=== PATIENT | female | born 1975 | race Caucasian/White ===

== ENCOUNTER → 2020-02-10 14:37 | Outpatient (BNV) | payer OTHER, SELFPAY | PROVIDERS: PCP Internal Medicine; Visit Provider Internal Medicine Medical Oncology | DX: D50.0 Iron deficiency anemia secondary to blood loss (chronic) (principal); N92.0 Excessive and frequent menstruation with regular cycle | CPT/HCPCS: 99212; 99213; 99214 ==

== ENCOUNTER 2020-02-18 15:03 | Outpatient (REF) | payer OTHER, SELFPAY ==
--- NOTE | 2020-02-18 15:06 | MM_ITS ---
EXAMINATION: MM SCREENING DIGITAL BREAST TOMOSYNTHESIS, BILATERAL CLINICAL INFORMATION: Screening. Asymptomatic. The lifetime risk of breast cancer based on the Tyrer-Cuzick Model is 8.6%. COMPARISON: Mammography: None TECHNIQUE: Digital breast tomosynthesis is performed in both the craniocaudal and mediolateral oblique views along with computer-aided detection (CAD). Synthesized 2D images are generated from the tomosynthesis. FINDINGS: The breasts are heterogeneously dense, which may obscure small masses (ACR BI-RADS breast composition Category c). No abnormal mass or suspicious grouping of microcalcifications seen within the left breast. Within the right breast On mediolateral oblique projection there is a question of a spiculated density superiorly approximately 11 cm from the nipple without definite craniocaudal correlate. On craniocaudal view there is a density with some irregular margins which may represent superimposition of fibroglandular tissue approximately 6 cm from nipple. Spot compression views of both of these areas is recommended. MM/MM tomosynthesis screening BI IMPRESSION: Question right breast lesions as described for which further evaluation with spot compression views is recommended. ASSESSMENT: BI-RADS 0: Incomplete - Need Additional Imaging Evaluation RECOMMENDATION: 1. Additional views of the right breast. 2. Targeted ultrasound if warranted after review of the additional views. 3. Radiology department staff will contact the patient for additional imaging. This patient's information was entered into a reminder system with a target due date for their next mammogram.
== END 2020-02-18 15:04 | disposition home or self-care (01) ==
LOC: HO.MAMMO 15:03
PROVIDERS: PCP Internal Medicine; Visit Provider Internal Medicine
DX: Z12.31 Encounter for screening mammogram for malignant neoplasm of breast (principal)
CPT/HCPCS: 77063; 77067

== ENCOUNTER 2020-02-29 12:47 | Outpatient (REF) | payer OTHER, SELFPAY ==
--- NOTE | 2020-02-29 | US_ITS ---
EXAMINATION: US DIAGNOSTIC ULTRASOUND BREAST, RIGHT CLINICAL INFORMATION: Right breast asymmetries seen on the recent screening mammography. COMPARISON: Mammograms of 02/29/2020 and 02/18/2020. TECHNIQUE: Ultrasound of the breast is performed with real-time enamorado scale imaging and color Doppler. FINDINGS: Real-time scanning of the right retroareolar region and right superior breast from 10-2 o'clock was performed. There is no focal suspicious finding. There is no solid mass, architectural abnormality, duct ectasia, or edema in the soft tissue planes. Results are discussed with the patient at time of visit. US/US breast RT limited IMPRESSION: No sonographic abnormality is noted in the areas of interest. No sonographic evidence of malignancy. ASSESSMENT: BI-RADS 1: Negative RECOMMENDATION: Routine annual mammography screening.
--- NOTE | 2020-02-29 12:51 | MM_ITS ---
EXAMINATION: MM DIAGNOSTIC DIGITAL MAMMOGRAPHY, RIGHT CLINICAL INFORMATION: For further evaluation of asymmetries noted on the recent baseline screening mammography. COMPARISON: Mammography: 02/18/2020. Targeted right breast ultrasound of 02/29/2020 TECHNIQUE: Digital mammography is performed in the following views: Spot compression craniocaudal and spot compression mediolateral oblique views utilizing tomosynthesis technique. FINDINGS: There are scattered areas of fibroglandular density (ACR BI-RADS breast composition Category b). An asymmetry noted on the retroareolar plane anterior to middle third on the craniocaudal view and an asymmetry noted on the mediolateral oblique view in the posterior superior breast on the mammograms of 02/18/2020 demonstrates effacement on spot compression images without evidence of suspicious findings in the areas of concern. Ultrasound scanning was performed in the retroareolar region and the superior breast. No abnormal sonographic findings were noted. Results are provided to the patient at time of visit by the technologist. MM/MM added views RT IMPRESSION: Right breast asymmetry is noted on the mammograms of 02/18/2020 demonstrates effacement on spot compression images suggesting them to represent summation of glandular tissue on previous screening mammography. ASSESSMENT: BI-RADS 1: Negative RECOMMENDATION: Routine annual mammography screening. The patient was informed of results by the technologist at the time of the visit.
== END 2020-02-29 12:48 | disposition home or self-care (01) ==
LOC: HO.MAMMO 12:47
PROVIDERS: Visit Provider Internal Medicine
DX: R92.2 Inconclusive mammogram (principal); R82.2 Biliuria
CPT/HCPCS: 76642; 77065

== ENCOUNTER 2020-03-07 07:20 | Emergency (ER) | payer OTHER, SELFPAY ==
[2020-03-07 07:26] VITALS: BP 132/47; PULSE 108; RESP 18; TEMP 37.5; O2SAT 98; BMI 35.3
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
[2020-03-07 08:01] LABS: Basophils Percent Auto 0.6 % (0-2); Eosinophils Absolute Auto 0.1 X10*3/uL (0.0-0.4); Eosinophils Percent Auto 1.3 % (0-4); Hematocrit 38.5 % (37-47); Hemoglobin 12.3 g/dl (12.0-16.0); Imm Gran Abs Auto 0.03 X10*3/uL (0.00-0.03); Imm Gran Pct Auto 0.5 % (0.0-0.4); Lymphocytes Percent Auto 16.1 % (20-40); Mean Corpuscular HGB Conc 31.9 g/dl (31.0-35.0); Mean Corpuscular Hemoglobin 29.6 pg (27.0-33.0); Mean Corpuscular Volume 92.5 fL (80-98); Mean Platelet Volume 9.7 fL (9.4-12.3); Monocytes Absolute Auto 0.4 X10*3/uL (0.1-1.2); Monocytes Percent Auto 6.4 % (2-11); Neutrophils Absolute Auto 4.7 X10*3/uL (2.0-8.3); Neutrophils Percent Auto 75.1 % (45-73); Platelet Count 275 X10*3/uL (160-400); Red Blood Count 4.16 X10*6/uL (4.20-5.50); Red Cell Distribution Width 12.7 % (11.0-16.0); White Blood Count 6.3 X10*3/uL (4.8-10.8)
[2020-03-07 08:02] LABS: MANUAL DIFF FLAG NO
[2020-03-07] MEDS: 0.9 % Sodium Chloride 1,000 ML 999 ML IVCONT (08:03)
[2020-03-07] MEDS: Pantoprazole Sodium 40 MG/10 ML VIAL IVPUSH ×2 (08:03)
[2020-03-07] MEDS: ondansetron HCL 4 MG/2 ML VIAL IVPUSH (08:03)
[2020-03-07] MEDS: LORazepam 2 MG/ML VIAL 1 MG IVPUSH (08:03)
[2020-03-07 08:27] LABS: Alanine Aminotransferase 10 U/L (0-31); Albumin Level 3.8 g/dL (3.5-5.0); Alkaline Phosphatase 54 U/L (39-117); Anion Gap 10 (12-20); Aspartate Amino Transferase 12 U/L (5-31); Bilirubin Direct 0.2 mg/dL (0.0-0.5); Bilirubin Total 0.5 mg/dL (0.0-1.0); Blood Urea Nitrogen 5 mg/dL (9-16); Calcium 8.5 mg/dL (8.4-10.2); Carbon Dioxide 26 mmol/L (22-29); Chloride 107 mmol/L (96-108); Estimated Glomerular Filt Rate > 60; Glucose Random 110 mg/dL (60-115); Potassium 3.8 mmol/l (3.3-5.1); Sodium 139 mmol/L (135-145); Total Protein 6.5 g/dL (6.5-8.0)
== END 2020-03-07 09:32 | disposition home or self-care (01) ==
PROVIDERS: Emergency Provider Emergency Medicine; PCP Internal Medicine
DX: K52.9 Noninfective gastroenteritis and colitis, unspecified (principal); R10.9 Unspecified abdominal pain; F17.210 Nicotine dependence, cigarettes, uncomplicated; Z71.6 Tobacco abuse counseling; Z79.899 Other long term (current) drug therapy
CPT/HCPCS: 36415; 80048; 80076; 85025; 96361; 96374; 96375; 99284; J2060; J2405

== ENCOUNTER 2020-03-21 08:49 | Day surgery (SDC) | payer OTHER, SELFPAY ==
[2020-03-14 13:24] VITALS: BMI 34.7
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
[2020-03-21 09:10] VITALS: BP 113/62; PULSE 62; RESP 16; TEMP 36.3; O2SAT 99
[2020-03-21] MEDS: Lactated Ringers 1,000 ML 100 ML IVCONT (09:18)
--- NOTE | 2020-03-21 09:32 | MHC.SHP ---
Pre-Procedural Eval Section B Chief Complaint: ABDOMINAL PAIN Details of Present Illness: Iron deficiency anemia, followed by Hematology Relevant Family History (Specify if Yes): No Relevant Social History: Other (specify) (1/2-1ppd;;uses CBD oil) Present Medications: see Short Stay Collaborative assessment Medical History: Significant History (Migraine headaches, Rash in summer treated with steroids.) History of Previous Operations: Relevant previous surgery/procedure and date(s) (Cholecystectomy-1996; Csect x2) Allergies: Allergies Allergy/AdvReac Type Severity Reaction Status Date / Time lactose [LACTOSE] Allergy Severe Anaphylaxis Verified 03/15/20 16:13 Penicillins [PENICILLINS] Allergy Severe ANAPHYLAXIS Verified 03/15/20 16:13 amitriptyline [AMITRIPTYLINE] Allergy Intermediate HIVES Verified 03/15/20 16:13 kiwi [KIWI] Allergy Intermediate HIVES Verified 03/15/20 16:13 MEAT Allergy Severe HIVES,ANAPH Uncoded 03/14/20 13:17 YLAXIS dairy Allergy pt states Uncoded 03/14/20 13:23 allery to all Dairy Products Plan Diagnosis/Plan: Change (Colonoscopy added to eval further for iron deficiency anemia and pains.) Patient has been examined and remains a candidate for the planned procedure-yes.
--- NOTE | 2020-03-21 09:49 | MHC.SHP ---
Pre-Procedural Eval Section B Chief Complaint: ABDOMINAL PAIN Details of Present Illness: iron deficiency anemia, abdominal pains with no clear focus, loose stools. Patient went to ER in last 2 weeks. Relevant Family History (Specify if Yes): No Relevant Social History: Other (specify) (1/2-1ppd; CBD oil) Present Medications: see Short Stay Collaborative assessment Medical History: Significant History (obesity, cigarette smoker, anemia, rashes ? come and go) History of Previous Operations: Relevant previous surgery/procedure and date(s) (cholecystectomy 1996, Csectionx 2) Allergies: Allergies Allergy/AdvReac Type Severity Reaction Status Date / Time lactose [LACTOSE] Allergy Severe Anaphylaxis Verified 03/15/20 16:13 Penicillins [PENICILLINS] Allergy Severe ANAPHYLAXIS Verified 03/15/20 16:13 amitriptyline [AMITRIPTYLINE] Allergy Intermediate HIVES Verified 03/15/20 16:13 kiwi [KIWI] Allergy Intermediate HIVES Verified 03/15/20 16:13 MEAT Allergy Severe HIVES,ANAPH Uncoded 03/14/20 13:17 YLAXIS dairy Allergy pt states Uncoded 03/14/20 13:23 allery to all Dairy Products Review of Systems Sugical H&P ROS: Negative: Cardiovascular and Yes, Specify: Constitution (increasing abdominal pains), Respiratory (cigarettes smoker), Hem-Onc (finished iron infusions.), Gastrointestinal (loose stools, pains generalized) and Integumentary (intermittent rashes.) Exam Surgical H&P Exam: Normal: HEENT, Normal: Heart, Normal: Lungs, Normal: Abdomen and Normal: Skin Plan Diagnosis/Plan: Change (colon added at request of Heme due to level of the pains, and anemia) Patient has been examined and remains a candidate for the planned procedure-yes egd and colo
[2020-03-21 09:56] LABS: UPreg QC Valid YES; Urine Pregnancy NEGATIVE (NEGATIVE)
--- NOTE | 2020-03-21 10:52 | P.PCN_ITS ---
Brief Operative Note Date of procedure: 03/21/20 Pre-op diagnosis: Iron deficiency ANEMIA; abdominal pains Post-op diagnosis: other (Hiatal hernia, superficial gastritis, neg colo, ??anxiety disorder with hyperesthesia) Procedure: EGD with bx; [place] with bx Anesthesia: DELIA (Jazmin) Surgeon: Jolene Gonzalez Estimated blood loss (mL): 5 Pathology: other (Duodenal, gastric; Right colon, left colon, rectosigmoid) Condition: stable Disposition: PACU
[2020-03-21 10:54] VITALS: BP 100/54; PULSE 60; RESP 18; TEMP 36.4; O2SAT 96
[2020-03-21 11:10] VITALS: BP 117/60; PULSE 79; RESP 18; O2SAT 98
[2020-03-21 11:23] VITALS: BP 112/69; PULSE 60; RESP 18; TEMP 36.9; O2SAT 100
--- NOTE | 2020-03-21 11:43 | HO.POSTANES ---
Post Anesthesia Evaluation Post Anesthesia Evaluation Vital Signs: Vital Signs Temp Pulse Resp BP Pulse Ox 03/21/20 11:23 98.4 F 60 18 112/69 100 03/21/20 11:10 79 18 117/60 98 03/21/20 10:54 97.6 F 60 18 100/54 L 96 03/21/20 09:10 97.4 F 62 16 113/62 99 Anesthesia: Monitored Mental Status: Awake Pain Control: Satisfactory Nausea/Vomiting: None Hydration: Adequate Anesthesia-Related Issues: No Anes. Related Issues
--- NOTE | 2020-03-24 11:24 | OP_ITS ---
SURGEON: Jolene Gonzalez MD PREOPERATIVE DIAGNOSIS: Anemia; persistent abdominal pain. POSTOPERATIVE DIAGNOSIS: EGD, hiatal hernia, small superficial gastritis, normal colonoscopy. ESTIMATED BLOOD LOSS: Minimal COMPLICATIONS: No complications. ANESTHESIA: Monitored. ANESTHESIOLOGIST: Juan A Wu MD. ASSISTANTS: No lpn or medical assistant. HADOOP ADMIN: Jolene Gonzalez MD PROCEDURES PERFORMED: EGD with biopsy, colonoscopy with multiple biopsies. CONDITION: Postop stable. SPECIMENS REMOVED: Duodenal gastric (EGD), colon. COLONOSCOPY SPECIMENS: Right colon, left colon, rectosigmoid biopsies. BLOOD LOSS: Minimal. FINDINGS: EGD, video endoscope was introduced without difficulty. It was navigated into the esophagus. There was slight distal esophageal mucosal erythema. No erosive lesions seen. Distal to this was a small hiatal hernia. On entering the stomach, mucosa appeared normal. There was mild antral erythema. Duodenal bulb and duodenum appeared endoscopically normal. Duodenal biopsies were obtained. Random gastric biopsies were obtained. Findings of colonoscopy: Digital rectal exam revealed adequate sphincter tone. Video colonoscope was introduced without difficulty. It was navigated into the rectosigmoid, sigmoid, on up through descending, transverse, ascending colon down into the cecum. Appendiceal orifice was seen. Ileocecal valve was well seen. No mucosal abnormalities were appreciated. Prep was generally good. There were areas that were fair, more so on the right side, closer to the cecum. We noticed retained sticky fluid that was flushed and suctioned. An attempt to get into the ileum was unsuccessful due to positioning of the ileocecal valve opening itself. The scope was slowly withdrawn. Random biopsies were obtained in 3 areas of the colon (assessment for microscopic colitis). Anorectal verge was clear. PLAN: Current recommendations, patient will follow up in our office for review of histological findings. Loose bowel movements may truly be related more to underlying irritable bowel like condition, which will be discussed at that time. At her age, repeat colonoscopy for colon cancer screening will be recommended at age 49. GRAFT OR IMPLANTS: No grafts or implants. Jolene Gonzalez MD MEN/MODL / [id number] MTD
== END 2020-03-21 11:56 | disposition home or self-care (01) ==
PROVIDERS: Nurse Practitioner; PCP Internal Medicine; Visit Provider Internal Medicine Gastroenterology
PROC: (CPT 43239; principal; 2020-03-21 10:00)
DX: K29.30 Chronic superficial gastritis without bleeding (principal); K44.9 Diaphragmatic hernia without obstruction or gangrene; D50.0 Iron deficiency anemia secondary to blood loss (chronic); F17.210 Nicotine dependence, cigarettes, uncomplicated; Z90.49 Acquired absence of other specified parts of digestive tract; Z88.0 Allergy status to penicillin; Z91.011 Allergy to milk products; Z91.018 Allergy to other foods
CPT/HCPCS: 43239; 45380; 81025; 88305; 88342

== ENCOUNTER → 2020-04-10 11:06 | Outpatient (BNVA) | payer OTHER, SELFPAY | PROVIDERS: PCP Internal Medicine; Referring Provider Internal Medicine; Visit Provider Internal Medicine Gastroenterology | DX: Z76.89 Persons encountering health services in other specified circumstances (principal) ==

== ENCOUNTER 2020-04-11 14:33 | Emergency (ER) | payer OTHER, SELFPAY ==
--- NOTE | 2020-04-11 | ECG_ITS ---
Test Reason : CHEST PAIN Blood Pressure : / mmHG Vent. Rate : 095 BPM Atrial Rate : 095 BPM P-R Int : 138 ms QRS Dur : 078 ms QT Int : 366 ms P-R-T Axes : 044 014 020 degrees QTc Int : 459 ms Normal sinus rhythm Normal ECG No previous ECGs available Referred By: Generic ED Physician Electronically Signed By:Arnulfo Messer
[2020-04-11 14:35] VITALS: BP 113/77; PULSE 102; RESP 20; TEMP 36.8; O2SAT 100; BMI 35.6
--- NOTE | 2020-04-11 15:32 | XR_ITS ---
EXAMINATION: XR CHEST CLINICAL INFORMATION: Chest pain. COMPARISON: None TECHNIQUE: Frontal view of the chest was obtained. FINDINGS: No significant abnormality is noted involving the heart, lungs, mediastinum, bony thorax or soft tissues. XR/XR chest 1V IMPRESSION: Unremarkable chest examination.
[2020-04-11 16:16] LABS: MANUAL DIFF FLAG NO
[2020-04-11 16:18] LABS: Basophils Percent Auto 0.5 % (0-2); Eosinophils Percent Auto 0.4 % (0-4); Hematocrit 35.2 % (37-47); Hemoglobin 11.3 g/dl (12.0-16.0); Imm Gran Abs Auto 0.02 X10*3/uL (0.00-0.03); Imm Gran Pct Auto 0.3 % (0.0-0.4); Lymphocytes Absolute Auto 1.3 X10*3/uL (1.2-4.9); Lymphocytes Percent Auto 17.4 % (20-40); Mean Corpuscular HGB Conc 32.1 g/dl (31.0-35.0); Mean Corpuscular Hemoglobin 29.1 pg (27.0-33.0); Mean Corpuscular Volume 90.7 fL (80-98); Mean Platelet Volume 9.9 fL (9.4-12.3); Monocytes Absolute Auto 0.4 X10*3/uL (0.1-1.2); Monocytes Percent Auto 4.8 % (2-11); Neutrophils Absolute Auto 5.8 X10*3/uL (2.0-8.3); Neutrophils Percent Auto 76.6 % (45-73); Platelet Count 311 X10*3/uL (160-400); Red Blood Count 3.88 X10*6/uL (4.20-5.50); Red Cell Distribution Width 12.8 % (11.0-16.0); White Blood Count 7.5 X10*3/uL (4.8-10.8)
[2020-04-11 16:45] LABS: Anion Gap 11 (12-20); Blood Urea Nitrogen 5 mg/dL (9-16); Calcium 8.4 mg/dL (8.4-10.2); Carbon Dioxide 27 mmol/L (22-29); Chloride 106 mmol/L (96-108); Estimated Glomerular Filt Rate > 60; Glucose Random 110 mg/dL (60-115); Potassium 3.8 mmol/l (3.3-5.1); Sodium 140 mmol/L (135-145)
[2020-04-11 16:50] LABS: Troponin-I High Sensitivity < 3.5 ng/L (<3.5-17.0)
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
[2020-04-11 17:41] VITALS: BP 120/78; PULSE 75; RESP 18; TEMP 37.1; O2SAT 99
[2020-04-11] MEDS: Magnesium Hydrox/Alum Hydrox 30 ML ORAL.SUSP PO (17:43)
[2020-04-11] MEDS: Azithromycin 500 MG TABLET PO (17:43)
--- NOTE | 2020-04-11 17:54 | PC.NURSE ---
pt in treatment area at approx 1710 pt was noted to be speaking in full clear sentences with wpd skin and in no distress. tonsils were note d to be swolloen but no purulent drainage was noted. protocol orders were completed and resulted. awaiting md evaluation.
== END 2020-04-11 17:56 | disposition home or self-care (01) ==
LOC: HO.ED 17:33
PROVIDERS: Emergency Provider Internal Medicine
DX: R07.0 Pain in throat (principal); F41.9 Anxiety disorder, unspecified; Z79.899 Other long term (current) drug therapy; F17.210 Nicotine dependence, cigarettes, uncomplicated; Z71.6 Tobacco abuse counseling
CPT/HCPCS: 36415; 71045; 80048; 84484; 85025; 93005; 99283

== ENCOUNTER 2020-04-12 15:10 | Outpatient (REF) | payer OTHER, SELFPAY ==
[2020-04-12 16:26] LABS: Vitamin D 25-OH Total 15.6 ng/mL (>30)
[2020-04-12 16:27] LABS: TSH reflex Free T4 0.77 mIU/mL (0.32-4.0)
[2020-04-16 12:36] LABS: Vitamin B1 <6 nmol/L (8-30)
== END 2020-04-12 15:11 | disposition home or self-care (01) ==
LOC: HO.LAB 15:10
PROVIDERS: Absent Provider Nurse Practitioner Family; PCP Internal Medicine; Visit Provider Internal Medicine Gastroenterology
DX: D50.0 Iron deficiency anemia secondary to blood loss (chronic) (principal); K29.80 Duodenitis without bleeding; R10.84 Generalized abdominal pain; Z83.49 Family history of other endocrine, nutritional and metabolic diseases
CPT/HCPCS: 81382; 82306; 84425; 84443

== ENCOUNTER → 2020-05-01 14:46 | Outpatient (BNVA) | payer OTHER, SELFPAY | PROVIDERS: PCP Nurse Practitioner Family; Visit Provider Internal Medicine Gastroenterology | DX: Z76.89 Persons encountering health services in other specified circumstances (principal) ==

== ENCOUNTER 2020-05-18 14:27 | Outpatient (REF) | payer OTHER, SELFPAY | END 2020-05-18 14:28 | disposition home or self-care (01) | LOC: HO.MDS 14:27 | PROVIDERS: PCP Internal Medicine; Visit Provider Internal Medicine Medical Oncology | DX: D50.9 Iron deficiency anemia, unspecified (principal) | CPT/HCPCS: 96365; J2916 ==

== ENCOUNTER 2020-05-26 13:27 | Outpatient (REF) | payer OTHER, SELFPAY | END 2020-05-26 13:28 | disposition home or self-care (01) | LOC: HO.MDS 13:27 | PROVIDERS: PCP Internal Medicine; Visit Provider Internal Medicine Medical Oncology | DX: D50.9 Iron deficiency anemia, unspecified (principal) | CPT/HCPCS: 96365; J2916 ==

== ENCOUNTER 2020-06-01 13:29 | Outpatient (REF) | payer OTHER, SELFPAY | END 2020-06-01 13:30 | disposition home or self-care (01) | LOC: HO.MDS 13:29 | PROVIDERS: PCP Internal Medicine; Visit Provider Internal Medicine Medical Oncology | DX: D50.9 Iron deficiency anemia, unspecified (principal) | CPT/HCPCS: 96365; J2916 ==

== ENCOUNTER 2020-06-08 13:26 | Outpatient (REF) | payer OTHER, SELFPAY ==
[2020-06-08 14:19] LABS: MANUAL DIFF FLAG NO
[2020-06-08 14:21] LABS: Basophils Percent Auto 0.5 % (0-2); Eosinophils Absolute Auto 0.1 X10*3/uL (0.0-0.4); Eosinophils Percent Auto 1.8 % (0-4); Hematocrit 33.4 % (37-47); Hemoglobin 10.3 g/dl (12.0-16.0); Imm Gran Abs Auto 0.02 X10*3/uL (0.00-0.03); Imm Gran Pct Auto 0.4 % (0.0-0.4); Lymphocytes Absolute Auto 1.4 X10*3/uL (1.2-4.9); Lymphocytes Percent Auto 24.5 % (20-40); Mean Corpuscular HGB Conc 30.8 g/dl (31.0-35.0); Mean Corpuscular Hemoglobin 26.9 pg (27.0-33.0); Mean Corpuscular Volume 87.2 fL (80-98); Mean Platelet Volume 9.9 fL (9.4-12.3); Monocytes Absolute Auto 0.4 X10*3/uL (0.1-1.2); Monocytes Percent Auto 7.1 % (2-11); Neutrophils Absolute Auto 3.6 X10*3/uL (2.0-8.3); Neutrophils Percent Auto 65.7 % (45-73); Platelet Count 329 X10*3/uL (160-400); Red Blood Count 3.83 X10*6/uL (4.20-5.50); Red Cell Distribution Width 15.1 % (11.0-16.0); White Blood Count 5.5 X10*3/uL (4.8-10.8)
== END 2020-06-08 13:27 | disposition home or self-care (01) ==
LOC: HO.MDS 13:26
PROVIDERS: PCP Internal Medicine; Visit Provider Internal Medicine Medical Oncology
DX: D50.9 Iron deficiency anemia, unspecified (principal)
CPT/HCPCS: 36415; 85025; 96365; J2916

== ENCOUNTER 2020-06-16 13:27 | Outpatient (REF) | payer OTHER, SELFPAY | END 2020-06-16 13:28 | disposition home or self-care (01) | LOC: HO.MDS 13:27 | PROVIDERS: PCP Internal Medicine; Visit Provider Internal Medicine Medical Oncology | DX: D50.9 Iron deficiency anemia, unspecified (principal) | CPT/HCPCS: 96365; J2916 ==

== ENCOUNTER 2020-06-23 14:35 | Outpatient (REF) | payer OTHER, SELFPAY | END 2020-06-23 14:36 | disposition home or self-care (01) | LOC: HO.MDS 14:35 | PROVIDERS: PCP Internal Medicine; Visit Provider Internal Medicine Medical Oncology | DX: D50.9 Iron deficiency anemia, unspecified (principal) | CPT/HCPCS: 96365; J2916 ==

== ENCOUNTER 2020-06-30 13:20 | Outpatient (REF) | payer OTHER, SELFPAY | END 2020-06-30 13:21 | disposition home or self-care (01) | LOC: HO.MDS 13:20 | PROVIDERS: PCP Internal Medicine; Visit Provider Internal Medicine Medical Oncology | DX: D50.9 Iron deficiency anemia, unspecified (principal) | CPT/HCPCS: 96365; J2916 ==

== ENCOUNTER 2020-06-30 20:22 | Emergency (ER) | payer OTHER, SELFPAY ==
--- NOTE | ~2020-06-30 | XR_ITS ---
EXAMINATION: XR CHEST CLINICAL INFORMATION: Left-sided chest pain. COMPARISON: Chest radiograph done on 04/11/2020. TECHNIQUE: 2 views of the chest were obtained. FINDINGS: No significant abnormality is noted involving the heart, lungs, mediastinum, bony thorax or soft tissues. XR/XR chest 2V IMPRESSION: Unremarkable examination.
--- NOTE | ~2020-06-30 | CT_ITS ---
EXAMINATION: CT HEAD WITHOUT CONTRAST CLINICAL INFORMATION: Left-sided headache. Dizziness. COMPARISON: None TECHNIQUE: Contiguous axial imaging was performed from the skull base to vertex without intravenous administration of contrast. Coronal and sagittal reformatted images are performed at the CT scanner This CT examination was performed using dose optimization techniques as appropriate, variously including the following: *Automated exposure control *Adjustment of mA and/or kV according to patient size (this includes techniques or standardized protocols for targeted exams where dose is matched to indication/reason for exam; i.e. extremities or head) *Use of iterative reconstruction technique DLP: 626 mGy-cm FINDINGS: There is no evidence of acute intracranial hemorrhage or territorial infarction. No abnormal mass effect or midline shift is seen. Baez to white matter differentiation is well preserved. No extra-axial fluid collections are identified. The ventricles are normal in size. There is no abnormal attenuation within the brain parenchyma. The osseous structures and soft tissues are normal. The mastoid air cells and visualized portions of the paranasal sinuses are well aerated. CT/CT head/brain wo con IMPRESSION: No acute intracranial pathology.
[2020-06-30 21:27] VITALS: BP 133/72; PULSE 75; RESP 16; TEMP 36.9; O2SAT 96; BMI 35.8
--- NOTE | 2020-06-30 21:44 | ECG_ITS ---
Test Reason : ABDOMINAL PAIN Blood Pressure : / mmHG Vent. Rate : 068 BPM Atrial Rate : 068 BPM P-R Int : 152 ms QRS Dur : 080 ms QT Int : 424 ms P-R-T Axes : 037 007 021 degrees QTc Int : 450 ms Normal sinus rhythm Nonspecific ST and T wave abnormality Borderline ECG When compared with ECG of 11-APR-2020 14:49, No significant change was found Referred By: Sal Eugene Electronically Signed By:ION MILLS
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
[2020-06-30 22:00] VITALS: BP 135/69; PULSE 68; RESP 15; TEMP 36.9; O2SAT 98
[2020-06-30 22:17] LABS: MANUAL DIFF FLAG NO
[2020-06-30 22:18] LABS: Basophils Absolute Auto 0.1 X10*3/uL (0.0-0.2); Eosinophils Absolute Auto 0.1 X10*3/uL (0.0-0.4); Hematocrit 36.9 % (37-47); Hemoglobin 11.6 g/dl (12.0-16.0); Imm Gran Abs Auto 0.02 X10*3/uL (0.00-0.03); Imm Gran Pct Auto 0.3 % (0.0-0.4); Lymphocytes Absolute Auto 1.7 X10*3/uL (1.2-4.9); Mean Corpuscular HGB Conc 31.4 g/dl (31.0-35.0); Mean Corpuscular Hemoglobin 27.3 pg (27.0-33.0); Mean Corpuscular Volume 86.8 fL (80-98); Mean Platelet Volume 10.3 fL (9.4-12.3); Monocytes Absolute Auto 0.5 X10*3/uL (0.1-1.2); Monocytes Percent Auto 7.8 % (2-11); Neutrophils Percent Auto 62.9 % (45-73); Platelet Count 313 X10*3/uL (160-400); Red Blood Count 4.25 X10*6/uL (4.20-5.50); Red Cell Distribution Width 15.9 % (11.0-16.0); White Blood Count 6.3 X10*3/uL (4.8-10.8)
[2020-06-30] MEDS: Ketorolac Tromethamine 30 MG/ML VIAL IVPUSH (22:28)
[2020-06-30] MEDS: Metoclopramide HCl 10 MG/2 ML VIAL IVPUSH (22:28)
[2020-06-30] MEDS: diphenhydrAMINE HCL 50 MG/ML VIAL IVPUSH (22:29)
[2020-06-30] MEDS: 0.9 % Sodium Chloride 1,000 ML 999 ML IV (22:29)
[2020-06-30 22:37] LABS: Alanine Aminotransferase 8 U/L (0-31); Alkaline Phosphatase 58 U/L (39-117); Anion Gap 12 (12-20); Aspartate Amino Transferase 13 U/L (5-31); Bilirubin Total 0.5 mg/dL (0.0-1.0); Blood Urea Nitrogen 5 mg/dL (9-16); Calcium 9.1 mg/dL (8.4-10.2); Carbon Dioxide 26 mmol/L (22-29); Chloride 105 mmol/L (96-108); Creatinine Clr Calc Pharmacy 110.5; Estimated Glomerular Filt Rate > 60; Glucose Random 78 mg/dL (60-115); Potassium 3.7 mmol/L (3.3-5.1); Sodium 139 mmol/L (135-145); Total Protein 6.8 g/dL (6.5-8.0)
[2020-06-30 22:43] LABS: Troponin-I High Sensitivity < 3.5 ng/L (<3.5-17.0)
[2020-06-30 22:51] LABS: Erythrocyte Sedimentation Rate 8 MM/HR (0-20)
--- NOTE | 2020-06-30 23:22 | PC.NURSE ---
Pt A&O, NO SOB OR CHEST PAIN. PROVIDER IN TO ASSESS PT. PT DENIES ANY N/V . PLAN FOR PT TO BE DISCHARGE HOME.
== END 2020-06-30 23:44 | disposition home or self-care (01) ==
PROVIDERS: Emergency Provider Emergency Medicine Emergency Medical Services; PCP Internal Medicine
DX: G43.909 Migraine, unspecified, not intractable, without status migrainosus (principal); R07.89 Other chest pain; H81.10 Benign paroxysmal vertigo, unspecified ear; R20.2 Paresthesia of skin; F17.210 Nicotine dependence, cigarettes, uncomplicated; K90.0 Celiac disease
CPT/HCPCS: 36415; 70450; 71046; 80053; 84484; 85025; 85652; 93005; 96361; 96374; 96375; 99284; J1200; J1885; J2765

== ENCOUNTER 2020-07-07 13:42 | Outpatient (REF) | payer OTHER, SELFPAY ==
[2020-07-07 14:04] LABS: MANUAL DIFF FLAG NO
[2020-07-07 14:06] LABS: Basophils Absolute Auto 0.1 X10*3/uL (0.0-0.2); Basophils Percent Auto 1.3 % (0-2); Eosinophils Absolute Auto 0.1 X10*3/uL (0.0-0.4); Eosinophils Percent Auto 2.5 % (0-4); Hematocrit 37.9 % (37-47); Hemoglobin 11.8 g/dl (12.0-16.0); Imm Gran Abs Auto 0.02 X10*3/uL (0.00-0.03); Imm Gran Pct Auto 0.4 % (0.0-0.4); Lymphocytes Absolute Auto 1.3 X10*3/uL (1.2-4.9); Lymphocytes Percent Auto 23.3 % (20-40); Mean Corpuscular HGB Conc 31.1 g/dl (31.0-35.0); Mean Corpuscular Hemoglobin 27.8 pg (27.0-33.0); Mean Corpuscular Volume 89.4 fL (80-98); Mean Platelet Volume 10.1 fL (9.4-12.3); Monocytes Absolute Auto 0.3 X10*3/uL (0.1-1.2); Monocytes Percent Auto 5.4 % (2-11); Neutrophils Absolute Auto 3.8 X10*3/uL (2.0-8.3); Neutrophils Percent Auto 67.1 % (45-73); Platelet Count 312 X10*3/uL (160-400); Red Blood Count 4.24 X10*6/uL (4.20-5.50); Red Cell Distribution Width 15.9 % (11.0-16.0); White Blood Count 5.6 X10*3/uL (4.8-10.8)
== END 2020-07-07 13:43 | disposition home or self-care (01) ==
LOC: HO.MDS 13:42
PROVIDERS: PCP Internal Medicine; Visit Provider Internal Medicine Medical Oncology
DX: D50.9 Iron deficiency anemia, unspecified (principal)
CPT/HCPCS: 36415; 85025; 96365; J2916

== ENCOUNTER 2020-09-11 07:55 | Outpatient (REF) | payer OTHER, SELFPAY ==
[2020-09-11 09:47] LABS: Hematocrit 34.6 % (37-47); Hemoglobin 10.6 g/dl (12.0-16.0); Mean Corpuscular HGB Conc 30.6 g/dl (31.0-35.0); Mean Platelet Volume 10.5 fL (9.4-12.3); Platelet Count 352 X10*3/uL (160-400); Red Blood Count 3.93 X10*6/uL (4.20-5.50); Red Cell Distribution Width 13.7 % (11.0-16.0); White Blood Count 5.2 X10*3/uL (4.8-10.8)
[2020-09-11 10:27] LABS: TSH reflex Free T4 1.03 uIU/mL (0.32-4.0)
[2020-09-11 13:20] LABS: CT PCR NOT DETECTED (Not Detect.); NG PCR NOT DETECTED (Not Detect.)
[2020-09-14 10:16] LABS: HPV mRNA E6/E7 rflx Not Detected (Not Detected)
== END 2020-09-11 07:56 | disposition home or self-care (01) ==
LOC: HO.LAB 07:55
PROVIDERS: PCP Internal Medicine; Visit Provider Obstetrics & Gynecology
DX: N92.1 Excessive and frequent menstruation with irregular cycle (principal); Z79.899 Other long term (current) drug therapy; Z87.891 Personal history of nicotine dependence
CPT/HCPCS: 36415; 84443; 85027; 87491; 87591; 87624; 88142; 99202

== ENCOUNTER 2020-09-18 13:52 | Outpatient (REF) | payer OTHER, SELFPAY ==
--- NOTE | ~2020-09-18 | US_ITS ---
EXAMINATION: US PELVIS COMPLETE CLINICAL INFORMATION: Excessive and frequent menstruation with irregularity. COMPARISON: None TECHNIQUE: Transabdominal and transvaginal imaging of pelvis is performed. FINDINGS: The uterus is anteverted measuring 10.5 cm in length, 5.2 cm in AP and 7.3 cm in transverse dimension. Endometrial thickness is 1.8 cm. No focal lesion seen. There are several anechoic cysts in the cervix. The right ovary measures 3.9 x 3.7 x 2.5 cm and volume 18.9 mL. There is an anechoic cyst measuring 3.2 x 1.8 x 2.7 cm. Left ovary measures 3.2 x 2.7 x 2.3 cm and volume 10.4 mL. There is an anechoic cyst measuring 1.7 x 1.7 x 1.6 cm. There is a left paraovarian cyst measuring 1.2 x 0.9 x 1.1 cm. There is no free fluid in cul-de-sac. US/US pelvic and transvaginal IMPRESSION: Bilateral ovarian cysts. In addition, there is a left paraovarian cyst as well. Small nabothian cysts in cervix. The uterus is unremarkable.
== END 2020-09-18 13:53 | disposition home or self-care (01) ==
LOC: HO.US 13:52
PROVIDERS: Visit Provider Obstetrics & Gynecology
DX: N92.1 Excessive and frequent menstruation with irregular cycle (principal)
CPT/HCPCS: 76830; 76856

== ENCOUNTER 2020-09-28 11:31 | Emergency (ER) | payer OTHER, SELFPAY ==
--- NOTE | ~2020-09-28 | US_ITS ---
EXAMINATION: US VENOUS ULTRASOUND WITH DOPPLER LOWER EXTREMITY, LEFT CLINICAL INFORMATION: Left lower extremity edema and pain. Assess for occult DVT. COMPARISON: None TECHNIQUE: Ultrasound of the deep veins is performed from the hip to the calf with compression sonography and color and pulse Doppler assessment. Spectral analysis with color-flow imaging is performed. FINDINGS: There is normal venous compression and respiratory variation and augmented flow. The visualized common femoral vein, superficial femoral vein, profunda femoral vein, popliteal vein, and the trifurcation region shows no evidence of deep venous thrombosis. There is a popliteal fossa cyst with cleft versus incomplete septation lower aspect and overall size 3.8 x 2.8 x 3.5 cm. No fluid tracking in soft tissue planes more distally to suggest rupture. US/US venous duplex LE IMPRESSION: 1. No DVT demonstrated in the left lower extremity. 2. Popliteal fossa cyst 3.8 x 2.8 x 3.5 cm.
--- NOTE | ~2020-09-28 | CT_ITS ---
EXAMINATION: CT ABDOMEN AND PELVIS WITHOUT CONTRAST CLINICAL INFORMATION: Epigastric pain COMPARISON: None TECHNIQUE: Multidetector volumetric imaging was performed from the superior aspect of the liver through the pubic symphysis. Sagittal and coronal reformatted images were obtained on the technologist's workstation. This CT examination was performed using dose optimization techniques as appropriate, variously including the following: *Automated exposure control *Adjustment of mA and/or kV according to patient size (this includes techniques or standardized protocols for targeted exams where dose is matched to indication/reason for exam; i.e. extremities or head) *Use of iterative reconstruction technique DLP: 939 mGy-cm FINDINGS: LUNG BASES: The visualized lung bases are unremarkable. Tiny amount of pericardial fluid is present. LIVER, GALLBLADDER, AND BILIARY TREE: The liver is normal in size, shape, and attenuation. No focal hepatic lesion or biliary ductal dilatation is present. Patient status post cholecystectomy. PANCREAS: Unremarkable. SPLEEN: Spleen measures 12 cm in length. Multiple calcified granulomas are present. ADRENAL GLANDS: There is symmetric thickening of the left adrenal gland which measures fat density, probably secondary to benign adenoma. KIDNEYS AND URETERS: The kidneys are normal in size, shape, and attenuation. No hydronephrosis, hydroureter, or calculi seen. No perinephric stranding. BLADDER: Unremarkable. GASTROINTESTINAL TRACT: The small and large bowel are unremarkable. The appendix is unremarkable. ABDOMINAL WALL: Is a small periumbilical hernia containing only fat. LYMPH NODES: No retroperitoneal lymphadenopathy. VASCULAR: Unremarkable. PELVIC VISCERA: An anteverted uterus is present. An abnormal adnexal mass or free fluid is not seen. OSSEOUS STRUCTURES: Unremarkable. CT/CT abdomen pelvis wo con IMPRESSION: A cause for the patient's epigastric pain has not been found. Incidental findings as described above including tiny amount of pericardial fluid, cholecystectomy, splenic granulomas, left adrenal benign adenoma and tiny periumbilical hernia containing only fat..
[2020-09-28 12:41] VITALS: BP 127/70; PULSE 71; RESP 16; TEMP 35.8; O2SAT 100; BMI 38.2
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
[2020-09-28 14:16] LABS: MANUAL DIFF FLAG NO
[2020-09-28 14:19] LABS: Basophils Absolute Auto 0.1 X10*3/uL (0.0-0.2); Basophils Percent Auto 1.2 % (0-2); Eosinophils Absolute Auto 0.2 X10*3/uL (0.0-0.4); Eosinophils Percent Auto 3.7 % (0-4); Imm Gran Abs Auto 0.01 X10*3/uL (0.00-0.03); Imm Gran Pct Auto 0.2 % (0.0-0.4); Lymphocytes Absolute Auto 1.7 X10*3/uL (1.2-4.9); Lymphocytes Percent Auto 28.9 % (20-40); Mean Corpuscular HGB Conc 31.4 g/dl (31.0-35.0); Mean Corpuscular Hemoglobin 26.8 pg (27.0-33.0); Mean Corpuscular Volume 85.4 fL (80-98); Mean Platelet Volume 9.7 fL (9.4-12.3); Monocytes Absolute Auto 0.5 X10*3/uL (0.1-1.2); Monocytes Percent Auto 8.4 % (2-11); Neutrophils Absolute Auto 3.3 X10*3/uL (2.0-8.3); Neutrophils Percent Auto 57.6 % (45-73); Platelet Count 313 X10*3/uL (160-400); Red Cell Distribution Width 13.3 % (11.0-16.0); White Blood Count 5.7 X10*3/uL (4.8-10.8)
[2020-09-28] MEDS: Lidocaine HCl Viscous 2 % 15 ML SOLUTION MUCOUS MEM (14:27)
[2020-09-28] MEDS: Magnesium Hydrox/Alum Hydrox 30 ML ORAL.SUSP PO (14:27)
[2020-09-28 15:00] LABS: Alanine Aminotransferase 15 U/L (0-31); Albumin Level 3.6 g/dL (3.5-5.0); Alkaline Phosphatase 58 U/L (39-117); Anion Gap 12 (12-20); Aspartate Amino Transferase 16 U/L (5-31); Bilirubin Direct < 0.2 mg/dL (0.0-0.5); Bilirubin Total 0.3 mg/dL (0.0-1.0); Blood Urea Nitrogen 5 mg/dL (9-16); Calcium 8.6 mg/dL (8.4-10.2); Carbon Dioxide 24 mmol/L (22-29); Chloride 108 mmol/L (96-108); Creatinine Clr Calc Pharmacy 111.6; Estimated Glomerular Filt Rate > 60; Glucose Random 85 mg/dL (60-115); Lipase 23 U/L (8-78); Magnesium 2.1 mg/dL (1.6-2.6); Potassium 4.2 mmol/L (3.3-5.1); Sodium 140 mmol/L (135-145); Total Protein 6.4 g/dL (6.5-8.0)
[2020-09-28 16:31] LABS: Glucose Urine UA NEG (NEG); Leukocyte Esterase Urine NEG (NEG); Nitrite Urine NEG (NEG); Urine Blood NEG (NEG); Urine Ketones NEG (NEG); Urine Protein NEG (NEG-TRACE)
[2020-09-28 16:44] LABS: UPreg QC Valid YES; Urine Pregnancy NEGATIVE (NEGATIVE)
[2020-09-28 16:48] LABS: Appearance Urine CLEAR; Color Urine YELLOW
== END 2020-09-28 17:56 | disposition home or self-care (01) ==
PROVIDERS: Emergency Medicine; Emergency Provider Internal Medicine
DX: M71.22 Synovial cyst of popliteal space [Baker], left knee (principal); M79.662 Pain in left lower leg; R22.42 Localized swelling, mass and lump, left lower limb; R10.13 Epigastric pain; K90.0 Celiac disease; F17.210 Nicotine dependence, cigarettes, uncomplicated
CPT/HCPCS: 36415; 74176; 80048; 80076; 81003; 81025; 83690; 83735; 85025; 93971; 99283; 99284

== ENCOUNTER 2020-10-02 08:38 | Outpatient (REF) | payer OTHER, SELFPAY | END 2020-10-02 08:39 | disposition home or self-care (01) | LOC: HO.LAB 08:38 | PROVIDERS: PCP Internal Medicine; Visit Provider Obstetrics & Gynecology | DX: N92.1 Excessive and frequent menstruation with irregular cycle (principal); F17.210 Nicotine dependence, cigarettes, uncomplicated | CPT/HCPCS: 58100; 81025; 88305 ==

== ENCOUNTER → 2020-10-16 15:40 | Outpatient (BNVA) | payer OTHER, SELFPAY | PROVIDERS: PCP Internal Medicine; Visit Provider Obstetrics & Gynecology ==

== ENCOUNTER 2020-10-25 06:27 | Outpatient (REF) | payer OTHER, SELFPAY ==
--- NOTE | ~2020-10-25 | XR_ITS ---
EXAMINATION: KNEE X-RAY CLINICAL INFORMATION: Left knee pain COMPARISON: None TECHNIQUE: Standing AP view of both knees and lateral and sunrise view of the left kidney FINDINGS: Left: Bone alignment is normal. No fracture or dislocation is seen. There are small osteophytes at the lateral femoral tibial and patellofemoral joints. There is no joint effusion. Standing AP view of the right knee demonstrates small osteophytes at the femoral tibial joints. XR/XR knee standing BI IMPRESSION: Left knee: Mild degenerative changes.
--- NOTE | ~2020-10-25 | XR_ITS ---
EXAMINATION: KNEE X-RAY CLINICAL INFORMATION: Left knee pain COMPARISON: None TECHNIQUE: Standing AP view of both knees and lateral and sunrise view of the left kidney FINDINGS: Left: Bone alignment is normal. No fracture or dislocation is seen. There are small osteophytes at the lateral femoral tibial and patellofemoral joints. There is no joint effusion. Standing AP view of the right knee demonstrates small osteophytes at the femoral tibial joints. XR/XR knee LT 2V IMPRESSION: Left knee: Mild degenerative changes.
== END 2020-10-25 06:28 | disposition home or self-care (01) ==
LOC: HO.HOSX 06:27
PROVIDERS: Visit Provider Orthopaedic Surgery
DX: M25.561 Pain in right knee (principal); S89.92XA Unspecified injury of left lower leg, initial encounter; M25.562 Pain in left knee
CPT/HCPCS: 73560; 73565; 99202

== ENCOUNTER 2021-03-09 17:17 | Outpatient (REF) | payer OTHER, SELFPAY ==
[2021-03-09 17:46] LABS: Basophils Absolute Auto 0.1 X10*3/uL (0.0-0.2); Eosinophils Absolute Auto 0.2 X10*3/uL (0.0-0.4); Hematocrit 24.4 % (37.0-47.0); MANUAL DIFF FLAG SCAN; Mean Platelet Volume 9.6 fL (9.4-12.3); Red Cell Distribution Width 17.4 % (11.0-16.0); SCAN SMEAR FLAG 1
[2021-03-09 17:48] LABS: Eosinophils Percent Auto 2.6 % (0-4); Imm Gran Abs Auto 0.03 X10*3/uL (0.00-0.03); Imm Gran Pct Auto 0.5 % (0.0-0.4); Immature Retic Fraction 10.9 % (3.0-15.9); Lymphocytes Absolute Auto 1.7 X10*3/uL (1.2-4.9); Lymphocytes Percent Auto 29.4 % (20-40); Mean Corpuscular HGB Conc 27.5 g/dl (31.0-35.0); Mean Corpuscular Hemoglobin 20.3 pg (27.0-33.0); Mean Corpuscular Volume 73.9 fL (80.0-98.0); Monocytes Absolute Auto 0.5 X10*3/uL (0.1-1.2); Monocytes Percent Auto 8.2 % (2-11); Neutrophils Absolute Auto 3.3 x10*3/uL (2.0-8.3); Neutrophils Percent Auto 58.3 % (45-73); Platelet Count 493 X10*3/uL (160-400); Retic HGB Equivalent 16.2 pg (30.0-35.0); Reticulocytes Absolute 0.098 X10*6/uL (0.026-0.095); White Blood Count 5.7 X10*3/uL (4.8-10.8)
[2021-03-09 18:00] LABS: Hemoglobin 6.7 g/dl (12.0-16.0)
[2021-03-09 18:09] LABS: SLIDE REVIEW VERIFIED
[2021-03-09 18:24] LABS: Alanine Aminotransferase 15 U/L (0-31); Albumin Level 4.1 g/dL (3.5-5.0); Alkaline Phosphatase 61 U/L (39-117); Anion Gap 9 (12-20); Aspartate Amino Transferase 15 U/L (5-31); Bilirubin Total 0.2 mg/dL (0.0-1.0); Blood Urea Nitrogen 6 mg/dL (9-16); Carbon Dioxide 28 mmol/L (22-29); Chloride 104 mmol/L (96-108); Estimated Glomerular Filt Rate > 60; Glucose Random 124 mg/dL (60-115); Iron 11 mcg/dL (30-160); Percent Iron Saturation 2 % (15-50); Potassium 4.3 mmol/L (3.3-5.1); Sodium 137 mmol/L (135-145); Total Iron Binding Capacity 476 mcg/dL (228-428); Total Protein 7.1 g/dL (6.5-8.0); Unsaturated Iron Binding 465 ug/dL
[2021-03-09 18:32] LABS: Thyroid Stimulating Hormone 2.12 uIU/mL (0.32-4.0)
== END 2021-03-09 17:18 | disposition home or self-care (01) ==
LOC: HO.LAB 17:17
PROVIDERS: Visit Provider Nurse Practitioner Family
DX: R53.83 Other fatigue (principal)
CPT/HCPCS: 36415; 80053; 83540; 84443; 85025; 85045

== ENCOUNTER 2021-03-09 22:10 | Emergency (ER) | payer OTHER, SELFPAY ==
[2021-03-09 22:14] VITALS: BP 105/38; PULSE 77; RESP 18; TEMP 36.9; O2SAT 100; BMI 37.3
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
[2021-03-09 23:06] VITALS: BP 121/47; PULSE 72; RESP 18; O2SAT 99
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
[2021-03-09 23:24] VITALS: BP 126/50; PULSE 69; RESP 13; O2SAT 99
[2021-03-09] MEDS: medroxyPROGESTERone Acetate 5 MG TABLET 10 MG PO (23:49)
[2021-03-10 00:57] VITALS: BP 131/51; PULSE 77
[2021-03-10 01:00] VITALS: BP 131/51; PULSE 68; RESP 19; TEMP 36.6
[2021-03-10 01:12] VITALS: BP 112/53; BP 130/76; PULSE 72; PULSE 78
[2021-03-10 01:15] VITALS: BP 130/76; PULSE 74; RESP 17; TEMP 36.6
[2021-03-10 01:27] LABS: UPreg QC Valid YES; Urine Pregnancy NEGATIVE (NEGATIVE)
--- NOTE | 2021-03-10 02:24 | PC.NURSE ---
paged for order for pain medication, offered pt prn tylenol but refused stating that it does not work
[2021-03-10 03:14] VITALS: BP 121/70; PULSE 68; RESP 16; TEMP 36.8
--- NOTE | 2021-03-10 03:25 | PC.NURSE ---
unabke to edit TAR, transfusion ended and pt recieved 350 ml of RBC
[2021-03-10 03:32] VITALS: BP 121/72; PULSE 73; RESP 20; TEMP 36.5
== END 2021-03-10 04:23 | disposition home or self-care (01) ==
PROVIDERS: Emergency Provider Internal Medicine
DX: D50.0 Iron deficiency anemia secondary to blood loss (chronic) (principal); N92.1 Excessive and frequent menstruation with irregular cycle
CPT/HCPCS: 36430; 81025; 86850; 86900; 86901; 86923; 99284; 99285; P9016

== ENCOUNTER 2021-03-13 16:24 | Outpatient (REF) | payer OTHER, SELFPAY ==
[2021-03-13 17:37] LABS: Hemoglobin 7.6 g/dl (12.0-16.0); Mean Corpuscular HGB Conc 28.1 g/dl (31.0-35.0); Mean Corpuscular Hemoglobin 21.8 pg (27.0-33.0); Mean Corpuscular Volume 77.4 fL (80.0-98.0); Mean Platelet Volume 9.9 fL (9.4-12.3); Platelet Count 440 X10*3/uL (160-400); Red Blood Count 3.49 X10*6/uL (4.20-5.50); Red Cell Distribution Width 20.1 % (11.0-16.0); White Blood Count 6.5 X10*3/uL (4.8-10.8)
== END 2021-03-13 16:25 | disposition home or self-care (01) ==
LOC: HO.LAB 16:24
PROVIDERS: PCP Internal Medicine; Visit Provider Nurse Practitioner Family
DX: D50.0 Iron deficiency anemia secondary to blood loss (chronic) (principal)
CPT/HCPCS: 36415; 85027

== ENCOUNTER → 2021-03-19 10:19 | Outpatient (BNVA) | payer OTHER, SELFPAY | PROVIDERS: PCP Internal Medicine; Visit Provider Obstetrics & Gynecology | DX: Z30.430 Encounter for insertion of intrauterine contraceptive device (principal); N93.9 Abnormal uterine and vaginal bleeding, unspecified | CPT/HCPCS: 58300; 99212 ==

== ENCOUNTER 2021-03-29 16:42 | Outpatient (REF) | payer OTHER, SELFPAY | END 2021-03-29 16:43 | disposition home or self-care (01) | LOC: HO.LAB 16:42 | PROVIDERS: PCP Internal Medicine; Visit Provider Obstetrics & Gynecology | DX: Z13.89 Encounter for screening for other disorder (principal) ==

== ENCOUNTER 2021-04-09 13:20 | Outpatient (REF) | payer OTHER, SELFPAY | END 2021-04-09 13:21 | disposition home or self-care (01) | LOC: HO.MDS 13:20 | PROVIDERS: PCP Internal Medicine; Visit Provider Internal Medicine Medical Oncology | DX: D50.9 Iron deficiency anemia, unspecified (principal) | CPT/HCPCS: 96365; J2916 ==

== ENCOUNTER 2021-04-17 13:48 | Outpatient (REF) | payer OTHER, SELFPAY | END 2021-04-17 13:49 | disposition home or self-care (01) | LOC: HO.MDS 13:48 | PROVIDERS: PCP Internal Medicine; Visit Provider Internal Medicine Medical Oncology | DX: D50.9 Iron deficiency anemia, unspecified (principal) | CPT/HCPCS: 96365; J2916 ==

== ENCOUNTER 2021-04-24 08:35 | Outpatient (REF) | payer OTHER, SELFPAY | END 2021-04-24 08:36 | disposition home or self-care (01) | LOC: HO.MAMMO 08:35 | PROVIDERS: Visit Provider Obstetrics & Gynecology | DX: Z13.89 Encounter for screening for other disorder (principal) ==

== ENCOUNTER 2021-04-24 09:21 | Outpatient (REF) | payer OTHER, SELFPAY | END 2021-04-24 09:22 | disposition home or self-care (01) | LOC: HO.MDS 09:21 | PROVIDERS: PCP Internal Medicine; Visit Provider Internal Medicine Medical Oncology | DX: D50.9 Iron deficiency anemia, unspecified (principal) | CPT/HCPCS: 96365; J2916 ==

== ENCOUNTER → 2021-04-25 10:50 | Outpatient (BNVA) | payer OTHER, SELFPAY | PROVIDERS: PCP Internal Medicine; Visit Provider Obstetrics & Gynecology | DX: Z30.431 Encounter for routine checking of intrauterine contraceptive device (principal) | CPT/HCPCS: 99212 ==

== ENCOUNTER 2021-05-02 13:29 | Outpatient (REF) | payer OTHER, SELFPAY ==
[2021-05-02 13:50] LABS: MANUAL DIFF FLAG NO
[2021-05-02 13:53] LABS: Basophils Absolute Auto 0.1 X10*3/uL (0.0-0.2); Basophils Percent Auto 0.9 % (0-2); Eosinophils Absolute Auto 0.2 X10*3/uL (0.0-0.4); Eosinophils Percent Auto 2.5 % (0-4); Hematocrit 37.5 % (37.0-47.0); Imm Gran Abs Auto 0.02 X10*3/uL (0.00-0.03); Imm Gran Pct Auto 0.3 % (0.0-0.4); Lymphocytes Absolute Auto 1.4 X10*3/uL (1.2-4.9); Lymphocytes Percent Auto 20.1 % (20-40); Mean Corpuscular HGB Conc 29.3 g/dl (31.0-35.0); Mean Corpuscular Hemoglobin 25.3 pg (27.0-33.0); Mean Corpuscular Volume 86.2 fL (80.0-98.0); Mean Platelet Volume 9.6 fL (9.4-12.3); Monocytes Absolute Auto 0.5 X10*3/uL (0.1-1.2); Monocytes Percent Auto 7.1 % (2-11); Neutrophils Absolute Auto 4.7 x10*3/uL (2.0-8.3); Neutrophils Percent Auto 69.1 % (45-73); Platelet Count 289 X10*3/uL (160-400); Red Blood Count 4.35 X10*6/uL (4.20-5.50); Red Cell Distribution Width 20.7 % (11.0-16.0); White Blood Count 6.7 X10*3/uL (4.8-10.8)
== END 2021-05-02 13:30 | disposition home or self-care (01) ==
LOC: HO.MDS 13:29
PROVIDERS: PCP Internal Medicine; Visit Provider Internal Medicine Medical Oncology
DX: D50.9 Iron deficiency anemia, unspecified (principal)
CPT/HCPCS: 36415; 85025; 96365; J2916

== ENCOUNTER 2021-05-28 15:18 | Outpatient (REF) | payer OTHER, SELFPAY ==
--- NOTE | ~2021-05-28 | MM_ITS ---
EXAMINATION: MM SCREENING DIGITAL BREAST TOMOSYNTHESIS, BILATERAL CLINICAL INFORMATION: Screening. Asymptomatic. The lifetime risk of breast cancer based on the Tyrer-Cuzick Model is 11%. COMPARISON: Mammography: 02/29/2020, 02/18/2020 (baseline) TECHNIQUE: Digital breast tomosynthesis is performed in both the craniocaudal and mediolateral oblique views along with computer-aided detection (CAD). Synthesized 2D images are generated from the tomosynthesis. FINDINGS: There are scattered areas of fibroglandular density (ACR BI-RADS breast composition Category b). There are no significant masses, abnormal calcifications, or other abnormalities. Parenchymal pattern is similar to prior studies. There is no developing density or architectural abnormality. The axilla and skin contours are unremarkable. No significant changes. MM/MM tomosynthesis screening BI IMPRESSION: No mammographic evidence of malignancy. ASSESSMENT: BI-RADS 1: Negative RECOMMENDATION: Routine annual mammography screening. This patient's information was entered into a reminder system with a target due date for their next mammogram.
== END 2021-05-28 15:19 | disposition home or self-care (01) ==
LOC: HO.MAMMO 15:18
PROVIDERS: PCP Nurse Practitioner Acute Care; Visit Provider Nurse Practitioner Acute Care
DX: Z12.31 Encounter for screening mammogram for malignant neoplasm of breast (principal)
CPT/HCPCS: 77063; 77067

== ENCOUNTER 2021-06-19 15:00 | Outpatient (RCR) | payer OTHER, SELFPAY | END 2021-06-22 15:28 | disposition home or self-care (01) | LOC: HO.PTCHIC 15:00 | PROVIDERS: PCP Internal Medicine; Visit Provider Nurse Practitioner Family | DX: M25.562 Pain in left knee (principal) | CPT/HCPCS: 97110; 97140; 97161; 97530 ==

== ENCOUNTER 2021-06-29 09:10 | Outpatient (REF) | payer OTHER, SELFPAY ==
[2021-06-29 10:25] LABS: Hematocrit 43.3 % (37.0-47.0); Hemoglobin 13.4 g/dl (12.0-16.0); Mean Corpuscular HGB Conc 30.9 g/dl (31.0-35.0); Mean Corpuscular Hemoglobin 27.5 pg (27.0-33.0); Mean Corpuscular Volume 88.9 fL (80.0-98.0); Mean Platelet Volume 10.6 fL (9.4-12.3); Platelet Count 321 X10*3/uL (160-400); Red Blood Count 4.87 X10*6/uL (4.20-5.50); White Blood Count 5.5 X10*3/uL (4.8-10.8)
[2021-06-29 10:59] LABS: Cholesterol 194 mg/dL; Glucose Fasting 93 mg/dL (60-99); HDL Cholesterol 57 mg/dL; LDL Cholesterol Calculated 124 mg/dl; Triglycerides 68 mg/dL
[2021-06-29 11:20] LABS: TSH reflex Free T4 1.14 uIU/mL (0.32-4.0)
== END 2021-06-29 09:11 | disposition home or self-care (01) ==
LOC: HO.LAB 09:10
PROVIDERS: Obstetrics & Gynecology; PCP Nurse Practitioner Family; Visit Provider Nurse Practitioner Family
DX: Z00.00 Encounter for general adult medical examination without abnormal findings (principal); E78.00 Pure hypercholesterolemia, unspecified; N93.9 Abnormal uterine and vaginal bleeding, unspecified
CPT/HCPCS: 36415; 80061; 82947; 84443; 85027

== ENCOUNTER 2021-07-19 14:19 | Outpatient (REF) | payer OTHER, SELFPAY ==
--- NOTE | ~2021-07-19 | XR_ITS ---
EXAMINATION: XR KNEE, RIGHT CLINICAL INFORMATION: Right knee pain following an injury 2 weeks ago. COMPARISON: Bilateral knee radiographs dated 10/25/2020. TECHNIQUE: Four views of the right knee. FINDINGS: No acute fracture or dislocation. Mild medial compartment joint space narrowing. Tricompartmental marginal osteophytes. No osseous erosion. No abnormal soft tissue calcification. No significant joint effusion. XR/XR knee RT 4V IMPRESSION: Orin-qx-akxqmovx tricompartmental osteoarthritis. Findings are similar when compared to the prior radiograph.
== END 2021-07-19 14:20 | disposition home or self-care (01) ==
LOC: HO.XRAY 14:19
PROVIDERS: PCP Nurse Practitioner Family; Visit Provider Nurse Practitioner Family
DX: G89.29 Other chronic pain (principal); M25.561 Pain in right knee
CPT/HCPCS: 73564

== ENCOUNTER 2021-09-06 10:26 | Outpatient (REF) | payer OTHER, SELFPAY ==
--- NOTE | ~2021-09-06 | US_ITS ---
EXAMINATION: US EXTREMITY, KNEE, LEFT, NONVASCULAR CLINICAL INFORMATION: Pain in the left knee, rule out Amezcua's cyst. COMPARISON: None TECHNIQUE: Ultrasound scanning of the left popliteal fossa was performed utilizing high-resolution linear transducer. FINDINGS: There is a 6.1 x 1.9 x 2.7 cm minimally complex avascular fluid collection in the left popliteal fossa. The popliteal vein demonstrates normal color flow and is compressible. 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
== END 2021-09-06 10:27 | disposition home or self-care (01) ==
LOC: HO.US 10:26
PROVIDERS: Visit Provider Nurse Practitioner Family
DX: M25.562 Pain in left knee (principal)
CPT/HCPCS: 76882

== ENCOUNTER 2021-10-05 10:28 | Outpatient (REF) | payer OTHER, SELFPAY ==
[2021-10-07 02:21] LABS: DHEA Sulfate 50 mcg/dL (15-205)
[2021-10-11 13:41] LABS: Testosterone, Total 12 ng/dL (2-45)
== END 2021-10-05 10:29 | disposition home or self-care (01) ==
LOC: HO.LAB 10:28
PROVIDERS: PCP Nurse Practitioner Family; Visit Provider Internal Medicine Endocrinology, Diabetes & Metabolism
DX: R63.5 Abnormal weight gain (principal); L65.9 Nonscarring hair loss, unspecified
CPT/HCPCS: 36415; 82627; 84403; 99202

== ENCOUNTER 2021-10-08 | Outpatient (REF) | payer OTHER, SELFPAY | END 2021-10-08 00:01 | disposition home or self-care (01) | LOC: HO.LNP | PROVIDERS: Visit Provider Internal Medicine Endocrinology, Diabetes & Metabolism | DX: Z13.89 Encounter for screening for other disorder (principal) ==

== ENCOUNTER → 2021-10-09 10:38 | Outpatient (BNVA) | payer OTHER, SELFPAY | PROVIDERS: PCP Nurse Practitioner Family; Visit Provider Dietitian, Registered | DX: E66.9 Obesity, unspecified (principal); Z68.38 Body mass index [BMI] 38.0-38.9, adult; Z71.3 Dietary counseling and surveillance | CPT/HCPCS: 97802 ==

== ENCOUNTER 2021-10-12 07:19 | Outpatient (REF) | payer OTHER, SELFPAY ==
--- NOTE | ~2021-10-12 | XR_ITS ---
EXAMINATION: BILATERAL KNEE X-RAY CLINICAL INFORMATION: Pain COMPARISON: Previous x-ray June 2021 and September 2020 TECHNIQUE: Standing AP lateral and sunrise view of both knees FINDINGS: Right: Bone alignment is normal. No fracture or dislocation is seen. There is arthritis at the medial femoral tibial and patellofemoral joints with joint space narrowing and osteophyte formation. There is a small joint effusion. Left: Bone alignment is normal. No fracture or dislocation is seen. There is arthritis at the lateral femoral tibial and patellofemoral joints with small osteophytes. There is a small joint effusion. XR/XR knee LT 2V IMPRESSION: Bilateral arthritis.
--- NOTE | ~2021-10-12 | XR_ITS ---
EXAMINATION: BILATERAL KNEE X-RAY CLINICAL INFORMATION: Pain COMPARISON: Previous x-ray June 2021 and September 2020 TECHNIQUE: Standing AP lateral and sunrise view of both knees FINDINGS: Right: Bone alignment is normal. No fracture or dislocation is seen. There is arthritis at the medial femoral tibial and patellofemoral joints with joint space narrowing and osteophyte formation. There is a small joint effusion. Left: Bone alignment is normal. No fracture or dislocation is seen. There is arthritis at the lateral femoral tibial and patellofemoral joints with small osteophytes. There is a small joint effusion. XR/XR knee standing BI IMPRESSION: Bilateral arthritis.
--- NOTE | ~2021-10-12 | XR_ITS ---
EXAMINATION: BILATERAL KNEE X-RAY CLINICAL INFORMATION: Pain COMPARISON: Previous x-ray June 2021 and September 2020 TECHNIQUE: Standing AP lateral and sunrise view of both knees FINDINGS: Right: Bone alignment is normal. No fracture or dislocation is seen. There is arthritis at the medial femoral tibial and patellofemoral joints with joint space narrowing and osteophyte formation. There is a small joint effusion. Left: Bone alignment is normal. No fracture or dislocation is seen. There is arthritis at the lateral femoral tibial and patellofemoral joints with small osteophytes. There is a small joint effusion. XR/XR knee RT 2V IMPRESSION: Bilateral arthritis.
== END 2021-10-12 07:20 | disposition home or self-care (01) ==
LOC: HO.HOSX 07:19
PROVIDERS: Visit Provider Physician Assistant
DX: M17.12 Unilateral primary osteoarthritis, left knee (principal); M25.561 Pain in right knee
CPT/HCPCS: 20610; 73560; 73565; 99212; J1040

== ENCOUNTER → 2021-10-30 12:21 | Outpatient (BNVA) | payer OTHER, SELFPAY | PROVIDERS: PCP Nurse Practitioner Family; Visit Provider Obstetrics & Gynecology | DX: Z30.432 Encounter for removal of intrauterine contraceptive device (principal); R03.0 Elevated blood-pressure reading, without diagnosis of hypertension | CPT/HCPCS: 58301; 81025; 99212 ==

== ENCOUNTER → 2021-12-20 14:37 | Outpatient (BNVA) | payer OTHER, SELFPAY | PROVIDERS: PCP Nurse Practitioner Family; Visit Provider Orthopaedic Surgery | DX: M23.92 Unspecified internal derangement of left knee (principal); M25.462 Effusion, left knee | CPT/HCPCS: 99212 ==

== ENCOUNTER 2022-01-07 18:44 | Outpatient (REF) | payer OTHER, SELFPAY ==
--- NOTE | ~2022-01-07 | MR_ITS ---
EXAMINATION: MR KNEE WITHOUT CONTRAST, LEFT CLINICAL INFORMATION: Left knee pain. Lifting injury. Amezcua's cyst. COMPARISON: Left knee radiographs dated 10/12/2021. TECHNIQUE: MRI of the knee without contrast was performed using routine sequences on a high-field scanner. FINDINGS: MENISCI: Medial Meniscus: Mild degenerative intrasubstance signal within the meniscal body and posterior horn without articular surface tearing. Lateral Meniscus: Intact LIGAMENTS: Cruciate: Intact Collateral: Edema adjacent to the medial collateral ligament. No measurable ligament tear. Intact fibular collateral ligament. EXTENSOR MECHANISM: Intact ARTICULAR CARTILAGE/BONE: Patellofemoral Compartment: Patellar median ridge and medial patellar facet articular cartilage signal heterogeneity and surface regularly. Central and medial trochlea signal heterogeneity with partial-thickness loss. Marginal osteophytes. Medial Compartment: Weightbearing articular cartilage thinning with areas of near full-thickness loss. Marginal osteophytes. Lateral Compartment: Mild articular cartilage signal heterogeneity and surface regularly with marginal osteophytes. JOINT FLUID AND BURSAE: Small joint effusion and lazen-ox-xmhfoimz Amezcua's cyst. Trace fluid/edema in the region of the pes anserine bursa. MR/MR knee LT wo con IMPRESSION: 1. Mild degenerative intrasubstance signal within the medial meniscal body and posterior horn without articular surface tearing. 2. Trace fluid/edema in the region of the pes anserine bursa which may represent mild bursitis or be related to a grade 1 medial collateral ligament sprain. No measurable ligament tear. 3. Chzk-mb-bcrmumcy patellofemoral and medial compartment with more mild lateral compartment osteoarthritis. Small joint effusion and ueegv-by-ooqwemtx Amezcua's cyst.
== END 2022-01-07 18:45 | disposition home or self-care (01) ==
LOC: HO.MRI 18:44
PROVIDERS: Visit Provider Orthopaedic Surgery
DX: M25.462 Effusion, left knee (principal)
CPT/HCPCS: 73721

== ENCOUNTER → 2022-01-24 15:33 | Outpatient (BNVA) | payer OTHER, SELFPAY | PROVIDERS: PCP Nurse Practitioner Family; Visit Provider Orthopaedic Surgery | DX: S83.242D Other tear of medial meniscus, current injury, left knee, subsequent encounter (principal) | CPT/HCPCS: 99212 ==

== ENCOUNTER 2022-01-31 13:28 | Outpatient (REF) | payer OTHER, SELFPAY ==
[2022-02-01 06:21] LABS: CT PCR NOT DETECTED (Not Detect.); NG PCR NOT DETECTED (Not Detect.)
== END 2022-01-31 13:29 | disposition home or self-care (01) ==
LOC: HO.LNP 13:28
PROVIDERS: Visit Provider Advanced Practice Midwife
DX: Z11.3 Encounter for screening for infections with a predominantly sexual mode of transmission (principal); Z20.2 Contact with and (suspected) exposure to infections with a predominantly sexual mode of transmission
CPT/HCPCS: 87491; 87591

== ENCOUNTER 2022-02-20 05:42 | Day surgery (SDC) | payer OTHER, SELFPAY ==
[2022-02-14 10:27] VITALS: BMI 39.1
--- NOTE | 2022-02-19 08:27 | HO.ANESPROP2 ---
Documented by User: Linnea Rodriguez NP 02/19/22 08:28 HPI - Anesthesia Eval Consult details Narrative: 46yo F for Left Knee Arthroscopy PMFSH Active Problems Active Problems: All Active Problems (Updated 02/14/22 @ 10:21 by Sherry Aguilera RN) Iron deficiency anemia due to chronic blood loss (Acute) Eustachian tube dysfunction (Acute) STEPHEN (generalized anxiety disorder) (Acute) Generalized abdominal pain (Acute) Encounter for general adult medical examination with abnormal findings (Acute) Swelling, lymph nodes (Acute) Menometrorrhagia (Acute) Low back pain (Acute) Left knee sprain (Acute) Soft tissue injury of left knee (Acute) Fatigue (Acute) Polyarthralgia (Acute) Physical exam (Acute ~03/2021) History of left knee surgery (Acute) Left knee pain (Acute) Body mass index [BMI] 38.0-38.9, adult (Acute) IUD check up (Acute) Anxiety and depression (Acute) Chronic knee pain (Acute) Pain in left knee (Acute) Right knee pain (Acute) Osteoarthritis of right knee (Acute) Weight gain (Acute) Amezcua cyst (Acute) Obesity (BMI 35.0-39.9 without comorbidity) (Acute) Osteoarthritis of left knee (Acute) Encounter for IUD removal (Acute) Effusion, left knee (Acute) Internal derangement of left knee (Acute) Tear of medial meniscus of left knee (Acute) Encounter for annual routine gynecological examination (Acute) Hair loss (Acute) Low vitamin D level (Acute) Celiac disease (Acute) Common cold (Acute) Ear anomaly (Acute) Family history of thyroid disease (Acute) Past Medical History Medical History (Updated 02/14/22 @ 10:21 by Sherry Aguilera RN) Celiac disease Ear anomaly Family history of thyroid disease Hair loss Hx of head injury Hx of migraines Iron deficiency anemia Low vitamin D level Family History Family History Father Diabetes Hypercholesterolemia Chronic kidney disease Hypertension Mother Hypercholesterolemia Hypertension Maternal Grandmother History of breast cancer Other No family history of cancer Surgical History Surgical History H/O esophagogastroduodenoscopy Hx of cholecystectomy Hx of colonoscopy Hx of foot surgery Hx of shoulder surgery Previous section Social History Social History Household Members: Family Household Members Other:: children and parents Housing: House Are you a primary home health care provider to a significant other at home: No Do you presently have visiting nurse or other home services: No Alcohol intake: current Alcohol intake frequency: holidays/special occasions only Alcohol type: beer, wine, hard liquor and other Patient Tobacco Use Status: Refuse Tobacco use screen Tobacco use type: Cigarette Cigarettes Per Day: 10 Years Smoked: 20 e-Cigarette/Vaping Use: Never Used Substance Use Type: Marijuana service: No Current occupational status: employed 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 Sexual orientation: Straight/Heterosexual Gender identity: Female Cognitive needs: No Hearing needs: No Vision needs: Yes Meds Allergies Allergy/AdvReac Type Severity Reaction Status Date / Time Penicillins [PENICILLINS] Allergy Severe ANAPHYLAXIS Verified 01/31/22 13:03 amitriptyline [AMITRIPTYLINE] Allergy Intermediate HIVES Verified 01/31/22 13:03 banana Allergy Intermediate Hives Verified 01/31/22 13:03 kiwi [KIWI] Allergy Intermediate HIVES Verified 01/31/22 13:03 pineapple Allergy Intermediate Hives Verified 01/31/22 13:03 clams Allergy Unknown Unknown Verified 01/31/22 13:03 gluten Allergy Unknown Unknown Verified 02/14/22 10:21 MEAT Allergy Severe HIVES,ANAPH Uncoded 01/01/22 15:12 YLAXIS dairy AdvReac Intermediate pt states Uncoded 02/14/22 10:21 allery to all Dairy Products Home Medications Medication Instructions Recorded Confirmed Last Taken Type calcium-magnesium 750 mg-465 mg 2 tab PO DAILY 02/10/20 02/20/22 02/19/22 History tablet cyanocobalamin (B12)-cobamamide 1 mindy sublingual DAILY 02/10/20 02/20/22 02/19/22 History 5,000 mcg-100 mcg sublingual lozenge (B12) multivitamin 1 tab PO DAILY 02/10/20 02/20/22 02/19/22 History paroxetine HCl 20 mg tablet (Paxil) 20 mg PO DAILY 01/01/22 02/20/22 02/19/22 History Exam Exam Date and Time: February 19, 2022826 Height,Weight and Vital Signs: Height 5 ft 2 in Weight 97.069 kg Pertinent Lab Results Pertinent Lab Results: Laboratory Tests 01/01/22 01/01/22 15:01 15:01 WBC 7.3 Hgb 12.2 Hct 37.9 Plt Count 338 Sodium 140 Potassium 4.2 Chloride 106 Carbon Dioxide 25 BUN 8 L Creatinine 0.73 Assessment and Plan Assessment Anesthesia Assessment: Chart Reviewed Documented by User: Artem Benavides MD 02/20/22 15:27 [facility] Past Medical History Medical History (Updated 02/14/22 @ 10:21 by Sherry Aguilera RN) Celiac disease Ear anomaly Family history of thyroid disease Hair loss Hx of head injury Hx of migraines Iron deficiency anemia Low vitamin D level Family History Family History Father Diabetes Hypercholesterolemia Chronic kidney disease Hypertension Mother Hypercholesterolemia Hypertension Maternal Grandmother History of breast cancer Other No family history of cancer Family history of problems with anesthesia: Yes (Ponv ) Surgical History Surgical History H/O esophagogastroduodenoscopy Hx of cholecystectomy Hx of colonoscopy Hx of foot surgery Hx of shoulder surgery Previous section History of Problems with Anesthesia: Yes (Ponv ) Social History Social History Household Members: Family Household Members Other:: children and parents Housing: House Are you a primary home health care provider to a significant other at home: No Do you presently have visiting nurse or other home services: No Alcohol intake: current Alcohol intake frequency: holidays/special occasions only Alcohol type: beer, wine, hard liquor and other Patient Tobacco Use Status: Refuse Tobacco use screen Tobacco use type: Cigarette Cigarettes Per Day: 10 Years Smoked: 20 e-Cigarette/Vaping Use: Never Used Substance Use Type: Marijuana service: No Current occupational status: employed 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 Sexual orientation: Straight/Heterosexual Gender identity: Female Cognitive needs: No Hearing needs: No Vision needs: Yes Meds Allergies Allergy/AdvReac Type Severity Reaction Status Date / Time Penicillins [PENICILLINS] Allergy Severe ANAPHYLAXIS Verified 01/31/22 13:03 amitriptyline [AMITRIPTYLINE] Allergy Intermediate HIVES Verified 01/31/22 13:03 banana Allergy Intermediate Hives Verified 01/31/22 13:03 kiwi [KIWI] Allergy Intermediate HIVES Verified 01/31/22 13:03 pineapple Allergy Intermediate Hives Verified 01/31/22 13:03 clams Allergy Unknown Unknown Verified 01/31/22 13:03 gluten Allergy Unknown Unknown Verified 02/14/22 10:21 MEAT Allergy Severe HIVES,ANAPH Uncoded 01/01/22 15:12 YLAXIS dairy AdvReac Intermediate pt states Uncoded 02/14/22 10:21 allery to all Dairy Products Home Medications Medication Instructions Recorded Confirmed Last Taken Type calcium-magnesium 750 mg-465 mg 2 tab PO DAILY 02/10/20 02/20/22 02/19/22 History tablet cyanocobalamin (B12)-cobamamide 1 mindy sublingual DAILY 02/10/20 02/20/22 02/19/22 History 5,000 mcg-100 mcg sublingual lozenge (B12) multivitamin 1 tab PO DAILY 02/10/20 02/20/22 02/19/22 History paroxetine HCl 20 mg tablet (Paxil) 20 mg PO DAILY 01/01/22 02/20/22 02/19/22 History Exam Airway Mallampati Class: III TM Dist: >3cm Neck ROM: Full Loose/Missing/Broken Teeth: Yes (Fillings) Heart: S1,S2 Lungs: b/l breath sounds Assessment and Plan Assessment Anesthesia Assessment: Anesthesia Plan Discussed Final Anesthetic Review Family History of Problems with Anesthesia: Yes (Ponv ) History of Problems with Anesthesia: Yes (Ponv ) NPO: Yes ASA Class: III Final Preanesthetic Review: Meds/Allgs Chart Reviewed, Consent Obtained/Reviewed and Anes Risks/Benef Reviewed Patient Risk: Intermediate Procedure Risk: Intermediate Anesthetic Plan Anesthetic Plan: GA and Regional Block Disposition: Standard PACU
[2022-02-20] VITALS (18 sets, daily range): BP systolic 104–139; BP diastolic 51–78; PULSE 62–85; RESP 16–20; TEMP 36.2–36.5; O2SAT 95–100
[2022-02-20 06:20] LABS: UPreg QC Valid YES; Urine Pregnancy NEGATIVE (NEGATIVE)
[2022-02-20] MEDS: Lactated Ringers 1,000 ML 100 ML IVCONT (06:42)
--- NOTE | 2022-02-20 07:39 | PC.NURSE ---
regional block at [address] ruiz patient pt tolerated well
[2022-02-20] MEDS: fentaNYL citrate/PF 100 MCG/2 ML VIAL 50 MCG IVPUSH ×2 (08:28→08:38)
--- NOTE | 2022-02-20 08:28 | P.BOP_ITS ---
Brief Operative Note Date of Service: 02/20/22 Pre-op diagnosis: left knee MMT Post-op diagnosis: other (1) same 2) left knee OA) Procedure: Left knee with partial medial meniscectomy and chondroplasty Implants: none Surgeon: Trav Marcos MD Was an Speeder Worker used for this Procedure?: No Estimated blood loss (mL): 1 IV fluids (mL): 500 Pathology: none sent Condition: stable Disposition: PACU
[2022-02-20] MEDS: oxyCODONE HCl Immed Release 5 MG TABLET PO (09:29)
--- NOTE | 2022-02-20 12:33 | W.PM.OPN ---
Operative Note Operative Note Date of Service: 02/20/22 Narrative: Date of Service: 02/20/22 Pre-op diagnosis: left knee MMT Post-op diagnosis: other (1) same 2) left knee OA) Procedure: Left knee with partial medial meniscectomy and chondroplasty Implants: none Surgeon: Trav Marcos MD Was an Furniture Sales Associate used for this Procedure?: No Estimated blood loss (mL): 1 IV fluids (mL): 500 Pathology: none sent Condition: stable Disposition: PACU Procedure in detail: Patient was brought to the operating room placed supine on the arthroscopic table and prepped and draped in standard sterile fashion. A time-out was called to identify proper site proper procedure proper surgeon and IV antibiotics per weight were administered. I began by exsanguinating the limb and insufflating tourniquet to 300 mm Hg. Then made a standard anterolateral stab incision. The knee was insufflated with water and 30 degree arthroscope was placed. There was grade 3/4 fibrillations of the trochlea and there was an inferior patellar osteophyte. I descended into the medial compartment where I made my medial portal under direct visualization. There was a degenerative tear of the body and posterior horn of the medial meniscus. The root was intact and there was grade 3/4 changes of the medial WB portion of the MFC. I used a combination of biter shaver and cautery to remove unstable portions of the meniscus. Approximatly 20% of the meniscal volume was removed. Once I was satisfied with this the ACL was examined and found to be intact and the lateral compartment also was without the need for intervention. I then returned to the anterior compartment and performed a chondroplasty of the trochlea and patella. I then removed all instrumentation and closed the portals with skin glue. 25 mL of 2% Marcaine with epinephrine was injected into the joint and the surrounding soft tissues. Patient was then placed in sterile dressing extubated brought recovery room stable condition. There were no known complications.
== END 2022-02-20 12:35 | disposition home or self-care (01) ==
PROVIDERS: Nurse Practitioner; PCP Nurse Practitioner Family; Visit Provider Orthopaedic Surgery
PROC: (CPT 29870; principal; 2022-02-20 07:30)
DX: S83.242A Other tear of medial meniscus, current injury, left knee, initial encounter (principal); X58.XXXA Exposure to other specified factors, initial encounter; Y93.9 Activity, unspecified; Y92.9 Unspecified place or not applicable; Y99.9 Unspecified external cause status
CPT/HCPCS: 29881; 81025; J0131; J0171; J1100; J1170; J1885; J2250; J2405; J2550; J2795; J3010

== ENCOUNTER 2022-04-11 15:38 | Outpatient (REF) | payer OTHER, SELFPAY | END 2022-04-11 15:39 | disposition home or self-care (01) | LOC: HO.HOSX 15:38 | PROVIDERS: Visit Provider Physician Assistant | DX: Z13.89 Encounter for screening for other disorder (principal) ==

== ENCOUNTER 2022-04-12 | Outpatient (REF) | payer OTHER, SELFPAY ==
--- NOTE | ~2022-04-12 | XR_ITS ---
EXAMINATION: XR KNEE AP STANDING, BILATERAL XR KNEE SUNRISE AND LATERAL VIEW, LEFT CLINICAL INFORMATION: Left knee pain. COMPARISON: MRI of 01/07/2022 and knee studies of 10/12/2021. TECHNIQUE: AP standing view of both knees. Roper and lateral views of the left knee. FINDINGS: AP standing view of the knees demonstrate some mild spurring about the medial and lateral joint space compartments without significant narrowing being appreciated. There is a linear bony density which is stable about the proximal fibula likely related to previous avulsion injury. There is also calcification about the medial aspect of the distal left femur likely related to previous injury of the medial collateral ligament. No left knee effusion is identified. There is narrowing of the patellofemoral joint space most prominent laterally with some patellofemoral joint spurring. XR/XR knee LT 2V IMPRESSION: Mild degenerative change of the medial and lateral joint space compartments of both knees. What appears to be moderate degenerative change of the left patellofemoral joint.
--- NOTE | ~2022-04-12 | XR_ITS ---
EXAMINATION: XR KNEE AP STANDING, BILATERAL XR KNEE SUNRISE AND LATERAL VIEW, LEFT CLINICAL INFORMATION: Left knee pain. COMPARISON: MRI of 01/07/2022 and knee studies of 10/12/2021. TECHNIQUE: AP standing view of both knees. [place] and lateral views of the left knee. FINDINGS: AP standing view of the knees demonstrate some mild spurring about the medial and lateral joint space compartments without significant narrowing being appreciated. There is a linear bony density which is stable about the proximal fibula likely related to previous avulsion injury. There is also calcification about the medial aspect of the distal left femur likely related to previous injury of the medial collateral ligament. No left knee effusion is identified. There is narrowing of the patellofemoral joint space most prominent laterally with some patellofemoral joint spurring. XR/XR knee standing BI IMPRESSION: Mild degenerative change of the medial and lateral joint space compartments of both knees. What appears to be moderate degenerative change of the left patellofemoral joint.
== END 2022-04-12 00:01 | disposition home or self-care (01) ==
LOC: HO.HOSX
PROVIDERS: Visit Provider Physician Assistant
DX: M25.562 Pain in left knee (principal)
CPT/HCPCS: 73560; 73565

== ENCOUNTER → 2022-05-06 13:29 | Outpatient (BNVA) | payer OTHER, SELFPAY | PROVIDERS: PCP Nurse Practitioner Family; Visit Provider Physician Assistant | DX: Z13.89 Encounter for screening for other disorder (principal) ==

== ENCOUNTER 2022-05-09 11:00 | Outpatient (RCR) | payer OTHER, SELFPAY ==
--- NOTE | 2022-05-09 16:54 | MHC.PT.DC ---
[facility] [place] Office [place] Office [place] Office [address] Jesse Loera [address] [facility] [phone] F: [phone] F: [phone] F: [phone] F: [phone] Physical Therapy Discharge Report Diagnosis: S/P MEDIAL MENISECTOMY AND CHONDROPLASTY Date of Surgery: 02/20/22 Date of Evaluation: 02/25/22 Date of Discharge: 05/09/22 Treatments to Date: 17 Cancellations to Date: 0 No Shows to Date: 0 Discharge Status: Achieved Goals Improved Function Independent with HEP Discharge Summary: 05/09: Malena has been an active and motivated participant in her therapy in and out of the clinic having met her therapeutic goals, is I with her home program, is managed of her pain and in agreement with DC. L knee : ROM 0-135; 5/5 MMT flexion and extension. Electronically signed by: Dao Farrell PT. Please sign and return to therapist. Thank you for your referral.
== END 2022-05-09 16:55 | disposition home or self-care (01) ==
LOC: HO.PTCHIC 11:00
PROVIDERS: Visit Provider Physician Assistant
DX: M17.12 Unilateral primary osteoarthritis, left knee (principal); S83.242A Other tear of medial meniscus, current injury, left knee, initial encounter
CPT/HCPCS: 97110; 97112; 97161; 97530

== ENCOUNTER 2022-06-18 07:32 | Outpatient (REF) | payer OTHER, SELFPAY ==
--- NOTE | ~2022-06-18 | XR_ITS ---
EXAMINATION: XR LUMBOSACRAL SPINE CLINICAL INFORMATION: Lower back pain COMPARISON: None TECHNIQUE: Three views of the lumbosacral spine. FINDINGS: No fracture or subluxation. Vertebral body height and alignment maintained. Disc spaces are maintained. Mild facet arthropathy at the lower lumbar spine. The sacroiliac joints are symmetric. The visualized sacrum is intact. Normal bowel gas pattern. XR/XR lumbar spine 2-3V IMPRESSION: Mild facet arthropathy at the lower lumbar spine.
[2022-06-18 07:46] LABS: MANUAL DIFF FLAG NO
[2022-06-18 08:02] LABS: Basophils Absolute Auto 0.1 X10*3/uL (0.0-0.2); Basophils Percent Auto 1.2 % (0-2); Eosinophils Absolute Auto 0.2 X10*3/uL (0.0-0.4); Eosinophils Percent Auto 3.1 % (0-4); Hematocrit 31.5 % (37.0-47.0); Imm Gran Abs Auto 0.05 X10*3/uL (0.00-0.03); Imm Gran Pct Auto 0.7 % (0.0-0.4); Lymphocytes Absolute Auto 1.5 X10*3/uL (1.2-4.9); Lymphocytes Percent Auto 19.9 % (20-40); Mean Corpuscular HGB Conc 28.6 g/dl (31.0-35.0); Mean Corpuscular Hemoglobin 20.9 pg (27.0-33.0); Mean Corpuscular Volume 73.3 fL (80.0-98.0); Mean Platelet Volume 9.3 fL (9.4-12.3); Monocytes Absolute Auto 0.6 X10*3/uL (0.1-1.2); Monocytes Percent Auto 7.6 % (2-11); Neutrophils Percent Auto 67.5 % (45-73); Platelet Count 450 X10*3/uL (160-400); Red Cell Distribution Width 19.1 % (11.0-16.0); White Blood Count 7.4 X10*3/uL (4.8-10.8)
[2022-06-18 08:37] LABS: Alanine Aminotransferase 16 U/L (0-31); Albumin Level 3.7 g/dL (3.5-5.0); Alkaline Phosphatase 52 U/L (39-117); Anion Gap 11 (12-20); Aspartate Amino Transferase 17 U/L (5-31); Bilirubin Total 0.6 mg/dL (0.0-1.0); Blood Urea Nitrogen 7 mg/dL (9-16); Calcium 8.9 mg/dL (8.4-10.2); Carbon Dioxide 24 mmol/L (22-29); Chloride 107 mmol/L (96-108); Cholesterol 188 mg/dL; Estimated Glomerular Filt Rate > 60; Glucose Fasting 94 mg/dL (60-99); HDL Cholesterol 54 mg/dL; LDL Cholesterol Calculated 121 mg/dl; Potassium 4.4 mmol/L (3.3-5.1); Sodium 138 mmol/L (135-145); Total Protein 6.4 g/dL (6.5-8.0); Triglycerides 69 mg/dL
[2022-06-18 09:09] LABS: TSH reflex Free T4 1.76 uIU/mL (0.32-4.0); Vitamin B12 283 pg/mL (200-900); Vitamin D 25-OH Total 16.1 ng/mL (>30)
== END 2022-06-18 07:33 | disposition home or self-care (01) ==
LOC: HO.LAB 07:32
PROVIDERS: PCP Nurse Practitioner Family; Visit Provider Nurse Practitioner Family
DX: F41.1 Generalized anxiety disorder (principal); D50.0 Iron deficiency anemia secondary to blood loss (chronic); M54.50 Low back pain, unspecified
CPT/HCPCS: 36415; 72100; 80053; 80061; 82306; 82607; 82746; 84443; 85025

== ENCOUNTER 2022-06-25 13:17 | Outpatient (REF) | payer OTHER, SELFPAY | END 2022-06-25 13:18 | disposition home or self-care (01) | LOC: HO.MDS 13:17 | PROVIDERS: PCP Nurse Practitioner Family; Visit Provider Internal Medicine Medical Oncology | DX: D50.9 Iron deficiency anemia, unspecified (principal) | CPT/HCPCS: 96365; J1756 ==

== ENCOUNTER 2022-07-05 12:23 | Outpatient (REF) | payer OTHER, SELFPAY | END 2022-07-05 12:24 | disposition home or self-care (01) | LOC: HO.MDS 12:23 | PROVIDERS: Visit Provider Internal Medicine Medical Oncology | DX: D50.9 Iron deficiency anemia, unspecified (principal) | CPT/HCPCS: 96365; J1756 ==

== ENCOUNTER 2022-07-08 14:00 | Outpatient (RCR) | payer OTHER, SELFPAY ==
--- NOTE | 2022-05-14 19:38 | MHC.PT.EP ---
[facility] [place] Office [place] Office [place] Office [address] [phone] F: [phone] F: [phone] F: [phone] F: [phone] Physical Therapy Plan of Care Date of Evaluation: Date of Surgery: Diagnosis: LBP. Assessment: Pit is a 46 y/o female referred to PT for eval and treat of LBP resulting in decreased tolerance for sitting and traveling, walking for long distances, lifting objects of weight form the floor, standing for long duration, and disturbed sleep secondary to + lumbar instability test, decreased core strength, decreased hip strength, L LE radiating symptoms, and pain. Pt is deemed an appropriate candidate to receive skilled PT services to address their physical impairments in order to improve their functional ability. Frequency and Duration: The patient will be seen 2x / wk x 5 wks. Short Term Goals: Initiate HEP. L LE radiated Sx abolished. Senior Living Goals: I with home program. Pt will improve Christy by at least 9 points in order to demonstrate improved functional ability. Pt report able to tolerate sitting as long as shed like with managed Sx; initial < 1 hour. Pt will report no longer disturbed of sleep d/t LBP. initial 1/4 disturbed. Treatment Plan: Modalities to reduce pain, spasms and effusion. Manual therapy to restore motion and function. Therapeutic exercise to improve strength and flexibility. Neuromuscular re-education for posture and balance. Therapeutic activities to return to functional activities of daily living. Electronically signed by: Dao Farrell PT. Please sign and return to therapist. Thank you for your referral.
--- NOTE | 2022-07-08 16:31 | MHC.PT.DC ---
[facility] [place] Office [place] Office [place] Office [address] Jesse Loera [address] [phone] F: [phone] F: [phone] F: [phone] F: [phone] Physical Therapy Discharge Report Diagnosis: LBP. Date of Surgery: Date of Evaluation: 05/14/22 Date of Discharge: 07/08/22 Treatments to Date: 13 Cancellations to Date: No Shows to Date: Discharge Status: Achieved Goals Improved Function Independent with HEP Discharge Summary: Malena has been a motivated and active participant in her therapy in and out of the clinic. Though she persists with some pain she has met all of her therapeutic goals, is I with her home program and is in agreement with DC at this time. Electronically signed by: Dao Farrell PT Please sign and return to therapist. Thank you for your referral.
== END 2022-07-08 16:30 | disposition home or self-care (01) ==
LOC: HO.PTCHIC 14:00
PROVIDERS: Visit Provider Physician Assistant
DX: M54.50 Low back pain, unspecified (principal)
CPT/HCPCS: 97110; 97112; 97140; 97161; 97530

== ENCOUNTER 2022-07-12 12:18 | Outpatient (REF) | payer OTHER, SELFPAY | END 2022-07-12 12:19 | disposition home or self-care (01) | LOC: HO.MDS 12:18 | PROVIDERS: Visit Provider Internal Medicine Medical Oncology | DX: D50.9 Iron deficiency anemia, unspecified (principal) | CPT/HCPCS: 96365 ==

== ENCOUNTER 2022-07-19 12:22 | Outpatient (REF) | payer OTHER, SELFPAY ==
[2022-07-19 13:21] LABS: MANUAL DIFF FLAG NO
[2022-07-19 13:27] LABS: Basophils Absolute Auto 0.1 X10*3/uL (0.0-0.2); Basophils Percent Auto 1.5 % (0-2); Eosinophils Absolute Auto 0.1 X10*3/uL (0.0-0.4); Eosinophils Percent Auto 2.1 % (0-4); Hematocrit 31.6 % (37.0-47.0); Hemoglobin 9.2 g/dl (12.0-16.0); Imm Gran Abs Auto 0.01 X10*3/uL (0.00-0.03); Imm Gran Pct Auto 0.2 % (0.0-0.4); Lymphocytes Absolute Auto 1.4 X10*3/uL (1.2-4.9); Lymphocytes Percent Auto 27.3 % (20-40); Mean Corpuscular HGB Conc 29.1 g/dl (31.0-35.0); Mean Corpuscular Hemoglobin 22.7 pg (27.0-33.0); Mean Platelet Volume 9.4 fL (9.4-12.3); Monocytes Absolute Auto 0.3 X10*3/uL (0.1-1.2); Monocytes Percent Auto 5.9 % (2-11); Neutrophils Absolute Auto 3.3 x10*3/uL (2.0-8.3); Platelet Count 337 X10*3/uL (160-400); Red Blood Count 4.05 X10*6/uL (4.20-5.50); Red Cell Distribution Width 23.6 % (11.0-16.0); White Blood Count 5.2 X10*3/uL (4.8-10.8)
== END 2022-07-19 12:23 | disposition home or self-care (01) ==
LOC: HO.MDS 12:22
PROVIDERS: Visit Provider Internal Medicine Medical Oncology
DX: D50.9 Iron deficiency anemia, unspecified (principal)
CPT/HCPCS: 36415; 85025; 96365; J1756

== ENCOUNTER 2022-07-25 13:57 | Outpatient (REF) | payer OTHER, SELFPAY | END 2022-07-25 13:58 | disposition home or self-care (01) | LOC: HO.MDS 13:57 | PROVIDERS: Visit Provider Internal Medicine Medical Oncology | DX: D50.9 Iron deficiency anemia, unspecified (principal) | CPT/HCPCS: 96365; J1756 ==

== ENCOUNTER 2022-07-30 14:52 | Outpatient (REF) | payer OTHER, SELFPAY | END 2022-07-30 14:53 | disposition home or self-care (01) | LOC: HO.MDS 14:52 | PROVIDERS: Visit Provider Internal Medicine Medical Oncology | DX: D50.9 Iron deficiency anemia, unspecified (principal) | CPT/HCPCS: 96365; 96374; J1756 ==

== ENCOUNTER 2022-08-08 13:51 | Outpatient (REF) | payer OTHER, SELFPAY | END 2022-08-08 13:52 | disposition home or self-care (01) | LOC: HO.MDS 13:51 | PROVIDERS: Visit Provider Internal Medicine Medical Oncology | DX: D50.9 Iron deficiency anemia, unspecified (principal) | CPT/HCPCS: 96365; J1756 ==

== ENCOUNTER 2022-08-14 09:59 | Outpatient (REF) | payer OTHER, SELFPAY ==
[2022-08-14 10:23] LABS: MANUAL DIFF FLAG NO
[2022-08-14 10:25] LABS: Basophils Absolute Auto 0.1 X10*3/uL (0.0-0.2); Basophils Percent Auto 1.1 % (0-2); Eosinophils Absolute Auto 0.2 X10*3/uL (0.0-0.4); Eosinophils Percent Auto 2.7 % (0-4); Hematocrit 38.4 % (37.0-47.0); Hemoglobin 11.4 g/dl (12.0-16.0); Imm Gran Abs Auto 0.02 X10*3/uL (0.00-0.03); Imm Gran Pct Auto 0.4 % (0.0-0.4); Lymphocytes Absolute Auto 1.1 X10*3/uL (1.2-4.9); Lymphocytes Percent Auto 20.4 % (20-40); Mean Corpuscular HGB Conc 29.7 g/dl (31.0-35.0); Mean Corpuscular Hemoglobin 24.6 pg (27.0-33.0); Mean Corpuscular Volume 82.8 fL (80.0-98.0); Mean Platelet Volume 9.5 fL (9.4-12.3); Monocytes Absolute Auto 0.3 X10*3/uL (0.1-1.2); Monocytes Percent Auto 6.1 % (2-11); Neutrophils Absolute Auto 3.9 x10*3/uL (2.0-8.3); Neutrophils Percent Auto 69.3 % (45-73); Platelet Count 314 X10*3/uL (160-400); Red Blood Count 4.64 X10*6/uL (4.20-5.50); Red Cell Distribution Width 23.9 % (11.0-16.0); White Blood Count 5.6 X10*3/uL (4.8-10.8)
== END 2022-08-14 10:00 | disposition home or self-care (01) ==
LOC: HO.MDS 09:59
PROVIDERS: Visit Provider Internal Medicine Medical Oncology
DX: D50.9 Iron deficiency anemia, unspecified (principal)
CPT/HCPCS: 36415; 85025; 96365; J1756

== ENCOUNTER 2022-10-11 14:25 | Outpatient (REF) | payer OTHER, SELFPAY ==
[2022-10-11 16:25] LABS: Prothrombin Time 10.9 SEC (10.0-13.1)
[2022-10-11 16:37] LABS: Magnesium 2.2 mg/dL (1.6-2.6)
[2022-10-11 16:53] LABS: Ferritin 7 ng/mL (10-250); Vitamin D 25-OH Total 32.5 ng/mL (>30)
[2022-10-11 17:06] LABS: Folate 6.2 ng/mL (> or = 4.0); Vitamin B12 264 pg/mL (200-900)
[2022-10-14 14:33] LABS: Calcium, Ionized 5.1 mg/dL (4.7-5.5)
[2022-10-16 05:03] LABS: Copper, serum 109 mcg/dL (70-175); Zinc 57 mcg/dL (60-130)
[2022-10-19 12:48] LABS: Vitamin B1 8 nmol/L (8-30)
== END 2022-10-11 14:26 | disposition home or self-care (01) ==
LOC: HO.LAB 14:25
PROVIDERS: Absent Provider Nurse Practitioner Family; PCP Nurse Practitioner Family; Visit Provider Internal Medicine
DX: K90.0 Celiac disease (principal); R79.89 Other specified abnormal findings of blood chemistry; D50.9 Iron deficiency anemia, unspecified; F17.200 Nicotine dependence, unspecified, uncomplicated
CPT/HCPCS: 36415; 82306; 82330; 82525; 82607; 82728; 82746; 83735; 84425; 84446; 84590; 84630; 85610; 99212

== ENCOUNTER → 2022-10-16 14:37 | Outpatient (BNVA) | payer OTHER, SELFPAY | PROVIDERS: PCP Nurse Practitioner Family; Visit Provider Registered Nurse Emergency | DX: M47.816 Spondylosis without myelopathy or radiculopathy, lumbar region (principal); M53.3 Sacrococcygeal disorders, not elsewhere classified; M54.16 Radiculopathy, lumbar region | CPT/HCPCS: 99202 ==

== ENCOUNTER 2022-11-01 14:07 | Outpatient (REF) | payer OTHER, SELFPAY ==
--- NOTE | ~2022-11-01 | MM_ITS ---
EXAMINATION: MM SCREENING DIGITAL BREAST TOMOSYNTHESIS, BILATERAL CLINICAL INFORMATION: Screening. Asymptomatic. The lifetime risk of breast cancer based on the Tyrer-Cuzick Model is 10.6%. COMPARISON: Mammography: This study is compared with prior exams dating back to 2019. TECHNIQUE: Digital breast tomosynthesis is performed in both the craniocaudal and mediolateral oblique views along with computer-aided detection (CAD). Synthesized 2D images are generated from the tomosynthesis. FINDINGS: There are scattered areas of fibroglandular density (ACR BI-RADS breast composition Category b). There are no significant masses, abnormal calcifications, or other abnormalities. MM/MM tomosynthesis screening BI IMPRESSION: No mammographic evidence of malignancy. ASSESSMENT: BI-RADS BI-RADS 1 - Negative RECOMMENDATION: Routine annual mammography screening. 1 year F/U This examination should not preclude the clinical evaluation of a suspicious palpable abnormality. This patient's information was entered into a reminder system with a target due date for their next mammogram.
--- NOTE | ~2022-11-01 | MM_ITS ---
EXAMINATION: BONE DENSITOMETRY CLINICAL INDICATION: Celiac disease. COMPARISON: This is the patient's baseline examination. TECHNIQUE: Using a [id number] DXA System (software version: 13.1) manufactured by [employer], dual-energy x-ray absorptiometry was performed of the lumbar spine and left hip. The images are of good technical quality. Based on ISCD (International Society for Clinical Densitometry) standards of reporting, Z-scores instead of T-scores are reported in this premenopausal woman. Summary results are attached. FINDINGS: AP SPINE L1-L4: BMD 1.117 g/cm2, T-score -0.5, Z-score -1.3, Z-score within expected range for age. LEFT FEMUR, NECK: BMD 0.751 g/cm2, T-score -2.1, Z-score -2.0, Z-score below expected range for age. LEFT FEMUR, TOTAL: BMD 0.879 g/cm2, T-score -1.0, Z-score -1.3, Z-score within expected range for age. IDENTIFIED RISK FACTORS: Low calcium intake, tobacco, secondary osteoporosis. HISTORY OF FRACTURE: None listed. MEDICATIONS: Calcium supplements or multivitamin, vitamin D. MM/XR DEXA axial skeleton IMPRESSION: 1. DIAGNOSIS: Based on the lowest Z-score value of -2.0 in the femoral neck, the patient's bone density is below the expected range for age. 2. 10-YEAR FRACTURE RISK PREDICTION, FRAX: Not performed in this perimenopausal patient. 3. Treatment Recommendations: NOF guidelines recommend consideration for treatment in postmenopausal women and men age 50 and older presenting with the following: -A hip or vertebral (clinical or morphometric) fracture. -T-score less than or equal to -2.5 at the femoral neck or spine after appropriate evaluation to exclude secondary causes. -Low bone mass at the hip or spine and a 10-year fracture probability by FRAX of greater than or equal to 3% for hip fracture or greater than or equal to 20% for major osteoporotic fracture based on the [place] adapted WHO algorithm. 4. Other Recommendations: All treatment decisions require clinical judgment and consideration of individual patient factors, including patient preferences, comorbidities, previous drug use, risk factors not captured in the FRAX model (e.g. frailty, falls, vitamin D deficiency, increased bone turnover, interval significant decline in bone density) and possible under or overestimation of fracture risk by FRAX. Additional medical evaluation for secondary cause of low bone mineral density may be appropriate. FUTURE SCAN RECOMMENDATION: People with diagnosed cases of osteoporosis or at high risk for fracture should have regular bone mineral density tests. For patients eligible for Medicare, routine testing is allowed once every 2 years. The testing frequency can be increased to one year for patients who have rapidly progressing disease, those who are receiving or discontinuing medical therapy to restore bone mass, or have additional risk factors.
== END 2022-11-01 14:08 | disposition home or self-care (01) ==
LOC: HO.MAMMO 14:07
PROVIDERS: PCP Nurse Practitioner Family; Visit Provider Internal Medicine
DX: K90.0 Celiac disease (principal); Z12.31 Encounter for screening mammogram for malignant neoplasm of breast; Z13.820 Encounter for screening for osteoporosis
CPT/HCPCS: 77063; 77067; 77080

== ENCOUNTER → 2022-11-01 14:15 | Outpatient (BNV) | payer OTHER, SELFPAY | PROVIDERS: PCP Nurse Practitioner Family; Visit Provider Radiology Diagnostic Radiology | DX: Z12.31 Encounter for screening mammogram for malignant neoplasm of breast (principal) | CPT/HCPCS: 77063; 77067 ==

== ENCOUNTER 2022-11-19 14:22 | Outpatient (AMB) | payer OTHER, SELFPAY ==
--- NOTE | 2022-11-19 14:24 | A.OFFVIS_ITS ---
Intake Vital Signs 11/19/22 14:26 Height 5 ft 2 in Weight 205 lb 11.06 oz BMI 37.6 BP 132/80 Blood Pressure Location Lt brachial Position Sitting Pulse 70 Pulse Source Pulse Oximeter Pulse Oximetry (%) 98 Oxygen Delivery Method Room Air Intake Visit Reasons: abnormal DEXA scan, celiac disease Intake Note: Pt presents to the office for celiac disease and abnormal DEXA scan. Allergies Penicillins [PENICILLINS] Allergy (Severe, Verified 11/19/22 14:26) ANAPHYLAXIS amitriptyline [AMITRIPTYLINE] Allergy (Intermediate, Verified 11/19/22 14:26) HIVES banana Allergy (Intermediate, Verified 11/19/22 14:26) Hives kiwi [KIWI] Allergy (Intermediate, Verified 11/19/22 14:26) HIVES pineapple Allergy (Intermediate, Verified 11/19/22 14:26) Hives clams Allergy (Unknown, Verified 11/19/22 14:26) Unknown gluten Allergy (Unknown, Verified 11/19/22 14:26) Unknown MEAT Allergy (Severe, Uncoded 11/19/22 14:26) HIVES,ANAPHYLAXIS dairy Adverse Reaction (Intermediate, Uncoded 11/19/22 14:26) pt states allery to all Dairy Products Medication List - Last Reconciled 11/19/22 by Malik Fernandez MD calcium-magnesium 750-465 mg 2 tabs PO DAILY cholecalciferol (vitamin D3) 50 mcg PO DAILY cyanocobalamin-cobamamide 5,000-100 mcg (B12) 1 mindy sublingual DAILY epinephrine (EpiPen) 0.3 mg (0.3 mL) IM Q4H PRN ferrous sulfate 325 mg PO DAILY hydroxyzine HCl 10 mg PO BID PRN multivitamin 1 tab PO DAILY paroxetine HCl (Paxil) 20 mg PO DAILY tizanidine 2 mg PO BEDTIME PRN tranexamic acid 1,300 mg PO TID PRN HPI HPI Comments History of Present Illness Details Is a 47-year-old white female previously seen by endocrinology for evaluation of hair loss. Today, she returns with a DEXA bone density that shows low bone mass. Apparently, she was diagnosed with celiac disease. She is currently on calcium and vitamin-D supplementation. Her vitamin-D levels were normal. She has not had a bone fracture. Her secondary workup was essentially negative but was not complete. No hx of fx . Has nl menses PFSH Medical History Celiac disease Ear anomaly Family history of thyroid disease Hair loss Hx of head injury Hx of migraines Iron deficiency anemia Left knee sprain Low vitamin D level Soft tissue injury of left knee Surgical History H/O esophagogastroduodenoscopy H/O knee surgery History of left knee surgery Hx of cholecystectomy Hx of colonoscopy Hx of foot surgery Hx of shoulder surgery Previous section Family History Father Diabetes Hypercholesterolemia Chronic kidney disease Hypertension Mother Hypercholesterolemia Hypertension Maternal Grandmother History of breast cancer Other No family history of cancer Social History Household Members: Family Household Members Other:: children and parents Housing: House Are you a primary residential child care counselor to a significant other at home: No Do you presently have visiting nurse or other home services: No Alcohol intake: current Alcohol intake frequency: holidays/special occasions only Alcohol type: beer, wine, hard liquor and other Patient Tobacco Use Status: Current everyday Tobacco user Tobacco use type: Cigarette Cigarettes Per Day: 10 Years Smoked: 20 e-Cigarette/Vaping Use: Never Used Substance Use Type: Marijuana service: No Current occupational status: employed 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 Sexual orientation: Straight/Heterosexual Gender identity: Female Cognitive needs: No Hearing needs: No Vision needs: Yes Female Reproductive History Menstrual Age of Menarche: 13 Physical Exam Vital Signs: Last Vital Signs Pulse 70 11/19/22 14:26 BP 132/80 11/19/22 14:26 Pulse Ox 98 11/19/22 14:26 Oxygen Delivery Method Room Air 11/19/22 14:26 BMI result Body Mass Index 37.6 Assessment & Plan Assessment & Plan (1) Osteopenia: Code(s): M85.80 - Other specified disorders of bone density and structure, unspecified site Plan: This is a 47-year-old white female recently diagnosed with low bone mass. She is currently on calcium and vitamin-D supplementation. Partial secondary workup was performed. Possible etiologies behind the low bone mass could include undetected celiac disease with vitamin-D deficiency Plan is to complete the secondary workup by checking a 24 hour urine for calcium and creatinine as well as a phosphorus level. Will continue calcium and vitamin-D supplementation. Assuming above is normal, will have patient follow- up with primary care provider. No need for pharmacologic therapy at this point Orders: Orders Phosphorus Today M85.80 - Other specified disorders of bone density and structure, unspecified site Calcium, 24 Hr Ur Today M85.80 - Other specified disorders of bone density and structure, unspecified site Creatinine, 24 Hr Group Today M85.80 - Other specified disorders of bone density and structure, unspecified site Coding Level of Care Code Est Pt Level 3 (22764) Diagnoses Osteopenia M85.80
[2022-11-19 14:26] VITALS: BP 132/80; PULSE 70; O2SAT 98; BMI 37.6
== END 2022-11-19 14:54 | disposition home or self-care (01) ==
PROVIDERS: PCP Nurse Practitioner Family; Visit Provider Internal Medicine Endocrinology, Diabetes & Metabolism
DX: M85.80 Other specified disorders of bone density and structure, unspecified site (principal)
CPT/HCPCS: 99213

== ENCOUNTER 2022-11-19 14:22 | Outpatient (REF) | payer OTHER, SELFPAY ==
[2022-11-19 19:23] LABS: Phosphorus 3.4 mg/dL (2.7-4.5)
[2022-11-19 19:40] LABS: Vitamin D 25-OH Total 30.2 ng/mL (>30)
== END 2022-11-19 14:23 | disposition home or self-care (01) ==
LOC: HO.LAB 14:22
PROVIDERS: PCP Nurse Practitioner Family; Visit Provider Internal Medicine Endocrinology, Diabetes & Metabolism
DX: M85.80 Other specified disorders of bone density and structure, unspecified site (principal); R79.89 Other specified abnormal findings of blood chemistry
CPT/HCPCS: 36415; 82306; 84100; 99212

== ENCOUNTER 2022-12-12 14:15 | Outpatient (REF) | payer OTHER, SELFPAY ==
--- NOTE | ~2022-12-12 | MR_ITS ---
EXAMINATION: MR LUMBAR SPINE WITHOUT CONTRAST CLINICAL INFORMATION: Lumbar radiculopathy. COMPARISON: Lumbar spine radiographs from 06/18/2022. TECHNIQUE: MRI of the lumbar spine was obtained using routine sequences without contrast. FINDINGS: Normal anatomic alignment. Mild degenerative disc disease from L1-L4. Associated minimal mixed Modic type discogenic endplate changes. Multiple small lipid rich meningioma with within the L1, L3, and L4 vertebral bodies. No suspicious marrow edema. The vertebral body heights are well-maintained. The conus medullaris terminates at the level of L1. The distal spinal cord is normal in appearance. No significant abnormalities of the paraspinal musculature. Limited evaluation of the intra-abdominal structures without significant abnormalities. The abdominal aorta is of normal contour and caliber. AXIAL SPINAL LEVELS: T12-L1: Normal annular contour. There is no facet joint arthropathy. There is no neural foraminal stenosis. There is no spinal canal stenosis. L1-L2: Normal annular contour. There is no facet joint arthropathy. There is no neural foraminal stenosis. There is no spinal canal stenosis. L2-L3: Mild diffuse disc bulge with superimposed central disc protrusion. There is mild bilateral facet joint arthropathy. There is no neural foraminal stenosis. There is no spinal canal stenosis. L3-L4: Shallow diffuse disc bulge. There is mild right and no left facet joint arthropathy. There is mild right and no left neural foraminal stenosis. There is no spinal canal stenosis. L4-L5: Normal annular contour. There is mild bilateral facet joint arthropathy. There is mild bilateral neural foraminal stenosis. There is no spinal canal stenosis. L5-S1: Shallow diffuse disc bulge. There is mild bilateral facet joint arthropathy. There is no neural foraminal stenosis. There is no spinal canal stenosis. MR/MR lumbar spine wo con IMPRESSION: Mild multilevel degenerative spondyloarthropathy of the lumbar spine as described in detail above. No overt spinal canal stenosis or nerve root compression.
== END 2022-12-12 14:16 | disposition home or self-care (01) ==
LOC: HO.MRI 14:15
PROVIDERS: PCP Nurse Practitioner Family; Visit Provider Registered Nurse Emergency
DX: M54.16 Radiculopathy, lumbar region (principal)
CPT/HCPCS: 72148

== ENCOUNTER 2022-12-24 14:49 | Outpatient (AMB) | payer OTHER, SELFPAY ==
[2022-12-24 15:02] VITALS: BP 132/84; PULSE 77; RESP 14; O2SAT 97; BMI 37.3
--- NOTE | 2022-12-24 15:02 | MHC.OFFVIS ---
Intake Vital Signs 12/24/22 15:02 Height 5 ft 2 in Weight 204 lb BMI 37.3 BP 132/84 Blood Pressure Location Lt brachial Position Sitting Respiration 14 Pulse 77 Pulse Source Pulse Oximeter Pulse Oximetry (%) 97 Oxygen Delivery Method Room Air Intake Visit Reasons: Follow Up/MRI Results Allergies Penicillins [PENICILLINS] Allergy (Severe, Verified 12/24/22 15:03) ANAPHYLAXIS amitriptyline [AMITRIPTYLINE] Allergy (Intermediate, Verified 12/24/22 15:03) HIVES banana Allergy (Intermediate, Verified 12/24/22 15:03) Hives kiwi [KIWI] Allergy (Intermediate, Verified 12/24/22 15:03) HIVES pineapple Allergy (Intermediate, Verified 12/24/22 15:03) Hives clams Allergy (Unknown, Verified 12/24/22 15:03) Unknown gluten Allergy (Unknown, Verified 12/24/22 15:03) Unknown MEAT Allergy (Severe, Uncoded 11/19/22 14:26) HIVES,ANAPHYLAXIS dairy Adverse Reaction (Intermediate, Uncoded 11/19/22 14:26) pt states allery to all Dairy Products HPI HPI Comments History of Present Illness Details Sveta presents back to the office today for follow up. MRI results reviewed with patient, results as per below. Patient continues to c/o left lower back pain radiating into left thigh. Continues with NSAIDs and tumeric for inflammation. She has been going to the gym, using some machines for weights and cardio as instructed by PT. Avoiding heavy weights and machines that put stress on her back. Trip coming up to [place] and [place] that involves a lot of walking, patient is concerned about pain increase with increased activity. She denies any new loss of bowel bladder or saddle anesthesia. Prior: Sveta is a pleasant 47-year-old female who presents to the office today for new patient visit for evaluation and management of chronic lower back pain. Patient recently seen by pcp for annual wellness exam and was referred here for ongoing lower back pain. Patient reports 5/10 left lower back pain with radiation into the thigh and occasionally down into the left foot. She reports this has been ongoing for 3 years after she injured herself while at the gym. She was weightlifting, had been squatting 350 lb and states due to improper form she injured her back. Patient also injured her left knee which she had surgery for in January of 2022. After surgery she completed about 6 months of physical therapy for her left knee and back. She continues to do home exercise program with minimal improvement in her pain. She was recently prescribed tizanidine by her primary care which she states helps her sleep otherwise she does not notice any change in her pain. She takes ibuprofen as needed and also uses turmeric for inflammation. Patient had a recent x-ray which was reviewed during visit, results as below. Patient describes her pain as aching, stabbing, pins and needles and burning. At its worst the pain will be 10/10, pain is worse with long car rides and repetitive motions of her left leg. Patient reports the pain is adversely impacting her mood, sleep, recreational activities and her work. Patient denies red flag symptoms including loss of bowel bladder or saddle anesthesia. Patient reports she has received cortisone injections in the past for other pains and states that they have never helped . In terms of muscle damage condition is described as aching, spasming, tingling, pins and needles and numb. Patient's past medical history significant for celiac disease, iron deficiency anemia, migraines, multiple food allergies. Patient denies implantable devices, pacemaker or defibrillator. Patient reports 1/2 pack per day tobacco use, rare alcohol use, rare THC use. Does endorse occasional CBD use. [facility] Medical History Celiac disease Ear anomaly Family history of thyroid disease Hair loss Hx of head injury Hx of migraines Iron deficiency anemia Left knee sprain Low vitamin D level Soft tissue injury of left knee Surgical History H/O esophagogastroduodenoscopy H/O knee surgery History of left knee surgery Hx of cholecystectomy Hx of colonoscopy Hx of foot surgery Hx of shoulder surgery Previous section Family History Father Diabetes Hypercholesterolemia Chronic kidney disease Hypertension Mother Hypercholesterolemia Hypertension Maternal Grandmother History of breast cancer Other No family history of cancer Social History Household Members: Family Household Members Other:: children and parents Housing: House Are you a primary rn progressive care to a significant other at home: No Do you presently have visiting nurse or other home services: No Alcohol intake: current Alcohol intake frequency: holidays/special occasions only Alcohol type: beer, wine, hard liquor and other Patient Tobacco Use Status: Current everyday Tobacco user Tobacco use type: Cigarette Cigarettes Per Day: 10 Years Smoked: 20 e-Cigarette/Vaping Use: Never Used Substance Use Type: Marijuana service: No Current occupational status: employed 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 Answers questions appropriately. Fully engaged in examination. Skin: warm, dry, intact HEENT: Normocephalic. Hearing intact. Cardiac: External chest normal in appearance. Respiratory: No cough, audible wheezing or stridor. Abdomen: without gross distension. Neurological: Oriented to person, place, time and situation. Thought process intact. No gait abnormalities appreciated. Psychiatric: Appropriate mood and affect. Good judgment and insight. Back/Spine/Pelvis Other: Able to stand on bilateral tiptoes and bilateral heels. Able to transition from sit to stand unassisted. Ambulates with bilaterally normal heel strike and toe off Visual inspection without gross abnormality Tender to palpation over left PSIS Full active ROM: extension to 20 degrees. flexion to 100 degrees Strength: 5/5 BLE DTR: intact and symmetric Straight leg raises with and without dorsiflexion negative bilaterally Facet loading positive bilaterally ARIK positive on left SI compression positive on left Thigh thrust positive on left Results Reviewed Results Reviewed: 12/12/2022 FINDINGS: Normal anatomic alignment. Mild degenerative disc disease from L1-L4. Associated minimal mixed Modic type discogenic endplate changes. Multiple small lipid rich meningioma with within the L1, L3, and L4 vertebral bodies. No suspicious marrow edema. The vertebral body heights are well-maintained. The conus medullaris terminates at the level of L1. The distal spinal cord is normal in appearance. No significant abnormalities of the paraspinal musculature. Limited evaluation of the intra-abdominal structures without significant abnormalities. The abdominal aorta is of normal contour and caliber. AXIAL SPINAL LEVELS: T12-L1: Normal annular contour. There is no facet joint arthropathy. There is no neural foraminal stenosis. There is no spinal canal stenosis. L1-L2: Normal annular contour. There is no facet joint arthropathy. There is no neural foraminal stenosis. There is no spinal canal stenosis. L2-L3: Mild diffuse disc bulge with superimposed central disc protrusion. There is mild bilateral facet joint arthropathy. There is no neural foraminal stenosis. There is no spinal canal stenosis. L3-L4: Shallow diffuse disc bulge. There is mild right and no left facet joint arthropathy. There is mild right and no left neural foraminal stenosis. There is no spinal canal stenosis. L4-L5: Normal annular contour. There is mild bilateral facet joint arthropathy. There is mild bilateral neural foraminal stenosis. There is no spinal canal stenosis. L5-S1: Shallow diffuse disc bulge. There is mild bilateral facet joint arthropathy. There is no neural foraminal stenosis. There is no spinal canal stenosis. MR/MR lumbar spine wo con IMPRESSION: Mild multilevel degenerative spondyloarthropathy of the lumbar spine as described in detail above. No overt spinal canal stenosis or nerve root compression. Assessment & Plan Assessment & Plan (1) Lumbar spondylosis: Code(s): M47.816 - Spondylosis without myelopathy or radiculopathy, lumbar region (2) Lumbar facet arthropathy: Code(s): M47.816 - Spondylosis without myelopathy or radiculopathy, lumbar region (3) Sacroiliac dysfunction: Comment: left Code(s): M53.3 - Sacrococcygeal disorders, not elsewhere classified (4) Lumbar radiculopathy: Code(s): M54.16 - Radiculopathy, lumbar region Lew Bangura is a pleasant 47-year-old female who presented to the office today for follow up to review MRI results. The patient has exhausted conservative therapy including PT, home exercise program, NSAIDs and muscle relaxers. Discussed options for treatment including diagnostic interventional testing, epidural steroid injections, peripheral nerve stimulation with Sprint, RFA, SIJ fusion and more permanent neuromodulation. Informational pamphlets provided. Schedule for fluoroscopy guided diagnostic left sacroiliac joint injection with local anesthesia. Zynex tens machine ordered. Topical compound cream sent to specialty pharmacy All questions and concerns have been answered and patient agrees with the plan. Patient will follow up here after diagnostic testing, sooner if needed. Medications: New cream base no.105 (bulk) (Base W301 cream) Diclofenac 5%, Baclofen 5%, Cyclobenzaprine 2%, Gabapentin 6%, Bupivacaine 2% SIG: apply pea-sized amount 3-5 times daily to painful areas as needed 180 grams 0RF M47.816 - Spondylosis without myelopathy or radiculopathy, lumbar region, M53.3 - Sacrococcygeal disorders, not elsewhere classified Coding Level of Care Code Est Pt Level 4 (97316) Diagnoses Lumbar spondylosis M47.816 Lumbar facet arthropathy M47.816 Sacroiliac dysfunction M53.3 Lumbar radiculopathy M54.16
== END 2022-12-24 14:57 | disposition home or self-care (01) ==
PROVIDERS: PCP Nurse Practitioner Family; Visit Provider Registered Nurse Emergency
DX: M47.816 Spondylosis without myelopathy or radiculopathy, lumbar region (principal); M53.3 Sacrococcygeal disorders, not elsewhere classified; M54.16 Radiculopathy, lumbar region
CPT/HCPCS: 99214

== ENCOUNTER → 2022-12-24 14:49 | Outpatient (BNVA) | payer OTHER, SELFPAY | PROVIDERS: PCP Nurse Practitioner Family; Visit Provider Registered Nurse Emergency | DX: M47.26 Other spondylosis with radiculopathy, lumbar region (principal); M53.3 Sacrococcygeal disorders, not elsewhere classified | CPT/HCPCS: 99212 ==

== ENCOUNTER 2023-01-28 06:23 | Outpatient (REF) | payer OTHER, SELFPAY | END 2023-01-28 06:24 | disposition home or self-care (01) | LOC: CF 06:23 | PROVIDERS: Visit Provider Anesthesiology | DX: M53.3 Sacrococcygeal disorders, not elsewhere classified (principal); M47.816 Spondylosis without myelopathy or radiculopathy, lumbar region; M54.16 Radiculopathy, lumbar region | CPT/HCPCS: 27096; J2795 ==

== ENCOUNTER 2023-01-28 14:43 | Outpatient (AMB) | payer OTHER, SELFPAY ==
[2023-01-28 15:02] VITALS: BP 136/82; PULSE 78; RESP 18; O2SAT 98; BMI 37.3
--- NOTE | 2023-01-28 15:02 | MHC.OFFVIS ---
Intake Vital Signs 01/28/23 15:02 01/28/23 15:14 Height 5 ft 2 in 5 ft 2 in Weight 204 lb 204 lb BMI 37.3 37.3 BP 136/82 138/72 Blood Pressure Location Lt brachial Rt brachial Position Sitting Sitting Respiration 18 16 Pulse 78 73 Pulse Source Pulse Oximeter Pulse Oximeter Pulse Oximetry (%) 98 99 Oxygen Delivery Method Room Air Room Air Comment pre-op post-op Intake Visit Reasons: L DX SIJ INJ/LOCAL Allergies Penicillins [PENICILLINS] Allergy (Severe, Verified 01/28/23 15:03) ANAPHYLAXIS amitriptyline [AMITRIPTYLINE] Allergy (Intermediate, Verified 01/28/23 15:03) HIVES banana Allergy (Intermediate, Verified 01/28/23 15:03) Hives kiwi [KIWI] Allergy (Intermediate, Verified 01/28/23 15:03) HIVES pineapple Allergy (Intermediate, Verified 01/28/23 15:03) Hives clams Allergy (Unknown, Verified 01/28/23 15:03) Unknown gluten Allergy (Unknown, Verified 01/28/23 15:03) Unknown MEAT Allergy (Severe, Uncoded 11/19/22 14:26) HIVES,ANAPHYLAXIS dairy Adverse Reaction (Intermediate, Uncoded 11/19/22 14:26) pt states allery to all Dairy Products PFSH Medical History Celiac disease Ear anomaly Family history of thyroid disease Hair loss Hx of head injury Hx of migraines Iron deficiency anemia Left knee sprain Low vitamin D level Soft tissue injury of left knee Surgical History H/O esophagogastroduodenoscopy H/O knee surgery History of left knee surgery Hx of cholecystectomy Hx of colonoscopy Hx of foot surgery Hx of shoulder surgery Previous section Family History Father Diabetes Hypercholesterolemia Chronic kidney disease Hypertension Mother Hypercholesterolemia Hypertension Maternal Grandmother History of breast cancer Other No family history of cancer Social History Household Members: Family Household Members Other:: children and parents Housing: House Are you a primary college and career counselor to a significant other at home: No Do you presently have visiting nurse or other home services: No Alcohol intake: current Alcohol intake frequency: holidays/special occasions only Alcohol type: beer, wine, hard liquor and other Patient Tobacco Use Status: Current everyday Tobacco user Tobacco use type: Cigarette Cigarettes Per Day: 10 Years Smoked: 20 e-Cigarette/Vaping Use: Never Used Substance Use Type: Marijuana service: No Current occupational status: employed 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 Sexual orientation: Straight/Heterosexual Gender identity: Female Cognitive needs: No Hearing needs: No Vision needs: Yes Female Reproductive History Menstrual Age of Menarche: 13 Physical Exam Vital Signs: Last Vital Signs Pulse 73 01/28/23 15:14 Resp 16 01/28/23 15:14 BP 138/72 01/28/23 15:14 Pulse Ox 99 01/28/23 15:14 Oxygen Delivery Method Room Air 01/28/23 15:14 BMI result Body Mass Index 37.3 Assessment & Plan Assessment & Plan (1) Lumbar spondylosis: Code(s): M47.816 - Spondylosis without myelopathy or radiculopathy, lumbar region (2) Lumbar facet arthropathy: Code(s): M47.816 - Spondylosis without myelopathy or radiculopathy, lumbar region (3) Sacroiliac dysfunction: Comment: left Code(s): M53.3 - Sacrococcygeal disorders, not elsewhere classified Plan: ?Left diagnostic sacroiliac joint injection Informed consent was explained thoroughly to the patient.? All questions about benefits and risks for the procedure were answered. Patient came to the operating room and was positioned prone on the operating table with the pillow under her pelvis. ?[place] [employer] monitors were applied and patient was sedated. ? Time out was performed delineating name and of the patient, site and side of the procedure, nature of the procedure and potential patient?s risks. The lower back of the patient and upper buttocks was prepped with ChloraPrep prepped and draped with sterile utility drapes.? C-arm was brought over the operating field and square picture of patient's pelvis was demonstrated on the screen.? For the left joint tilting C-arm contralateral to the site of the joint the posterior joint silhouette was delineated on the screen. Skin projection of the joint was chosen as a target of the injection and it was injected ?slightly medial to the location of the joint with 25 gauge needle using local lidocaine 2% without epinephrine. After that 22 gauge 3 and 1/2 inch needle was driven to the joint silhouette in tunnel vision fashion.? When needle entered the joint capsule injection of the contrast was performed demonstrating intra-articular spread of the contrast.? After that 4 cc. of ropivacaine 0.5% was injected into the joint. Upon completion of the injections the needle was removed and sterile dressing was applied.? Upon completion of the injection patient was awaken taken outside of the operating room to the recovery room where recovered uneventfully.? (4) Lumbar radiculopathy: Code(s): M54.16 - Radiculopathy, lumbar region Plan Sveta is a pleasant 47-year-old female who presented to the office today for follow up to review MRI results. The patient has exhausted conservative therapy including PT, home exercise program, NSAIDs and muscle relaxers. Discussed options for treatment including diagnostic interventional testing, epidural steroid injections, peripheral nerve stimulation with Sprint, RFA, SIJ fusion and more permanent neuromodulation. Informational pamphlets provided. Schedule for fluoroscopy guided diagnostic left sacroiliac joint injection with local anesthesia. Zynex tens machine ordered. Topical compound cream sent to specialty pharmacy All questions and concerns have been answered and patient agrees with the plan. Patient will follow up here after diagnostic testing, sooner if needed. Orders: Orders [place] guidance in treatment room 01/28/23 M53.3 - Sacrococcygeal disorders, not elsewhere classified Coding Level of Care Code Procedure Only Diagnoses Lumbar spondylosis M47.816 Lumbar facet arthropathy M47.816 Sacroiliac dysfunction M53.3 Lumbar radiculopathy M54.16
[2023-01-28 15:14] VITALS: BP 138/72; PULSE 73; RESP 16; O2SAT 99; BMI 37.3
== END 2023-01-28 15:27 | disposition home or self-care (01) ==
LOC: HO.PMCPRC 14:44
PROVIDERS: PCP Nurse Practitioner Family; Visit Provider Anesthesiology
DX: M53.3 Sacrococcygeal disorders, not elsewhere classified (principal); M54.16 Radiculopathy, lumbar region
CPT/HCPCS: 27096

== ENCOUNTER 2023-01-30 13:52 | Outpatient (REF) | payer OTHER, SELFPAY | END 2023-01-30 13:53 | disposition home or self-care (01) | LOC: HO.MDS 13:52 | PROVIDERS: PCP Nurse Practitioner Family; Visit Provider Internal Medicine | DX: K90.0 Celiac disease (principal) | CPT/HCPCS: 96365; J1756 ==

== ENCOUNTER 2023-01-31 14:17 | Outpatient (AMB) | payer OTHER, SELFPAY ==
--- NOTE | 2023-01-31 14:20 | MHC.OFFVIS ---
Intake Vital Signs 01/31/23 14:29 Height 5 ft 2 in Weight 200 lb BMI 36.6 BP 140/72 H Blood Pressure Location Rt brachial Position Sitting Respiration 16 Pulse 68 Pulse Source Pulse Oximeter Pulse Oximetry (%) 98 Oxygen Delivery Method Room Air Intake Visit Reasons: L DX SIJ INJ 01/28/23 Allergies Penicillins [PENICILLINS] Allergy (Severe, Verified 01/31/23 14:31) ANAPHYLAXIS amitriptyline [AMITRIPTYLINE] Allergy (Intermediate, Verified 01/31/23 14:31) HIVES banana Allergy (Intermediate, Verified 01/31/23 14:31) Hives kiwi [KIWI] Allergy (Intermediate, Verified 01/31/23 14:31) HIVES pineapple Allergy (Intermediate, Verified 01/31/23 14:31) Hives clams Allergy (Unknown, Verified 01/31/23 14:31) Unknown gluten Allergy (Unknown, Verified 01/31/23 14:31) Unknown MEAT Allergy (Severe, Uncoded 11/19/22 14:26) HIVES,ANAPHYLAXIS dairy Adverse Reaction (Intermediate, Uncoded 11/19/22 14:26) pt states allery to all Dairy Products HPI HPI Comments History of Present Illness Details Sveta presents back to the office today for follow up 2 days s/p left diagnostic SIJ injection. Patient reports 70% relief of lower back pain and 100% relief of her left leg pain for greater than 24hours after the injection. She states the pain started today back to her left thigh. She also reports improvement in function and mobility. She does endorse some midline lumbar spine pain that became more pronounced after the SIJ pain went away. Prior: Sveta presents back to the office today for follow up. MRI results reviewed with patient, results as per below. Patient continues to c/o left lower back pain radiating into left thigh. Continues with NSAIDs and tumeric for inflammation. She has been going to the gym, using some machines for weights and cardio as instructed by PT. Avoiding heavy weights and machines that put stress on her back. Trip coming up to [place] and [place] that involves a lot of walking, patient is concerned about pain increase with increased activity. She denies any new loss of bowel bladder or saddle anesthesia. Prior: Sveta is a pleasant 47-year-old female who presents to the office today for new patient visit for evaluation and management of chronic lower back pain. Patient recently seen by pcp for annual wellness exam and was referred here for ongoing lower back pain. Patient reports 5/10 left lower back pain with radiation into the thigh and occasionally down into the left foot. She reports this has been ongoing for 3 years after she injured herself while at the gym. She was weightlifting, had been squatting 350 lb and states due to improper form she injured her back. Patient also injured her left knee which she had surgery for in January of 2022. After surgery she completed about 6 months of physical therapy for her left knee and back. She continues to do home exercise program with minimal improvement in her pain. She was recently prescribed tizanidine by her primary care which she states helps her sleep otherwise she does not notice any change in her pain. She takes ibuprofen as needed and also uses turmeric for inflammation. Patient had a recent x-ray which was reviewed during visit, results as below. Patient describes her pain as aching, stabbing, pins and needles and burning. At its worst the pain will be 10/10, pain is worse with long car rides and repetitive motions of her left leg. Patient reports the pain is adversely impacting her mood, sleep, recreational activities and her work. Patient denies red flag symptoms including loss of bowel bladder or saddle anesthesia. Patient reports she has received cortisone injections in the past for other pains and states that they have never helped . In terms of muscle damage condition is described as aching, spasming, tingling, pins and needles and numb. Patient's past medical history significant for celiac disease, iron deficiency anemia, migraines, multiple food allergies. Patient denies implantable devices, pacemaker or defibrillator. Patient reports 1/2 pack per day tobacco use, rare alcohol use, rare THC use. Does endorse occasional CBD use. [facility] Medical History Celiac disease Ear anomaly Family history of thyroid disease Hair loss Hx of head injury Hx of migraines Iron deficiency anemia Left knee sprain Low vitamin D level Soft tissue injury of left knee Surgical History H/O esophagogastroduodenoscopy H/O knee surgery History of left knee surgery Hx of cholecystectomy Hx of colonoscopy Hx of foot surgery Hx of shoulder surgery Previous section Family History Father Diabetes Hypercholesterolemia Chronic kidney disease Hypertension Mother Hypercholesterolemia Hypertension Maternal Grandmother History of breast cancer Other No family history of cancer Social History Household Members: Family Household Members Other:: children and parents Housing: House Are you a primary rn palliative care to a significant other at home: No Do you presently have visiting nurse or other home services: No Alcohol intake: current Alcohol intake frequency: holidays/special occasions only Alcohol type: beer, wine, hard liquor and other Patient Tobacco Use Status: Current everyday Tobacco user Tobacco use type: Cigarette Cigarettes Per Day: 10 Years Smoked: 20 e-Cigarette/Vaping Use: Never Used Substance Use Type: Marijuana service: No Current occupational status: employed 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 Answers questions appropriately. Fully engaged in examination. Skin: warm, dry, intact HEENT: Normocephalic. Hearing intact. Cardiac: External chest normal in appearance. Respiratory: No cough, audible wheezing or stridor. Abdomen: without gross distension. Neurological: Oriented to person, place, time and situation. Thought process intact. No gait abnormalities appreciated. Psychiatric: Appropriate mood and affect. Good judgment and insight. Results Reviewed Results Reviewed: 01/31/2023 REASON FOR ADDENDUM: Typographical error. FINDINGS (CORRECTED): Multiple small lipid rich HEMANGIOMAS with within the L1, L3, and L4 vertebral bodies. Addendum Dictated By: Jam Horn DO 12/12/2022 FINDINGS: Normal anatomic alignment. Mild degenerative disc disease from L1-L4. Associated minimal mixed Modic type discogenic endplate changes. Multiple small lipid rich meningioma with within the L1, L3, and L4 vertebral bodies. No suspicious marrow edema. The vertebral body heights are well-maintained. The conus medullaris terminates at the level of L1. The distal spinal cord is normal in appearance. No significant abnormalities of the paraspinal musculature. Limited evaluation of the intra-abdominal structures without significant abnormalities. The abdominal aorta is of normal contour and caliber. AXIAL SPINAL LEVELS: T12-L1: Normal annular contour. There is no facet joint arthropathy. There is no neural foraminal stenosis. There is no spinal canal stenosis. L1-L2: Normal annular contour. There is no facet joint arthropathy. There is no neural foraminal stenosis. There is no spinal canal stenosis. L2-L3: Mild diffuse disc bulge with superimposed central disc protrusion. There is mild bilateral facet joint arthropathy. There is no neural foraminal stenosis. There is no spinal canal stenosis. L3-L4: Shallow diffuse disc bulge. There is mild right and no left facet joint arthropathy. There is mild right and no left neural foraminal stenosis. There is no spinal canal stenosis. L4-L5: Normal annular contour. There is mild bilateral facet joint arthropathy. There is mild bilateral neural foraminal stenosis. There is no spinal canal stenosis. L5-S1: Shallow diffuse disc bulge. There is mild bilateral facet joint arthropathy. There is no neural foraminal stenosis. There is no spinal canal stenosis. MR/MR lumbar spine wo con IMPRESSION: Mild multilevel degenerative spondyloarthropathy of the lumbar spine as described in detail above. No overt spinal canal stenosis or nerve root compression. Assessment & Plan Assessment & Plan (1) Lumbar spondylosis: Code(s): M47.816 - Spondylosis without myelopathy or radiculopathy, lumbar region (2) Lumbar facet arthropathy: Code(s): M47.816 - Spondylosis without myelopathy or radiculopathy, lumbar region (3) Sacroiliac dysfunction: Comment: left Code(s): M53.3 - Sacrococcygeal disorders, not elsewhere classified (4) Lumbar radiculopathy: Code(s): M54.16 - Radiculopathy, lumbar region Lew Bangura is a very pleasant 47-year-old female who presented to the office today for follow up 2 days s/p diagnostic left SIJ injection with local anesthetic. Patient reports 70% relief of lower back pain and 100% relief of her left leg pain for greater than 24hours after the injection with improvement in function and mobility. She would like to proceed with Fluoroscopy guided left therapeutic SIJ injection. Plan for Bilateral diagnostic L3-L4-DR L5 MBBs with local anesthetic for her lumbar facet arthropathy if pain over midline lumbar vertebrae persists. Justification for interventional therapy: ? Patient with average pain > 6/10 ? The patient has exhausted conservative therapy including PT, home exercise program, NSAIDs and muscle relaxers. Discussed options for treatment including diagnostic interventional testing, epidural steroid injections, peripheral nerve stimulation with Sprint, RFA, SIJ fusion and more permanent neuromodulation. Informational pamphlets provided. All questions and concerns have been answered and patient agrees with the plan. Patient will follow up here after injection, sooner if needed. Coding Level of Care Code Est Pt Level 3 (83211) Diagnoses Lumbar spondylosis M47.816 Lumbar facet arthropathy M47.816 Sacroiliac dysfunction M53.3 Lumbar radiculopathy M54.16
[2023-01-31 14:29] VITALS: BP 140/72; PULSE 68; RESP 16; O2SAT 98; BMI 36.6
== END 2023-01-31 15:30 | disposition home or self-care (01) ==
PROVIDERS: PCP Nurse Practitioner Family; Visit Provider Registered Nurse Emergency
DX: M47.816 Spondylosis without myelopathy or radiculopathy, lumbar region (principal); M53.3 Sacrococcygeal disorders, not elsewhere classified; M54.16 Radiculopathy, lumbar region
CPT/HCPCS: 99213

== ENCOUNTER → 2023-01-31 14:17 | Outpatient (BNVA) | payer OTHER, SELFPAY | PROVIDERS: PCP Nurse Practitioner Family; Visit Provider Registered Nurse Emergency | DX: M47.816 Spondylosis without myelopathy or radiculopathy, lumbar region (principal); M53.3 Sacrococcygeal disorders, not elsewhere classified; M54.16 Radiculopathy, lumbar region | CPT/HCPCS: 99212 ==

== ENCOUNTER 2023-02-06 12:52 | Outpatient (REF) | payer OTHER, SELFPAY | END 2023-02-06 12:53 | disposition home or self-care (01) | LOC: HO.MDS 12:52 | PROVIDERS: Visit Provider Internal Medicine Medical Oncology | DX: K90.0 Celiac disease (principal) | CPT/HCPCS: 96365; J1756 ==

== ENCOUNTER 2023-02-06 15:42 | Outpatient (AMB) | payer OTHER, SELFPAY ==
--- NOTE | 2023-02-06 16:23 | MHC.OFFWIV ---
Intake Vital Signs 02/06/23 16:25 Height 5 ft 2 in Weight 203 lb BMI 37.1 BP 118/70 Blood Pressure Location Rt brachial Position Sitting Pulse 86 Pulse Source Pulse Oximeter Pulse Oximetry (%) 98 Oxygen Delivery Method Room Air Intake Visit Reasons: EST/left side pain Intake Note: Patient here for upper abdomen pain that travels up which has been bothersome for a little over 1 week and has been feeling very fatigued, feeling very full after eating small amounts of food. pt is diagnosed w/celiac disease and has been noticing her skin gets raised. Patient Tobacco Use Status: Current everyday Tobacco user Allergies Penicillins [PENICILLINS] Allergy (Severe, Verified 02/06/23 16:28) ANAPHYLAXIS amitriptyline [AMITRIPTYLINE] Allergy (Intermediate, Verified 02/06/23 16:28) HIVES banana Allergy (Intermediate, Verified 02/06/23 16:28) Hives kiwi [KIWI] Allergy (Intermediate, Verified 02/06/23 16:28) HIVES pineapple Allergy (Intermediate, Verified 02/06/23 16:28) Hives clams Allergy (Unknown, Verified 02/06/23 16:28) Unknown gluten Allergy (Unknown, Verified 02/06/23 16:28) Unknown MEAT Allergy (Severe, Uncoded 02/06/23 16:28) HIVES,ANAPHYLAXIS dairy Adverse Reaction (Intermediate, Uncoded 02/06/23 16:28) pt states allery to all Dairy Products Do you need a note to return to daycare/school/sports/work: No HPI HPI Comments History of Present Illness Details 47-year-old female presents with left-sided abdominal pain. Pain has been present for week denies fever chills urinary symptoms having regular bowel movements pain is upper left quadrant radiating occasionally upward into the back. Versus some nausea no vomiting history of celiac disease and cholecystectomy PFSH Medical History Celiac disease Ear anomaly Family history of thyroid disease Hair loss Hx of head injury Hx of migraines Iron deficiency anemia Left knee sprain Low vitamin D level Soft tissue injury of left knee Surgical History H/O esophagogastroduodenoscopy H/O knee surgery History of left knee surgery Hx of cholecystectomy Hx of colonoscopy Hx of foot surgery Hx of shoulder surgery Previous section Family History Father Diabetes Hypercholesterolemia Chronic kidney disease Hypertension Mother Hypercholesterolemia Hypertension Maternal Grandmother History of breast cancer Other No family history of cancer Social History Household Members: Family Household Members Other:: children and parents Housing: House Are you a primary care management associate to a significant other at home: No Do you presently have visiting nurse or other home services: No Alcohol intake: current Alcohol intake frequency: holidays/special occasions only Alcohol type: beer, wine, hard liquor and other Patient Tobacco Use Status: Current everyday Tobacco user Tobacco use type: Cigarette Cigarettes Per Day: 10 Years Smoked: 20 e-Cigarette/Vaping Use: Never Used Substance Use Type: Marijuana service: No Current occupational status: employed 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 Sexual orientation: Straight/Heterosexual Gender identity: Female Cognitive needs: No Hearing needs: No Vision needs: Yes Female Reproductive History Menstrual Age of Menarche: 13 Review of Systems GI Reports abdominal pain Physical Exam Vital Signs: Last Vital Signs Pulse 86 02/06/23 16:25 BP 118/70 02/06/23 16:25 Pulse Ox 98 02/06/23 16:25 Oxygen Delivery Method Room Air 02/06/23 16:25 BMI result Body Mass Index 37.1 Const General: healthy appearing, comfortable, no acute distress and alert Orientation/consciousness: patient oriented x3 Limitations: no limitations HEENT Head: Yes normal to inspection Ears: hearing grossly normal bilaterally Resp Effort & Inspection: normal respiratory effort and able to speak in complete sentences Cardio Rate: regular rate GI Other: TTP left upper quadrant Skin General skin exam: no rashes or lesions noted Neuro General: patient oriented x3 Extrem General: Yes normal to inspection Assessment & Plan Assessment & Plan (1) Abdominal pain: Code(s): R10.9 - Unspecified abdominal pain Qualifiers: Abdominal location: left upper quadrant Qualified Code(s): R10.12 - Left upper quadrant pain Plan: Unclear etiology at this time of considerations GERD versus ulceration versus pancreatitis versus gastroenteritis. Given tenderness to palpation recommend patient proceed to emergency department for further evaluation and potentially imaging Discharge instructions, follow up and treatment are discussed with patient in my usual fashion. Alternatives in treatment are also discussed. The patient will return for worsening symptoms or as needed. Advised that any labs/imaging ordered will be followed up on and contact made if further treatment needed. Counseled that patient's condition may require further evaluation and/or treatment. Symptoms of concern for worsening disorder discussed in detail in my customary manner. Patient does verbalize understanding of the plan, there are no apparent barriers to communication. The patient is given the opportunity to ask questions and have them answered to his/her satisfaction Coding Level of Care Code Est Pt Level 3 (86142) Diagnoses Left upper quadrant abdominal pain R10.12 Abdominal location: left upper quadrant
[2023-02-06 16:25] VITALS: BP 118/70; PULSE 86; O2SAT 98; BMI 37.1
== END 2023-02-06 17:11 | disposition home or self-care (01) ==
PROVIDERS: PCP Nurse Practitioner Family; Visit Provider Physician Assistant
DX: R10.12 Left upper quadrant pain (principal)
CPT/HCPCS: 99213

== ENCOUNTER 2023-02-06 17:37 | Emergency (ER) | payer OTHER, SELFPAY ==
--- NOTE | ~2023-02-06 | CT_ITS ---
EXAMINATION: CT ABDOMEN AND PELVIS WITHOUT CONTRAST CLINICAL INFORMATION: Left flank pain COMPARISON: None available. TECHNIQUE: Multidetector volumetric imaging was performed from the superior aspect of the liver through the pubic symphysis. Sagittal and coronal reformatted images were obtained on the technologist's workstation. This CT examination was performed using dose optimization techniques as appropriate, variously including the following: *Automated exposure control *Adjustment of mA and/or kV according to patient size (this includes techniques or standardized protocols for targeted exams where dose is matched to indication/reason for exam; i.e. extremities or head) *Use of iterative reconstruction technique DLP: 763 mGy-cm FINDINGS: LUNG BASES: The visualized lung bases are unremarkable. LIVER, GALLBLADDER, AND BILIARY TREE: The liver is normal in size, shape, and attenuation. No focal hepatic lesion or biliary ductal dilatation is present. The gallbladder has been surgically removed. PANCREAS: Unremarkable. SPLEEN: Unremarkable. ADRENAL GLANDS: There are multiple calcified granulomas in the spleen. The spleen is otherwise normal size. KIDNEYS AND URETERS: The kidneys are normal in size, shape, and attenuation. No hydronephrosis, hydroureter, or calculi seen. Mild right perinephric stranding is seen BLADDER: Unremarkable. GASTROINTESTINAL TRACT: There is scattered stool, diverticuli and gas seen throughout the colon without significant distention. Submucosal fat is seen within the ascending colon, a nonspecific finding. Appendix an small bowel loops are normal caliber. The stomach is nondistended ABDOMINAL WALL: A small umbilical hernia containing fat is noted. LYMPH NODES: Normal. VASCULAR: Unremarkable. PELVIC VISCERA: The uterus is anteverted, bulky with fundus deviated to the left side. No adnexal mass seen on this nonenhanced CT OSSEOUS STRUCTURES: No aggressive lytic or sclerotic process seen CT/CT abdomen pelvis wo IV con IMPRESSION: 1. No acute intra-abdominal process seen. 2. There is no radiopaque urolith or hydroureteronephrosis. 3. Mild constipation. Fleischner guidelines were followed.
[2023-02-06 18:19] VITALS: BP 140/79; PULSE 62; RESP 16; TEMP 36.9; O2SAT 98; BMI 37.2
--- NOTE | 2023-02-06 18:19 | ED_ITS ---
HPI - General Adult General Chief complaint: Abdominal Pain Stated complaint: referred from [facility], L flank pain Time Seen by Provider: 02/06/23 22:06 History of Present Illness HPI narrative: 47 yo female with PMH of anemia, PTSD, anxiety, arthralgia, celiac disease, prior c sectoin and gall bladder removal here with c/o LUQ pain and mild nausea worse with eating and feels full quick lost 10lbs has not seen her GI doctor no NSAID use, lots of coffee and stress. no fevers, vomiting, no black or bloody stools. MD complaint: abdominal pain Onset (ago): week(s) (1) Location: abdomen Radiation: non-radiation Severity: moderate Quality: aching and constant Pain Consistency: constant Relieving factors: none Exacerbating factors: eating Associated symptoms: loss of appetite and nausea/vomiting Treatments prior to arrival: none Related Data Home Medications Medication Instructions Recorded Confirmed calcium-magnesium 750 mg-465 mg 2 tab PO DAILY 02/10/20 10/09/22 tablet cyanocobalamin (B12)-cobamamide 1 mindy sublingual DAILY 02/10/20 10/09/22 5,000 mcg-100 mcg sublingual lozenge (B12) multivitamin 1 tab PO DAILY 02/10/20 10/09/22 paroxetine HCl 20 mg tablet (Paxil) 20 mg PO DAILY 01/01/22 10/09/22 Previous Rx's Medication Instructions Recorded epinephrine 0.3 mg/0.3 mL 0.3 mg (0.3 mL) IM Q4H PRN 05/28/22 injection, auto-injector (EpiPen) anaphylaxis #2 ea hydroxyzine HCl 10 mg tablet 10 mg PO BID PRN anxiety #14 tabs 10/09/22 tizanidine 2 mg tablet 2 mg PO BEDTIME PRN muscle 10/09/22 spasticity #10 tabs ferrous sulfate 325 mg (65 mg 325 mg PO DAILY #90 tabs 10/15/22 iron) tablet cream base no.105 (bulk) (Base See Rx Instructions miscellaneous 12/24/22 W301 cream) .COMPLEX #180 grams cholecalciferol (vitamin D3) 50 50 mcg PO DAILY #90 tabs 12/29/22 mcg (2,000 unit) tablet omeprazole 20 mg capsule,delayed 20 mg PO BID #42 caps 02/06/23 release Allergies Allergy/AdvReac Type Severity Reaction Status Date / Time Penicillins [PENICILLINS] Allergy Severe ANAPHYLAXIS Verified 02/06/23 16:28 amitriptyline [AMITRIPTYLINE] Allergy Intermediate HIVES Verified 02/06/23 16:28 banana Allergy Intermediate Hives Verified 02/06/23 16:28 kiwi [KIWI] Allergy Intermediate HIVES Verified 02/06/23 16:28 pineapple Allergy Intermediate Hives Verified 02/06/23 16:28 clams Allergy Unknown Unknown Verified 02/06/23 16:28 gluten Allergy Unknown Unknown Verified 02/06/23 16:28 MEAT Allergy Severe HIVES,ANAPH Uncoded 02/06/23 16:28 YLAXIS dairy AdvReac Intermediate pt states Uncoded 02/06/23 16:28 allery to all Dairy Products Review of Systems 2 Review of Systems: Constitutional : pos Weight loss, No Fever, No Chills Cardiovascular : No Chest Pain, No SOB, NoEdema Respiratory : No Cough, No Sputum, No Wheezing Gastrointestinal : Positive Nausea, no Vomiting, no Diarrhea, positive abdominal Pain, No Hematochezia, No Melena Genitourinary : No Dysuria, No Urinary Frequency, No Hematuria, No Urgency Musculoskeletal : No joint pain, No Myalgias, No Joint Swelling Skin : No Skin Lesions, No rash Neuro : No Weakness, No Numbness, No Dizziness, No Headache Psych : No Anxiety/Panic, No Depression All other systems reviewed and are negative. [facility] Past Medical History Attestation statement: The following information was validated with the patient. Source: old records reviewed Medical History Celiac disease Ear anomaly Family history of thyroid disease Hair loss Hx of head injury Hx of migraines Iron deficiency anemia Left knee sprain Low vitamin D level Soft tissue injury of left knee Surgical History H/O knee surgery History of left knee surgery H/O esophagogastroduodenoscopy Hx of colonoscopy Previous section Hx of foot surgery Hx of shoulder surgery Hx of cholecystectomy Family History Family History Father Diabetes Hypercholesterolemia Chronic kidney disease Hypertension Mother Hypercholesterolemia Hypertension Maternal Grandmother History of breast cancer Other No family history of cancer Social History Social History Household Members: Family Household Members Other:: children and parents Housing: House Are you a primary daycare worker to a significant other at home: No Do you presently have visiting nurse or other home services: No Alcohol intake: current Alcohol intake frequency: holidays/special occasions only Alcohol type: beer, wine, hard liquor and other Patient Tobacco Use Status: Current everyday Tobacco user Tobacco use type: Cigarette Cigarettes Per Day: 10 Years Smoked: 20 e-Cigarette/Vaping Use: Never Used Substance Use Type: Marijuana Advance Directives: No Advance Directives Information Provided: No service: No Current occupational status: employed 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 Oriented X3. No acute distress. Eyes: Pupils equal, round and reactive to light. ENT: Pharynx normal. Neck: Normal inspection. Neck supple. CVS: Normal heart rate and rhythm. Pulses normal. Respiratory: No respiratory distress. Breath sounds normal. Abdomen: Soft and mild epigastric ttp no rebound Skin: Skin warm and dry. Normal skin color. Normal skin turgor. Extremities: No lower extremity edema. No calf ttp Neuro: Oriented X 3. No motor deficit. No sensory deficit. Course Course Course Narrative: RME- 47 year old female presents for evaluation of left flank pain. Symsptoms stared a few days ago. She endorses nausea amd vomiting. Plan for labs, UA, CT abdomen and pelvis. Medical Decision Making Medical Decision Making MDM Narrative: 47 yo female with PMH of anemia, PTSD, anxiety, arthralgia, celiac disease, prior c sectoin and gall bladder removal here with 1 week of nausea, upper abdominal pain worse with eating does not have hx of PUD does not take NSAIDs, no GIB symptoms no fevers, overall exam is benign labs stable and CT scan was negative. Given hx suspect gastritis, PUD - will start on PPI and refer to GI. She will get MRI if normal endoscopy had discussion about following up. Differential Diagnosis Differential Diagnoses: The differential diagnosis associated with the presentation includes gastritis, PUD, constipation, GERD Admission/Observation Consideration of admission/observation: Escalation of care including admission/observation considered labs and CT scan stable tolerating PO can be managed as outpatient Lab Data MDM Lab Attestation statement: I reviewed the patient's lab results. 02/06/23 18:39 02/06/23 18:39 Labs: Lab Results 02/06/23 Range/Units 18:39 WBC 7.1 (4.8-10.8) X10*3/uL RBC 4.72 (4.20-5.50) X10*6/uL Hgb 12.0 (12.0-16.0) g/dl Hct 38.7 (37.0-47.0) % MCV 82.0 (80.0-98.0) fL MCH 25.4 L (27.0-33.0) pg MCHC 31.0 (31.0-35.0) g/dl RDW 18.4 H (11.0-16.0) % Plt Count 313 (160-400) X10*3/uL MPV 10.3 (9.4-12.3) fL Immature Gran % (Auto) 1.3 H (0.0-0.4) % Neut % (Auto) 61.8 (45-73) % Lymph % (Auto) 25.1 (20-40) % [place] % (Auto) 8.4 (2-11) % Eos % (Auto) 2.4 (0-4) % Baso % (Auto) 1.0 (0-2) % Lymph # (Auto) 1.8 (1.2-4.9) X10*3/uL [place] # (Auto) 0.6 (0.1-1.2) X10*3/uL Eos # (Auto) 0.2 (0.0-0.4) X10*3/uL Baso # (Auto) 0.1 (0.0-0.2) X10*3/uL Abs Immat Gran (auto) 0.09 H (0.00-0.03) X10*3/uL Absolute Neuts (auto) 4.4 (2.0-8.3) x10*3/uL Absolute Nucleated RBC 0.000 (0.0-0.012) X10*3/uL Nucleated RBC % (auto) 0.0 (0.0-0.2) /100WBC Sodium 139 (135-145) mmol/L Potassium 3.9 (3.3-5.1) mmol/L Chloride 106 (96-108) mmol/L Carbon Dioxide 24 (22-29) mmol/L Anion Gap 13 (12-20) BUN 6 L (9-16) mg/dL Creatinine 0.73 (0.5-1.4) mg/dL Estim Creat Clear Calc 101.7 Estimated GFR > 60 Random Glucose 84 (60-115) mg/dL Calcium 9.4 (8.4-10.2) mg/dL Total Bilirubin 0.2 (0.0-1.0) mg/dL AST 14 (5-31) U/L ALT 10 (0-31) U/L Alkaline Phosphatase 53 (39-117) U/L Total Protein 7.1 (6.5-8.0) g/dL Albumin 4.0 (3.5-5.0) g/dL Lipase 39 (8-78) U/L Beta HCG, Quant < 2 mIU/mL Urine Color Dark Yellow Urine Appearance Clear Urine pH 6.0 (5.0-9.0) Ur Specific [place] 1.025 (1.005-1.025) Urine Protein Negative (Neg-Trace) mg/dL Urine Glucose (UA) Negative (Negative) mg/dL Urine Ketones Negative (Negative) mg/dL Urine Blood Negative (Negative) Urine Nitrite Negative (Negative) Ur Leukocyte Esterase Trace H (Negative) Urine RBC 0-2 (0-2) /HPF Urine WBC 0-5 (0-5) /HPF Ur Squamous Epith Cells 11-20 (0-2) /HPF Urine Bacteria 2+ (None Seen) Hyaline Casts 0-2 (0-2) /LPF Independent Interpretation I performed an independent interpretation of an: CT Scan (no acute findings) Radiology Impression Discussion of test interpretation with radiology: I have reviewed the radiologist's reading. External Record Review External record reviewed: Inpatient record Prescription Management I considered prescription management with: Other Discharge Plan Discharge Clinical Impression: Abdominal pain Qualifiers: Abdominal location: left upper quadrant Qualified Code(s): R10.12 - Left upper quadrant pain Patient Disposition: Home, Self-Care Instructions: Abdominal Pain (ED) Additional Instructions: given your labs and history I am concerned you have an ulcer - please follow up with your director of institutional research you need an endoscopy. if this is normal please get a MRI for further workup given pain and weight loss. take the omeprazole twice a day for two weeks then daily going forward return for worsening pain, fevers, black or bloody stools or any other concerns. no NSAIDs, tylenol is okay CT/CT abdomen pelvis wo IV con IMPRESSION: 1. No acute intra-abdominal process seen. 2. There is no radiopaque urolith or hydroureteronephrosis. 3. Mild constipation. Fleischner guidelines were followed. Prescriptions: New omeprazole 20 mg capsule,delayed release(DR/EC) 20 mg PO BID Qty: 42 0RF Rx Instructions: 20mg twice a day for two weeks then once daily No Action epinephrine [EpiPen] 0.3 mg/0.3 mL auto-injector 0.3 mg IM Q4H PRN (Reason: anaphylaxis) Qty: 2 0RF ferrous sulfate 325 mg (65 mg iron) tablet 325 mg PO DAILY Qty: 90 0RF cholecalciferol (vitamin D3) 50 mcg (2,000 unit) tablet 50 mcg PO DAILY Qty: 90 0RF multivitamin Tablet 1 tab PO DAILY calcium-magnesium 750-465 mg Tablet 2 tab PO DAILY B12 5,000-100 mcg Lozenge 1 mindy SUBLINGUAL DAILY paroxetine HCl [Paxil] 20 mg tablet 20 mg PO DAILY tizanidine 2 mg tablet 2 mg PO BEDTIME PRN (Reason: muscle spasticity) Qty: 10 0RF hydroxyzine HCl 10 mg tablet 10 mg PO BID PRN (Reason: anxiety) Qty: 14 0RF Base W301 Cream See Rx Instructions miscellaneous .COMPLEX Qty: 180 0RF Rx Instructions: Diclofenac 5%, Baclofen 5%, Cyclobenzaprine 2%, Gabapentin 6%, Bupivacaine 2% SIG: apply pea-sized amount 3-5 times daily to painful areas as needed
[2023-02-06 18:45] LABS: MANUAL DIFF FLAG NO
[2023-02-06 18:48] LABS: Appearance Urine Clear; Color Urine Dark Yellow; Glucose Urine UA Negative (Negative); Leukocyte Esterase Urine Trace (Negative); Nitrite Urine Negative (Negative); Specific Gravity - Urine 1.025 (1.005-1.025); UMIC TRIGGER UACC YES; Urine Blood Negative (Negative); Urine Ketones Negative (Negative); Urine Protein Negative (Neg-Trace)
[2023-02-06 18:55] LABS: Basophils Absolute Auto 0.1 X10*3/uL (0.0-0.2); Eosinophils Absolute Auto 0.2 X10*3/uL (0.0-0.4); Eosinophils Percent Auto 2.4 % (0-4); Hematocrit 38.7 % (37.0-47.0); Imm Gran Abs Auto 0.09 X10*3/uL (0.00-0.03); Imm Gran Pct Auto 1.3 % (0.0-0.4); Lymphocytes Absolute Auto 1.8 X10*3/uL (1.2-4.9); Lymphocytes Percent Auto 25.1 % (20-40); Mean Corpuscular Hemoglobin 25.4 pg (27.0-33.0); Mean Platelet Volume 10.3 fL (9.4-12.3); Monocytes Absolute Auto 0.6 X10*3/uL (0.1-1.2); Monocytes Percent Auto 8.4 % (2-11); Neutrophils Absolute Auto 4.4 x10*3/uL (2.0-8.3); Neutrophils Percent Auto 61.8 % (45-73); Platelet Count 313 X10*3/uL (160-400); Red Blood Count 4.72 X10*6/uL (4.20-5.50); Red Cell Distribution Width 18.4 % (11.0-16.0); White Blood Count 7.1 X10*3/uL (4.8-10.8)
[2023-02-06 19:04] LABS: Bacteria Urine 2+ (None Seen); Hyaline Casts Urine 0-2 /LPF (0-2); RBC Urine 0-2 /HPF (0-2); WBC Urine 0-5 /HPF (0-5)
[2023-02-06 19:10] LABS: Alanine Aminotransferase 10 U/L (0-31); Alkaline Phosphatase 53 U/L (39-117); Anion Gap 13 (12-20); Aspartate Amino Transferase 14 U/L (5-31); Bilirubin Total 0.2 mg/dL (0.0-1.0); Blood Urea Nitrogen 6 mg/dL (9-16); Calcium 9.4 mg/dL (8.4-10.2); Carbon Dioxide 24 mmol/L (22-29); Chloride 106 mmol/L (96-108); Creatinine Clr Calc Pharmacy 101.7; Estimated Glomerular Filt Rate > 60; Glucose Random 84 mg/dL (60-115); Lipase 39 U/L (8-78); Potassium 3.9 mmol/L (3.3-5.1); Sodium 139 mmol/L (135-145); Total Protein 7.1 g/dL (6.5-8.0)
[2023-02-06 19:12] LABS: HCG Quantitative < 2 mIU/mL
--- NOTE | 2023-02-06 22:05 | MHC.EDTECH ---
this pct just assumed care of pt ,vitals taken ,pt waiting to see Provider .
[2023-02-06 22:09] VITALS: BP 140/74; PULSE 74; RESP 16; TEMP 36.8; O2SAT 97
--- OUTSIDE RECORDS SUMMARY | 2023-02-06 22:25 | XMS_ITS | Patient Health Record ---
Author Name Unknown Organization [facility], [facility] Address [address] [place] [address] [phone] Support Name Relationship Address Phone Sveta Rashid Guarantor Unknown Unavailabl e REASON FOR REFERRAL No Information SOCIAL HISTORY Sex Assigned At : Social History Observation Description Sex Assigned At Unknown PLAN OF TREATMENT No Information
== END 2023-02-06 22:40 | disposition home or self-care (01) ==
PROVIDERS: Physician Assistant; Emergency Provider Emergency Medicine; PCP Nurse Practitioner Family
DX: R10.12 Left upper quadrant pain (principal); F12.90 Cannabis use, unspecified, uncomplicated; D50.9 Iron deficiency anemia, unspecified; E66.9 Obesity, unspecified; Z68.37 Body mass index [BMI] 37.0-37.9, adult; F17.210 Nicotine dependence, cigarettes, uncomplicated; Z79.899 Other long term (current) drug therapy
CPT/HCPCS: 36415; 74176; 80053; 81001; 83690; 84702; 85025; 99283; 99284

== ENCOUNTER 2023-02-10 13:34 | Outpatient (AMB) | payer OTHER, SELFPAY ==
--- NOTE | 2023-02-10 13:47 | A.OFFVIS_ITS ---
Intake Vital Signs 02/10/23 13:49 Height 5 ft 2 in Weight 202 lb 13.204 oz BMI 37.1 BP 106/53 L Blood Pressure Location Lt brachial Position Sitting Pulse 70 Intake Visit Reasons: Ulcer Intake Note: Sveta presents in the office as a follow up for an Ulcer. CC: ER told her that they believe she has an ULCER. Insurance did not cover her insurance. Omeprazole was the medication. LUQ pains whenever she eats anything. She does sometimes get loose stools but she also does not have a gall bladder. Allergies Penicillins [PENICILLINS] Allergy (Severe, Verified 02/10/23 13:49) ANAPHYLAXIS amitriptyline [AMITRIPTYLINE] Allergy (Intermediate, Verified 02/10/23 13:49) HIVES banana Allergy (Intermediate, Verified 02/10/23 13:49) Hives kiwi [KIWI] Allergy (Intermediate, Verified 02/10/23 13:49) HIVES pineapple Allergy (Intermediate, Verified 02/10/23 13:49) Hives clams Allergy (Unknown, Verified 02/10/23 13:49) Unknown gluten Allergy (Unknown, Verified 02/10/23 13:49) Unknown MEAT Allergy (Severe, Uncoded 02/10/23 13:49) HIVES,ANAPHYLAXIS dairy Adverse Reaction (Intermediate, Uncoded 02/10/23 13:49) pt states allery to all Dairy Products HPI HPI Comments History of Present Illness Details 47y.o F with likely celiac disease (TTg neg, gliadin mildly up and path with mildly increased IELs) with DQ2/DQ8 haplotype on [employer] [place] panel who is here for follow up. 10/11/22: Pt has previously seen Dr Gonzalez. Does not report any abd pain, N,V,D as long as she remains adherent to gluten free diet. Anemia improved on most recent labs but Vit D and protein noted to be slightly low. On Vit D supplement since then. Last EGD/colo in 2019. 02/10/23: Here after visit to ER for severe left sided abdominal pain. Around 2 weeks ago started developing left upper sided pain which would get triggered by eating or drinking anything. Pain onset would be less than 30 mins after intake. Character is burning and would radiate to her back. Gets better with omeprazole and aloe juice. No NSAID use recently. BMs are also lose and she thinks they look black. No iron use or peptobismol. Labs in ER reassuring, anemia in fact better than before but to recall pt on iron infusions since Dec. PFSH Medical History Osteopenia Hair loss Soft tissue injury of left knee Left knee sprain Low vitamin D level Celiac disease Ear anomaly Family history of thyroid disease Hx of head injury Hx of migraines Iron deficiency anemia Surgical History H/O knee surgery History of left knee surgery H/O esophagogastroduodenoscopy Hx of colonoscopy Previous section Hx of foot surgery Hx of shoulder surgery Hx of cholecystectomy Family History Father Diabetes Hypercholesterolemia Chronic kidney disease Hypertension Mother Hypercholesterolemia Hypertension Maternal Grandmother History of breast cancer Other No family history of cancer Social History Household Members: Family Household Members Other:: children and parents Housing: House Are you a primary medicare specialist to a significant other at home: No Do you presently have visiting nurse or other home services: No Alcohol intake: current Alcohol intake frequency: holidays/special occasions only Alcohol type: beer, wine, hard liquor and other Patient Tobacco Use Status: Current everyday Tobacco user Tobacco use type: Cigarette Cigarettes Per Day: 10 Years Smoked: 20 e-Cigarette/Vaping Use: Never Used Substance Use Type: Marijuana service: No Current occupational status: employed 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 Sexual orientation: Straight/Heterosexual Gender identity: Female Cognitive needs: No Hearing needs: No Vision needs: Yes Female Reproductive History Menstrual Age of Menarche: 13 Review of Systems Const All systems reviewed & are unremarkable except as noted in HPI and below Physical Exam Vital Signs: Last Vital Signs Pulse 70 02/10/23 13:49 BP 106/53 L 02/10/23 13:49 BMI result Body Mass Index 37.1 Gen appear: NAD HEENT: nonicteric, no cervical lymphadenopathy Chest: CTA CVS: Regular S1/S2 Abd: soft, nontender, nondistended, bowel sounds + Ext: no peripheral edema Neuro: A/Ox3, noted to move all extremities spontaneously Psych: interacting appropriately Assessment & Plan Assessment & Plan (1) Left upper quadrant abdominal pain: Code(s): R10.12 - Left upper quadrant pain (2) Melena: Code(s): K92.1 - Melena Plan Overall presentation of sharp postprandial left sided pain with reported melena concerning for UGIB with Ddx including PUD, esophagitis/gastritis. plan: - Will book her for urgent EGD - Pt to cont omeprazole 20mg BID - to be taken for at least 4 weeks (longer PRN contingent on findings on EGD) and then once daily - Will also take small bowel biopsies on EGD given likely celiac disease - pt reports taking gluten free diet Follow up after EGD Medications: Changed From omeprazole 20mg twice a day for two weeks then once daily 20 mg PO BID 42 caps 0RF To omeprazole 20mg twice a day for 8 weeks 20 mg PO BID 8 weeks 112 caps 1RF Coding Level of Care Code Est Pt Level 4 (88396) Diagnoses Left upper quadrant abdominal pain R10.12 Melena K92.1
[2023-02-10 13:49] VITALS: BP 106/53; PULSE 70; BMI 37.1
== END 2023-02-10 14:26 | disposition home or self-care (01) ==
PROVIDERS: PCP Nurse Practitioner Family; Visit Provider Internal Medicine
DX: R10.12 Left upper quadrant pain (principal); K92.1 Melena
CPT/HCPCS: 99214

== ENCOUNTER → 2023-02-10 13:34 | Outpatient (BNVA) | payer OTHER, SELFPAY | PROVIDERS: PCP Nurse Practitioner Family; Visit Provider Internal Medicine | DX: R10.12 Left upper quadrant pain (principal); K92.1 Melena | CPT/HCPCS: 99212 ==

== ENCOUNTER 2023-02-11 09:46 | Day surgery (SDC) | payer OTHER, SELFPAY ==
[2023-02-11 10:01] VITALS: BMI 36.6
[2023-02-11 10:04] VITALS: BP 145/85; PULSE 78; RESP 18; TEMP 37.3; O2SAT 98
--- NOTE | 2023-02-11 10:06 | HO.ANESPROP2 ---
[facility] Active Problems Active Problems: All Active Problems (Updated 02/10/23 @ 14:55 by Gaby Curtis MD) Melena (Acute) Left upper quadrant abdominal pain (Acute) Osteopenia (Acute) Lumbar radiculopathy (Acute) Sacroiliac dysfunction (Acute) Lumbar facet arthropathy (Acute) Lumbar spondylosis (Acute) Smoker (Acute) Iron deficiency anemia (Acute) PTSD (post-traumatic stress disorder) (Acute) Multiple allergies (Acute) Iron deficiency anemia due to chronic blood loss (Acute) Eustachian tube dysfunction (Acute) STEPHEN (generalized anxiety disorder) (Acute) Generalized abdominal pain (Acute) Encounter for general adult medical examination with abnormal findings (Acute) Swelling, lymph nodes (Acute) Menometrorrhagia (Acute) Low back pain (Acute) Fatigue (Acute) Polyarthralgia (Acute) Physical exam (Acute ~03/2021) Left knee pain (Acute) Body mass index [BMI] 38.0-38.9, adult (Acute) IUD check up (Acute) Anxiety and depression (Acute) Chronic knee pain (Acute) Pain in left knee (Acute) Right knee pain (Acute) Osteoarthritis of right knee (Acute) Weight gain (Acute) Amezcua cyst (Acute) Obesity (BMI 35.0-39.9 without comorbidity) (Acute) Osteoarthritis of left knee (Acute) Encounter for IUD removal (Acute) Effusion, left knee (Acute) Internal derangement of left knee (Acute) Tear of medial meniscus of left knee (Acute) Encounter for annual routine gynecological examination (Acute) Hair loss (Acute) Low vitamin D level (Acute) Celiac disease (Acute) Common cold (Acute) Ear anomaly (Acute) Family history of thyroid disease (Acute) Past Medical History Medical History Osteopenia Hair loss Soft tissue injury of left knee Left knee sprain Low vitamin D level Celiac disease Ear anomaly Family history of thyroid disease Hx of head injury Hx of migraines Iron deficiency anemia Family History Family History Father Diabetes Hypercholesterolemia Chronic kidney disease Hypertension Mother Hypercholesterolemia Hypertension Maternal Grandmother History of breast cancer Other No family history of cancer Family history of problems with anesthesia: Yes (nausea) Surgical History Surgical History H/O knee surgery History of left knee surgery H/O esophagogastroduodenoscopy Hx of colonoscopy Previous section Hx of foot surgery Hx of shoulder surgery Hx of cholecystectomy History of Problems with Anesthesia: Yes Social History Social History Household Members: Family Household Members Other:: children and parents Housing: House Are you a primary respiratory care faculty to a significant other at home: No Do you presently have visiting nurse or other home services: No Alcohol intake: current Alcohol intake frequency: holidays/special occasions only Alcohol type: beer, wine, hard liquor and other Patient Tobacco Use Status: Current everyday Tobacco user Tobacco use type: Cigarette Cigarette Packs Per Day: 0.5 Cigarettes Per Day: 10.0 Years Smoked: 20 e-Cigarette/Vaping Use: Never Used Date Education Initiated: 02/11/23 Use of substances other than those prescribed or required for medical reasons: Yes Substance Use Type: Marijuana Substance Use Type Other:: CBD GREATER THAN 1 YEAR Are you DNR?: No Advance Directives: No Advance Directives Information Provided: Yes service: No Current occupational status: employed 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 Sexual orientation: Straight/Heterosexual Gender identity: Female Cognitive needs: No Hearing needs: No Vision needs: Yes Meds Allergies Allergy/AdvReac Type Severity Reaction Status Date / Time Penicillins [PENICILLINS] Allergy Severe ANAPHYLAXIS Verified 02/10/23 13:49 amitriptyline [AMITRIPTYLINE] Allergy Intermediate HIVES Verified 02/10/23 13:49 banana Allergy Intermediate Hives Verified 02/10/23 13:49 kiwi [KIWI] Allergy Intermediate HIVES Verified 02/10/23 13:49 pineapple Allergy Intermediate Hives Verified 02/10/23 13:49 clams Allergy Unknown Unknown Verified 02/10/23 13:49 gluten Allergy Unknown Unknown Verified 02/10/23 13:49 MEAT Allergy Severe HIVES,ANAPH Uncoded 02/10/23 13:49 YLAXIS dairy AdvReac Intermediate pt states Uncoded 02/10/23 13:49 allery to all Dairy Products Home Medications Medication Instructions Recorded Confirmed Last Taken Type cyanocobalamin (B12)-cobamamide 1 mindy sublingual DAILY 02/10/20 10/09/22 02/19/22 History 5,000 mcg-100 mcg sublingual lozenge (B12) multivitamin 1 tab PO DAILY 02/10/20 10/09/22 02/19/22 History paroxetine HCl 20 mg tablet (Paxil) 20 mg PO DAILY 01/01/22 10/09/22 02/19/22 History calcium-magnesium 750 mg-465 mg 2 tab PO DAILY 02/10/23 Unknown History tablet Exam Exam Date and Time: February 11, 2023 1006 Height,Weight and Vital Signs: Height 5 ft 2 in Weight 90.718 kg Airway Mallampati Class: II TM Dist: >3cm Neck ROM: Full Assessment and Plan Assessment Anesthesia Assessment: Anesthesia Plan Discussed and Chart Reviewed Final Anesthetic Review Family History of Problems with Anesthesia: Yes (nausea) History of Problems with Anesthesia: Yes NPO: No ASA Class: II Final Preanesthetic Review: No Changes in Pt Med Stat, Meds/Allgs Chart Reviewed, Consent Obtained/Reviewed and Anes Risks/Benef Reviewed Patient Risk: Intermediate Procedure Risk: Low Anesthetic Plan Anesthetic Plan: MAC: Disposition: Standard PACU
[2023-02-11 10:09] VITALS: BMI 36.6
[2023-02-11] MEDS: Lactated Ringers 1,000 ML 50 ML IVCONT (10:31)
--- NOTE | 2023-02-11 10:32 | P.HPSUR_ITS ---
Pre-Procedural Eval Section A Date of Service: 02/11/23 Section B Chief Complaint: Gastric ulcer, unspecified as acute or chronic, Details of Present Illness: hx of celiac disease, abdominal pain Relevant Family History (Specify if Yes): No Relevant Social History: Tobacco Use Present Medications: see Short Stay Collaborative assessment Medical History: Significant History (Osteopenia Hair loss Soft tissue injury of left knee Left knee sprain Low vitamin D level Celiac disease Ear anomaly Family history of thyroid disease Hx of head injury Hx of migraines Iron deficiency ane merlene) History of Previous Operations: Relevant previous surgery/procedure and date(s) (H/O knee surgery History of left knee surgery H/O esophagogastroduodenoscopy Hx of colonoscopy Previous section Hx of foot surgery Hx of shoulder surgery Hx of cholecystectomy) Allergies: Allergies Allergy/AdvReac Type Severity Reaction Status Date / Time Penicillins [PENICILLINS] Allergy Severe ANAPHYLAXIS Verified 02/10/23 13:49 amitriptyline [AMITRIPTYLINE] Allergy Intermediate HIVES Verified 02/10/23 13:49 banana Allergy Intermediate Hives Verified 02/10/23 13:49 kiwi [KIWI] Allergy Intermediate HIVES Verified 02/10/23 13:49 pineapple Allergy Intermediate Hives Verified 02/10/23 13:49 clams Allergy Unknown Unknown Verified 02/10/23 13:49 gluten Allergy Unknown Unknown Verified 02/10/23 13:49 MEAT Allergy Severe HIVES,ANAPH Uncoded 02/10/23 13:49 YLAXIS dairy AdvReac Intermediate pt states Uncoded 02/10/23 13:49 allery to all Dairy Products Review of Systems Sugical H&P ROS: Negative: Constitution, Cardiovascular, Respiratory, Neurological, Psychiatric, Hem-Onc, Allergic/Immunologic, Gastrointestinal, Genitourinary, Musculoskeletal, Integumentary, Endocrine and Eyes/Ears/Nose/Throat Exam Surgical H&P Exam: Normal: HEENT, Normal: Heart, Normal: Lungs, Normal: Extremities, Normal: Abdomen, Normal: Skin and Normal: Neurological Plan Diagnosis/Plan: Unchanged I have reviewed the history and physical and performed a pertinent physical examination on my patient. No changes have occurred unless specified. Time Spent With Patient Time: Total time managing care of this patient today ____ minutes.
--- NOTE | 2023-02-11 10:58 | PC.NURSE ---
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
--- NOTE | 2023-02-11 11:07 | W.PM.OPN ---
Operative Note Operative Note Date of Service: 02/11/23 Narrative: Procedure Description: EGD Indication: abdominal pain, hx of celiac disease Anesthesia: MAC FLEXIBLE TRANSORAL UPPER GASTROINTESTINAL ENDOSCOPY UPPER ENDOSCOPY Consent: Indications for the procedure and potential complications of bleeding, perforation, reaction to medications and missed diagnosis were discussed with the patient and informed consent was obtained. Instrument: Olympus GIF H 190 J mid size upper endoscope Monitoring: Vital signs and clinical assessment, continuous EKG monitoring, Pulse oximetry, Carbon Dioxide monitoring and blood pressure monitoring were done throughout the procedure. Procedure: The patient was placed in the left lateral decubitis position and pre-procedure medications were administered and a bite block was placed. The endoscope was inserted into the mouth and advanced under direct vision to the third part of duodenum. A careful inspection was made as the upper endoscope was withdrawn including a retroflexed examination of the proximal stomach; Findings and interventions are described below. Findings: Larynx:normal Esophagus: GE junction at 38 cm, diaphragm hiatus at 38 cm, mild esophagitis with irregular Z line, bx taken as well as from distal and proximal esophagus Stomach: Patchy gastric erythema. Biopsies were obtained. Grade 2 flap valve on retroflexed examination of the cardia. The pyloric outlet was tight and stretched with 20 mm pyloric balloon, no tear seen. Good motility noted. Duodenum: Normal bulb and descending duodenum, bx taken incl for flow cytometry, Disaccharidases, amyloid Intervention: Biopsies as noted above, balloon dilation Impression/Findings: esophagitis, mild gastritis tight pyloric outlet PLAN: await bx results
[2023-02-11 11:38] VITALS: BP 130/76; PULSE 67; RESP 16; TEMP 37.3; O2SAT 100
[2023-02-11 11:53] VITALS: BP 134/92; PULSE 58; RESP 16; TEMP 37.3; O2SAT 98
[2023-02-15 18:23] LABS: Lactase 19.7 (15.0-45.5); Maltase 128.6 (100.0-224.4); Palatinase 10.8 (5.0-26.3); Sucrase 39.1 (25.0-69.9)
== END 2023-02-11 13:17 | disposition home or self-care (01) ==
PROVIDERS: Visit Provider Internal Medicine Gastroenterology
PROC: 0DJ08ZZ Inspection of Upper Intestinal Tract, Via Natural or Artificial Opening Endoscopic (ICD-10-PCS; CPT 43235; principal; 2023-02-11 10:50)
DX: K25.9 Gastric ulcer, unspecified as acute or chronic, without hemorrhage or perforation (principal); K29.50 Unspecified chronic gastritis without bleeding; K20.80 Other esophagitis without bleeding; K31.1 Adult hypertrophic pyloric stenosis; K22.89 Other specified disease of esophagus; K44.9 Diaphragmatic hernia without obstruction or gangrene; K90.0 Celiac disease; M85.80 Other specified disorders of bone density and structure, unspecified site; E55.9 Vitamin D deficiency, unspecified; D50.9 Iron deficiency anemia, unspecified; L65.9 Nonscarring hair loss, unspecified; Z79.899 Other long term (current) drug therapy; Z88.0 Allergy status to penicillin; Z88.8 Allergy status to other drugs, medicaments and biological substances; F17.210 Nicotine dependence, cigarettes, uncomplicated; Z90.49 Acquired absence of other specified parts of digestive tract; Z98.890 Other specified postprocedural states
CPT/HCPCS: 43245; 43239; 36415; 82657; 88184; 88185; 88300; 88305; 88342; C1726

== ENCOUNTER → 2023-02-11 09:46 | Outpatient (BNV) | payer OTHER, SELFPAY | PROVIDERS: Visit Provider Internal Medicine Gastroenterology | DX: K20.90 Esophagitis, unspecified without bleeding (principal); K29.70 Gastritis, unspecified, without bleeding; K31.1 Adult hypertrophic pyloric stenosis | CPT/HCPCS: 43239; 43245 ==

== ENCOUNTER 2023-02-12 12:50 | Outpatient (REF) | payer OTHER, SELFPAY | END 2023-02-12 12:51 | disposition home or self-care (01) | LOC: HO.MDS 12:50 | PROVIDERS: Visit Provider Internal Medicine Medical Oncology | DX: D50.8 Other iron deficiency anemias (principal); K90.0 Celiac disease | CPT/HCPCS: 96365; J1756 ==

== ENCOUNTER 2023-02-19 12:51 | Outpatient (REF) | payer OTHER, SELFPAY | END 2023-02-19 12:52 | disposition home or self-care (01) | LOC: HO.MDS 12:51 | PROVIDERS: Visit Provider Internal Medicine Medical Oncology | DX: D50.9 Iron deficiency anemia, unspecified (principal); K90.0 Celiac disease | CPT/HCPCS: 96365; J1756 ==

== ENCOUNTER 2023-02-25 06:21 | Outpatient (REF) | payer OTHER, SELFPAY ==
--- NOTE | ~2023-02-25 | FL_ITS ---
EXAMINATION: XR FLUOROSCOPY WITH IMAGES CLINICAL INFORMATION: Sacrococcygeal disorders, not elsewhere classified. COMPARISON: None available. TECHNIQUE: Fluoroscopy Supervised By: Dr. Luis Enrique Henriquez. Fluoroscopy Time: 0.1 minute. Cumulative Dose: 2.22 mGy. DAP: 0.0264 Gycm2. Images: 1. FINDINGS: Image demonstrates needle placement and contrast injection over the left sacroiliac joint FL/FL guidance in treatment room IMPRESSION: Fluoroscopy guidance for pain management procedure
== END 2023-02-25 06:22 | disposition home or self-care (01) ==
LOC: CF 06:21
PROVIDERS: Visit Provider Anesthesiology
DX: M53.3 Sacrococcygeal disorders, not elsewhere classified (principal); M47.26 Other spondylosis with radiculopathy, lumbar region
CPT/HCPCS: 27096; J2795; J3301; Q9967

== ENCOUNTER 2023-02-25 14:21 | Outpatient (AMB) | payer OTHER, SELFPAY ==
[2023-02-25 14:27] VITALS: BP 120/72; PULSE 69; RESP 12; O2SAT 98
--- NOTE | 2023-02-25 14:27 | MHC.OFFVIS ---
Intake Vital Signs 02/25/23 14:27 02/25/23 14:58 BP 120/72 122/68 Blood Pressure Location Lt brachial Lt brachial Position Sitting Sitting Respiration 12 12 Pulse 69 65 Pulse Source Pulse Oximeter Pulse Oximeter Pulse Oximetry (%) 98 99 Oxygen Delivery Method Room Air Room Air Intake Visit Reasons: L SIJ STEROID INJ/LOCAL Allergies Penicillins [PENICILLINS] Allergy (Severe, Verified 02/25/23 14:27) ANAPHYLAXIS amitriptyline [AMITRIPTYLINE] Allergy (Intermediate, Verified 02/25/23 14:27) HIVES banana Allergy (Intermediate, Verified 02/25/23 14:27) Hives kiwi [KIWI] Allergy (Intermediate, Verified 02/25/23 14:27) HIVES pineapple Allergy (Intermediate, Verified 02/25/23 14:27) Hives clams Allergy (Unknown, Verified 02/25/23 14:27) Unknown gluten Allergy (Unknown, Verified 02/25/23 14:27) Unknown MEAT Allergy (Severe, Uncoded 02/25/23 14:27) HIVES,ANAPHYLAXIS dairy Adverse Reaction (Intermediate, Uncoded 02/25/23 14:27) pt states allery to all Dairy Products PFSH Medical History Osteopenia Hair loss Soft tissue injury of left knee Left knee sprain Low vitamin D level Celiac disease Ear anomaly Family history of thyroid disease Hx of head injury Hx of migraines Iron deficiency anemia Surgical History H/O knee surgery History of left knee surgery H/O esophagogastroduodenoscopy Hx of colonoscopy Previous section Hx of foot surgery Hx of shoulder surgery Hx of cholecystectomy Family History Father Diabetes Hypercholesterolemia Chronic kidney disease Hypertension Mother Hypercholesterolemia Hypertension Maternal Grandmother History of breast cancer Other No family history of cancer Social History Household Members: Family Household Members Other:: children and parents Housing: House Are you a primary complex care nurse practitioner to a significant other at home: No Do you presently have visiting nurse or other home services: No Alcohol intake: current Alcohol intake frequency: holidays/special occasions only Alcohol type: beer, wine, hard liquor and other Patient Tobacco Use Status: Current everyday Tobacco user Tobacco use type: Cigarette Cigarette Packs Per Day: 0.5 Cigarettes Per Day: 10.0 Years Smoked: 20 e-Cigarette/Vaping Use: Never Used Substance Use Type: Marijuana service: No Current occupational status: employed 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 Sexual orientation: Straight/Heterosexual Gender identity: Female Cognitive needs: No Hearing needs: No Vision needs: Yes Female Reproductive History Menstrual Age of Menarche: 13 Physical Exam Vital Signs: Last Vital Signs Pulse 69 02/25/23 14:27 Resp 12 02/25/23 14:27 BP 120/72 02/25/23 14:27 Pulse Ox 98 02/25/23 14:27 Oxygen Delivery Method Room Air 02/25/23 14:27 Assessment & Plan Assessment & Plan (1) Lumbar spondylosis: Code(s): M47.816 - Spondylosis without myelopathy or radiculopathy, lumbar region (2) Lumbar facet arthropathy: Code(s): M47.816 - Spondylosis without myelopathy or radiculopathy, lumbar region Plan: left therapeutic sacroiliac joint injection Informed consent was explained thoroughly to the patient. All questions about benefits and risks for the procedure were answered. Patient came to the operating room and was positioned prone on the operating table with the pillow under the pelvis. [place] [employer] monitors were applied and patient was deeply sedated. Time out was performed delineating name and of the patient, allergies and the nature of the procedure. The lower back and buttocks of the patient were prepped with ChloraPrep prepped and draped with sterile utility towels. C-arm was brought over the operating field and sq picture of patient's pelvis was demonstrated on the screen. For the left joint tilting C-arm contralateral to the site of the joint the most posterior portion of the joints was superimposed with anterior silhouette of the joint. Skin was injected in the projection of the joint slightly medial to the location of the joint with 25 gauge 1/2 inch needle using local lidocaine 2% .After that 22 gauge 3 and 1/2 inch needle was driven to the left joint in tunnel vision fashion. When needle entered the joint capsule injection of the contrast was performed demonstrating intra-articular and minimally periarticular spread of the contrast. After that 4 cc. of ropivacaine 0.5% was injected into the joint. Upon completion of the injections the needle was removed Sterile dressing was applied. Upon completion of the injection patient was taken outside of the operating room to the recovery room where she recovered uneventfully. (3) Sacroiliac dysfunction: Comment: left Code(s): M53.3 - Sacrococcygeal disorders, not elsewhere classified (4) Lumbar radiculopathy: Code(s): M54.16 - Radiculopathy, lumbar region Lew Bangura is a very pleasant 47-year-old female who presented to the office today for follow up 2 days s/p diagnostic left SIJ injection with local anesthetic. Patient reports 70% relief of lower back pain and 100% relief of her left leg pain for greater than 24hours after the injection with improvement in function and mobility. She would like to proceed with Fluoroscopy guided left therapeutic SIJ injection. Plan for Bilateral diagnostic L3-L4-DR L5 MBBs with local anesthetic for her lumbar facet arthropathy if pain over midline lumbar vertebrae persists. Justification for interventional therapy: ? Patient with average pain > 6/10 ? The patient has exhausted conservative therapy including PT, home exercise program, NSAIDs and muscle relaxers. Discussed options for treatment including diagnostic interventional testing, epidural steroid injections, peripheral nerve stimulation with Sprint, RFA, SIJ fusion and more permanent neuromodulation. Informational pamphlets provided. All questions and concerns have been answered and patient agrees with the plan. Patient will follow up here after injection, sooner if needed. Orders: Orders FL guidance in treatment room Today M53.3 - Sacrococcygeal disorders, not elsewhere classified Coding Level of Care Code Procedure Only Diagnoses Lumbar spondylosis M47.816 Lumbar facet arthropathy M47.816 Sacroiliac dysfunction M53.3 Lumbar radiculopathy M54.16
[2023-02-25 14:58] VITALS: BP 122/68; PULSE 65; RESP 12; O2SAT 99
== END 2023-02-25 14:54 | disposition home or self-care (01) ==
LOC: HO.PMCPRC 14:21
PROVIDERS: Visit Provider Anesthesiology
DX: M47.816 Spondylosis without myelopathy or radiculopathy, lumbar region (principal); M53.3 Sacrococcygeal disorders, not elsewhere classified; M54.16 Radiculopathy, lumbar region
CPT/HCPCS: 27096

== ENCOUNTER 2023-02-26 12:55 | Outpatient (REF) | payer OTHER, SELFPAY | END 2023-02-26 12:56 | disposition home or self-care (01) | LOC: HO.MDS 12:55 | PROVIDERS: Visit Provider Internal Medicine Medical Oncology | DX: D50.8 Other iron deficiency anemias (principal); K90.0 Celiac disease | CPT/HCPCS: 96365; 99212; J1756 ==

== ENCOUNTER 2023-02-26 13:58 | Outpatient (AMB) | payer OTHER, SELFPAY ==
--- NOTE | 2023-02-26 14:09 | A.OFFVIS_ITS ---
Intake Vital Signs 02/26/23 14:22 Height 5 ft 2 in Weight 202 lb 13.204 oz BMI 37.1 BP 124/71 Blood Pressure Location Lt brachial Position Sitting Pulse 61 Intake Visit Reasons: S/P EGD; Dr. davis Intake Note: Sveta presents in the office as a follow up EGD. CC: She states that she s still getting pains in the LUQ and then she will start getting nausea. Event Marketing Assistant Required: No Allergies Penicillins [PENICILLINS] Allergy (Severe, Verified 02/28/23 13:13) ANAPHYLAXIS amitriptyline [AMITRIPTYLINE] Allergy (Intermediate, Verified 02/28/23 13:13) HIVES banana Allergy (Intermediate, Verified 02/28/23 13:13) Hives kiwi [KIWI] Allergy (Intermediate, Verified 02/28/23 13:13) HIVES pineapple Allergy (Intermediate, Verified 02/28/23 13:13) Hives clams Allergy (Unknown, Verified 02/28/23 13:13) Unknown gluten Allergy (Unknown, Verified 02/28/23 13:13) Unknown MEAT Allergy (Severe, Uncoded 02/28/23 13:13) HIVES,ANAPHYLAXIS dairy Adverse Reaction (Intermediate, Uncoded 02/28/23 13:13) pt states allery to all Dairy Products HPI HPI Comments History of Present Illness Details 47y.o F with likely celiac disease (TTg neg, gliadin mildly up and path with mildly increased IELs) with DQ2/DQ8 haplotype on [employer] panel who is here for follow up. 10/11/22: Pt has previously seen Dr Gonzalez. Does not report any abd pain, N,V,D as long as she remains adherent to gluten free diet. Anemia improved on most recent labs but Vit D and protein noted to be slightly low. On Vit D supplement since then. Last EGD/[facility] in 2019. 02/10/23: Here after visit to ER for severe left sided abdominal pain. Around 2 weeks ago started developing left upper sided pain which would get triggered by eating or drinking anything. Pain onset would be less than 30 mins after intake. Character is burning and would radiate to her back. Gets better with omeprazole and aloe juice. No NSAID use recently. BMs are also lose and she thinks they look black. No iron use or peptobismol. Labs in ER reassuring, anemia in fact better than before but to recall pt on iron infusions since Dec. 02/11/23: EGD (Dr Davis): Larynx:normal Esophagus: GE junction at 38 cm, diaphragm hiatus at 38 cm, mild esophagitis with irregular Z line, bx taken as well as from distal and proximal esophagus Stomach: Patchy gastric erythema. Biopsies were obtained. Grade 2 flap valve on retroflexed examination of the cardia. The pyloric outlet was tight and stretched with 20 mm pyloric balloon, no tear seen. Good motility noted. Duodenum: Normal bulb and descending duodenum, bx taken incl for flow cytometry, Disaccharidases, amyloid Intervention: Biopsies as noted above, balloon dilation Path: A. Duodenum, biopsy: Duodenal mucosa with preserved villi and no specific change; negative for amyloid. B. Duodenum, biopsy: Entire specimen submitted for flow cytometry; report to follow; gross description only. -- Flow reviewed, normal. C. Stomach wall, biopsy: Gastric antral and body mucosa with focal congestion, focal reactive changes, and focal minimal chronic inactive inflammation; negative for H pylori, intestinal metaplasia and dysplasia. D. Gastroesophageal junction, biopsy: Squamous mucosa with mild hyperplasia and focal mild spongiosis, and columnar mucosa with mild chronic active inflammation consistent with esophagitis; negative for intestinal metaplasia and dysplasia. E. Esophagus, distal, biopsy squamous mucosa with hyperplasia and rare intraepithelial eosinophils (up to 1 per high-power field) consistent with esophagitis; no columnar mucosa present. F. Esophagus, proximal, biopsy: Squamous mucosa with no specific change; no columnar mucosa present. 02/26/23: Pt seen in office. EGD findings reviewed. Was reassured no gastritis or ulcer since the EGD was primarily done for LUQ pain with question of melena. In addition, had normal small bowel path i.e good compliance and response to GFD. Flow cyto normal. Pt also brings up macular rash on her arms - occurs unpredictably. Has not been seen by Derm as rash fluctuates. [facility] Medical History Osteopenia Hair loss Soft tissue injury of left knee Left knee sprain Low vitamin D level Celiac disease Ear anomaly Family history of thyroid disease Hx of head injury Hx of migraines Iron deficiency anemia Surgical History H/O knee surgery History of left knee surgery H/O esophagogastroduodenoscopy Hx of colonoscopy Previous section Hx of foot surgery Hx of shoulder surgery Hx of cholecystectomy Family History Father Diabetes Hypercholesterolemia Chronic kidney disease Hypertension Mother Hypercholesterolemia Hypertension Maternal Grandmother History of breast cancer Other No family history of cancer Social History Household Members: Family Household Members Other:: children and parents Housing: House Are you a primary care advocate to a significant other at home: No Do you presently have visiting nurse or other home services: No Alcohol intake: current Alcohol intake frequency: holidays/special occasions only Alcohol type: beer, wine, hard liquor and other Patient Tobacco Use Status: Current everyday Tobacco user Tobacco use type: Cigarette Cigarette Packs Per Day: 0.5 Cigarettes Per Day: 10.0 Years Smoked: 20 e-Cigarette/Vaping Use: Never Used Substance Use Type: Marijuana service: No Current occupational status: employed 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 Sexual orientation: Straight/Heterosexual Gender identity: Female Cognitive needs: No Hearing needs: No Vision needs: Yes Female Reproductive History Menstrual Age of Menarche: 13 Review of Systems Const All systems reviewed & are unremarkable except as noted in HPI and below Physical Exam Vital Signs: Last Vital Signs Pulse 61 02/26/23 14:22 BP 124/71 02/26/23 14:22 BMI result Body Mass Index 37.1 Gen appear: NAD HEENT: nonicteric, no cervical lymphadenopathy Chest: CTA CVS: Regular S1/S2 Abd: soft, nontender, nondistended, bowel sounds + Ext: no peripheral edema Neuro: A/Ox3, noted to move all extremities spontaneously Psych: interacting appropriately Assessment & Plan Assessment & Plan (1) Celiac disease: Code(s): K90.0 - Celiac disease (2) Low vitamin D level: Code(s): R79.89 - Other specified abnormal findings of blood chemistry (3) Iron deficiency anemia: Code(s): D50.9 - Iron deficiency anemia, unspecified (4) Smoker: Code(s): F17.200 - Nicotine dependence, unspecified, uncomplicated Plan From previous visit: Reviewed with pt that ideally in pts with negative serology and [place] 1 lesion (IELs 53 with normal crypts and villi), ideally should rebiopsy on GFD in 12m, despite a high risk haplotype, to establish diagnosis. However pt currently hesitant to pursue a repeat upper endoscopy. She states that since she is feeling better on GFD will likely not change her dietary preferences at this time. In terms of more recent complaint of LUQ pain with nausea - no gastritis or PUD. Reviewed that rash with celiac is typically herpetiform and improves with maangement of celiac disease. Pt's describes more macular waxing and waning rash which erupts even with good control of celiac as evidenced by normal small bowel biopsies. Plan: - Recommend dermatology evaluation - Can also consider surgical services assistant referral as pt wonders if related to certain foods - Will be due for vitamin and micronutrient check in 6 months - Will also check celiac serologies at that time - Known osteopenia for which she is connected with Endocrine - Smoking cessation counseling again done. Follow up in 6m Coding Level of Care Code Est Pt Level 4 (04008) Diagnoses Celiac disease K90.0 Low vitamin D level R79.89 Iron deficiency anemia D50.9 Smoker F17.200
[2023-02-26 14:22] VITALS: BP 124/71; PULSE 61; BMI 37.1
== END 2023-02-26 15:43 | disposition home or self-care (01) ==
PROVIDERS: PCP Nurse Practitioner Family; Visit Provider Internal Medicine
DX: K90.0 Celiac disease (principal); R79.89 Other specified abnormal findings of blood chemistry; D50.9 Iron deficiency anemia, unspecified; F17.200 Nicotine dependence, unspecified, uncomplicated
CPT/HCPCS: 99214

== ENCOUNTER 2023-02-28 13:07 | Outpatient (REF) | payer OTHER, SELFPAY ==
[2023-03-01 13:11] LABS: CT PCR NOT DETECTED (Not Detect.); NG PCR NOT DETECTED (Not Detect.)
== END 2023-02-28 13:08 | disposition home or self-care (01) ==
LOC: HO.LNP 13:07
PROVIDERS: Visit Provider Advanced Practice Midwife
DX: Z01.419 Encounter for gynecological examination (general) (routine) without abnormal findings (principal); N92.0 Excessive and frequent menstruation with regular cycle; Z20.2 Contact with and (suspected) exposure to infections with a predominantly sexual mode of transmission; Z72.0 Tobacco use
CPT/HCPCS: 0353U; 99396

== ENCOUNTER 2023-02-28 13:07 | Outpatient (AMB) | payer OTHER, SELFPAY ==
--- NOTE | 2023-02-28 13:09 | MHC.OFFVIS ---
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 Scribed for SOO Cobb by Cassidy Cisse medical historian, on 02/28/2023 at 1:20 pm EST Carriage Operator Required: No Information Interpreted: non-clinical & clinical Matrix Drier Tender: Matrix Drier Tender Present (Denise KENDRICK) Accompanied by: Self / Same As Patient Allergies Penicillins [PENICILLINS] Allergy (Severe, Verified 02/28/23 13:13) ANAPHYLAXIS amitriptyline [AMITRIPTYLINE] Allergy (Intermediate, Verified 02/28/23 13:13) HIVES banana Allergy (Intermediate, Verified 02/28/23 13:13) Hives kiwi [KIWI] Allergy (Intermediate, Verified 02/28/23 13:13) HIVES pineapple Allergy (Intermediate, Verified 02/28/23 13:13) Hives clams Allergy (Unknown, Verified 02/28/23 13:13) Unknown gluten Allergy (Unknown, Verified 02/28/23 13:13) Unknown MEAT Allergy (Severe, Uncoded 02/28/23 13:13) HIVES,ANAPHYLAXIS dairy Adverse Reaction (Intermediate, Uncoded 02/28/23 13:13) pt states allery to all Dairy Products Is last menstrual period known: Yes Last menstrual period: 02/14/23 HPI HPI Comments History of Present Illness Details She is a premenopausal woman presenting for annual exam. She attempts to eat healthy, hx of celiac disease. She stays active with exercise and lifting weights. Not currently sexually active, recently out of a relationship. Reports monthly periods, heavy 4/7 days. Has tried IUD a few years ago and developed HTN. She wanted an ablation and it was not recommended at that time, was told she was too young. Denies vaginal itching and irritation. STD screening offered; she accepts. Last pap smear 2020. Last mammogram 11/01/22. [facility] Medical History Osteopenia Hair loss Soft tissue injury of left knee Left knee sprain Low vitamin D level Celiac disease Ear anomaly Family history of thyroid disease Hx of head injury Hx of migraines Iron deficiency anemia Surgical History H/O knee surgery History of left knee surgery H/O esophagogastroduodenoscopy Hx of colonoscopy Previous section Hx of foot surgery Hx of shoulder surgery Hx of cholecystectomy Family History Father Diabetes Hypercholesterolemia Chronic kidney disease Hypertension Mother Hypercholesterolemia Hypertension Maternal Grandmother History of breast cancer Other No family history of cancer Social History Household Members: Family Household Members Other:: children and parents Housing: House Are you a primary ambulatory care nurse to a significant other at home: No Do you presently have visiting nurse or other home services: No Alcohol intake: current Alcohol intake frequency: holidays/special occasions only Alcohol type: beer, wine, hard liquor and other Patient Tobacco Use Status: Current everyday Tobacco user Tobacco use type: Cigarette Cigarette Packs Per Day: 0.5 Cigarettes Per Day: 10.0 Years Smoked: 20 e-Cigarette/Vaping Use: Never Used Substance Use Type: Marijuana service: No Current occupational status: employed 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 Sexual orientation: Straight/Heterosexual Gender identity: Female Cognitive needs: No Hearing needs: No Vision needs: Yes Female Reproductive History Menstrual Age of Menarche: 13 Date of last menstrual period: 02/14/23 Total pregnancies: 5 Full term: 2 Number of Living Children: 2 Ab spontaneous: 3 Date of last pap smear: 09/12/20 Date of Mammogram: 11/01/22 Review of Systems Const All systems reviewed & are unremarkable except as noted in HPI and below Physical Exam Vital Signs: Last Vital Signs BP 118/74 02/28/23 13:11 BMI result Body Mass Index 37.1 Const General: cooperative, healthy appearing, no acute distress, well developed and alert Orientation/consciousness: patient oriented x3 HEENT Head: Yes normal to inspection Eyes General: appearance normal, both eyes and all related structures Neck Neck: Yes normal visual inspection Thyroid: Thyroid normal Chest Chest palpation & inspection: normal inspection of the chest Breast/axilla inspection: normal inspection of the breasts (no puckering, dimpling, peau de orange, retraction, discharge, masses) Breast/axilla palpation: normal palpation of the breasts Resp Effort & Inspection: normal respiratory effort GI Inspection: Yes normal to inspection Palpation (GI): Soft to palpation Rectal Exam - Female: deferred General: Yes bladder normal to palpation External Female Exam: normal external appearance and normal appearance of the urethra Speculum Exam - Vagina: normal appearance of the vagina, normal palpation and normal vaginal discharge Speculum Exam - Cervix: normal appearance of the cervix and normal palpation Bimanual exam- vagina & uterus: normal bimanual exam, normal palpation, uterine size normal, bladder normal to palpation and normal palpation Bimanual Exam- Adnexa, other: normal adnexae and no masses Skin General skin exam: no rashes or lesions noted Neuro General: patient oriented x3 Cognition (Neuro): normal cognition Extrem General: Yes normal to inspection Psych Attitude: cooperative Thought process: Normal thought process present Assessment & Plan Assessment & Plan (1) Encounter for well woman exam: Code(s): Z01.419 - Encounter for gynecological examination (general) (routine) without abnormal findings Plan: Discussed: Current recommendations for pap smears per ASCCP guidelines. Breast awareness and periodic self breast exams. Encouraged yearly mammograms. Maintaining a healthy lifestyle including a well balanced diet and routine exercise. Encouraged condom use for STD and prevention. All of her questions and concerns were addressed to the best of my ability. RTO in one year for AG. (2) Heavy menstrual bleeding: Code(s): N92.0 - Excessive and frequent menstruation with regular cycle Plan: Encouraged MD consult for possible ablation or other recommendations. She is agreeable. RTO for MD consult. (3) Potential exposure to STD: Code(s): Z20.2 - Contact with and (suspected) exposure to infections with a predominantly sexual mode of transmission (4) Tobacco use: Code(s): Z72.0 - Tobacco use Plan: Encouraged cessation. Orders: Orders Syphilis Screen Today Z20.2 - Contact with and (suspected) exposure to infections with a predominantly sexual mode of transmission HIV Ab/Ag Today Z20.2 - Contact with and (suspected) exposure to infections with a predominantly sexual mode of transmission Hepatitis C Antibody Today Z20.2 - Contact with and (suspected) exposure to infections with a predominantly sexual mode of transmission Hepatitis B Core Antibody Today Z20.2 - Contact with and (suspected) exposure to infections with a predominantly sexual mode of transmission CT NG by PCR Today Z01.419 - Encounter for gynecological examination (general) (routine) without abnormal findings Coding Level of Care Code Est Pt Prev Care 40-64y(26691) Diagnoses Encounter for well woman exam Z01.419 Heavy menstrual bleeding N92.0 Potential exposure to STD Z20.2 Tobacco use Z72.0
[2023-02-28 13:11] VITALS: BP 118/74; BMI 37.1
== END 2023-02-28 13:41 | disposition home or self-care (01) ==
PROVIDERS: PCP Internal Medicine; Visit Provider Advanced Practice Midwife
DX: Z01.419 Encounter for gynecological examination (general) (routine) without abnormal findings (principal); N92.0 Excessive and frequent menstruation with regular cycle; Z20.2 Contact with and (suspected) exposure to infections with a predominantly sexual mode of transmission; Z72.0 Tobacco use
CPT/HCPCS: 99396

== ENCOUNTER 2023-03-31 15:28 | Outpatient (AMB) | payer OTHER, SELFPAY ==
[2023-03-31 15:35] VITALS: BP 120/76; BMI 37.1
--- NOTE | 2023-03-31 15:35 | MHC.OFFVIS ---
Intake Vital Signs 03/31/23 15:35 Height 5 ft 2 in Weight 203 lb BMI 37.1 BP 120/76 Intake Visit Reasons: consult ablation Dean Of Admissions Required: No Allergies Penicillins [PENICILLINS] Allergy (Severe, Verified 03/31/23 15:36) ANAPHYLAXIS amitriptyline [AMITRIPTYLINE] Allergy (Intermediate, Verified 03/31/23 15:36) HIVES banana Allergy (Intermediate, Verified 03/31/23 15:36) Hives kiwi [KIWI] Allergy (Intermediate, Verified 03/31/23 15:36) HIVES pineapple Allergy (Intermediate, Verified 03/31/23 15:36) Hives clams Allergy (Unknown, Verified 03/31/23 15:36) Unknown gluten Allergy (Unknown, Verified 03/31/23 15:36) Unknown MEAT Allergy (Severe, Uncoded 03/31/23 15:36) HIVES,ANAPHYLAXIS dairy Adverse Reaction (Intermediate, Uncoded 03/31/23 15:36) pt states allery to all Dairy Products Is last menstrual period known: Yes Last menstrual period: 03/20/23 Post menopausal: No HPI HPI Comments History of Present Illness Details Presenting referred from Aleksandra Mari regarding consult for possible endometrial ablation. The patient been having heavy menstrual cycles over the last few years. The following workup was done recently: 02/17 H&H 38.7, hCG less than 2, GC and chlamydia negative. Last mammogram was 11/17 was BI-RADS 1 Last co testing in 09/15 was negative PFSH Medical History Osteopenia Hair loss Soft tissue injury of left knee Left knee sprain Low vitamin D level Celiac disease Ear anomaly Family history of thyroid disease Hx of head injury Hx of migraines Iron deficiency anemia Surgical History H/O knee surgery History of left knee surgery H/O esophagogastroduodenoscopy Hx of colonoscopy Previous section Hx of foot surgery Hx of shoulder surgery Hx of cholecystectomy Family History Father Diabetes Hypercholesterolemia Chronic kidney disease Hypertension Mother Hypercholesterolemia Hypertension Maternal Grandmother History of breast cancer Other No family history of cancer Social History Household Members: Family Household Members Other:: children and parents Housing: House Are you a primary youth care specialist to a significant other at home: No Do you presently have visiting nurse or other home services: No Alcohol intake: current Alcohol intake frequency: holidays/special occasions only Alcohol type: beer, wine, hard liquor and other Patient Tobacco Use Status: Current everyday Tobacco user Tobacco use type: Cigarette Cigarette Packs Per Day: 0.5 Cigarettes Per Day: 10.0 Years Smoked: 20 e-Cigarette/Vaping Use: Never Used Substance Use Type: Marijuana service: No Current occupational status: employed 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 Sexual orientation: Straight/Heterosexual Gender identity: Female Cognitive needs: No Hearing needs: No Vision needs: Yes Female Reproductive History Menstrual Age of Menarche: 13 Date of last menstrual period: 03/20/23 control method: none Date of last pap smear: 09/12/20 (negative) Review of Systems Const All systems reviewed & are unremarkable except as noted in HPI and below Reports as per HPI and Reports no additional complaints GI Reports no additional complaints Reports no additional complaints Assessment & Plan Assessment & Plan (1) Abnormal uterine bleeding (AUB): Code(s): N93.9 - Abnormal uterine and vaginal bleeding, unspecified Plan: Will order pelvic ultrasound, TSH and schedule endometrial biopsy to rule out endometrial pathology including endometrial hyperplasia and/or malignancy. Co testing done not indicate, GC and chlamydia, CBC, TSH, and mammogram recently done and within normal. Discussed with the patient the different causes of abnormal bleeding including thyroid disorders, uterine and ovarian pathology, endometrial hyperplasia, carcinoma and other potential causes. Discussed with the patient the work up including CBC (to r/o anemia), TSH, pelvic Ultrasound, endometrial biopsy to r/o endometrial pathology. All questions answered and the patient verbalized understanding. Instructed the patient to schedule an appointment for an endometrial biopsy in 2 weeks. Orders: Orders US pelvic and transvaginal Today N93.9 - Abnormal uterine and vaginal bleeding, unspecified Coding Level of Care Code Est Pt Level 3 (24307) Diagnoses Abnormal uterine bleeding (AUB) N93.9
== END 2023-03-31 15:49 | disposition home or self-care (01) ==
LOC: HO.HWS 15:28
PROVIDERS: Visit Provider Obstetrics & Gynecology
DX: N93.9 Abnormal uterine and vaginal bleeding, unspecified (principal)
CPT/HCPCS: 99213

== ENCOUNTER → 2023-03-31 15:28 | Outpatient (BNVA) | payer OTHER, SELFPAY | PROVIDERS: Visit Provider Obstetrics & Gynecology | DX: N93.9 Abnormal uterine and vaginal bleeding, unspecified (principal) | CPT/HCPCS: 99212 ==

== ENCOUNTER 2023-04-01 14:57 | Outpatient (AMB) | payer OTHER, SELFPAY ==
--- NOTE | 2023-04-01 15:46 | MHC.OFFVIS ---
Intake Intake Visit Reasons: L SIJ STEROID INJ 02/25/23/Confirmed Allergies Penicillins [PENICILLINS] Allergy (Severe, Verified 03/31/23 15:36) ANAPHYLAXIS amitriptyline [AMITRIPTYLINE] Allergy (Intermediate, Verified 03/31/23 15:36) HIVES banana Allergy (Intermediate, Verified 03/31/23 15:36) Hives kiwi [KIWI] Allergy (Intermediate, Verified 03/31/23 15:36) HIVES pineapple Allergy (Intermediate, Verified 03/31/23 15:36) Hives clams Allergy (Unknown, Verified 03/31/23 15:36) Unknown gluten Allergy (Unknown, Verified 03/31/23 15:36) Unknown MEAT Allergy (Severe, Uncoded 03/31/23 15:36) HIVES,ANAPHYLAXIS dairy Adverse Reaction (Intermediate, Uncoded 03/31/23 15:36) pt states allery to all Dairy Products HPI HPI Comments History of Present Illness Details Sveta presents to the office today for follow up s/p therapeutic left SIJ injection. She reports 70% pain improvement after injection, now noticing the pain to the posterior left thigh is starting to return. Since having the SIJ pain treated she reports pain lower back radiating down left leg to the foot has started to become more bothersome. She endorses some numbness and tingling to the LLE. Denies red flag symptoms including new loss of bowel, bladder or saddle anesthesia. Prior: Sveta presents back to the office today for follow up 2 days s/p left diagnostic SIJ injection. Patient reports 70% relief of lower back pain and 100% relief of her left leg pain for greater than 24hours after the injection. She states the pain started today back to her left thigh. She also reports improvement in function and mobility. She does endorse some midline lumbar spine pain that became more pronounced after the SIJ pain went away. Prior: Sveta presents back to the office today for follow up. MRI results reviewed with patient, results as per below. Patient continues to c/o left lower back pain radiating into left thigh. Continues with NSAIDs and tumeric for inflammation. She has been going to the gym, using some machines for weights and cardio as instructed by PT. Avoiding heavy weights and machines that put stress on her back. Trip coming up to [place] that involves a lot of walking, patient is concerned about pain increase with increased activity. She denies any new loss of bowel bladder or saddle anesthesia. Prior: Sveta is a pleasant 47-year-old female who presents to the office today for new patient visit for evaluation and management of chronic lower back pain. Patient recently seen by pcp for annual wellness exam and was referred here for ongoing lower back pain. Patient reports 5/10 left lower back pain with radiation into the thigh and occasionally down into the left foot. She reports this has been ongoing for 3 years after she injured herself while at the gym. She was weightlifting, had been squatting 350 lb and states due to improper form she injured her back. Patient also injured her left knee which she had surgery for in January of 2022. After surgery she completed about 6 months of physical therapy for her left knee and back. She continues to do home exercise program with minimal improvement in her pain. She was recently prescribed tizanidine by her primary care which she states helps her sleep otherwise she does not notice any change in her pain. She takes ibuprofen as needed and also uses turmeric for inflammation. Patient had a recent x-ray which was reviewed during visit, results as below. Patient describes her pain as aching, stabbing, pins and needles and burning. At its worst the pain will be 10/10, pain is worse with long car rides and repetitive motions of her left leg. Patient reports the pain is adversely impacting her mood, sleep, recreational activities and her work. Patient denies red flag symptoms including loss of bowel bladder or saddle anesthesia. Patient reports she has received cortisone injections in the past for other pains and states that they have never helped . In terms of muscle damage condition is described as aching, spasming, tingling, pins and needles and numb. Patient's past medical history significant for celiac disease, iron deficiency anemia, migraines, multiple food allergies. Patient denies implantable devices, pacemaker or defibrillator. Patient reports 1/2 pack per day tobacco use, rare alcohol use, rare THC use. Does endorse occasional CBD use. [facility] Medical History Osteopenia Hair loss Soft tissue injury of left knee Left knee sprain Low vitamin D level Celiac disease Ear anomaly Family history of thyroid disease Hx of head injury Hx of migraines Iron deficiency anemia Surgical History H/O knee surgery History of left knee surgery H/O esophagogastroduodenoscopy Hx of colonoscopy Previous section Hx of foot surgery Hx of shoulder surgery Hx of cholecystectomy Family History Father Diabetes Hypercholesterolemia Chronic kidney disease Hypertension Mother Hypercholesterolemia Hypertension Maternal Grandmother History of breast cancer Other No family history of cancer Social History Household Members: Family Household Members Other:: children and parents Housing: House Are you a primary farm or ranch animal caretaker to a significant other at home: No Do you presently have visiting nurse or other home services: No Alcohol intake: current Alcohol intake frequency: holidays/special occasions only Alcohol type: beer, wine, hard liquor and other Patient Tobacco Use Status: Current everyday Tobacco user Tobacco use type: Cigarette Cigarette Packs Per Day: 0.5 Cigarettes Per Day: 10.0 Years Smoked: 20 e-Cigarette/Vaping Use: Never Used Substance Use Type: Marijuana service: No Current occupational status: employed 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 Answers questions appropriately. Fully engaged in examination. Skin: warm, dry, intact HEENT: Normocephalic. Hearing intact. Cardiac: External chest normal in appearance. Respiratory: No cough, audible wheezing or stridor. Abdomen: without gross distension. Neurological: Oriented to person, place, time and situation. Thought process intact. No gait abnormalities appreciated. Psychiatric: Appropriate mood and affect. Good judgment and insight. Results Reviewed Results Reviewed: 01/31/2023 REASON FOR ADDENDUM: Typographical error. FINDINGS (CORRECTED): Multiple small lipid rich HEMANGIOMAS with within the L1, L3, and L4 vertebral bodies. Addendum Dictated By: Jam Horn DO 12/12/2022 FINDINGS: Normal anatomic alignment. Mild degenerative disc disease from L1-L4. Associated minimal mixed Modic type discogenic endplate changes. Multiple small lipid rich meningioma with within the L1, L3, and L4 vertebral bodies. No suspicious marrow edema. The vertebral body heights are well-maintained. The conus medullaris terminates at the level of L1. The distal spinal cord is normal in appearance. No significant abnormalities of the paraspinal musculature. Limited evaluation of the intra-abdominal structures without significant abnormalities. The abdominal aorta is of normal contour and caliber. AXIAL SPINAL LEVELS: T12-L1: Normal annular contour. There is no facet joint arthropathy. There is no neural foraminal stenosis. There is no spinal canal stenosis. L1-L2: Normal annular contour. There is no facet joint arthropathy. There is no neural foraminal stenosis. There is no spinal canal stenosis. L2-L3: Mild diffuse disc bulge with superimposed central disc protrusion. There is mild bilateral facet joint arthropathy. There is no neural foraminal stenosis. There is no spinal canal stenosis. L3-L4: Shallow diffuse disc bulge. There is mild right and no left facet joint arthropathy. There is mild right and no left neural foraminal stenosis. There is no spinal canal stenosis. L4-L5: Normal annular contour. There is mild bilateral facet joint arthropathy. There is mild bilateral neural foraminal stenosis. There is no spinal canal stenosis. L5-S1: Shallow diffuse disc bulge. There is mild bilateral facet joint arthropathy. There is no neural foraminal stenosis. There is no spinal canal stenosis. MR/MR lumbar spine wo con IMPRESSION: Mild multilevel degenerative spondyloarthropathy of the lumbar spine as described in detail above. No overt spinal canal stenosis or nerve root compression. Assessment & Plan Assessment & Plan (1) Lumbar spondylosis: Code(s): M47.816 - Spondylosis without myelopathy or radiculopathy, lumbar region (2) Lumbar facet arthropathy: Code(s): M47.816 - Spondylosis without myelopathy or radiculopathy, lumbar region (3) Sacroiliac dysfunction: Comment: left Code(s): M53.3 - Sacrococcygeal disorders, not elsewhere classified (4) Lumbar radiculopathy: Code(s): M54.16 - Radiculopathy, lumbar region Lew Bangura is a very pleasant 47-year-old female who presented to the office today for follow up 1 month s/p therapeutic left SIJ injection with local anesthetic. Patient reports 70% relief of pain with improvement in function and mobility. Patient now focused on pain associated with lumbar radiculopathy. MRI reviewed with patient again. Will order EMG for futher evaluation. All questions and concerns have been answered and patient agrees with the plan. Patient will follow up here after EMG, sooner if needed. Orders: Orders NE electromyogram (EMG) Today G62.9 - Polyneuropathy, unspecified Coding Level of Care Code Est Pt Level 3 (36508) Diagnoses Lumbar spondylosis M47.816 Lumbar facet arthropathy M47.816 Sacroiliac dysfunction M53.3 Lumbar radiculopathy M54.16
== END 2023-04-01 15:46 | disposition home or self-care (01) ==
PROVIDERS: PCP Nurse Practitioner Family; Visit Provider Registered Nurse Emergency
DX: M47.26 Other spondylosis with radiculopathy, lumbar region (principal); M53.3 Sacrococcygeal disorders, not elsewhere classified
CPT/HCPCS: 99213

== ENCOUNTER → 2023-04-01 14:57 | Outpatient (BNVA) | payer OTHER, SELFPAY | PROVIDERS: PCP Nurse Practitioner Family; Visit Provider Registered Nurse Emergency | DX: M47.816 Spondylosis without myelopathy or radiculopathy, lumbar region (principal); M53.3 Sacrococcygeal disorders, not elsewhere classified; M54.16 Radiculopathy, lumbar region | CPT/HCPCS: 99212 ==

== ENCOUNTER 2023-04-04 13:12 | Outpatient (REF) | payer OTHER, SELFPAY ==
--- NOTE | 2023-04-04 13:15 | EMG_ITS ---
Chief complaint: Left leg pain, paresthesia on left foot, swelling left foot Reason for referral: Evaluate for radiculopathy Referred by: Mohini Floyd NP Procedure done: Bilateral lower extremity NCS/EMG Precautions and/or limitations: None The limb temperature was monitored continuously and remained between 32-36 degrees C during the performance of the NCS. Nerve Conduction Studies Anti Sensory Summary Table ?Stim Site NR Onset (ms) Norm Onset (ms) Peak (ms) Norm Peak (ms) O-P Amp (?V) Norm O-P Amp Site1 Site2 Delta-0 (ms) Dist (cm) Rogers (m/s) Norm Rogers (m/s) Left Sup Peron Anti Sensory (Ankle) Lateral Leg ? 2.0 2.6 <4.4 6.7 >5.0 Lateral Leg Ankle 2.0 14.0 70 Left Sural Anti Sensory (Lat Mall) Calf ? 2.5 3.7 <4.0 5.2 >5.0 Calf Lat Mall 2.5 14.0 56 Motor Summary Table ?Stim Site NR Onset (ms) Norm Onset (ms) O-P Amp (mV) Norm O-P Amp iAmp (mV) Amp (1st) (%) Site1 Site2 Delta-0 (ms) Dist (cm) Rogers (m/s) Norm Rogers (m/s) Left Peroneal Motor (Ext Dig Brev) Ankle ? 4.0 <4.0 4.7 >2.5 5.7 100.0 Ankle Ext Dig Brev 4.0 0.0 B Fib ? 10.4 3.4 4.3 72.3 B Fib Ankle 6.4 32.0 50 >40 Poplt ? 11.0 4.3 5.5 91.5 Poplt B Fib 0.6 6.0 100 >40 Left Tibial Motor (Abd Bourgeois Brev) Ankle ? 4.8 <5 8.8 >2.5 15.6 100.0 Ankle Abd Bourgeois Brev 4.8 0.0 Knee ? 11.9 4.7 9.2 53.4 Knee Ankle 7.1 39.0 55 >40 EMG ?Side Muscle Nerve Root Ins Act Fibs Psw Amp Dur Poly Recrt Int Pat Comment Left AbdHallucis MedPlantar S1-2 Nml Nml Nml Nml Nml 0 Nml Complete Left AntTibialis Dp Br Peron L4-5 Nml Nml Nml Nml Nml 0 Nml Complete Left PostTibialis Tibial L5, S1 Nml Nml Nml Nml Nml 0 Nml Complete Left MedGastroc Tibial S1-2 Nml Nml Nml Nml Nml 0 Nml Complete Left VastusMed Femoral L2-4 Nml Nml Nml Nml Nml 0 Nml Complete Paraspinal EMG ?Side Muscle Nerve Root Ins Act Fibs Psw Comment Left Lumbar Upper Rami Nml Nml Nml Left Lumbar Mid Rami Nml Nml Nml Left Lumbar Lower Rami Nml Nml Nml FINDINGS: All motor and sensory nerves tested showed normal latencies, amplitudes and conduction velocities. Concentric needle EMG was performed in selected muscles of the left lower extremity and lumbar paraspinals. Study did not reveal signs of electric abnormalities as shown in the table below. IMPRESSION: 1. This is a normal study. 2. There is no electrodiagnostic evidence for peroneal neuropathy, tibial neuropathy, lumbosacral plexopathy, lumbar radiculopathy, or peripheral neuropathy. Thank you for your kind referral. Lila Ingram MD, RUDOLPH Board Certified, [place] [employer] and [employer] (ABPMR) Board Certified, [place] Board [employer] Electrodiagnostic [employer] (ABEM) [place] [id number] [facility]
== END 2023-04-04 13:13 | disposition home or self-care (01) ==
LOC: HO.NEURO 13:12
PROVIDERS: PCP Nurse Practitioner Family; Visit Provider Registered Nurse Emergency
DX: G62.9 Polyneuropathy, unspecified (principal)
CPT/HCPCS: 95886; 95908

== ENCOUNTER → 2023-04-04 13:15 | Outpatient (BNV) | payer OTHER, SELFPAY | PROVIDERS: PCP Nurse Practitioner Family; Visit Provider Physical Medicine & Rehabilitation | DX: M79.605 Pain in left leg (principal); R20.2 Paresthesia of skin; R22.42 Localized swelling, mass and lump, left lower limb | CPT/HCPCS: 95886; 95908 ==

== ENCOUNTER 2023-04-08 13:43 | Outpatient (REF) | payer OTHER, SELFPAY ==
--- NOTE | ~2023-04-08 | US_ITS ---
EXAMINATION: US PELVIS CLINICAL INFORMATION: Abnormal uterine and vaginal bleeding, unspecified LMP: 03/22/2023, ongoing COMPARISON: Pelvic ultrasound 09/18/2020, CT scan abdomen and pelvis 02/06/2023 TECHNIQUE: Ultrasound of the pelvis is performed using both transabdominal and transvaginal transducers along with Doppler. Transvaginal imaging is performed due to inadequate visualization transabdominally. FINDINGS: Uterus: The uterus is anteverted and measures 10.0 x 4.9 x 7.8 cm. ? Arcuate configuration. 1.2 x 1.5 x 1.2 cm hyperechoic focus in the the anterior body of the uterus, located adjacent to the anterior wall of the endometrium, may represent a fibroid. The endometrial thickness 0.6 cm on the right and 0.8 cm on the left Adnexa: Both ovaries are visualized. There is normal color flow to the adnexa. There is no ovarian torsion. There is no pelvic ascites or fluid collection. Right ovary measures 3.1 x 1.6 x 3.2 cm. Volume 8.1 mL. There is a 1.3 x 0.8 x 1.1 cm simple cyst which is either an exophytic follicle versus paraovarian cyst. Left ovary measures 2.7 x 1.7 x 2.7 cm. Volume 5.8 mL. US/US pelvic and transvaginal IMPRESSION: 1.? Arcuate configuration of the uterus. 2. 1.5 cm hyperechoic focus in the anterior body of the uterus, located adjacent to the anterior wall of the endometrium, may represent a fibroid. 3. 1.3 cm simple cyst in the right ovary which is either an exophytic follicle versus paraovarian cyst. 4. Normal appearance of the left ovary.
== END 2023-04-08 13:44 | disposition home or self-care (01) ==
LOC: HO.HMGCX 13:43
PROVIDERS: PCP Nurse Practitioner Family; Visit Provider Obstetrics & Gynecology
DX: N93.9 Abnormal uterine and vaginal bleeding, unspecified (principal)
CPT/HCPCS: 76830; 76856

== ENCOUNTER 2023-04-17 10:49 | Outpatient (AMB) | payer OTHER, SELFPAY ==
[2023-04-17 10:51] VITALS: BP 124/88; PULSE 67; O2SAT 100; BMI 37.1
--- NOTE | 2023-04-17 10:51 | A.OFFPC_ITS ---
Vital Signs 04/17/23 10:51 Height 5 ft 2 in Weight 203 lb 0.6 oz BMI 37.1 BP 124/88 Blood Pressure Location Lt brachial Position Sitting Pulse 67 Pulse Source Pulse Oximeter Pulse Oximetry (%) 100 Oxygen Delivery Method Room Air Intake Visit Reasons: BLE edema Intake Note: Patient is here today for a physical. 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: No Allergies Penicillins [PENICILLINS] Allergy (Severe, Verified 04/17/23 10:51) ANAPHYLAXIS amitriptyline [AMITRIPTYLINE] Allergy (Intermediate, Verified 04/17/23 10:51) HIVES banana Allergy (Intermediate, Verified 04/17/23 10:51) Hives kiwi [KIWI] Allergy (Intermediate, Verified 04/17/23 10:51) HIVES pineapple Allergy (Intermediate, Verified 04/17/23 10:51) Hives clams Allergy (Unknown, Verified 04/17/23 10:51) Unknown gluten Allergy (Unknown, Verified 04/17/23 10:51) Unknown MEAT Allergy (Severe, Uncoded 04/17/23 10:51) HIVES,ANAPHYLAXIS dairy Adverse Reaction (Intermediate, Uncoded 04/17/23 10:51) pt states allery to all Dairy Products Tobacco use date assessed: 04/17/23 Dental Screening Dental Screen Date: 04/17/23 Did you have a dental visit in the last 12 months?: Yes Did you have a dental problem in the last 6 months where you did not have access to dental care?: No Was dental information given to patient?: Patient has dentist HPI BLE edema HPI Details 47-year-old obese female smoker with a h istory of celiac disease generalized anxiety disorder coming in for an acute problem. Review of the notes had nerve conduction test on the lower extremity which came up was normal. Patient has a history of lumbar spondylosis and follows up with pain management having had injections done left SI patient also follows up with Gynecology for AUB. Patient follows up with Gastroenterology for the celiac EGD no gastritis. 3 years intermittent swelling- alway swollen - hx of injury lower back - L knee surgery - (did weight lifting) August 2021 noted US done showing amezcua cyst patient was told/ was ask to have a RAST test due to her celiac disease. [facility] Medical History (Updated 04/17/23 @ 11:04 by Jennifer Aguiar MD) Neuropathy Left upper quadrant abdominal pain Lumbar radiculopathy Sacroiliac dysfunction Lumbar facet arthropathy Smoker Multiple allergies Encounter for annual routine gynecological examination Internal derangement of left knee Effusion, left knee Encounter for IUD removal Hair loss Amezcua cyst Right knee pain Pain in left knee Chronic knee pain Anxiety and depression IUD check up Body mass index [BMI] 38.0-38.9, adult Left knee pain Physical exam (~03/2021) Polyarthralgia Fatigue Low back pain Menometrorrhagia Swelling, lymph nodes Encounter for general adult medical examination with abnormal findings Common cold Ear anomaly Generalized abdominal pain Iron deficiency anemia Osteopenia Soft tissue injury of left knee Left knee sprain Low vitamin D level Celiac disease Family history of thyroid disease Hx of head injury Hx of migraines Surgical History H/O knee surgery History of left knee surgery H/O esophagogastroduodenoscopy Hx of colonoscopy Previous section Hx of foot surgery Hx of shoulder surgery Hx of cholecystectomy Family History Father Diabetes Hypercholesterolemia Chronic kidney disease Hypertension Mother Hypercholesterolemia Hypertension Maternal Grandmother History of breast cancer Other No family history of cancer Social History Household Members: Family Household Members Other:: children and parents Housing: House Are you a primary care provider to a significant other at home: No Do you presently have visiting nurse or other home services: No Alcohol intake: current Alcohol intake frequency: holidays/special occasions only Alcohol type: beer, wine, hard liquor and other Patient Tobacco Use Status: Current everyday Tobacco user Tobacco use type: Cigarette Cigarette Packs Per Day: 0.5 Cigarettes Per Day: 10.0 Years Smoked: 20 Packs Per Year: 10 Packs per year/per ci.00 e-Cigarette/Vaping Use: Never Used Substance Use Type: Marijuana service: No Current occupational status: employed 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 How often do you have a drink containing alcohol?: Monthly or less 2. How many drinks containing alcohol do you have on a typical day when you are drinking?: 1 or 2 3. How often do you have six or more drinks on one occasion?: Never Total Score: 1 Score Reviewed/Action Taken: No STEPHEN-7 AMB Questionnaire STEPHEN-7 Date STEPHEN - 7 assessed: 10/09/22 Source: Developed by Drs. Malik Bates, Mary Mahan, Pedrito Amaro and colleagues, with an educational tyson from [employer]. Physical exam (Primary Care) Vital Signs: Last Vital Signs Pulse 67 04/17/23 10:51 BP 124/88 04/17/23 10:51 Pulse Ox 100 04/17/23 10:51 Oxygen Delivery Method Room Air 04/17/23 10:51 BMI result Body Mass Index 37.1 Tobacco/Smoking Status: Tobacco use Status Tobacco use date assessed 04/17/23 04/17/23 10:52 Patient Tobacco Use Status Current everyday Tobacco 04/17/23 10:52 Tobacco use type Cigarette 04/17/23 10:52 e-Cigarette/Vaping Use Never Used 04/17/23 10:52 Thrive Assessment: Date of Thrive Assessment Date Thrive assessed 06/11/22 04/17/23 10:52 Const General: alert; No acute distress Eyes Conjunctivae: conjunctivae normal Resp Auscultation: clear to auscultation bilaterally Cardio Rate: regular rate Rhythm: regular rhythm GI Inspection: Yes normal to inspection Extrem Other: I did not appreciate any leg swelling Assessment and Plan Assessment & Plan (1) Tobacco abuse: Code(s): Z72.0 - Tobacco use Plan: Strongly advised to stop smoking! (2) Obesity (BMI 35.0-39.9 without comorbidity): Code(s): E66.9 - Obesity, unspecified Plan: Diet and exercise (3) Peripheral vascular disease: Code(s): I73.9 - Peripheral vascular disease, unspecified Plan: When sitting down elevate the legs, exercise, and support stockings, will do referral to vascular surgeon (4) Celiac disease: Code(s): K90.0 - Celiac disease Plan: Will do RAST testing Orders: Orders Rast Allergen Today K90.0 - Celiac disease Referrals Vascular Surgery Referral I73.9 - Peripheral vascular disease, unspecified Coding Level of Care Code Est Pt Level 4 (94179) Diagnoses Tobacco abuse Z72.0 Obesity (BMI 35.0-39.9 without comorbidity) E66.9 Peripheral vascular disease I73.9 Celiac disease K90.0
== END 2023-04-17 11:30 | disposition home or self-care (01) ==
PROVIDERS: PCP Internal Medicine; Visit Provider Internal Medicine
DX: I73.9 Peripheral vascular disease, unspecified (principal); E66.9 Obesity, unspecified; Z68.37 Body mass index [BMI] 37.0-37.9, adult; Z72.0 Tobacco use; K90.0 Celiac disease; Z98.891 History of uterine scar from previous surgery
CPT/HCPCS: 99214

== ENCOUNTER 2023-04-17 11:35 | Outpatient (REF) | payer OTHER, SELFPAY | END 2023-04-17 11:36 | disposition home or self-care (01) | LOC: HO.LAB 11:35 | PROVIDERS: PCP Internal Medicine; Visit Provider Internal Medicine | DX: K90.0 Celiac disease (principal) | CPT/HCPCS: 36415; 82784; 86258; 86364 ==

== ENCOUNTER 2023-05-21 12:32 | Outpatient (REF) | payer OTHER, SELFPAY | END 2023-05-21 12:33 | disposition home or self-care (01) | LOC: HO.LNP 12:32 | PROVIDERS: Visit Provider Obstetrics & Gynecology | DX: N93.9 Abnormal uterine and vaginal bleeding, unspecified (principal) | CPT/HCPCS: 58100; 81025; 88305 ==

== ENCOUNTER 2023-05-21 12:32 | Outpatient (AMB) | payer OTHER, SELFPAY ==
--- NOTE | 2023-05-21 12:42 | A.OFFVIS_ITS ---
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 Lead Person Required: No Information Interpreted: non-clinical & clinical Branch Logistics Supervisor: Branch Logistics Supervisor Present (Denise Sanjiv KENDRICK) Accompanied by: Self / Same As Patient Allergies Penicillins [PENICILLINS] Allergy (Severe, Verified 05/21/23 12:51) ANAPHYLAXIS amitriptyline [AMITRIPTYLINE] Allergy (Intermediate, Verified 05/21/23 12:51) HIVES banana Allergy (Intermediate, Verified 05/21/23 12:51) Hives kiwi [KIWI] Allergy (Intermediate, Verified 05/21/23 12:51) HIVES pineapple Allergy (Intermediate, Verified 05/21/23 12:51) Hives clams Allergy (Unknown, Verified 05/21/23 12:51) Unknown gluten Allergy (Unknown, Verified 05/21/23 12:51) Unknown MEAT Allergy (Severe, Uncoded 05/21/23 12:51) HIVES,ANAPHYLAXIS dairy Adverse Reaction (Intermediate, Uncoded 05/21/23 12:51) pt states allery to all Dairy Products HPI HPI Comments History of Present Illness Details Presenting for EMB PFSH Medical History Neuropathy Left upper quadrant abdominal pain Lumbar radiculopathy Sacroiliac dysfunction Lumbar facet arthropathy Smoker Multiple allergies Encounter for annual routine gynecological examination Internal derangement of left knee Effusion, left knee Encounter for IUD removal Hair loss Amezcua cyst Right knee pain Pain in left knee Chronic knee pain Anxiety and depression IUD check up Body mass index [BMI] 38.0-38.9, adult Left knee pain Physical exam (~03/2021) Polyarthralgia Fatigue Low back pain Menometrorrhagia Swelling, lymph nodes Encounter for general adult medical examination with abnormal findings Common cold Ear anomaly Generalized abdominal pain Iron deficiency anemia Osteopenia Soft tissue injury of left knee Left knee sprain Low vitamin D level Celiac disease Family history of thyroid disease Hx of head injury Hx of migraines Surgical History H/O knee surgery History of left knee surgery H/O esophagogastroduodenoscopy Hx of colonoscopy Previous section Hx of foot surgery Hx of shoulder surgery Hx of cholecystectomy Family History Father Diabetes Hypercholesterolemia Chronic kidney disease Hypertension Mother Hypercholesterolemia Hypertension Maternal Grandmother History of breast cancer Other No family history of cancer Social History Household Members: Family Household Members Other:: children and parents Housing: House Are you a primary personal carer to a significant other at home: No Do you presently have visiting nurse or other home services: No Alcohol intake: current Alcohol intake frequency: holidays/special occasions only Alcohol type: beer, wine, hard liquor and other Patient Tobacco Use Status: Current everyday Tobacco user Tobacco use type: Cigarette Cigarette Packs Per Day: 0.5 Cigarettes Per Day: 10.0 Years Smoked: 20 e-Cigarette/Vaping Use: Never Used Substance Use Type: Marijuana service: No Current occupational status: employed 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 Sexual orientation: Straight/Heterosexual Gender identity: Female Cognitive needs: No Hearing needs: No Vision needs: Yes Female Reproductive History Menstrual Age of Menarche: 13 Review of Systems Const All systems reviewed & are unremarkable except as noted in HPI and below Reports as per HPI and Reports no additional complaints GI Reports no additional complaints Reports no additional complaints Physical Exam Vital Signs: Last Vital Signs BP 120/76 05/21/23 12:51 BMI result Body Mass Index 37.1 Office Procedures Endometrial Biopsy Details: The patient was counseled regarding the indication and benefits of endometrial sampling to rule out endometrial pathology including not limited to endometrial hyperplasia or endometrial cancer and others; The alternatives (Either do nothing vs. hysteroscopy D&C) & the risks were discussed with the patient including but not limited: pain, uterine perforation, bleeding, infection, possible injury to bladder, bowel, ureter, possible need for blood transfusion with all its possible risks. The patient verbalized understanding all questions answered and signed consent. Urine test done in the office was negative The patient was placed into the dorsal lithotomy position; a speculum was inserted in the vagina. Using aseptic technique for the procedure, the cervix was cleansed with Betadine. The anterior lip of the cervix was grasped with a single tooth tenaculum. The uterus was sounded to 10 cm with a 4 mm Pipelle was used. Tissues samples were obtained and placed in formalin, in a patient labeled container and sent to the pathology department. At the end of the procedure, there was minimal bleeding noted The patient tolerated the procedure well and was discharged in good condition with the following instructions: Nothing in the vagina until the bleeding stops. No sex until the bleeding stops, to call if any of the following occurs: fever (>100.4), flu-like symptoms, abdominal pain, heavy bleeding, four smelling vaginal discharge. The patient was instructed to schedule a Follow up appointment in 2 weeks to discuss pathology results of the biopsy and treatment options. This note was generated with a voice recognition program. Some errors may have been overlooked during the review of this note. Sometimes these errors may affect the content or meaning of a given sentence. [id number] Biopsy Results AMB Test Urine AMB Test Urine Negative Last Edit by Denise Kincaid CMA on 12:54 Assessment & Plan Assessment & Plan (1) Abnormal uterine bleeding (AUB): Code(s): N93.9 - Abnormal uterine and vaginal bleeding, unspecified Plan: EMB done. See procedure note. Orders: Orders AMB HCG Urine Test Today Z32.02 - Encounter for test, result negative AMB Endometrial Biopsy Today N93.9 - Abnormal uterine and vaginal bleeding, unspecified Coding Level of Care Code Procedure Only Diagnoses Abnormal uterine bleeding (AUB) N93.9 CPT Codes Endometrial Biopsy - CPT: 52943-[id number] Biopsy ([id number])
[2023-05-21 12:51] VITALS: BP 120/76; BMI 37.1
== END 2023-05-21 13:00 | disposition home or self-care (01) ==
PROVIDERS: Visit Provider Obstetrics & Gynecology
DX: N93.9 Abnormal uterine and vaginal bleeding, unspecified (principal); Z32.02 Encounter for pregnancy test, result negative
CPT/HCPCS: 58100

== ENCOUNTER 2023-05-26 16:33 | Emergency (ER) | payer OTHER, SELFPAY ==
--- NOTE | ~2023-05-26 | XR_ITS ---
EXAMINATION: XR CHEST CLINICAL INFORMATION: Shortness of breath. Chest pain. COMPARISON: Chest radiograph dated 06/30/2020. TECHNIQUE: Frontal view of the chest was obtained. FINDINGS: The trachea is in normal anatomic position. Heart size is normal. The lungs are clear. There is no pleural effusion or pneumothorax. There is no acute osseous abnormality. There are cholecystectomy clips. XR/XR chest 1V IMPRESSION: No acute cardiopulmonary disease. Stable appearance of the heart and lungs.
--- NOTE | 2023-05-26 16:34 | ECG_ITS ---
Test Reason : chest pressure Blood Pressure : / mmHG Vent. Rate : 079 BPM Atrial Rate : 079 BPM P-R Int : 158 ms QRS Dur : 080 ms QT Int : 418 ms P-R-T Axes : 022 004 020 degrees QTc Int : 479 ms Normal sinus rhythm Normal ECG When compared with ECG of 30-JUN-2020 22:26, No significant change was found Referred By: Generic ED Physician Electronically Signed By:NATALEE VELAZCO MD
[2023-05-26 16:58] VITALS: BP 144/77; PULSE 74; RESP 16; TEMP 36.6; O2SAT 98; BMI 37.8
--- NOTE | 2023-05-26 16:58 | ED.CHESTPAIN ---
HPI - Chest Pain General Chief Complaint: Vaginal Bleeding Stated Complaint: chest pressure,blurry vision,headache Time Seen by Provider: 05/26/23 19:50 Source: patient Mode of arrival: ambulatory Limitations: no limitations History of Present Illness HPI narrative: Patient is a 47-year-old female who presents emergency department for evaluation of 1 week with intermittent dizziness, nausea, chest pain, shortness of breath and vaginal bleeding. She attempted to call her primary care provider but was unable to get an appointment. Vaginal bleeding has been going on for 1 month, she has been evaluated by her automatic grinding machine operator for this and had a biopsy last week, states she is using large pads changing multiple times throughout the day and passing large clots. She does report that these symptoms began prior to her recent biopsy and did worsen after the biopsy when she began having heavier bleeding Related Data Home Medications Medication Instructions Recorded Confirmed cyanocobalamin (B12)-cobamamide 1 mindy sublingual DAILY 02/10/20 10/09/22 5,000 mcg-100 mcg sublingual lozenge (B12) multivitamin 1 tab PO DAILY 02/10/20 10/09/22 paroxetine HCl 20 mg tablet (Paxil) 20 mg PO DAILY 01/01/22 10/09/22 calcium-magnesium 750 mg-465 mg 2 tab PO DAILY 02/10/23 tablet Previous Rx's Medication Instructions Recorded epinephrine 0.3 mg/0.3 mL 0.3 mg (0.3 mL) IM Q4H PRN 05/28/22 injection, auto-injector (EpiPen) anaphylaxis #2 ea hydroxyzine HCl 10 mg tablet 10 mg PO BID PRN anxiety #14 tabs 10/09/22 cream base no.105 (bulk) (Base See Rx Instructions miscellaneous 12/24/22 W301 cream) .COMPLEX #180 grams cholecalciferol (vitamin D3) 50 50 mcg PO DAILY #90 tabs 02/08/23 mcg (2,000 unit) tablet omeprazole 20 mg capsule,delayed 20 mg PO DAILY 90 days #90 caps 03/25/23 release Allergies Allergy/AdvReac Type Severity Reaction Status Date / Time Penicillins [PENICILLINS] Allergy Severe ANAPHYLAXIS Verified 05/26/23 16:58 amitriptyline [AMITRIPTYLINE] Allergy Intermediate HIVES Verified 05/26/23 16:58 banana Allergy Intermediate Hives Verified 05/26/23 16:58 kiwi [KIWI] Allergy Intermediate HIVES Verified 05/26/23 16:58 pineapple Allergy Intermediate Hives Verified 05/26/23 16:58 clams Allergy Unknown Unknown Verified 05/26/23 16:58 gluten Allergy Unknown Unknown Verified 05/26/23 16:58 MEAT Allergy Severe HIVES,ANAPH Uncoded 05/26/23 16:58 YLAXIS dairy AdvReac Intermediate pt states Uncoded 05/26/23 16:58 allery to all Dairy Products PMFSH Past Medical History Medical History Neuropathy Left upper quadrant abdominal pain Lumbar radiculopathy Sacroiliac dysfunction Lumbar facet arthropathy Smoker Multiple allergies Encounter for annual routine gynecological examination Internal derangement of left knee Effusion, left knee Encounter for IUD removal Hair loss Amezcua cyst Right knee pain Pain in left knee Chronic knee pain Anxiety and depression IUD check up Body mass index [BMI] 38.0-38.9, adult Left knee pain Physical exam (~03/2021) Polyarthralgia Fatigue Low back pain Menometrorrhagia Swelling, lymph nodes Encounter for general adult medical examination with abnormal findings Common cold Ear anomaly Generalized abdominal pain Iron deficiency anemia Osteopenia Soft tissue injury of left knee Left knee sprain Low vitamin D level Celiac disease Family history of thyroid disease Hx of head injury Hx of migraines Surgical History H/O knee surgery History of left knee surgery H/O esophagogastroduodenoscopy Hx of colonoscopy Previous section Hx of foot surgery Hx of shoulder surgery Hx of cholecystectomy Family History Family History Father Diabetes Hypercholesterolemia Chronic kidney disease Hypertension Mother Hypercholesterolemia Hypertension Maternal Grandmother History of breast cancer Other No family history of cancer Social History Social History Household Members: Family Household Members Other:: children and parents Housing: House Are you a primary healthcare economics manager to a significant other at home: No Do you presently have visiting nurse or other home services: No Alcohol intake: never Patient Tobacco Use Status: Current everyday Tobacco user Tobacco use type: Cigarette Cigarette Packs Per Day: 0.5 Cigarettes Per Day: 10.0 Years Smoked: 20 Smoked in Last 30 Days: Yes e-Cigarette/Vaping Use: Never Used Use of substances other than those prescribed or required for medical reasons: No Substance Use Type: Marijuana Advance Directives: No Advance Directives Information Provided: Yes Patient : No service: No Current occupational status: employed 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 Spoke with PCP, cannot get appointment til next week. using large pads. Passes blood clots approx size of golf balls. Saw Anya last week for AUB, had US showing fibroids and had biopsy 1 wk ago- has not received results. Has now had intermittent blurred vision, SOB on exertion, headache, dizziness, and nausea x1 wk, worsening today. Labs, UA ordered in triage. Full HPI, ROS and PE to be performed by the primary ED provider. Medical Decision Making Medical Decision Making MDM Narrative: Patient is a 47-year-old female with hx of PVD, tobacco use, AUB, PTSD, iron deficiency anemia, STEPHEN, celiac disease presenting for evaluation of multiple complaints associated with her vaginal bleeding as per HPI. Overall she is well-appearing, nontoxic, afebrile. Without tachycardia tachypnea or hypoxia. Your med physical examination is overall benign. Given her recent visit with OBGYN, would defer internal pelvic examination. She is Reporting 1 month of vaginal bleeding with large clots, currently undergoing outpatient workup for this. Had outpatient ultrasound revealing fibroids, she had office visit with OBGYN, Dr. Joyner on 05/21/23 and underwent endometrial biopsy due to abnormal uterine bleeding, she reports being unaware of results, upon review of pathology; disordered weakly proliferative endometrium with breakdown, no atypia or hyperplasia identified. CBC today reveals H and H of 9.8/30.5, which appears consistent with level she is experienced in the past, 2022, although in January 2023 was noted to be 12/38.7 respectively. At this time do not feel as though she requires blood transfusion. I reviewed these findings with patient, advised that she should follow-up with her PCP/Ob-assistant mechanic, and possibly Hematology for consideration of transfusions though she does admit that in the past is not been overly helpful for her. Differential Diagnosis Differential Diagnoses: The differential diagnosis associated with the presentation includes (As per narrative above) Admission/Observation Consideration of admission/observation: Escalation of care including admission/observation considered Lab Data MDM Lab Attestation statement: I reviewed the patient's lab results. (See narrative above) 05/26/23 17:35 05/26/23 17:35 Labs: Lab Results 05/26/23 05/26/23 05/26/23 Range/Units 17:35 17:43 19:52 WBC 5.7 (4.8-10.8) X10*3/uL RBC 3.53 L D (4.20-5.50) X10*6/uL Hgb 9.8 L (12.0-16.0) g/dl Hct 30.5 L D (37.0-47.0) % MCV 86.4 (80.0-98.0) fL MCH 27.8 (27.0-33.0) pg MCHC 32.1 (31.0-35.0) g/dl RDW 13.4 (11.0-16.0) % Plt Count 342 (160-400) X10*3/uL MPV 9.8 (9.4-12.3) fL Immature Gran % (Auto) 0.7 H (0.0-0.4) % Neut % (Auto) 66.1 (45-73) % Lymph % (Auto) 24.2 (20-40) % Hemphill % (Auto) 6.1 (2-11) % Eos % (Auto) 1.9 (0-4) % Baso % (Auto) 1.0 (0-2) % Lymph # (Auto) 1.4 (1.2-4.9) X10*3/uL Hemphill # (Auto) 0.4 (0.1-1.2) X10*3/uL Eos # (Auto) 0.1 (0.0-0.4) X10*3/uL Baso # (Auto) 0.1 (0.0-0.2) X10*3/uL Abs Immat Gran (auto) 0.04 H (0.00-0.03) X10*3/uL Absolute Neuts (auto) 3.8 (2.0-8.3) x10*3/uL Absolute Nucleated RBC 0.000 (0.0-0.012) X10*3/uL Nucleated RBC % (auto) 0.0 (0.0-0.2) /100WBC Sodium 140 (135-145) mmol/L Potassium 4.0 (3.3-5.1) mmol/L Chloride 109 H (96-108) mmol/L Carbon Dioxide 25 (22-29) mmol/L Anion Gap 10 L (12-20) BUN 7 L (9-16) mg/dL Creatinine 0.67 (0.5-1.4) mg/dL Estim Creat Clear Calc 111.9 Estimated GFR > 60 Random Glucose 103 (60-115) mg/dL Calcium 8.8 D (8.4-10.2) mg/dL Magnesium 2.0 (1.6-2.6) mg/dL Troponin I High Sens < 2.7 (<3.5-17.0) ng/L Lipase 36 (8-78) U/L Urine Color RED Urine Appearance Hazy Urine pH 6.0 (5.0-9.0) Ur Specific [place] 1.020 (1.005-1.025) Urine Protein 100 (2+) H (Neg-Trace) mg/dL Urine Glucose (UA) Negative (Negative) mg/dL Urine Ketones Trace (Negative) mg/dL Urine Blood Large (3+) H (Negative) Urine Nitrite Negative (Negative) Ur Leukocyte Esterase Negative (Negative) Urine RBC >20 H (0-2) /HPF Urine WBC 6-10 H (0-5) /HPF Ur Squamous Epith Cells 11-20 (0-2) /HPF Urine Bacteria 2+ (None Seen) Hyaline Casts 0-2 (0-2) /LPF Urine Test NEGATIVE (NEGATIVE) COVID-19 (JONATHAN) Negative (Negative) COVID-19 Clin Com See Note Influenza Type A (CHARISSA) Negative (Negative) Influenza Type B (CHARISSA) Negative (Negative) Influenza A & B Note See Note Independent Interpretation I performed an independent interpretation of an: EKG and Plain X-Ray (I have personally interpreted x-ray and agree with radiologist impression) Interpretation: Rate:79 Rhythm:? Normal sinus rhythm Deposit:? Normal Normal P waves.? Normal MYLA.?? Normal QRS complex.?? ST T wave :??No ST elevation, no ST depression qTC:479 The study has been interpreted contemporaneously by me. Radiology Impression Discussion of test interpretation with radiology: I have reviewed the radiologist's reading. Radiologist Impression: XR/XR chest 1V IMPRESSION: No acute cardiopulmonary disease. Stable appearance of the heart and lungs. External Record Review External record reviewed: Outpatient record Discharge Plan Discharge Clinical Impression: Dysfunctional uterine bleeding, Anemia Patient Disposition: Home, Self-Care Instructions: Anemia (ED), Dysfunctional Uterine Bleeding (ED) Additional Instructions: As discussed, your blood counts today do not indicate need for emergent blood transfusion, though it is most likely the cause for the symptoms you have been experiencing. It is recommended that you follow-up with your OBGYN, in addition to your primary care provider. You may also contact your psychological stress evaluator office to arrange for further follow-up. Please be sure that you are staying well hydrated, drink in plenty of fluids, eating small frequent meals high in iron source foods, change position slowly. You may return back to the emergency department with any new or worsening symptoms or concerns. Prescriptions: No Action epinephrine [EpiPen] 0.3 mg/0.3 mL auto-injector 0.3 mg IM Q4H PRN (Reason: anaphylaxis) Qty: 2 0RF cholecalciferol (vitamin D3) 50 mcg (2,000 unit) tablet 50 mcg PO DAILY Qty: 90 0RF omeprazole 20 mg capsule,delayed release(DR/EC) 20 mg PO DAILY 90 Days Qty: 90 3RF multivitamin Tablet 1 tab PO DAILY B12 5,000-100 mcg Lozenge 1 mindy SUBLINGUAL DAILY paroxetine HCl [Paxil] 20 mg tablet 20 mg PO DAILY calcium-magnesium 750-465 mg tablet 2 tab PO DAILY hydroxyzine HCl 10 mg tablet 10 mg PO BID PRN (Reason: anxiety) Qty: 14 0RF Base W301 Cream See Rx Instructions miscellaneous .COMPLEX Qty: 180 0RF Rx Instructions: Diclofenac 5%, Baclofen 5%, Cyclobenzaprine 2%, Gabapentin 6%, Bupivacaine 2% SIG: apply pea-sized amount 3-5 times daily to painful areas as needed Referrals: Alex Joyner MD [Physician] -
[2023-05-26 17:39] LABS: MANUAL DIFF FLAG NO
[2023-05-26 17:48] LABS: Basophils Absolute Auto 0.1 X10*3/uL (0.0-0.2); Eosinophils Absolute Auto 0.1 X10*3/uL (0.0-0.4); Eosinophils Percent Auto 1.9 % (0-4); Hematocrit 30.5 % (37.0-47.0); Hemoglobin 9.8 g/dl (12.0-16.0); Imm Gran Abs Auto 0.04 X10*3/uL (0.00-0.03); Imm Gran Pct Auto 0.7 % (0.0-0.4); Lymphocytes Absolute Auto 1.4 X10*3/uL (1.2-4.9); Lymphocytes Percent Auto 24.2 % (20-40); Mean Corpuscular HGB Conc 32.1 g/dl (31.0-35.0); Mean Corpuscular Hemoglobin 27.8 pg (27.0-33.0); Mean Corpuscular Volume 86.4 fL (80.0-98.0); Mean Platelet Volume 9.8 fL (9.4-12.3); Monocytes Absolute Auto 0.4 X10*3/uL (0.1-1.2); Monocytes Percent Auto 6.1 % (2-11); Neutrophils Absolute Auto 3.8 x10*3/uL (2.0-8.3); Neutrophils Percent Auto 66.1 % (45-73); Platelet Count 342 X10*3/uL (160-400); Red Blood Count 3.53 X10*6/uL (4.20-5.50); Red Cell Distribution Width 13.4 % (11.0-16.0); White Blood Count 5.7 X10*3/uL (4.8-10.8)
[2023-05-26 17:53] LABS: Anion Gap 10 (12-20); Blood Urea Nitrogen 7 mg/dL (9-16); Calcium 8.8 mg/dL (8.4-10.2); Carbon Dioxide 25 mmol/L (22-29); Chloride 109 mmol/L (96-108); Creatinine Clr Calc Pharmacy 111.9; Estimated Glomerular Filt Rate > 60; Glucose Random 103 mg/dL (60-115); Lipase 36 U/L (8-78); Sodium 140 mmol/L (135-145)
[2023-05-26 17:53] LABS: Appearance Urine Hazy; Color Urine RED; Glucose Urine UA Negative (Negative); Leukocyte Esterase Urine Negative (Negative); Nitrite Urine Negative (Negative); UMIC TRIGGER UACC YES; Urine Blood Large (3+) (Negative); Urine Ketones Trace mg/dL (Negative); Urine Protein 100 (2+) mg/dL (Neg-Trace)
[2023-05-26 17:56] LABS: UPreg QC Valid YES; Urine Pregnancy NEGATIVE (NEGATIVE)
[2023-05-26 17:58] LABS: Bacteria Urine 2+ (None Seen); Hyaline Casts Urine 0-2 /LPF (0-2); RBC Urine >20 /HPF (0-2); UACC Culture Trigger YES
[2023-05-26 18:02] LABS: Troponin-I High Sensitivity < 2.7 ng/L (<3.5-17.0)
[2023-05-26 19:53] VITALS: BP 129/60; PULSE 60; RESP 17; TEMP 36.9; O2SAT 98
[2023-05-26 20:17] LABS: IDNOW Serial# 08D9AD1C
[2023-05-26 20:18] LABS: COVID-19 Test Negative (Negative); IDNOW Serial# 152EDE1D; Influenza A Negative (Negative); Influenza B2 Negative (Negative)
--- NOTE | 2023-05-26 21:35 | PC.NURSE ---
late entry- pt from home reporting one month of vaginal bleeding that she has been following up with OB with. pt also reports increasing dizziness, blurriness in the eyes and upper respiratory symptoms. pt able to speak in full clear sentences. pt nromal sinus on tele 60-63.
[2023-05-26 21:44] VITALS: BP 128/75; PULSE 73; RESP 16; O2SAT 96
[2023-05-29 09:15] LABS: Iron 13 mcg/dL (30-160); Percent Iron Saturation 4 % (15-50); Total Iron Binding Capacity 318 mcg/dL (228-428); Unsaturated Iron Binding 305 ug/dL
[2023-05-29 09:35] LABS: Ferritin 10 ng/mL (10-250)
== END 2023-05-26 21:45 | disposition home or self-care (01) ==
PROVIDERS: Physician Assistant Medical; Emergency Provider Emergency Medicine
DX: N93.8 Other specified abnormal uterine and vaginal bleeding (principal); D50.9 Iron deficiency anemia, unspecified; R07.89 Other chest pain; R42 Dizziness and giddiness; R11.0 Nausea; R06.02 Shortness of breath; Z11.52 Encounter for screening for COVID-19
CPT/HCPCS: 36415; 71045; 80048; 81001; 81025; 82728; 83540; 83690; 83735; 84484; 85025; 87086; 87502; 87635; 93005; 99284; 99285

== ENCOUNTER → 2023-05-26 16:34 | Outpatient (BNV) | payer OTHER, SELFPAY | PROVIDERS: Emergency Provider Emergency Medicine; Visit Provider Internal Medicine Cardiovascular Disease | DX: R07.9 Chest pain, unspecified (principal) | CPT/HCPCS: 93010 ==

== ENCOUNTER 2023-06-05 10:32 | Outpatient (AMB) | payer OTHER, SELFPAY ==
[2023-06-05 10:33] VITALS: BP 118/76; PULSE 75; BMI 37.5
--- NOTE | 2023-06-05 10:33 | MHC.OFFVIS ---
Intake Vital Signs 06/05/23 10:33 Height 5 ft 2 in Weight 205 lb 0.478 oz BMI 37.5 BP 118/76 Blood Pressure Location Lt brachial Position Sitting Pulse 75 Intake Visit Reasons: Peripheral vascular disease Intake Note: New patient dx PVD c/o left leg swelling and pain Elementary Education Tutor Required: No Allergies Penicillins [PENICILLINS] Allergy (Severe, Verified 05/29/23 08:02) ANAPHYLAXIS amitriptyline [AMITRIPTYLINE] Allergy (Intermediate, Verified 05/29/23 08:02) HIVES banana Allergy (Intermediate, Verified 05/29/23 08:02) Hives kiwi [KIWI] Allergy (Intermediate, Verified 05/29/23 08:02) HIVES pineapple Allergy (Intermediate, Verified 05/29/23 08:02) Hives clams Allergy (Unknown, Verified 05/29/23 08:02) Unknown gluten Allergy (Unknown, Verified 05/29/23 08:02) Unknown MEAT Allergy (Severe, Uncoded 05/29/23 08:02) HIVES,ANAPHYLAXIS dairy Adverse Reaction (Intermediate, Uncoded 05/29/23 08:02) pt states allery to all Dairy Products HPI Peripheral vascular disease HPI Details Very pleasant 47-year-old female presents for evaluation regarding lower extremities. She has been complaining left lower extremity pain she reports that it radiates down the hip on down to the leg. In addition she is experiencing leg swelling. She denies any history of DVT. She has had no prior venous procedures. In terms of activity she reports that she does go to the gym. She is able to do 20-30 minutes on the elliptical with no significant disease. Also of note she does have a history of lumbar spondylosis and has been followed by pain management with injections done to the left SI joint. Now presents to us for vascular evaluation. [facility] Medical History Neuropathy Left upper quadrant abdominal pain Lumbar radiculopathy Sacroiliac dysfunction Lumbar facet arthropathy Smoker Multiple allergies Encounter for annual routine gynecological examination Internal derangement of left knee Effusion, left knee Encounter for IUD removal Hair loss Amezcua cyst Right knee pain Pain in left knee Chronic knee pain Anxiety and depression IUD check up Body mass index [BMI] 38.0-38.9, adult Left knee pain Physical exam (~03/2021) Polyarthralgia Fatigue Low back pain Menometrorrhagia Swelling, lymph nodes Encounter for general adult medical examination with abnormal findings Common cold Ear anomaly Generalized abdominal pain Iron deficiency anemia Osteopenia Soft tissue injury of left knee Left knee sprain Low vitamin D level Celiac disease Family history of thyroid disease Hx of head injury Hx of migraines Surgical History H/O knee surgery History of left knee surgery H/O esophagogastroduodenoscopy Hx of colonoscopy Previous section Hx of foot surgery Hx of shoulder surgery Hx of cholecystectomy Family History Father Diabetes Hypercholesterolemia Chronic kidney disease Hypertension Mother Hypercholesterolemia Hypertension Maternal Grandmother History of breast cancer Other No family history of cancer Social History Household Members: Family Household Members Other:: children and parents Housing: House Are you a primary senior caregiver to a significant other at home: No Do you presently have visiting nurse or other home services: No Alcohol intake: never Patient Tobacco Use Status: Current everyday Tobacco user Tobacco use type: Cigarette Cigarette Packs Per Day: 0.5 Cigarettes Per Day: 10.0 Years Smoked: 20 e-Cigarette/Vaping Use: Never Used Substance Use Type: Marijuana service: No Current occupational status: employed 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 Sexual orientation: Straight/Heterosexual Gender identity: Female Cognitive needs: No Hearing needs: No Vision needs: Yes Female Reproductive History Menstrual Age of Menarche: 13 Review of Systems Const All systems reviewed & are unremarkable except as noted in HPI and below Reports no additional complaints ENT Reports Normal hearing present Card Denies chest pain, Denies chest pain at rest, Denies chest pain with activity and Denies pedal edema Resp Denies cough GI Denies abdominal pain Musc Denies abnormal gait, Denies muscle cramps and Denies radiating pain into limb Skin/Breast Denies skin ulcer and Denies wounds Neuro Reports Normal hearing present and Denies abnormal gait Psych Reports no additional complaints Physical Exam Vital Signs: Last Vital Signs Pulse 75 06/05/23 10:33 BP 118/76 06/05/23 10:33 BMI result Body Mass Index 37.5 Const General: cooperative, healthy appearing and comfortable Orientation/consciousness: oriented to person, oriented to place and oriented to time HEENT Head: Yes normal to inspection Neck Neck: Yes normal visual inspection Carotids: no bruits Chest Chest palpation & inspection: normal inspection of the chest Resp Effort & Inspection: normal respiratory effort and able to speak in complete sentences Auscultation: clear to auscultation bilaterally, no crackles, no rales, no rhonchi and no wheezes Cardio Other: Right side palpable posterior tibial left side signals only Rate: regular rate Rhythm: regular rhythm Heart sounds: S1 normal heart sound present and S2 normal heart sound present Bruits: no carotid bruits Peripheral pulses: Peripheral pulses 2+ throughout GI Inspection: Yes normal to inspection Skin Wounds: no wounds Hair: normal Neuro General: oriented to person, oriented to place and oriented to time Cranial nerves: Yes CN's II-XII intact bilaterally and Yes Normal hearing present Cognition (Neuro): normal cognition Motor exam (neuro): 5/5 motor strength present throughout Extrem Other: venous exam: +1 edema General: No clubbing, No cyanosis and Yes edema Psych Appearance: grossly normal Mental Status: mental status grossly normal Speech and movement: Normal speech and movement present Assessment & Plan Assessment & Plan (1) Peripheral vascular disease: Code(s): I73.9 - Peripheral vascular disease, unspecified Plan: In short patient may have an element peripheral vascular disease due to her smoking history. I did take the liberty of ordering noninvasive arterial testing. The patient will follow up with us after testing. Thank you for allowing us to assist in this patient's care. If there are any questions or concerns please do not hesitate to contact us. (2) Varicose veins of right lower extremity with inflammation: Code(s): I83.11 - Varicose veins of right lower extremity with inflammation Plan: The patient does have lower extremity swelling. She did have previous knee surgery on the left leg as well. I have taken the liberty of ordering venous insufficiency testing to rule that out. She will follow up with us after testing. Thank you for allowing us to assist in her care. If there are any questions or concerns please do not hesitate to contact us Orders: Orders US arterial duplex LE BI 1 Week I73.9 - Peripheral vascular disease, unspecified US venous insuf bilat 1 Week I83.11 - Varicose veins of right lower extremity with inflammation Coding Level of Care Code New Pt Level 4 (78218) Diagnoses Peripheral vascular disease I73.9 Varicose veins of right lower extremity with inflammation I83.11
== END 2023-06-05 11:01 | disposition home or self-care (01) ==
PROVIDERS: PCP Internal Medicine; Visit Provider Surgery Vascular Surgery
DX: I73.9 Peripheral vascular disease, unspecified (principal); I83.11 Varicose veins of right lower extremity with inflammation
CPT/HCPCS: 99203

== ENCOUNTER → 2023-06-05 10:32 | Outpatient (BNVA) | payer OTHER, SELFPAY | PROVIDERS: PCP Internal Medicine; Visit Provider Surgery Vascular Surgery | DX: I83.11 Varicose veins of right lower extremity with inflammation (principal); I73.9 Peripheral vascular disease, unspecified | CPT/HCPCS: 99202 ==

== ENCOUNTER 2023-06-09 | Outpatient (REF) | payer OTHER, SELFPAY | END 2023-06-09 00:01 | disposition home or self-care (01) | LOC: HO.MDS | PROVIDERS: PCP Internal Medicine; Visit Provider Internal Medicine Medical Oncology | DX: D50.9 Iron deficiency anemia, unspecified (principal) | CPT/HCPCS: 96365; J2916 ==

== ENCOUNTER 2023-06-18 13:50 | Outpatient (REF) | payer OTHER, SELFPAY | END 2023-06-18 13:51 | disposition home or self-care (01) | LOC: HO.MDS 13:50 | PROVIDERS: Visit Provider Internal Medicine Medical Oncology | DX: D50.9 Iron deficiency anemia, unspecified (principal) | CPT/HCPCS: 96365; J2916 ==

== ENCOUNTER 2023-06-19 12:03 | Outpatient (AMB) | payer OTHER, SELFPAY ==
--- NOTE | 2023-06-19 12:07 | MHC.OFFVIS ---
Intake Vital Signs 06/19/23 12:09 Height 5 ft 2 in Weight 205 lb 0.478 oz BMI 37.5 BP 118/72 Intake Visit Reasons: EMB results Bag Printer Required: No Information Interpreted: non-clinical & clinical Architectural Practice Manager: Architectural Practice Manager Present Accompanied by: Self / Same As Patient Allergies Penicillins [PENICILLINS] Allergy (Severe, Verified 06/19/23 12:09) ANAPHYLAXIS amitriptyline [AMITRIPTYLINE] Allergy (Intermediate, Verified 06/19/23 12:09) HIVES banana Allergy (Intermediate, Verified 06/19/23 12:09) Hives kiwi [KIWI] Allergy (Intermediate, Verified 06/19/23 12:09) HIVES pineapple Allergy (Intermediate, Verified 06/19/23 12:09) Hives clams Allergy (Unknown, Verified 06/19/23 12:09) Unknown gluten Allergy (Unknown, Verified 06/19/23 12:09) Unknown MEAT Allergy (Severe, Uncoded 06/19/23 12:09) HIVES,ANAPHYLAXIS dairy Adverse Reaction (Intermediate, Uncoded 06/19/23 12:09) pt states allery to all Dairy Products Is last menstrual period known: Yes Last menstrual period: 02/24/20 Post menopausal: No Patient : No Do you need a note to return to daycare/school/sports/work: Yes (for surgery on friday) HPI HPI Comments History of Present Illness Details The patient is presenting after endometrial biopsy. The patient has no complaints, no vaginal bleeding, no feverishness chills or abdominal pain. Endometrial biopsy pathology showed the following: Endometrium, biopsy: Disordered weakly proliferative endometrium with breakdown; no atypia or hyperplasia identified H&H 9.8/30.5 GC/CT negative Co testing done in 09/15 was negative Last mammogram was BI-[facility]ADS 1 in 11/17 Pelvic ultrasound showed the following: IMPRESSION: 1.? Arcuate configuration of the uterus. 2. 1.5 cm hyperechoic focus in the anterior body of the uterus, located adjacent to the anterior wall of the endometrium, may represent a fibroid. 3. 1.3 cm simple cyst in the right ovary which is either an exophytic follicle versus paraovarian cyst. 4. Normal appearance of the left ovary. [facility] Medical History Neuropathy Left upper quadrant abdominal pain Lumbar radiculopathy Sacroiliac dysfunction Lumbar facet arthropathy Smoker Multiple allergies Encounter for annual routine gynecological examination Internal derangement of left knee Effusion, left knee Encounter for IUD removal Hair loss Amezcua cyst Right knee pain Pain in left knee Chronic knee pain Anxiety and depression IUD check up Body mass index [BMI] 38.0-38.9, adult Left knee pain Physical exam (~03/2021) Polyarthralgia Fatigue Low back pain Menometrorrhagia Swelling, lymph nodes Encounter for general adult medical examination with abnormal findings Common cold Ear anomaly Generalized abdominal pain Iron deficiency anemia Osteopenia Soft tissue injury of left knee Left knee sprain Low vitamin D level Celiac disease Family history of thyroid disease Hx of head injury Hx of migraines Surgical History H/O knee surgery History of left knee surgery H/O esophagogastroduodenoscopy Hx of colonoscopy Previous section Hx of foot surgery Hx of shoulder surgery Hx of cholecystectomy Family History Father Diabetes Hypercholesterolemia Chronic kidney disease Hypertension Mother Hypercholesterolemia Hypertension Maternal Grandmother History of breast cancer Other No family history of cancer Social History Household Members: Family Household Members Other:: children and parents Housing: House Are you a primary acute care registered nurse to a significant other at home: No Do you presently have visiting nurse or other home services: No Alcohol intake: never Patient Tobacco Use Status: Current everyday Tobacco user Tobacco use type: Cigarette Cigarette Packs Per Day: 0.5 Cigarettes Per Day: 10.0 Years Smoked: 20 e-Cigarette/Vaping Use: Never Used Substance Use Type: Marijuana Patient : No service: No Current occupational status: employed 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 Sexual orientation: Straight/Heterosexual Gender identity: Female Cognitive needs: No Hearing needs: No Vision needs: Yes Female Reproductive History Menstrual Age of Menarche: 13 Date of last menstrual period: 02/24/20 Total pregnancies: 2 Full term: 2 Review of Systems Const All systems reviewed & are unremarkable except as noted in HPI and below Reports as per HPI and Reports no additional complaints Card Reports as per HPI and Reports no additional complaints Resp Reports as per HPI and Reports no additional complaints GI Reports as per HPI and Reports no additional complaints Reports as per HPI Physical Exam Vital Signs: Last Vital Signs BP 118/72 06/19/23 12:09 BMI result Body Mass Index 37.5 Const General: cooperative, healthy appearing and comfortable Chest Chest palpation & inspection: normal inspection of the chest and normal palpation of entire chest wall Breast/axilla inspection: normal inspection of the breasts and normal inspection of the axillae Breast/axilla palpation: normal palpation of the breasts, normal palpation of the axillae and no axillary lymphadenopathy Resp Effort & Inspection: normal respiratory effort Auscultation: clear to auscultation bilaterally Percussion: percussion normal Cardio Palpation: normal PMI Rate: regular rate Rhythm: regular rhythm Heart sounds: no murmurs and no rubs Peripheral pulses: Peripheral pulses 2+ throughout GI Inspection: Yes normal to inspection Palpation (GI): Soft to palpation, nontender, no guarding, not rigid and No hepatosplenomegaly present Percussion: Yes normal to percussion Auscultation: normal bowel sounds Rectal Exam - Female: deferred Assessment & Plan Assessment & Plan (1) Abnormal uterine bleeding (AUB): Code(s): N93.9 - Abnormal uterine and vaginal bleeding, unspecified Plan: The patient is on iron transfusion Discussed with the patient the results of the work up done and options of treatment including Lysteda, control pills (contraindicated in patients with migraine), Mirena IUD (was tried and taken out because of headaches), Lysteda ( the patient did not respond to the treatment ) endometrial ablation and hysterectomy. All pros, cons, risks and benefits if each option was discussed with the patient and the patient decided to go ahead with minimally invasive surgical management and prefers myomectomy. Explained to the patient that there is no minimally invasive drilling field operator specialist at [facility], therefore Will refer to minimally invasive drilling field operator specialist at [facility] . (2) Myoma: Code(s): D21.9 - Benign neoplasm of connective and other soft tissue, unspecified Plan: Discussed with the patient the results of the ultrasound and the size of the myomas. Discussed with the patient risk of myosarcoma and symptoms that are caused by myomas including but not limited to pelvic pain, pressure symptoms, abnormal uterine bleeding. In addition discussed with the patient options of treatment for myomas including: Serial ultrasounds periodically to follow-up on the size of the myoma while targeting the treatment against fibroids related symptoms ( control pills, Mirena IUD, progesterone treatment, GnRH agonist/antagonist, uterine artery embolization or endometrial ablation) versus surgical treatment including hysterectomy and/ or myomectomy. All pros and cons, risks and benefits of all options were discussed with the patient. The patient decided to proceed with minimally invasive surgical options preferably myomectomy, explained to the patient that there is no minimally invasive drilling field operator specialist at [facility] , will refer to minimally invasive drilling field operator specialist at [facility] and [facility] . Coding Level of Care Code Est Pt Level 3 (41095) Diagnoses Abnormal uterine bleeding (AUB) N93.9 Myoma D21.9
[2023-06-19 12:09] VITALS: BP 118/72; BMI 37.5
== END 2023-06-19 15:49 | disposition home or self-care (01) ==
LOC: HO.HWS 12:04
PROVIDERS: PCP Internal Medicine; Visit Provider Obstetrics & Gynecology
DX: N93.9 Abnormal uterine and vaginal bleeding, unspecified (principal); D21.9 Benign neoplasm of connective and other soft tissue, unspecified
CPT/HCPCS: 99213

== ENCOUNTER → 2023-06-19 12:03 | Outpatient (BNVA) | payer OTHER, SELFPAY | PROVIDERS: PCP Internal Medicine; Visit Provider Obstetrics & Gynecology | DX: N93.9 Abnormal uterine and vaginal bleeding, unspecified (principal); D21.9 Benign neoplasm of connective and other soft tissue, unspecified | CPT/HCPCS: 99212 ==

== ENCOUNTER 2023-06-20 12:47 | Outpatient (REF) | payer OTHER, SELFPAY ==
--- NOTE | ~2023-06-20 | US_ITS ---
EXAMINATION: US LOWER EXTREMITY VENOUS (REFLUX EXAM), BILATERAL CLINICAL INFORMATION: Varicose veins COMPARISON: None. TECHNIQUE: Color flow triplex imaging and compression Doppler was performed to evaluate both the deep and the superficial systems bilaterally. To evaluate the superficial system, the examination was performed in the upright position. Color-flow Doppler ultrasound and compression ultrasound were utilized. In addition, maneuvers were utilized to demonstrate reflux. FINDINGS: 1. DEEP VENOUS ULTRASOUND OF THE RIGHT LOWER EXTREMITY: Common Femoral Vein: Compressible, normal respiratory variation and augmented flow. Femoral Vein: Compressible, normal color flow and augmentation. Popliteal Vein: Compressible, normal augmentation. Deep Reflux: There is no evidence of reflux in the deep system in either the common femoral vein, superficial femoral or the popliteal vein. There is no evidence of a Amezcua's cyst. 2. SUPERFICIAL ULTRASOUND WITH DOPPLER OF RIGHT LOWER EXTREMITY: GREAT SAPHENOUS VEIN: Saphenofemoral Junction: 0.8 cm; Reflux: 0 ms Proximal Thigh: 0.6 cm; Reflux: 0 ms Mid Thigh: 0.4 cm; Reflux: 780 ms Distal Thigh: 0.5 cm; Reflux: 0 ms At Knee: 0.4 cm; Reflux: 0 ms Proximal Calf: 0.3 cm; Reflux: 0 ms Mid Calf: 0.1 cm; Reflux: 0 ms Distal Calf: 0.2 cm; Reflux: 0 ms DUPLICATED MEDIAL GREAT SAPHENOUS VEIN: Proximal: 0.3 cm; Reflux: 0 ms Distal: 0.2 cm; Reflux: 0 ms DUPLICATED LATERAL GREAT SAPHENOUS VEIN: Diameter: None imaged Reflux: NA SMALL SAPHENOUS VEIN: Saphenopopliteal Junction: 0.3 cm; Reflux: 0 ms Proximal: 0.3 cm; Reflux: 0 ms Distal: 0.2 cm; Reflux: 0 ms VEIN OF GIACOMINI: Size: NA Reflux: NA PERFORATORS: Location: Proximal calf Size: 0.2 cm Reflux: NA VARICOSITIES: Location: None imaged. Size: NA Reflux: NA 3. DEEP VENOUS ULTRASOUND OF THE LEFT LOWER EXTREMITY: Common Femoral Vein: Compressible, normal respiratory variation and augmented flow. Femoral Vein: Compressible, normal color flow and augmentation. Popliteal Vein: Compressible, normal augmentation. Deep Reflux: There is no evidence of reflux in the deep system in either the common femoral vein, superficial femoral or the popliteal vein. There is no evidence of a Amezcua's cyst. 4. SUPERFICIAL ULTRASOUND WITH DOPPLER OF LEFT LOWER EXTREMITY: GREAT SAPHENOUS VEIN: Saphenofemoral Junction: 0.8 cm; Reflux: 0 ms Proximal Thigh: 0.7 cm; Reflux: 0 ms Mid Thigh: 0.4 cm; Reflux: 0 ms Distal Thigh: 0.4 cm; Reflux: 0 ms At Knee: 0.4 cm; Reflux: 0 ms Proximal Calf: 0.4 cm; Reflux: 0 ms Mid Calf: 0.3 cm; Reflux: 0 ms Distal Calf: 0.2 cm; Reflux: 2184 ms DUPLICATED MEDIAL GREAT SAPHENOUS VEIN: Proximal: 0.8 cm; Reflux: 0 ms Distal: 0.2 cm; Reflux: 0 ms DUPLICATED LATERAL GREAT SAPHENOUS VEIN: Diameter: None imaged. Reflux: NA GASTROCNEMIUS VEIN: Saphenopopliteal Junction: 0.3 cm; Reflux: 0 ms Proximal: 0.2 cm; Reflux: 0 ms Distal: 0.2 cm; Reflux: 0 ms VEIN OF GIACOMINI: Size: NA Reflux: NA PERFORATORS: Location: None imaged Size: NA Reflux: NA VARICOSITIES: Location: None Imaged Size: NA Reflux: NA US/US venous insuf bilat IMPRESSION: 1. Right great saphenous vein reflux at the mid thigh (minimal). 2. Left great saphenous vein reflux in the distal calf.
== END 2023-06-20 12:48 | disposition home or self-care (01) ==
LOC: HO.US 12:47
PROVIDERS: PCP Internal Medicine; Visit Provider Surgery Vascular Surgery
DX: I83.11 Varicose veins of right lower extremity with inflammation (principal)
CPT/HCPCS: 93970

== ENCOUNTER 2023-06-25 13:49 | Outpatient (REF) | payer OTHER, SELFPAY ==
[2023-06-25 14:02] VITALS: BP 128/69; PULSE 72; RESP 16; TEMP 37; O2SAT 97
[2023-06-25] MEDS: Acetaminophen 325 MG TABLET 650 MG PO (14:17)
[2023-06-25] MEDS: Sodium Ferric Gluconat/Sucrose 125 MG in 0.9 % Sodium Chloride 100 ML 110 MG IV (14:49)
== END 2023-06-25 13:50 | disposition home or self-care (01) ==
LOC: HO.MDS 13:49
PROVIDERS: Visit Provider Internal Medicine Medical Oncology
DX: D50.9 Iron deficiency anemia, unspecified (principal)
CPT/HCPCS: 96365; J2916

== ENCOUNTER 2023-06-30 13:31 | Outpatient (REF) | payer OTHER, SELFPAY ==
--- NOTE | ~2023-06-30 | US_ITS ---
EXAMINATION: NONINVASIVE ASSESSMENT OF THE ARTERIES OF BOTH LOWER EXTREMITIES WITH PVR EXAM AND BILATERAL LOWER EXTREMITY DUPLEX Janis Garcia MD CLINICAL INFORMATION: Peripheral vascular disease TECHNIQUE: Ankle pulse volume recordings, ankle pressure measurements and ankle brachial indices were obtained of the lower extremity arterial system bilaterally in addition to duplex Doppler techniques with wave form analysis and measurement of velocities in the common femoral, profunda femoral, superficial femoral, popliteal and tibial arteries. The study was performed only at rest. COMPARISON: None FINDINGS: a) AT REST: RIGHT LE. The right ankle-brachial index is: 1.25 * >0.97-1.25 = normal - no significant arterial disease * 0.75-0.96 = mild peripheral arterial disease * 0.5-0.74 = moderate peripheral arterial disease * <0.50 = severe peripheral arterial disease 2. Right ankle pressure: abnormal. 3. Right ankle PVR waveform: abnormal. 4. Right direct duplex Doppler findings: Common femoral artery: 180 cm/s, Multiphasic Profunda femoris artery: 64 cm/s, Multiphasic Superficial femoral artery (proximal): 112 cm/s, Multiphasic Superficial femoral artery (mid): 96 cm/s, Multiphasic Superficial femoral artery (distal): 91 cm/s, Multiphasic Proximal Popliteal artery: 79 cm/s, Multiphasic Mid posterior tibial artery: 88 cm/s, Multiphasic LEFT LE. The left ankle-brachial index is: 1.27 * >0.97-1.25 = normal - no significant arterial disease * 0.75-0.96 = mild peripheral arterial disease * 0.5-0.74 = moderate peripheral arterial disease * <0.50 = severe peripheral arterial disease 2. Left ankle pressure: abnormal. 3. Left ankle PVR waveform: abnormal. 4. Left direct duplex Doppler findings: Common femoral artery: 129 cm/s, Multiphasic Profunda femoris artery: 75 cm/s, Multiphasic Superficial femoral artery (proximal): 126 cm/s, Multiphasic Superficial femoral artery (mid): 101 cm/s, Multiphasic Superficial femoral artery (distal): 102 cm/s, Multiphasic Proximal Popliteal artery: 99 cm/s, Multiphasic Mid posterior tibial artery: 81 cm/s, Multiphasic Left popliteal cyst measure 6.0 x 2.4 x 3.2cm. US/US MURALI complete IMPRESSION: Elevated ABIs suggest atherosclerotic calcification. There is no evidence of any hemodynamically significant lower extremity arterial disease by pressure, waveform or duplex Doppler criteria at rest.
--- NOTE | ~2023-06-30 | US_ITS ---
EXAMINATION: NONINVASIVE ASSESSMENT OF THE ARTERIES OF BOTH LOWER EXTREMITIES WITH PVR EXAM AND BILATERAL LOWER EXTREMITY DUPLEX Janis Garcia MD CLINICAL INFORMATION: Peripheral vascular disease TECHNIQUE: Ankle pulse volume recordings, ankle pressure measurements and ankle brachial indices were obtained of the lower extremity arterial system bilaterally in addition to duplex Doppler techniques with wave form analysis and measurement of velocities in the common femoral, profunda femoral, superficial femoral, popliteal and tibial arteries. The study was performed only at rest. COMPARISON: None FINDINGS: a) AT REST: RIGHT LE. The right ankle-brachial index is: 1.25 * >0.97-1.25 = normal - no significant arterial disease * 0.75-0.96 = mild peripheral arterial disease * 0.5-0.74 = moderate peripheral arterial disease * <0.50 = severe peripheral arterial disease 2. Right ankle pressure: abnormal. 3. Right ankle PVR waveform: abnormal. 4. Right direct duplex Doppler findings: Common femoral artery: 180 cm/s, Multiphasic Profunda femoris artery: 64 cm/s, Multiphasic Superficial femoral artery (proximal): 112 cm/s, Multiphasic Superficial femoral artery (mid): 96 cm/s, Multiphasic Superficial femoral artery (distal): 91 cm/s, Multiphasic Proximal Popliteal artery: 79 cm/s, Multiphasic Mid posterior tibial artery: 88 cm/s, Multiphasic LEFT LE. The left ankle-brachial index is: 1.27 * >0.97-1.25 = normal - no significant arterial disease * 0.75-0.96 = mild peripheral arterial disease * 0.5-0.74 = moderate peripheral arterial disease * <0.50 = severe peripheral arterial disease 2. Left ankle pressure: abnormal. 3. Left ankle PVR waveform: abnormal. 4. Left direct duplex Doppler findings: Common femoral artery: 129 cm/s, Multiphasic Profunda femoris artery: 75 cm/s, Multiphasic Superficial femoral artery (proximal): 126 cm/s, Multiphasic Superficial femoral artery (mid): 101 cm/s, Multiphasic Superficial femoral artery (distal): 102 cm/s, Multiphasic Proximal Popliteal artery: 99 cm/s, Multiphasic Mid posterior tibial artery: 81 cm/s, Multiphasic Left popliteal cyst measure 6.0 x 2.4 x 3.2cm. US/US arterial duplex LE BI IMPRESSION: Elevated ABIs suggest atherosclerotic calcification. There is no evidence of any hemodynamically significant lower extremity arterial disease by pressure, waveform or duplex Doppler criteria at rest.
== END 2023-06-30 13:32 | disposition home or self-care (01) ==
LOC: HO.US 13:31
PROVIDERS: PCP Internal Medicine; Visit Provider Surgery Vascular Surgery
DX: I73.9 Peripheral vascular disease, unspecified (principal)
CPT/HCPCS: 93923; 93925

== ENCOUNTER 2023-07-02 13:51 | Outpatient (REF) | payer OTHER, SELFPAY ==
[2023-07-02 14:10] VITALS: BP 121/53; PULSE 74; RESP 18; TEMP 36.6
[2023-07-02] MEDS: Sodium Ferric Gluconat/Sucrose 125 MG in 0.9 % Sodium Chloride 100 ML 110 MG IV (15:14)
[2023-07-02] MEDS: Acetaminophen 325 MG TABLET 650 MG PO (15:14)
== END 2023-07-02 13:52 | disposition home or self-care (01) ==
LOC: HO.MDS 13:51
PROVIDERS: Visit Provider Internal Medicine Medical Oncology
DX: D50.9 Iron deficiency anemia, unspecified (principal)
CPT/HCPCS: 96365; J2916

== ENCOUNTER 2023-07-09 13:50 | Outpatient (REF) | payer OTHER, SELFPAY ==
[2023-07-09 13:53] VITALS: BP 135/78; PULSE 70; RESP 16; TEMP 37.2; O2SAT 98
--- NOTE | 2023-07-09 14:00 | PC.NURSE ---
[facility]
[2023-07-09] MEDS: Acetaminophen 325 MG TABLET 650 MG PO (14:19)
[2023-07-09] MEDS: Sodium Ferric Gluconat/Sucrose 125 MG in 0.9 % Sodium Chloride 100 ML 110 MG IV (14:19)
== END 2023-07-09 13:51 | disposition home or self-care (01) ==
LOC: HO.MDS 13:50
PROVIDERS: Visit Provider Internal Medicine Medical Oncology
DX: D50.9 Iron deficiency anemia, unspecified (principal)
CPT/HCPCS: 96365; J2916

== ENCOUNTER 2023-07-16 13:51 | Outpatient (REF) | payer OTHER, SELFPAY ==
[2023-07-16 13:53] VITALS: BP 149/75; PULSE 75; RESP 18; TEMP 37; O2SAT 99
[2023-07-16] MEDS: Acetaminophen 325 MG TABLET 650 MG PO (14:21)
[2023-07-16] MEDS: Sodium Ferric Gluconat/Sucrose 125 MG in 0.9 % Sodium Chloride 100 ML 110 MG IV (14:22)
== END 2023-07-16 13:52 | disposition home or self-care (01) ==
LOC: HO.MDS 13:51
PROVIDERS: Visit Provider Internal Medicine Medical Oncology
DX: D50.9 Iron deficiency anemia, unspecified (principal)
CPT/HCPCS: 96365; J2916

== ENCOUNTER 2023-07-18 15:19 | Outpatient (AMB) | payer OTHER, SELFPAY ==
--- NOTE | 2023-07-18 15:39 | MHC.PC.OV ---
Vital Signs 07/18/23 15:43 Height 5 ft 2 in Weight 208 lb BMI 38.0 BP 130/80 Blood Pressure Location Lt brachial Position Sitting Pulse 80 Pulse Source Pulse Oximeter Pulse Oximetry (%) 97 Oxygen Delivery Method Room Air Intake Visit Reasons: 3M follow up Intake Note: Patient is here to follow up on Peripheral Vascular disease, Osteoarthritis, STEPHEN, Lumbar spondylosis. 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: No Financial Assistance Advisor: Not Required per policy Accompanied by: Self / Same As Patient Allergies Penicillins [PENICILLINS] Allergy (Severe, Verified 07/18/23 15:43) ANAPHYLAXIS amitriptyline [AMITRIPTYLINE] Allergy (Intermediate, Verified 07/18/23 15:43) HIVES banana Allergy (Intermediate, Verified 07/18/23 15:43) Hives kiwi [KIWI] Allergy (Intermediate, Verified 07/18/23 15:43) HIVES pineapple Allergy (Intermediate, Verified 07/18/23 15:43) Hives clams Allergy (Unknown, Verified 07/18/23 15:43) Unknown gluten Allergy (Unknown, Verified 07/18/23 15:43) Unknown MEAT Allergy (Severe, Uncoded 07/18/23 15:43) HIVES,ANAPHYLAXIS dairy Adverse Reaction (Intermediate, Uncoded 06/19/23 12:09) pt states allery to all Dairy Products Tobacco use date assessed: 07/18/23 Dental Screening Dental Screen Date: 07/18/23 Did you have a dental visit in the last 12 months?: Yes Did you have a dental problem in the last 6 months where you did not have access to dental care?: No Was dental information given to patient?: Patient has dentist HPI 3M follow up HPI Details 47-year-old obese female smoker with a history of peripheral vascular disease and celiac disease last seen in March 2023. Is here for follow-up. Patient follows up with the vascular surgeon having ultrasound of the lower extremities showing atherosclerotic calcification but there is no evidence of hemodynamic significant lower extremity arterial disease patient has also seen the Hematology-Oncology for iron deficiency anemia and has been having iron malabsorption and so has been receiving iron infusion. Patient has been feeling bad and 1 time felt dizzy and check the blood sugar it was 50. Patient states she does eat regularly. As for the menstruation continue to be heavy has a fibroid that needs to be taken out and wants to have the fibroid surgery only and not hysterectomy in which patient is going to be connected to [place]. [facility] Medical History Neuropathy Left upper quadrant abdominal pain Lumbar radiculopathy Sacroiliac dysfunction Lumbar facet arthropathy Smoker Multiple allergies Encounter for annual routine gynecological examination Internal derangement of left knee Effusion, left knee Encounter for IUD removal Hair loss Amezcua cyst Right knee pain Pain in left knee Chronic knee pain Anxiety and depression IUD check up Body mass index [BMI] 38.0-38.9, adult Left knee pain Physical exam (~03/2021) Polyarthralgia Fatigue Low back pain Menometrorrhagia Swelling, lymph nodes Encounter for general adult medical examination with abnormal findings Common cold Ear anomaly Generalized abdominal pain Iron deficiency anemia Osteopenia Soft tissue injury of left knee Left knee sprain Low vitamin D level Celiac disease Family history of thyroid disease Hx of head injury Hx of migraines Surgical History H/O knee surgery History of left knee surgery H/O esophagogastroduodenoscopy Hx of colonoscopy Previous section Hx of foot surgery Hx of shoulder surgery Hx of cholecystectomy Family History Father Diabetes Hypercholesterolemia Chronic kidney disease Hypertension Mother Hypercholesterolemia Hypertension Maternal Grandmother History of breast cancer Other No family history of cancer Social History (Updated 07/18/23 @ 15:50 by AROLDO Colbert) Household Members: Family Household Members Other:: children and parents Housing: House Are you a primary career services officer to a significant other at home: No Do you presently have visiting nurse or other home services: No Alcohol intake: current Alcohol intake frequency: holidays/special occasions only Patient Tobacco Use Status: Current everyday Tobacco user Tobacco use type: Cigarette Cigarette Packs Per Day: 0.5 Cigarettes Per Day: 10.0 Years Smoked: 20 Packs Per Year: 10 Packs per year/per ci.00 e-Cigarette/Vaping Use: Never Used Second Hand Smoke Exposure: Yes Substance Use Type: Marijuana service: No Current occupational status: employed 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 1. Little interest or pleasure in doing things: several days 2. Feeling down, depressed, or hopeless: nearly every day 3. Trouble falling or staying asleep, or sleeping too much: several days 4. Feeling tired or having little energy: several days 5. Poor appetite or overeating: not at all 6. Feeling bad about yourself - or that you are a failure or have let yourself or your family down: not at all 7. Trouble concentrating on things, such as reading the newspaper or watching television: several days 8. Moving or speaking so slowly that other people could have noticed. Or the opposite - being so fidgety or restless that you have been moving around a lot more than usual: not at all 9. Thoughts that you would be better off or of hurting yourself in some way: not at all Total score: 7 Depression Screening Interpretation: Positive Depression Screening Done: Yes Source: Developed by Drs. Malik Bates, Mary Mahan, Pedrito Amaro and colleagues, with an educational tyson from [employer]. Thrive Questionnaire Date Thrive assessed: 07/18/23 I am a: Patient What is your living situation today?: I have a steady place to live Within the past 12 months, did the food you bought not last and you didn't have the money to get more?: Never true Within the past 12 months, did you worry whether your food would run out before you got money to buy more?: Never true Do you have trouble paying for medicines?: No Do you have trouble getting transportation to medical appointments?: No Do you have trouble paying your heating and electricity bill?: No Do you have trouble taking care of your child, family member or friend?: No Do you have trouble with day-to-day activities such as bathing, preparing meals, shopping, managing finances, etc.?: No Are you currently unemployed and looking for a job?: No Are you interested in more education?: No Currently or been in a relationship where the following occur: no concerns reported THRIVE Score: 0 AUDIT C Alcohol Use Questionnaire (AUDIT-C) 1. How often do you have a drink containing alcohol?: Monthly or less 2. How many drinks containing alcohol do you have on a typical day when you are drinking?: 1 or 2 Total Score: 1 STEPHEN-7 AMB Questionnaire STEPHEN-7 Date STEPHEN - 7 assessed: 07/18/23 Feeling nervous, anxious, or on edge: 1 = Several days Not being able to stop or control worryin = Several days Worrying too much about different things: 1 = Several days Trouble relaxin = Nearly every day Being so restless that it is hard to sit still: 0 = Not at all Becoming easily annoyed or irritable: 0 = Not at all Feeling afraid as if something awful might happen: 0 = Not at all Total STEPHEN-7 score (0-4 normal; 5-9 mild; 10-14 moderate; 15-21 severe): 6 Source: Developed by Drs. Malik Bates, Mary Mahan, Pedrito Amaro and colleagues, with an educational tyson from [employer]. Physical exam (Primary Care) Vital Signs: Last Vital Signs Pulse 80 07/18/23 15:43 BP 130/80 07/18/23 15:43 Pulse Ox 97 07/18/23 15:43 Oxygen Delivery Method Room Air 07/18/23 15:43 BMI result Body Mass Index 38.0 Tobacco/Smoking Status: Tobacco use Status Tobacco use date assessed 07/18/23 07/18/23 15:48 Patient Tobacco Use Status Current everyday Tobacco 07/18/23 15:50 Tobacco use type Cigarette 07/18/23 15:50 e-Cigarette/Vaping Use Never Used 07/18/23 15:50 PHQ-9: PHQ-9 Score PHQ-9: Total score 7 07/18/23 15:54 Depression Screening Interpretation: Positive Thrive Assessment: Date of Thrive Assessment Date Thrive assessed 07/18/23 07/18/23 15:48 Currently or been in a relationship where the following occur: no concerns reported Const General: alert; No acute distress Eyes Conjunctivae: conjunctivae normal Resp Auscultation: clear to auscultation bilaterally Cardio Rate: regular rate Rhythm: regular rhythm GI Inspection: Yes normal to inspection Extrem General: Yes normal to inspection and No edema Assessment and Plan Assessment & Plan (1) Peripheral vascular disease: Code(s): I73.9 - Peripheral vascular disease, unspecified Plan: Patient has been followed up by the vascular surgeon has had a workup which shows no significant arterial compromise. (2) Tobacco abuse: Code(s): Z72.0 - Tobacco use Plan: Patient is strongly advised to stop smoking! (3) Abnormal uterine bleeding (AUB): Code(s): N93.9 - Abnormal uterine and vaginal bleeding, unspecified Plan: Patient follows up with Gynecology (4) Iron deficiency anemia due to chronic blood loss: Comment: Currently H&H have normalized, patient on Iron replacement. Code(s): D50.0 - Iron deficiency anemia secondary to blood loss (chronic) Plan: Patient has been follow-up with hematology and has been having iron infusions (5) STEPHEN (generalized anxiety disorder): Code(s): F41.1 - Generalized anxiety disorder Plan: Continue with present medication (6) Obesity (BMI 35.0-39.9 without comorbidity): Code(s): E66.9 - Obesity, unspecified Plan: Diet and exercise (7) Fibroid: Code(s): D21.9 - Benign neoplasm of connective and other soft tissue, unspecified Plan: Has to be connected to [place] to have the fibroid taken out Orders: Orders Complete Blood Count Auto Diff Today D50.0 - Iron deficiency anemia secondary to blood loss (chronic) Comprehensive Met. Panel Today D50.0 - Iron deficiency anemia secondary to blood loss (chronic) Ferritin Today D50.0 - Iron deficiency anemia secondary to blood loss (chronic) Thyroid Stimulating Hormone Today D50.0 - Iron deficiency anemia secondary to blood loss (chronic) Free T4 (Free Thyroxine) Today D50.0 - Iron deficiency anemia secondary to blood loss (chronic) Phosphorus Today D50.0 - Iron deficiency anemia secondary to blood loss (chronic) Reticulocyte Count Today D50.0 - Iron deficiency anemia secondary to blood loss (chronic) IRON PROFILE Today D50.0 - Iron deficiency anemia secondary to blood loss (chronic) Vitamin B12 and Folate Today D50.0 - Iron deficiency anemia secondary to blood loss (chronic) Hemoglobin A1c Today D50.0 - Iron deficiency anemia secondary to blood loss (chronic) Magnesium Today D50.0 - Iron deficiency anemia secondary to blood loss (chronic) Erythrocyte Sedimentation Rate Today D50.0 - Iron deficiency anemia secondary to blood loss (chronic) C Reactive Protein Today D50.0 - Iron deficiency anemia secondary to blood loss (chronic) Coding Level of Care Code Est Pt Level 4 (22072) Diagnoses Peripheral vascular disease I73.9 Tobacco abuse Z72.0 Abnormal uterine bleeding (AUB) N93.9 Iron deficiency anemia due to chronic blood loss D50.0 STEPHEN (generalized anxiety disorder) F41.1 Obesity (BMI 35.0-39.9 without comorbidity) E66.9 Fibroid D21.9
[2023-07-18 15:43] VITALS: BP 130/80; PULSE 80; O2SAT 97; BMI 38.0
== END 2023-07-18 16:28 | disposition home or self-care (01) ==
PROVIDERS: PCP Internal Medicine; Visit Provider Internal Medicine
DX: I73.9 Peripheral vascular disease, unspecified (principal); Z72.0 Tobacco use; E66.9 Obesity, unspecified; Z68.38 Body mass index [BMI] 38.0-38.9, adult; N93.9 Abnormal uterine and vaginal bleeding, unspecified; D50.0 Iron deficiency anemia secondary to blood loss (chronic); F41.1 Generalized anxiety disorder; D21.9 Benign neoplasm of connective and other soft tissue, unspecified
CPT/HCPCS: 99214

== ENCOUNTER 2023-07-19 09:45 | Outpatient (REF) | payer OTHER, SELFPAY ==
[2023-07-19 09:57] LABS: MANUAL DIFF FLAG NO
[2023-07-19 10:22] LABS: Basophils Absolute Auto 0.1 X10*3/uL (0.0-0.2); Basophils Percent Auto 0.8 % (0-2); Eosinophils Absolute Auto 0.2 X10*3/uL (0.0-0.4); Eosinophils Percent Auto 2.2 % (0-4); Hematocrit 39.3 % (37.0-47.0); Hemoglobin 12.1 g/dl (12.0-16.0); Imm Gran Abs Auto 0.04 X10*3/uL (0.00-0.03); Imm Gran Pct Auto 0.6 % (0.0-0.4); Immature Retic Fraction 16.6 % (3.0-15.9); Lymphocytes Absolute Auto 1.3 X10*3/uL (1.2-4.9); Lymphocytes Percent Auto 18.3 % (20-40); Mean Corpuscular HGB Conc 30.8 g/dl (31.0-35.0); Mean Corpuscular Hemoglobin 26.5 pg (27.0-33.0); Mean Corpuscular Volume 86.2 fL (80.0-98.0); Mean Platelet Volume 10.4 fL (9.4-12.3); Monocytes Absolute Auto 0.5 X10*3/uL (0.1-1.2); Monocytes Percent Auto 6.2 % (2-11); Neutrophils Absolute Auto 5.2 x10*3/uL (2.0-8.3); Neutrophils Percent Auto 71.9 % (45-73); Platelet Count 345 X10*3/uL (160-400); Red Blood Count 4.56 X10*6/uL (4.20-5.50); Red Cell Distribution Width 18.2 % (11.0-16.0); Retic HGB Equivalent 33.5 pg (30.0-35.0); Reticulocyte Percent 1.5 % (0.5-1.8); Reticulocytes Absolute 0.067 X10*6/uL (0.026-0.095); White Blood Count 7.3 X10*3/uL (4.8-10.8)
[2023-07-19 10:28] LABS: Estimated Average Glucose 85 mg/dL; Hemoglobin A1c % 4.6 % (<6.0)
[2023-07-19 10:59] LABS: Alanine Aminotransferase 12 U/L (0-31); Albumin Level 3.8 g/dL (3.5-5.0); Alkaline Phosphatase 47 U/L (39-117); Anion Gap 13 (12-20); Aspartate Amino Transferase 16 U/L (5-31); Bilirubin Total 0.2 mg/dL (0.0-1.0); Blood Urea Nitrogen 6 mg/dL (9-16); C Reactive Protein 0.16 mg/dL (< or = 0.50); Calcium 9.4 mg/dL (8.4-10.2); Carbon Dioxide 27 mmol/L (22-29); Chloride 108 mmol/L (96-108); Estimated Glomerular Filt Rate > 60; Glucose Random 89 mg/dL (60-115); Iron 36 mcg/dL (30-160); Magnesium 1.7 mg/dL (1.6-2.6); Percent Iron Saturation 12 % (15-50); Phosphorus 2.9 mg/dL (2.7-4.5); Potassium 4.3 mmol/L (3.3-5.1); Sodium 144 mmol/L (135-145); Total Iron Binding Capacity 292 mcg/dL (228-428); Total Protein 6.8 g/dL (6.5-8.0); Unsaturated Iron Binding 256 ug/dL
[2023-07-19 11:05] LABS: Erythrocyte Sedimentation Rate 9 MM/HR (0-20)
[2023-07-19 11:17] LABS: Ferritin 165 ng/mL (10-250); Free T4 (Free Thyroxine) 0.76 ng/dL (0.71-1.85); Thyroid Stimulating Hormone 1.77 uIU/mL (0.32-4.0)
[2023-07-19 11:22] LABS: Folate 9.7 ng/mL (> or = 4.0); Vitamin B12 378 pg/mL (200-900)
== END 2023-07-19 09:46 | disposition home or self-care (01) ==
LOC: HO.LAB 09:45
PROVIDERS: PCP Internal Medicine; Visit Provider Internal Medicine
DX: D50.0 Iron deficiency anemia secondary to blood loss (chronic) (principal)
CPT/HCPCS: 36415; 80053; 82607; 82728; 82746; 83036; 83540; 83735; 84100; 84439; 84443; 85025; 85027; 85045; 85652; 86140

== ENCOUNTER 2023-07-23 13:52 | Outpatient (REF) | payer OTHER, SELFPAY ==
[2023-07-23 14:07] VITALS: BP 132/82; PULSE 74; RESP 18; TEMP 37.3; O2SAT 99
[2023-07-23] MEDS: Sodium Ferric Gluconat/Sucrose 125 MG in 0.9 % Sodium Chloride 100 ML 110 MG IV (14:21)
== END 2023-07-23 13:53 | disposition home or self-care (01) ==
LOC: HO.MDS 13:52
PROVIDERS: Visit Provider Internal Medicine Medical Oncology
DX: D50.9 Iron deficiency anemia, unspecified (principal)
CPT/HCPCS: 96365; J2916

== ENCOUNTER 2023-07-31 13:47 | Outpatient (AMB) | payer OTHER, SELFPAY ==
--- NOTE | 2023-07-31 13:48 | A.OFFVIS_ITS ---
Intake Intake Visit Reasons: F/U US 06/20/23 Intake Note: Patient presents for follow up s/p 06/20/23 testing. Patient states she has bilateral leg pain and swelling. No redness or discoloration. Says she works at home and that she believes the swelling and pain is worse when she's sitting. Goes to the gym 4-5 times a week. Accompanied by: Self / Same As Patient Allergies Penicillins [PENICILLINS] Allergy (Severe, Verified 07/31/23 13:53) ANAPHYLAXIS amitriptyline [AMITRIPTYLINE] Allergy (Intermediate, Verified 07/31/23 13:53) HIVES banana Allergy (Intermediate, Verified 07/31/23 13:53) Hives kiwi [KIWI] Allergy (Intermediate, Verified 07/31/23 13:53) HIVES pineapple Allergy (Intermediate, Verified 07/31/23 13:53) Hives clams Allergy (Unknown, Verified 07/31/23 13:53) Unknown gluten Allergy (Unknown, Verified 07/31/23 13:53) Unknown MEAT Allergy (Severe, Uncoded 07/18/23 15:43) HIVES,ANAPHYLAXIS dairy Adverse Reaction (Intermediate, Uncoded 06/19/23 12:09) pt states allery to all Dairy Products HPI F/U US 06/20/23 HPI Details Complex 47-year-old female presents for follow-up evaluation regarding pain and swelling of the left foot. Apparent further discussion with her she reports it is more so the ankle that has been a persistent source of problems for. She now presents for follow-up with arterial and venous testing. [facility] Medical History Neuropathy Left upper quadrant abdominal pain Lumbar radiculopathy Sacroiliac dysfunction Lumbar facet arthropathy Smoker Multiple allergies Encounter for annual routine gynecological examination Internal derangement of left knee Effusion, left knee Encounter for IUD removal Hair loss Amezcua cyst Right knee pain Pain in left knee Chronic knee pain Anxiety and depression IUD check up Body mass index [BMI] 38.0-38.9, adult Left knee pain Physical exam (~03/2021) Polyarthralgia Fatigue Low back pain Menometrorrhagia Swelling, lymph nodes Encounter for general adult medical examination with abnormal findings Common cold Ear anomaly Generalized abdominal pain Iron deficiency anemia Osteopenia Soft tissue injury of left knee Left knee sprain Low vitamin D level Celiac disease Family history of thyroid disease Hx of head injury Hx of migraines Surgical History H/O knee surgery History of left knee surgery H/O esophagogastroduodenoscopy Hx of colonoscopy Previous section Hx of foot surgery Hx of shoulder surgery Hx of cholecystectomy Family History Father Diabetes Hypercholesterolemia Chronic kidney disease Hypertension Mother Hypercholesterolemia Hypertension Maternal Grandmother History of breast cancer Other No family history of cancer Social History Household Members: Family Household Members Other:: children and parents Housing: House Are you a primary customer care associate to a significant other at home: No Do you presently have visiting nurse or other home services: No Alcohol intake: never Patient Tobacco Use Status: Current everyday Tobacco user Tobacco use type: Cigarette Cigarette Packs Per Day: 0.5 Cigarettes Per Day: 10.0 Years Smoked: 20 e-Cigarette/Vaping Use: Never Used Second Hand Smoke Exposure: Yes Substance Use Type: Marijuana service: No Current occupational status: employed 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 Sexual orientation: Straight/Heterosexual Gender identity: Female Cognitive needs: No Hearing needs: No Vision needs: Yes Female Reproductive History Menstrual Age of Menarche: 13 Review of Systems Const All systems reviewed & are unremarkable except as noted in HPI and below Reports no additional complaints ENT Reports Normal hearing present Card Denies chest pain, Denies chest pain at rest, Denies chest pain with activity and Denies pedal edema Resp Denies cough GI Denies abdominal pain Musc Denies abnormal gait, Denies muscle cramps and Denies radiating pain into limb Skin/Breast Denies skin ulcer and Denies wounds Neuro Reports Normal hearing present and Denies abnormal gait Psych Reports no additional complaints Physical Exam Const General: cooperative, healthy appearing and comfortable Orientation/consciousness: oriented to person, oriented to place and oriented to time HEENT Head: Yes normal to inspection Neck Neck: Yes normal visual inspection Carotids: no bruits Chest Chest palpation & inspection: normal inspection of the chest Resp Effort & Inspection: normal respiratory effort and able to speak in complete sentences Auscultation: clear to auscultation bilaterally, no crackles, no rales, no rhonchi and no wheezes Cardio Rate: regular rate Rhythm: regular rhythm Heart sounds: S1 normal heart sound present and S2 normal heart sound present Bruits: no carotid bruits Peripheral pulses: Peripheral pulses 2+ throughout GI Inspection: Yes normal to inspection Skin Wounds: no wounds Hair: normal Neuro General: oriented to person, oriented to place and oriented to time Cranial nerves: Yes CN's II-XII intact bilaterally and Yes Normal hearing present Cognition (Neuro): normal cognition Motor exam (neuro): 5/5 motor strength present throughout Extrem Other: venous exam: No significant superficial varicosities or spider telangiectasias, minimal edema General: No clubbing, No cyanosis and No edema Psych Appearance: grossly normal Mental Status: mental status grossly normal Speech and movement: Normal speech and movement present Results Reviewed Results Reviewed: Brief summary of venous insufficiency testing is as follows: right great saphenous vein: negative right small saphenous vein: negative right accessory vein: none present left great saphenous vein: negative left small saphenous vein: negative left accessory vein: none present Please note there is no evidence of any venous aneurysms or significant tortuosity Arterial testing demonstrates MURALI on the right of 1.25 and on the left of 1.27 with no evidence of significant stenosis. Assessment & Plan Assessment & Plan (1) Leg pain: Code(s): M79.606 - Pain in leg, unspecified Qualifiers: Laterality: left Qualified Code(s): M79.605 - Pain in left leg Plan: Unclear etiology of lower extremity pain. Notes to be more left ankle pain. May benefit from podiatry evaluation. I also believe there is a neurogenic component of this as well. It is not vascular as arterial and venous testing have been within normal limits. This was explained to the patient. She is in agreement and will follow up with you regarding potential podiatry referral. Thank you for allowing us to assist in her care. If there are any questions or concerns please do not hesitate to contact us Coding Level of Care Code Est Pt Level 4 (41167) Diagnoses Pain of left lower extremity M79.605 Laterality: left
== END 2023-07-31 14:10 | disposition home or self-care (01) ==
PROVIDERS: PCP Internal Medicine; Visit Provider Surgery Vascular Surgery
DX: M79.605 Pain in left leg (principal)
CPT/HCPCS: 99213

== ENCOUNTER → 2023-07-31 13:47 | Outpatient (BNVA) | payer OTHER, SELFPAY | PROVIDERS: PCP Internal Medicine; Visit Provider Surgery Vascular Surgery | DX: M79.605 Pain in left leg (principal) | CPT/HCPCS: 99212 ==

== ENCOUNTER 2023-08-29 14:21 | Outpatient (REF) | payer OTHER, SELFPAY ==
[2023-08-29 16:20] LABS: Vitamin D 25-OH Total 38.7 ng/mL (>30)
[2023-09-01 17:13] LABS: Immunoglobulin A 354 mg/dL (47-310)
[2023-09-01 23:13] LABS: Transglutaminase IgA <1.0 U/mL
[2023-09-02 06:33] LABS: Copper, plasma 99 mcg/dL (70-175); Zinc 65 mcg/dL (60-130)
[2023-09-02 17:28] LABS: Alpha-Tocopherol 11.8 mg/L (5.7-19.9); Beta-Gamma Tocopherol 1.1 mg/L (<=4.3); Vitamin A 31 mcg/dL (38-98)
[2023-09-03 22:08] LABS: Vitamin K1 852 pg/mL (130-1500)
== END 2023-08-29 14:22 | disposition home or self-care (01) ==
LOC: HO.LAB 14:21
PROVIDERS: PCP Internal Medicine; Visit Provider Internal Medicine
DX: K90.0 Celiac disease (principal); D50.9 Iron deficiency anemia, unspecified; M85.80 Other specified disorders of bone density and structure, unspecified site; F17.200 Nicotine dependence, unspecified, uncomplicated
CPT/HCPCS: 36415; 82306; 82525; 82784; 84446; 84590; 84597; 84630; 86364; 99212

== ENCOUNTER 2023-08-29 14:21 | Outpatient (AMB) | payer OTHER, SELFPAY ==
--- NOTE | 2023-08-29 14:22 | A.OFFVIS_ITS ---
Vital Signs 08/29/23 14:26 Height 5 ft 2 in Weight 202 lb 13.204 oz BMI 37.1 BP 111/68 Blood Pressure Location Lt brachial Position Sitting Pulse 71 Intake Visit Reasons: 6 month follow up Celiac Intake Note: Sveta presents in the office as a 6 month follow up for celiac. CC: She states that she is not having any concerns today. 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 Allergies Penicillins [PENICILLINS] Allergy (Severe, Verified 08/29/23 14:26) ANAPHYLAXIS amitriptyline [AMITRIPTYLINE] Allergy (Intermediate, Verified 08/29/23 14:26) HIVES banana Allergy (Intermediate, Verified 08/29/23 14:26) Hives kiwi [KIWI] Allergy (Intermediate, Verified 08/29/23 14:26) HIVES pineapple Allergy (Intermediate, Verified 08/29/23 14:26) Hives clams Allergy (Unknown, Verified 08/29/23 14:26) Unknown gluten Allergy (Unknown, Verified 08/29/23 14:26) Unknown MEAT Allergy (Severe, Uncoded 08/29/23 14:26) HIVES,ANAPHYLAXIS dairy Adverse Reaction (Intermediate, Uncoded 08/29/23 14:26) pt states allery to all Dairy Products HPI Comments Details: 47y.o F with likely celiac disease (TTg neg, gliadin mildly up and path with mildly increased IELs) with DQ2/DQ8 haplotype on Bubbly panel who is here for follow up. 10/11/22: Pt has previously seen Dr Gonzalez. Does not report any abd pain, N,V,D as long as she remains adherent to gluten free diet. Anemia improved on most recent labs but Vit D and protein noted to be slightly low. On Vit D supplement since then. Last EGD/colo in 2019. 02/10/23: Here after visit to ER for severe left sided abdominal pain. Around 2 weeks ago started developing left upper sided pain which would get triggered by eating or drinking anything. Pain onset would be less than 30 mins after intake. Character is burning and would radiate to her back. Gets better with omeprazole and aloe juice. No NSAID use recently. BMs are also lose and she thinks they look black. No iron use or peptobismol. Labs in ER reassuring, anemia in fact better than before but to recall pt on iron infusions since /23: EGD (Dr Baig): Larynx:normal Esophagus: GE junction at 38 cm, diaphragm hiatus at 38 cm, mild esophagitis with irregular Z line, bx taken as well as from distal and proximal esophagus Stomach: Patchy gastric erythema. Biopsies were obtained. Grade 2 flap valve on retroflexed examination of the cardia. The pyloric outlet was tight and stretched with 20 mm pyloric balloon, no tear seen. Good motility noted. Duodenum: Normal bulb and descending duodenum, bx taken incl for flow cytometry, Disaccharidases, amyloid Intervention: Biopsies as noted above, balloon dilation Path: A. Duodenum, biopsy: Duodenal mucosa with preserved villi and no specific change; negative for amyloid. B. Duodenum, biopsy: Entire specimen submitted for flow cytometry; report to follow; gross description only. -- Flow reviewed, normal. C. Stomach wall, biopsy: Gastric antral and body mucosa with focal congestion, focal reactive changes, and focal minimal chronic inactive inflammation; negative for H pylori, intestinal metaplasia and dysplasia. D. Gastroesophageal junction, biopsy: Squamous mucosa with mild hyperplasia and focal mild spongiosis, and columnar mucosa with mild chronic active inflammation consistent with esophagitis; negative for intestinal metaplasia and dysplasia. E. Esophagus, distal, biopsy squamous mucosa with hyperplasia and rare intraepithelial eosinophils (up to 1 per high-power field) consistent with esophagitis; no columnar mucosa present. F. Esophagus, proximal, biopsy: Squamous mucosa with no specific change; no columnar mucosa present. 02/26/23: Pt seen in office. EGD findings reviewed. Was reassured no gastritis or ulcer since the EGD was primarily done for LUQ pain with question of melena. In addition, had normal small bowel path i.e good compliance and response to GFD. Flow cyto normal. Pt also brings up macular rash on her arms - occurs unpredictably. Has not been seen by Derm as rash fluctuates. 08/29/23: Here for routine follow up. No acute GI complaints including abd pain, N,V, D. Is very particular about gluten free diet. Due for monitoring. CBC, iron,B12, daksha and mag levels good. [facility] Medical History Neuropathy Left upper quadrant abdominal pain Lumbar radiculopathy Sacroiliac dysfunction Lumbar facet arthropathy Smoker Multiple allergies Encounter for annual routine gynecological examination Internal derangement of left knee Effusion, left knee Encounter for IUD removal Hair loss Amezcua cyst Right knee pain Pain in left knee Chronic knee pain Anxiety and depression IUD check up Body mass index [BMI] 38.0-38.9, adult Left knee pain Physical exam (~03/2021) Polyarthralgia Fatigue Low back pain Menometrorrhagia Swelling, lymph nodes Encounter for general adult medical examination with abnormal findings Common cold Ear anomaly Generalized abdominal pain Iron deficiency anemia Osteopenia Soft tissue injury of left knee Left knee sprain Low vitamin D level Celiac disease Family history of thyroid disease Hx of head injury Hx of migraines Surgical History H/O knee surgery History of left knee surgery H/O esophagogastroduodenoscopy Hx of colonoscopy Previous section Hx of foot surgery Hx of shoulder surgery Hx of cholecystectomy Family History Father Diabetes Hypercholesterolemia Chronic kidney disease Hypertension Mother Hypercholesterolemia Hypertension Maternal Grandmother History of breast cancer Other No family history of cancer Social History Household Members: Family Household Members Other:: children and parents Housing: House Are you a primary personal care attendant to a significant other at home: No Do you presently have visiting nurse or other home services: No Alcohol intake: never Patient Tobacco Use Status: Current everyday Tobacco user Tobacco use type: Cigarette Cigarette Packs Per Day: 0.5 Cigarettes Per Day: 10.0 Years Smoked: 20 e-Cigarette/Vaping Use: Never Used Second Hand Smoke Exposure: Yes Substance Use Type: Marijuana service: No Current occupational status: employed 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 Sexual orientation: Straight/Heterosexual Gender identity: Female Cognitive needs: No Hearing needs: No Vision needs: Yes Female Reproductive History Menstrual Age of Menarche: 13 Review of Systems Const All systems reviewed & are unremarkable except as noted in HPI and below Physical Exam Vital Signs: Last Vital Signs Pulse 71 08/29/23 14:26 BP 111/68 08/29/23 14:26 BMI result Body Mass Index 37.1 Gen appear: NAD HEENT: nonicteric, Chest: no increased resp effort Abd: soft, nontender, nondistended, bowel sounds + Ext: no peripheral edema Neuro: A/Ox3, noted to move all extremities spontaneously Psych: interacting appropriately Assessment & Plan Assessment & Plan (1) Celiac disease: Code(s): K90.0 - Celiac disease Category: Medical (2) Iron deficiency anemia: Code(s): D50.9 - Iron deficiency anemia, unspecified Category: Medical (3) Osteopenia: Code(s): M85.80 - Other specified disorders of bone density and structure, unspecified site Category: Medical (4) Smoker: Code(s): F17.200 - Nicotine dependence, unspecified, uncomplicated Category: Social Hx Plan From previous visit: Reviewed with pt that ideally in pts with negative serology and Waggoner 1 lesion (IELs 53 with normal crypts and villi), ideally should rebiopsy on GFD in 12m, despite a high risk haplotype, to establish diagnosis. However pt currently hesitant to pursue a repeat upper endoscopy. She states that since she is feeling better on GFD will likely not change her dietary preferences at this time. Overall doing quite well. Due for vitamin and micronutrient check which have been ordered. DEXA scan with osteopenia - on Vit D and calcium supplements. Has cut down smoking to 5 cigs/day which she was congratulated on. Completel smoking cessation counseling done. Plan: - Labs ordered as below for vitamin and micronutrient check - Celiac serologies - Known osteopenia - repeat dexa due 2024 - [place] - no polyps on 2019 however complete report not available. Will book her for a repeat in 2024. Will also book an EGD alongside for duodenal biopsies. - Smoking cessation counseling again done. Follow up in 6m Orders: Orders Transglutaminase IgA Today K90.0 - Celiac disease Immunoglobulin A Today K90.0 - Celiac disease Copper, plasma Today K90.0 - Celiac disease Vitamin D 25-OH Total Today K90.0 - Celiac disease Vitamin E Today K90.0 - Celiac disease Zinc Today K90.0 - Celiac disease Vitamin A Today K90.0 - Celiac disease Vitamin K1 Today K90.0 - Celiac disease Coding Level of Care Code Est Pt Level 4 (14143) Diagnoses Celiac disease K90.0 Iron deficiency anemia D50.9 Osteopenia M85.80 Smoker F17.200
[2023-08-29 14:26] VITALS: BP 111/68; PULSE 71; BMI 37.1
== END 2023-08-29 14:47 | disposition home or self-care (01) ==
PROVIDERS: PCP Internal Medicine; Visit Provider Internal Medicine
DX: K90.0 Celiac disease (principal); D50.9 Iron deficiency anemia, unspecified; M85.80 Other specified disorders of bone density and structure, unspecified site; F17.200 Nicotine dependence, unspecified, uncomplicated
CPT/HCPCS: 99214

== ENCOUNTER 2023-10-10 15:51 | Outpatient (REF) | payer OTHER, SELFPAY ==
[2023-10-10 16:59] LABS: Iron 24 mcg/dL (30-160); Percent Iron Saturation 7 % (15-50); Total Iron Binding Capacity 365 mcg/dL (228-428); Unsaturated Iron Binding 341 ug/dL
[2023-10-10 17:14] LABS: Ferritin 8 ng/mL (10-250)
[2023-10-13 03:24] LABS: Syphilis Screen Nonreactive (Nonreactive)
[2023-10-13 03:51] LABS: HBc Num1 0.13 S/CO (0.00-0.79); HIV AB/AG Nonreactive (Nonreactive); HIV Num 1 0.05 S/CO (0.00-0.99); Hepatitis B Core Antibody Nonreactive (Nonreactive); ~Hepatitis C Antibody Nonreactive (Nonreactive)
[2023-10-14 12:58] LABS: IgA 332 mg/dL (47-310); IgG 1072 mg/dL (600-1640); IgM 52 mg/dL (50-300)
[2023-10-15 06:54] LABS: Immunoglobulin E 45 kU/L (<OR=114)
[2023-10-15 11:44] LABS: Immunoglobulin D 105 mg/L (<179)
== END 2023-10-10 15:52 | disposition home or self-care (01) ==
LOC: HO.LAB 15:51
PROVIDERS: Advanced Practice Midwife; PCP Internal Medicine; Visit Provider Internal Medicine
DX: Z20.2 Contact with and (suspected) exposure to infections with a predominantly sexual mode of transmission (principal); D50.9 Iron deficiency anemia, unspecified; R76.8 Other specified abnormal immunological findings in serum
CPT/HCPCS: 36415; 82728; 82784; 82785; 83540; 86704; 86780; 86803; 87389

== ENCOUNTER 2023-11-05 13:43 | Outpatient (AMB) | payer OTHER, SELFPAY ==
--- NOTE | 2023-11-05 13:52 | A.OFFVIS_ITS ---
Vital Signs 11/05/23 13:54 Height 5 ft 2 in Weight 206 lb BMI 37.7 BP 122/70 Intake Visit Reasons: No menstrual since July Climatology Professor Required: No Climatology Professor Services: Climatology Professor Present Information Interpreted: clinical only Bag Adjuster: Bag Adjuster Present Allergies Penicillins [PENICILLINS] Allergy (Severe, Verified 11/05/23 13:55) ANAPHYLAXIS amitriptyline [AMITRIPTYLINE] Allergy (Intermediate, Verified 11/05/23 13:55) HIVES banana Allergy (Intermediate, Verified 11/05/23 13:55) Hives kiwi [KIWI] Allergy (Intermediate, Verified 11/05/23 13:55) HIVES pineapple Allergy (Intermediate, Verified 11/05/23 13:55) Hives clams Allergy (Unknown, Verified 11/05/23 13:55) Unknown gluten Allergy (Unknown, Verified 11/05/23 13:55) Unknown MEAT Allergy (Severe, Uncoded 11/05/23 13:55) HIVES,ANAPHYLAXIS dairy Adverse Reaction (Intermediate, Uncoded 11/05/23 13:55) pt states allery to all Dairy Products Is last menstrual period known: Yes Last menstrual period: 08/26/23 Do you need a note to return to daycare/school/sports/work: No HPI HPI No menstrual since July: Details: Patient is here because she has not had a menses since the end of July and that 1 lasted almost 2 weeks. She mainly wants to be 100% sure she has not she uses condoms but wants to be entirely sure she has done a home test was negative test here was negative what she really needs to be sure. In addition she is wondering if she is hussein menopausal. She has celiac disease she has fibroids and has had abnormal bleeding for which she has been fully evaluated by Dr. Joyner with endometrial biopsies ultrasound she had been referred to [facility] for minimally invasive surgical options however her insurance was not honor their nor is it on it at [facility] or [facility] or any other surrounding hospitals at this time so she has not been able to have that. Additionally she had try the Lysteda with no effect she had migraine headaches and high blood pressure when she had Mirena when it was removed it improved so she has not women to go back to those again. She wants mainly to be sure she has not but she would be happy to check on any other pertinent tests she has anemia for which she gets iron transfusions with Dr. Vuong and would like her iron checked as well. [facility] Medical History Neuropathy Left upper quadrant abdominal pain Lumbar radiculopathy Sacroiliac dysfunction Lumbar facet arthropathy Smoker Multiple allergies Encounter for annual routine gynecological examination Internal derangement of left knee Effusion, left knee Encounter for IUD removal Hair loss Amezcua cyst Right knee pain Pain in left knee Chronic knee pain Anxiety and depression IUD check up Body mass index [BMI] 38.0-38.9, adult Left knee pain Physical exam (~03/2021) Polyarthralgia Fatigue Low back pain Menometrorrhagia Swelling, lymph nodes Encounter for general adult medical examination with abnormal findings Common cold Ear anomaly Generalized abdominal pain Iron deficiency anemia Osteopenia Soft tissue injury of left knee Left knee sprain Low vitamin D level Celiac disease Family history of thyroid disease Hx of head injury Hx of migraines Surgical History H/O knee surgery History of left knee surgery H/O esophagogastroduodenoscopy Hx of colonoscopy Previous section Hx of foot surgery Hx of shoulder surgery Hx of cholecystectomy Family History Father Diabetes Hypercholesterolemia Chronic kidney disease Hypertension Mother Hypercholesterolemia Hypertension Maternal Grandmother History of breast cancer Other No family history of cancer Social History Household Members: Family Household Members Other:: children and parents Housing: House Are you a primary manager medicare to a significant other at home: No Do you presently have visiting nurse or other home services: No Alcohol intake: never Patient Tobacco Use Status: Current everyday Tobacco user Tobacco use type: Cigarette Cigarette Packs Per Day: 0.5 Cigarettes Per Day: 10.0 Years Smoked: 20 e-Cigarette/Vaping Use: Never Used Second Hand Smoke Exposure: Yes Substance Use Type: Marijuana service: No Current occupational status: employed 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 Sexual orientation: Straight/Heterosexual Gender identity: Female Cognitive needs: No Hearing needs: No Vision needs: Yes Female Reproductive History Menstrual Age of Menarche: 13 Duration of menses: 3-5 days Date of last menstrual period: 08/26/23 control method: none Total pregnancies: 4 Full term: 2 Date of last pap smear: 09/12/20 (neg.) Physical Exam Vital Signs: Last Vital Signs BP 122/70 11/05/23 13:54 BMI result Body Mass Index 37.7 Results AMB Test Urine AMB Test Urine Negative Last Edit by Allie Low CMA on 11/05/23 14:19 Results Reviewed Results Reviewed: Laboratory Last Values [facility] Negative 11/05/23 14:17 Patient: Sveta Rashid MR#: [id number] : 1975 Acct:[id number] Age/Sex: 47 / F ADM Date: 04/08/23 Loc: HO.[facility]GCX Attending Dr: Alex Joyner MD Ordering Physician: Alex Joyner MD Date of Service: 04/08/23 Procedure(s): US pelvic and transvaginal Accession Number(s): [id number] cc: Cecilia Sanchez; Alex Joyner MD~ EXAMINATION: US PELVIS CLINICAL INFORMATION: Abnormal uterine and vaginal bleeding, unspecified LMP: 03/22/2023, ongoing COMPARISON: Pelvic ultrasound 09/18/2020, CT scan abdomen and pelvis 02/06/2023 TECHNIQUE: Ultrasound of the pelvis is performed using both transabdominal and transvaginal transducers along with Doppler. Transvaginal imaging is performed due to inadequate visualization transabdominally. FINDINGS: Uterus: The uterus is anteverted and measures 10.0 x 4.9 x 7.8 cm. ? Arcuate configuration. 1.2 x 1.5 x 1.2 cm hyperechoic focus in the the anterior body of the uterus, located adjacent to the anterior wall of the endometrium, may represent a fibroid. The endometrial thickness 0.6 cm on the right and 0.8 cm on the left Adnexa: Both ovaries are visualized. There is normal color flow to the adnexa. There is no ovarian torsion. There is no pelvic ascites or fluid collection. Right ovary measures 3.1 x 1.6 x 3.2 cm. Volume 8.1 mL. There is a 1.3 x 0.8 x 1.1 cm simple cyst which is either an exophytic follicle versus paraovarian cyst. Left ovary measures 2.7 x 1.7 x 2.7 cm. Volume 5.8 mL. US/US pelvic and transvaginal IMPRESSION: 1.? Arcuate configuration of the uterus. 2. 1.5 cm hyperechoic focus in the anterior body of the uterus, located adjacent to the anterior wall of the endometrium, may represent a fibroid. 3. 1.3 cm simple cyst in the right ovary which is either an exophytic follicle versus paraovarian cyst. 4. Normal appearance of the left ovary. Dictated By: Bella Yoder MD Signed By: <Electronically signed by eBlla Yoder MD in OV> 04/10/23 0944 Name: RachidSveta Moses Age/Sex: 47/F Attending: Alex Joyner MD : 1975 Submitted by: Alex Joyner MD Copies to: MR #: [id number] Status: DEP REF Collected: 05/21/23 Location: [facility] Received: 05/22/23 Diagnosis Endometrium, biopsy: Disordered weakly proliferative endometrium with breakdown; no atypia or hyperplasia identified. Clinical History AUB Microscopic Description Microscopic sections reviewed. Material Received EMB Gross Description Received in formalin labeled ?EMB? multiple pieces of gonzalez and hemorrhagic tissue measuring 2.0 x 1.5 x 0.8 cm's in aggregate, all submitted in cassette labeled A. FM NOTE: Unless otherwise stated, all tissue is formalin-fixed and paraffin- embedded. Some or all of the immunohistochemical tests reported herein may have been developed and their performance characteristics determined by [facility]. They have not been cleared or approved by the U.S. Food and Drug Administration (FDA). However, the FDA has determined that such clearance or approval is not necessary. This laboratory is certified under the Clinical Laboratory Improvement Amendments of 1988 (CLIA) as qualified to perform high complexity clinical laboratory testing. Electronically Signed By: Varinder Crenshaw MD 05/25/23 0837 Patient: Sveta Rashid Age/Sex: 47/F MR#: [id number] Page 1 of 1 ----- I also reviewed patient's recent iron levels CBC levels TSH and other labs in the system done this year. Assessment & Plan Assessment & Plan (1) Missed menses: Code(s): N92.6 - Irregular menstruation, unspecified Category: Medical (2) Fibroid: Code(s): D21.9 - Benign neoplasm of connective and other soft tissue, unspecified Category: Medical (3) Abnormal uterine bleeding (AUB): Code(s): N93.9 - Abnormal uterine and vaginal bleeding, unspecified Category: Medical (4) Iron deficiency anemia due to chronic blood loss: Comment: Currently H&H have normalized, patient on Iron replacement. Code(s): D50.0 - Iron deficiency anemia secondary to blood loss (chronic) Category: Medical Plan I reviewed patient's history with her in great detail as noted discussed what she has done in the past and her limited options because of her insurance not being honored in any of the institutions she has tried which are all others other than [facility]. Of most importance to her today is to really really be on a 100 % sure she has not and we will order soon test. Even though it has not been a year since her missed menses I am ordering an FSH to see if the level is and also a prolactin level. She has had a thyroid level done this year which was within normal limits and she has standing orders in from Dr. Vuong to check on her CBC and iron level is so those will be done beginning of November in 3 weeks. Discussed that if she goes 3 months without a. And is not and not in menopause by definition that course of Provera might be indicated to bring on menses so she should call if it is 3 months with menses. Discussed all her other health concerns as well and the challenges of her insurance not being accepted where she needs care. Orders: Orders HCG Quantitative Today N92.6 - Irregular menstruation, unspecified AMB HCG Urine Test Today Z32.02 - Encounter for test, result negative Prolactin Today N92.6 - Irregular menstruation, unspecified Follicle Stimulating Hormone Today N92.6 - Irregular menstruation, unspecified Coding Level of Care Code Est Pt Level 3 (51099) Diagnoses Missed menses N92.6 Fibroid D21.9 Abnormal uterine bleeding (AUB) N93.9 Iron deficiency anemia due to chronic blood loss D50.0
[2023-11-05 13:54] VITALS: BP 122/70; BMI 37.7
== END 2023-11-05 14:57 | disposition home or self-care (01) ==
LOC: HO.HWSM 13:43
PROVIDERS: PCP Internal Medicine; Visit Provider Advanced Practice Midwife
DX: N92.6 Irregular menstruation, unspecified (principal); D21.9 Benign neoplasm of connective and other soft tissue, unspecified; N93.9 Abnormal uterine and vaginal bleeding, unspecified; D50.0 Iron deficiency anemia secondary to blood loss (chronic); Z32.02 Encounter for pregnancy test, result negative
CPT/HCPCS: 99213

== ENCOUNTER → 2023-11-05 13:43 | Outpatient (BNVA) | payer OTHER, SELFPAY | PROVIDERS: PCP Internal Medicine; Visit Provider Advanced Practice Midwife | DX: N92.6 Irregular menstruation, unspecified (principal); D21.9 Benign neoplasm of connective and other soft tissue, unspecified; N93.9 Abnormal uterine and vaginal bleeding, unspecified; D50.0 Iron deficiency anemia secondary to blood loss (chronic); Z79.899 Other long term (current) drug therapy | CPT/HCPCS: 81025; 99212 ==

== ENCOUNTER 2023-11-05 14:57 | Outpatient (REF) | payer OTHER, SELFPAY ==
[2023-11-05 16:28] LABS: HCG Quantitative < 2 mIU/mL
[2023-11-06 19:18] LABS: Follicle Stimulating Hormone 115.2 mIU/mL; Prolactin 3.8 ng/mL
== END 2023-11-05 14:58 | disposition home or self-care (01) ==
LOC: HO.HHCL 14:57
PROVIDERS: Visit Provider Advanced Practice Midwife
DX: N92.6 Irregular menstruation, unspecified (principal)
CPT/HCPCS: 36415; 83001; 84146; 84702

== ENCOUNTER 2023-11-07 13:48 | Outpatient (REF) | payer OTHER, SELFPAY | END 2023-11-07 13:49 | disposition home or self-care (01) | LOC: HO.MAMMO 13:48 | PROVIDERS: PCP Internal Medicine; Visit Provider Internal Medicine | DX: Z12.31 Encounter for screening mammogram for malignant neoplasm of breast (principal) | CPT/HCPCS: 77063; 77067 ==

== ENCOUNTER → 2023-11-07 14:00 | Outpatient (BNV) | payer OTHER, SELFPAY | PROVIDERS: PCP Internal Medicine; Visit Provider Radiology Diagnostic Radiology | DX: Z12.31 Encounter for screening mammogram for malignant neoplasm of breast (principal) | CPT/HCPCS: 77063; 77067 ==

== ENCOUNTER 2023-11-13 15:31 | Outpatient (AMB) | payer OTHER, SELFPAY ==
--- NOTE | 2023-11-13 15:50 | MHC.PC.OV ---
Vital Signs 11/13/23 15:51 Height 5 ft 2 in Weight 202 lb BMI 36.9 BP 124/82 Blood Pressure Location Lt brachial Position Sitting Pulse 81 Pulse Source Pulse Oximeter Pulse Oximetry (%) 98 Oxygen Delivery Method Room Air Intake Visit Reasons: anemia, fibroid Historic Preservationist Required: No Accompanied by: Self / Same As Patient Allergies Penicillins [PENICILLINS] Allergy (Severe, Verified 11/13/23 15:53) ANAPHYLAXIS amitriptyline [AMITRIPTYLINE] Allergy (Intermediate, Verified 11/13/23 15:53) HIVES banana Allergy (Intermediate, Verified 11/13/23 15:53) Hives kiwi [KIWI] Allergy (Intermediate, Verified 11/13/23 15:53) HIVES pineapple Allergy (Intermediate, Verified 11/13/23 15:53) Hives clams Allergy (Unknown, Verified 11/13/23 15:53) Unknown gluten Allergy (Unknown, Verified 11/13/23 15:53) Unknown MEAT Allergy (Severe, Uncoded 11/05/23 13:55) HIVES,ANAPHYLAXIS dairy Adverse Reaction (Intermediate, Uncoded 11/05/23 13:55) pt states allery to all Dairy Products Medication List - Last Reconciled 11/13/23 by Jennifer Aguiar MD calcium-magnesium 750-465 mg 2 tabs PO DAILY cholecalciferol (vitamin D3) 50 mcg PO DAILY cream base no.105 (bulk) (Base W301 cream) Diclofenac 5%, Baclofen 5%, Cyclobenzaprine 2%, Gabapentin 6%, Bupivacaine 2% SIG: apply pea-sized amount 3-5 times daily to painful areas as needed cyanocobalamin-cobamamide 5,000-100 mcg (B12) 1 mindy sublingual DAILY epinephrine (EpiPen) 0.3 mg (0.3 mL) IM Q4H PRN hydroxyzine HCl 10 mg PO BID PRN multivitamin 1 tab PO DAILY omeprazole 20 mg PO DAILY 90 days paroxetine HCl (Paxil) 20 mg PO DAILY Tobacco use date assessed: 07/18/23 Dental Screening Dental Screen Date: 07/18/23 HPI anemia, fibroid HPI Details 48-year-old obese female smoker with peripheral vascular disease iron deficiency anemia generalized anxiety disorder coming in for follow-up. Patient had a fibroid also. Review of the notes patient has seen gastroenterology august 2023 concern about celiac last EGD and colon 2019 review of the notes saying to establish diagnosis of the celiac needs read biopsies but patient has declined. Presently doing good and will not change dietary habits. Patient has also seen the vascular surgeon in July because of the leg pains recommended podiatry referral. Arterial and venous testing were within normal limits [facility] Medical History Neuropathy Left upper quadrant abdominal pain Lumbar radiculopathy Sacroiliac dysfunction Lumbar facet arthropathy Smoker Multiple allergies Encounter for annual routine gynecological examination Internal derangement of left knee Effusion, left knee Encounter for IUD removal Hair loss Amezcua cyst Right knee pain Pain in left knee Chronic knee pain Anxiety and depression IUD check up Body mass index [BMI] 38.0-38.9, adult Left knee pain Physical exam (~03/2021) Polyarthralgia Fatigue Low back pain Menometrorrhagia Swelling, lymph nodes Encounter for general adult medical examination with abnormal findings Common cold Ear anomaly Generalized abdominal pain Iron deficiency anemia Osteopenia Soft tissue injury of left knee Left knee sprain Low vitamin D level Celiac disease Family history of thyroid disease Hx of head injury Hx of migraines Surgical History H/O knee surgery History of left knee surgery H/O esophagogastroduodenoscopy Hx of colonoscopy Previous section Hx of foot surgery Hx of shoulder surgery Hx of cholecystectomy Family History Father Diabetes Hypercholesterolemia Chronic kidney disease Hypertension Mother Hypercholesterolemia Hypertension Maternal Grandmother History of breast cancer Other No family history of cancer Social History Household Members: Family Household Members Other:: children and parents Housing: House Are you a primary childcare worker to a significant other at home: No Do you presently have visiting nurse or other home services: No Alcohol intake: never Patient Tobacco Use Status: Current everyday Tobacco user Tobacco use type: Cigarette Cigarette Packs Per Day: 0.5 Cigarettes Per Day: 10.0 Years Smoked: 20 e-Cigarette/Vaping Use: Never Used Second Hand Smoke Exposure: Yes Substance Use Type: Marijuana service: No Current occupational status: employed 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 Malik Bates, Mary Mahan, Pedrito Amaro and colleagues, with an educational tyson from [employer]. Physical exam (Primary Care) Vital Signs: Last Vital Signs Pulse 81 11/13/23 15:51 BP 124/82 11/13/23 15:51 Pulse Ox 98 11/13/23 15:51 Oxygen Delivery Method Room Air 11/13/23 15:51 BMI result Body Mass Index 36.9 Tobacco/Smoking Status: Tobacco use Status Tobacco use date assessed 07/18/23 11/13/23 15:56 Patient Tobacco Use Status Current everyday Tobacco 11/13/23 15:56 Tobacco use type Cigarette 11/13/23 15:56 e-Cigarette/Vaping Use Never Used 11/13/23 15:56 Thrive Assessment: Date of Thrive Assessment Date Thrive assessed 07/18/23 11/13/23 15:56 Const General: alert; No acute distress Eyes Conjunctivae: conjunctivae normal Resp Auscultation: clear to auscultation bilaterally Cardio Rate: regular rate Rhythm: regular rhythm GI Inspection: Yes normal to inspection Extrem General: Yes normal to inspection and No edema Assessment and Plan Assessment & Plan (1) Tobacco abuse: Code(s): Z72.0 - Tobacco use Plan: Patient is advised strongly to stop smoking! (2) Iron deficiency anemia due to chronic blood loss: Comment: Currently H&H have normalized, patient on Iron replacement. Code(s): D50.0 - Iron deficiency anemia secondary to blood loss (chronic) Plan: Patient has seen gastroenterology and has also received iron infusion (3) STEPHEN (generalized anxiety disorder): Code(s): F41.1 - Generalized anxiety disorder Plan: Continue with present medication (4) Obesity (BMI 35.0-39.9 without comorbidity): Code(s): E66.9 - Obesity, unspecified Plan: Diet and exercise (5) Celiac disease: Code(s): K90.0 - Celiac disease Plan: Patient has seen gastroenterology re-biopsy advised but for the moment declined (6) Left foot pain: Code(s): M79.672 - Pain in left foot Plan: xray and podiatry referral done (7) Left ankle pain: Code(s): M25.572 - Pain in left ankle and joints of left foot Plan: xray requested Orders: Orders XR foot LT min 3V Today M79.672 - Pain in left foot XR ankle LT min 3V Today M25.572 - Pain in left ankle and joints of left foot Referrals Podiatry Referral M79.672 - Pain in left foot Coding Level of Care Code Est Pt Level 4 (39059) Diagnoses Tobacco abuse Z72.0 Iron deficiency anemia due to chronic blood loss D50.0 STEPHEN (generalized anxiety disorder) F41.1 Obesity (BMI 35.0-39.9 without comorbidity) E66.9 Celiac disease K90.0 Left foot pain M79.672 Left ankle pain M25.572
[2023-11-13 15:51] VITALS: BP 124/82; PULSE 81; O2SAT 98; BMI 36.9
== END 2023-11-13 16:33 | disposition home or self-care (01) ==
PROVIDERS: PCP Internal Medicine; Visit Provider Internal Medicine
DX: D50.0 Iron deficiency anemia secondary to blood loss (chronic) (principal); K90.0 Celiac disease; F41.1 Generalized anxiety disorder; M25.572 Pain in left ankle and joints of left foot
CPT/HCPCS: 99214

== ENCOUNTER 2023-11-26 16:50 | Outpatient (REF) | payer OTHER, SELFPAY ==
[2023-11-26 16:59] LABS: MANUAL DIFF FLAG NO
[2023-11-26 17:07] LABS: Basophils Absolute Auto 0.1 X10*3/uL (0.0-0.2); Basophils Percent Auto 0.8 % (0-2); Eosinophils Absolute Auto 0.2 X10*3/uL (0.0-0.4); Eosinophils Percent Auto 2.2 % (0-4); Hematocrit 40.3 % (37.0-47.0); Hemoglobin 12.6 g/dl (12.0-16.0); Imm Gran Abs Auto 0.02 X10*3/uL (0.00-0.03); Imm Gran Pct Auto 0.3 % (0.0-0.4); Lymphocytes Absolute Auto 2.1 X10*3/uL (1.2-4.9); Lymphocytes Percent Auto 27.8 % (20-40); Mean Corpuscular HGB Conc 31.3 g/dl (31.0-35.0); Mean Corpuscular Hemoglobin 26.4 pg (27.0-33.0); Mean Corpuscular Volume 84.3 fL (80.0-98.0); Mean Platelet Volume 10.2 fL (9.4-12.3); Monocytes Absolute Auto 0.6 X10*3/uL (0.1-1.2); Monocytes Percent Auto 8.1 % (2-11); Neutrophils Absolute Auto 4.5 x10*3/uL (2.0-8.3); Neutrophils Percent Auto 60.8 % (45-73); Platelet Count 329 X10*3/uL (160-400); Red Blood Count 4.78 X10*6/uL (4.20-5.50); Red Cell Distribution Width 17.7 % (11.0-16.0); White Blood Count 7.4 X10*3/uL (4.8-10.8)
[2023-11-26 17:39] LABS: Alanine Aminotransferase 16 U/L (0-31); Albumin Level 4.2 g/dL (3.5-5.0); Alkaline Phosphatase 64 U/L (39-117); Anion Gap 11 (12-20); Aspartate Amino Transferase 16 U/L (5-31); Bilirubin Total 0.3 mg/dL (0.0-1.0); Blood Urea Nitrogen 10 mg/dL (9-16); Calcium 10.1 mg/dL (8.4-10.2); Carbon Dioxide 29 mmol/L (22-29); Chloride 104 mmol/L (96-108); Estimated Glomerular Filt Rate > 60; Glucose Random 92 mg/dL (60-115); Potassium 4.1 mmol/L (3.3-5.1); Sodium 140 mmol/L (135-145); Total Protein 7.6 g/dL (6.5-8.0)
[2023-11-26 17:56] LABS: Ferritin 8 ng/mL (10-250)
== END 2023-11-26 16:51 | disposition home or self-care (01) ==
LOC: HO.LAB 16:50
PROVIDERS: PCP Internal Medicine; Visit Provider Internal Medicine Medical Oncology
DX: D50.0 Iron deficiency anemia secondary to blood loss (chronic) (principal)
CPT/HCPCS: 36415; 80053; 82728; 85025

== ENCOUNTER → 2024-01-23 07:55 | Outpatient (REF) | payer OTHER, SELFPAY ==
--- NOTE | 2024-01-23 08:03 | HM_ITS ---
Conclusion: 1. Patient was monitored for total period of 3 days 2. Baseline was normal sinus rhythm with average heart of 77 beats per minute 3. Rare PACs noted 4. No significant pauses noted 5. No patient reported events MTDD
--- NOTE | 2024-01-23 08:03 | CA_ITS ---
Acquisition Time: 2024-01-23 08:09:57 Total Exercise Time: 00:08:58 Test Indications: SOB, PALPITATIONS Medications: SEE H Protocol: JOYCE Max HR: 151 BPM 87% of Pred: 173 BPM Max BP: 180/090 mmHG Max Work Load: 10.1 METS Exercise stress test exercise 8 min 58 sec of Joyce protocol achieving 87% MPHR, without anginal symptoms, without arrhythmias, with normotensive response to exercise, without EKG changes for ischemia. Test reviewed with Dr. Hughes. T wave inversions improved with limb lead placement. Referred By: Jennifer Aguiar Overread By: Sandra Flanagan
--- NOTE | 2024-01-23 08:03 | ECG_ITS ---
Test Reason : Palpitations Blood Pressure : / mmHG Vent. Rate : 072 BPM Atrial Rate : 072 BPM P-R Int : 178 ms QRS Dur : 082 ms QT Int : 408 ms P-R-T Axes : 012 008 024 degrees QTc Int : 446 ms Normal sinus rhythm Septal infarct , age undetermined Nonspecific ST abnormality Abnormal ECG When compared with ECG of 26-MAY-2023 16:40, Septal infarct is now Present Nonspecific T wave abnormality no longer evident in Inferior leads Nonspecific ST abnormality is now Present Referred By: Jennifer Aguiar Electronically Signed By:DAMIAN TAN
== END ==
LOC: HO.CARD 07:55
PROVIDERS: PCP Internal Medicine; Visit Provider Internal Medicine
DX: R00.2 Palpitations (principal); R06.02 Shortness of breath
CPT/HCPCS: 93005; 93017; 93242

== ENCOUNTER → 2024-01-23 08:03 | Outpatient (BNV) | payer OTHER, SELFPAY | PROVIDERS: PCP Internal Medicine; Visit Provider Nurse Practitioner | DX: I49.1 Atrial premature depolarization (principal) | CPT/HCPCS: 93016; 93018; 93244 ==

== ENCOUNTER 2024-02-26 15:56 | Outpatient (AMB) | payer OTHER, SELFPAY ==
[2024-02-26 15:58] VITALS: BP 126/82; PULSE 74; O2SAT 97; BMI 38.8
--- NOTE | 2024-02-26 15:58 | A.OFFPC_ITS ---
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 Required: No Accompanied by: Self / Same As Patient Allergies Penicillins [PENICILLINS] Allergy (Severe, Verified 02/26/24 15:59) ANAPHYLAXIS amitriptyline [AMITRIPTYLINE] Allergy (Intermediate, Verified 02/26/24 15:59) HIVES banana Allergy (Intermediate, Verified 02/26/24 15:59) Hives kiwi [KIWI] Allergy (Intermediate, Verified 02/26/24 15:59) HIVES pineapple Allergy (Intermediate, Verified 02/26/24 15:59) Hives clams Allergy (Unknown, Verified 02/26/24 15:59) Unknown gluten Allergy (Unknown, Verified 02/26/24 15:59) Unknown MEAT Allergy (Severe, Uncoded 02/26/24 15:59) HIVES,ANAPHYLAXIS dairy Adverse Reaction (Intermediate, Uncoded 02/26/24 15:59) pt states allery to all Dairy Products Medication List - Last Reconciled 02/26/24 by Jennifer Aguiar MD [[facility] EZRA PO] calcium-magnesium 750-465 mg 2 tabs PO DAILY cholecalciferol (vitamin D3) 50 mcg PO DAILY cream base no.105 (bulk) (Base W301 cream) Diclofenac 5%, Baclofen 5%, Cyclobenzaprine 2%, Gabapentin 6%, Bupivacaine 2% SIG: apply pea-sized amount 3- 5 times daily to painful areas as needed cyanocobalamin-cobamamide 5,000-100 mcg (B12) 1 mindy sublingual DAILY epinephrine (EpiPen) 0.3 mg (0.3 mL) IM Q4H PRN [chasity PO] multivitamin 1 tab PO DAILY [mushroom PO] omeprazole 20 mg PO DAILY 90 days paroxetine HCl (Paxil) 20 mg PO DAILY [turmeric PO] Tobacco use date assessed: 07/18/23 Dental Screening Dental Screen Date: 07/18/23 HPI PE HPI Details 57-year-old obese female with hypothyroi dism hypertension coming in for follow-up. Last seen for physical exam in July having knee arthritis. Patient's mammogram is due this month Cologuard testing is up-to-date 08/15/2021. October was seen by the Orthopedics for the left knee injections, ankle pain - ortho will have MRI done [facility] Medical History (Updated 02/26/24 @ 18:42 by Jennifer Aguiar MD) Iron deficiency anemia Neuropathy Left upper quadrant abdominal pain Lumbar radiculopathy Sacroiliac dysfunction Lumbar facet arthropathy Smoker Multiple allergies Encounter for annual routine gynecological examination Internal derangement of left knee Effusion, left knee Encounter for IUD removal Hair loss Amezcua cyst Right knee pain Pain in left knee Chronic knee pain Anxiety and depression IUD check up Body mass index [BMI] 38.0-38.9, adult Left knee pain Physical exam (~03/2021) Polyarthralgia Fatigue Low back pain Menometrorrhagia Swelling, lymph nodes Encounter for general adult medical examination with abnormal findings Common cold Ear anomaly Generalized abdominal pain Osteopenia Soft tissue injury of left knee Left knee sprain Low vitamin D level Celiac disease Family history of thyroid disease Hx of head injury Hx of migraines Surgical History H/O knee surgery History of left knee surgery H/O esophagogastroduodenoscopy Hx of colonoscopy Previous section Hx of foot surgery Hx of shoulder surgery Hx of cholecystectomy Family History (Updated 02/26/24 @ 16:44 by Jennifer Aguiar MD) Father Diabetes Hypercholesterolemia Chronic kidney disease Hypertension Mother Hypercholesterolemia Hypertension Maternal Grandmother History of breast cancer Paternal Grandfather CAD (coronary artery disease) Other No family history of cancer Social History (Updated 02/26/24 @ 16:45 by Jennifer Aguiar MD) Household Members: Family Household Members Other:: children and parents Housing: House Are you a primary home care assistant to a significant other at home: No Do you presently have visiting nurse or other home services: No Alcohol intake: current Alcohol intake frequency: holidays/special occasions only Comment: once a month 1-2 glasses Patient Tobacco Use Status: Current everyday Tobacco user Tobacco use type: Cigarette Cigarette Packs Per Day: 0.5 Cigarettes Per Day: 10.0 Years Smoked: 21. 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 Sexual orientation: Straight/Heterosexual Gender identity: Female Cognitive needs: No Hearing needs: No Vision needs: Yes Female Reproductive History Menstrual Age of Menarche: 13 Questionnaire Thrive Questionnaire Date Thrive assessed: 07/18/23 I am a: Patient What is your living situation today?: I have a steady place to live Within the past 12 months, did the food you bought not last and you didn't have the money to get more?: I choose not to answer this question Within the past 12 months, did you worry whether your food would run out before you got money to buy more?: I choose not to answer this question Do you have trouble paying for medicines?: I choose not to answer this question Do you have trouble getting transportation to medical appointments?: I choose not to answer this question Do you have trouble paying your heating and electricity bill?: I choose not to answer this question Do you have trouble taking care of your child, family member or friend?: I choose not to answer this question Do you have trouble with day-to-day activities such as bathing, preparing meals, shopping, managing finances, etc.?: I choose not to answer this question Are you currently unemployed and looking for a job?: I choose not to answer this question Are you interested in more education?: I choose not to answer this question Please select the resources that you would like help with: None Currently or been in a relationship where the following occur: I choose not to answer THRIVE Score: 0 AUDIT C Alcohol Use Questionnaire (AUDIT-C) 1. How often do you have a drink containing alcohol?: Monthly or less 2. How many drinks containing alcohol do you have on a typical day when you are drinking?: 1 or 2 3. How often do you have six or more drinks on one occasion?: Never Total Score: 1 STEPHEN-7 AMB Questionnaire STEPHEN-7 Date STEPHEN - 7 assessed: 07/18/23 Feeling nervous, anxious, or on edge: 2 = More than half the days Not being able to stop or control worryin = Several days Worrying too much about different things: 1 = Several days Trouble relaxin = Several days Being so restless that it is hard to sit still: 1 = Several days Becoming easily annoyed or irritable: 1 = Several days Feeling afraid as if something awful might happen: 0 = Not at all Total STEPHEN-7 score (0-4 normal; 5-9 mild; 10-14 moderate; 15-21 severe): 7 Source: Developed by Drs. Malik Bates, Mary Mahan, Pedrito Amaro and colleagues, with an educational tyson from [employer]. Review of Systems Const Denies poor appetite and Denies weakness Eyes Denies no additional complaints ENT Reports Normal hearing present, Denies dizziness, Denies nasal congestion, Denies tinnitus and Denies sore throat Card Denies chest pain, Denies syncope, Denies rapid heart rate and Denies dyspnea Resp Denies cough and Denies dyspnea GI Denies change in stool character, Reports constipation, Denies diarrhea, Denies nausea and Denies vomiting Denies urinary frequency, Denies difficulty voiding and Denies dysuria Neuro Reports Normal hearing present, Denies confusion, Denies dizziness, Denies syncope and Denies weakness Psych Denies confusion Physical exam (Primary Care) Vital Signs: Last Vital Signs Pulse 74 02/26/24 15:58 BP 126/82 02/26/24 15:58 Pulse Ox 97 02/26/24 15:58 Oxygen Delivery Method Room Air 02/26/24 15:58 BMI result Body Mass Index 38.8 Tobacco/Smoking Status: Tobacco use Status Tobacco use date assessed 07/18/23 02/26/24 16:03 Patient Tobacco Use Status Current everyday Tobacco 02/26/24 16:45 Tobacco use type Cigarette 02/26/24 16:45 e-Cigarette/Vaping Use Never Used 02/26/24 16:45 Thrive Assessment: Date of Thrive Assessment Date Thrive assessed 07/18/23 02/26/24 16:03 Currently or been in a relationship where the following occur: I choose not to answer Const General: No confusion Orientation/consciousness: No confusion HENMT Head: Yes normocephalic Ears: external ears normal and TM's normal bilaterally Face and sinus: Yes normal facial exam Mouth: moist mucous membranes Throat: Yes tonsils normal Eyes Conjunctivae: conjunctivae normal Pupils: Equal, round and reactive pupils present and Pupil accommodation reflex normal Direct Ophthalmoscopy: normal light reflex Neck Neck: No lymphadenopathy Thyroid: Thyroid normal Chest Chest palpation & inspection: normal inspection of the chest Resp Effort & Inspection: normal respiratory effort and no audible wheezes Auscultation: clear to auscultation bilaterally, no crackles, no wheezes and lung sounds not diminished Cardio Rate: regular rate Rhythm: regular rhythm Peripheral pulses: radial pulses present and dorsalis pedis present GI Palpation (GI): no masses Auscultation: normal bowel sounds and normoactive bowel sounds Rectal Exam - Female: deferred Skin General skin exam: no rashes or lesions noted Rashes: no rashes Neuro General: No confusion Cranial nerves: Yes Equal, round and reactive pupils present and Yes Normal hearing present Cognition (Neuro): normal cognition Gait exam (Neuro): Normal gait present Motor exam (neuro): 5/5 motor strength present throughout Deep tendon reflexes (DTR's): Right brachioradialis reflex intensity grade: 2+, Left brachioradialis reflex intensity grade: 2+, Right patellar reflex intensity grade: 2+ and Left patellar reflex intensity grade: 2+ Extrem General: No edema Coding Level of Care Code Est Pt Prev Care 40-64y(72264) Diagnoses Annual physical exam Z00.00 Tobacco abuse Z72.0 Celiac disease K90.0 Iron deficiency anemia, unspecified iron deficiency anemia type D50.9 Iron deficiency anemia type: unspecified iron deficiency Fibroid D21.9 Palpitations R00.2 Oropharyngeal dysphagia R13.12 Dysphagia type: oropharyngeal phase STEPHEN (generalized anxiety disorder) F41.1 Assessment & Plan Assessment & Plan (1) Annual physical exam: Code(s): Z00.00 - Encounter for general adult medical examination without abnormal findings Category: Medical Plan: Patient is advised to eat healthy, keep well hydrated, keep active and have adequate sleep. (2) Tobacco abuse: Code(s): Z72.0 - Tobacco use Category: Medical Plan: Patient is strongly advised to stop smoking! (3) Celiac disease: Code(s): K90.0 - Celiac disease Category: Medical Plan: Gluten free diet (4) Iron deficiency anemia: Code(s): D50.9 - Iron deficiency anemia, unspecified Category: Medical Qualifiers: Iron deficiency anemia type: unspecified iron deficiency Qualified Code(s): D50.9 - Iron deficiency anemia, unspecified Plan: Patient was seen by hematology oncology has had IV infusion of iron. Patient had poor absorption due to the celiac problem and had menorrhagia. (5) Fibroid: Code(s): D21.9 - Benign neoplasm of connective and other soft tissue, unspecified Category: Medical Plan: looking for gynecology who takes insurance, patient wants to have myomectomy (6) Palpitations: Code(s): R00.2 - Palpitations Category: Medical Plan: Referral to Cardiology (7) Dysphagia: Code(s): R13.10 - Dysphagia, unspecified Category: Medical Qualifiers: Dysphagia type: oropharyngeal phase Qualified Code(s): R13.12 - Dysphagia, oropharyngeal phase Plan: Discussed about testing with barium swallow (8) STEPHEN (generalized anxiety disorder): Comment: [facility] Code(s): F41.1 - Generalized anxiety disorder Category: Medical Plan: Continue with counseling and therapy. Orders: Orders [place] barium swallow Today R13.10 - Dysphagia, unspecified PFT pulmonary function test Today R06.02 - Shortness of breath Complete Blood Count Auto Diff Today D50.0 - Iron deficiency anemia secondary to blood loss (chronic) Free T4 (Free Thyroxine) Today D50.0 - Iron deficiency anemia secondary to blood loss (chronic) IRON PROFILE Today D50.0 - Iron deficiency anemia secondary to blood loss (chronic) Lipid Panel Today D50.0 - Iron deficiency anemia secondary to blood loss (chronic), E78.00 - Pure hypercholesterolemia, unspecified [place] upper GI series Today R13.10 - Dysphagia, unspecified Comprehensive Met. Panel Today D50.0 - Iron deficiency anemia secondary to blood loss (chronic) Ferritin Today D50.0 - Iron deficiency anemia secondary to blood loss (chronic) Hemoglobin A1c Today D50.0 - Iron deficiency anemia secondary to blood loss (chronic) Thyroid Stimulating Hormone Today D50.0 - Iron deficiency anemia secondary to blood loss (chronic) Vitamin B12 and Folate Today D50.0 - Iron deficiency anemia secondary to blood loss (chronic) Vitamin D 25-OH Total Today D50.0 - Iron deficiency anemia secondary to blood loss (chronic) Reticulocyte Count Today D50.0 - Iron deficiency anemia secondary to blood loss (chronic) Referrals Cardiology Referral R00.2 - Palpitations
== END 2024-02-26 17:01 | disposition home or self-care (01) ==
LOC: HO.HMCH 15:57
PROVIDERS: PCP Internal Medicine; Visit Provider Internal Medicine
DX: Z00.00 Encounter for general adult medical examination without abnormal findings (principal); Z72.0 Tobacco use; K90.0 Celiac disease; D50.9 Iron deficiency anemia, unspecified; D21.9 Benign neoplasm of connective and other soft tissue, unspecified; R00.2 Palpitations; R13.12 Dysphagia, oropharyngeal phase; F41.1 Generalized anxiety disorder

== ENCOUNTER → 2024-02-26 15:56 | Outpatient (BNVA) | payer OTHER, SELFPAY | PROVIDERS: PCP Internal Medicine; Visit Provider Internal Medicine | DX: Z00.01 Encounter for general adult medical examination with abnormal findings (principal); K90.0 Celiac disease; D50.9 Iron deficiency anemia, unspecified; D21.9 Benign neoplasm of connective and other soft tissue, unspecified; R00.2 Palpitations; R13.12 Dysphagia, oropharyngeal phase; F41.1 Generalized anxiety disorder; Z72.0 Tobacco use | CPT/HCPCS: 99396 ==

== ENCOUNTER 2024-03-01 13:50 | Outpatient (AMB) | payer OTHER, SELFPAY ==
--- NOTE | 2024-03-01 14:03 | A.OFFVIS_ITS ---
Vital Signs 03/01/24 14:04 Height 5 ft 2 in Weight 211 lb 10.3 oz BMI 38.7 BP 112/54 L Blood Pressure Location Lt brachial Position Sitting Pulse 89 Intake Visit Reasons: 6 months follow up Intake Note: Sveta presents in the office as a 6 month follow up. CC: No concerns at this time. Skein Yarn Dyer Helper Required: No Allergies Penicillins [PENICILLINS] Allergy (Severe, Verified 03/01/24 14:07) ANAPHYLAXIS amitriptyline [AMITRIPTYLINE] Allergy (Intermediate, Verified 03/01/24 14:07) HIVES banana Allergy (Intermediate, Verified 03/01/24 14:07) Hives kiwi [KIWI] Allergy (Intermediate, Verified 03/01/24 14:07) HIVES pineapple Allergy (Intermediate, Verified 03/01/24 14:07) Hives clams Allergy (Unknown, Verified 03/01/24 14:07) Unknown gluten Allergy (Unknown, Verified 03/01/24 14:07) Unknown MEAT Allergy (Severe, Uncoded 02/26/24 15:59) HIVES,ANAPHYLAXIS dairy Adverse Reaction (Intermediate, Uncoded 02/26/24 15:59) pt states allery to all Dairy Products HPI Comments Details: 47y.o F with likely celiac disease (TTg neg, gliadin mildly up and path with mildly increased IELs) 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 10/11/22: Pt has previously seen Dr Gonzalez. Does not report any abd pain, N,V,D as long as she remains adherent to gluten free diet. Anemia improved on most recent labs but Vit D and protein noted to be slightly low. On Vit D supplement since then. Last EGD/colo in 2019. 02/10/23: Here after visit to ER for severe left sided abdominal pain. Around 2 weeks ago started developing left upper sided pain which would get triggered by eating or drinking anything. Pain onset would be less than 30 mins after intake. Character is burning and would radiate to her back. Gets better with omeprazole and aloe juice. No NSAID use recently. BMs are also lose and she thinks they look black. No iron use or peptobismol. Labs in ER reassuring, anemia in fact better than before but to recall pt on iron infusions since Dec. 02/11/23: EGD (Dr Baig): Larynx:normal Esophagus: GE junction at 38 cm, diaphragm hiatus at 38 cm, mild esophagitis with irregular Z line, bx taken as well as from distal and proximal esophagus Stomach: Patchy gastric erythema. Biopsies were obtained. Grade 2 flap valve on retroflexed examination of the cardia. The pyloric outlet was tight and stretched with 20 mm pyloric balloon, no tear seen. Good motility noted. Duodenum: Normal bulb and descending duodenum, bx taken incl for flow cytometry, Disaccharidases, amyloid Intervention: Biopsies as noted above, balloon dilation Path: A. Duodenum, biopsy: Duodenal mucosa with preserved villi and no specific change; negative for amyloid. B. Duodenum, biopsy: Entire specimen submitted for flow cytometry; report to follow; gross description only. -- Flow reviewed, normal. C. Stomach wall, biopsy: Gastric antral and body mucosa with focal congestion, focal reactive changes, and focal minimal chronic inactive inflammation; negative for H pylori, intestinal metaplasia and dysplasia. D. Gastroesophageal junction, biopsy: Squamous mucosa with mild hyperplasia and focal mild spongiosis, and columnar mucosa with mild chronic active inflammation consistent with esophagitis; negative for intestinal metaplasia and dysplasia. E. Esophagus, distal, biopsy squamous mucosa with hyperplasia and rare intraepithelial eosinophils (up to 1 per high-power field) consistent with esophagitis; no columnar mucosa present. F. Esophagus, proximal, biopsy: Squamous mucosa with no specific change; no columnar mucosa present. 02/26/23: Pt seen in office. EGD findings reviewed. Was reassured no gastritis or ulcer since the EGD was primarily done for LUQ pain with question of melena. In addition, had normal small bowel path i.e good compliance and response to GFD. Flow cyto normal. Pt also brings up macular rash on her arms - occurs unpredictably. Has not been seen by Derm as rash fluctuates. 08/29/23: Here for routine follow up. No acute GI complaints including abd pain, N,V, D. Is very particular about gluten free diet. Due for monitoring. CBC, iron,B12, daksha and mag levels good. 03/01/24: Doing well. No acute GI issues. Has been seen by irrigation teacher and reports receiving anti-histamine for elevated IgA?? Has also undergone skin testing for other allergens. More recently reports palpitations. Had Holter monitoring done over the weekend and also being referred to cardiology. [facility] Medical History (Updated 02/26/24 @ 18:42 by Jennifer Aguiar MD) Iron deficiency anemia Neuropathy Left upper quadrant abdominal pain Lumbar radiculopathy Sacroiliac dysfunction Lumbar facet arthropathy Smoker Multiple allergies Encounter for annual routine gynecological examination Internal derangement of left knee Effusion, left knee Encounter for IUD removal Hair loss Amezcua cyst Right knee pain Pain in left knee Chronic knee pain Anxiety and depression IUD check up Body mass index [BMI] 38.0-38.9, adult Left knee pain Physical exam (~03/2021) Polyarthralgia Fatigue Low back pain Menometrorrhagia Swelling, lymph nodes Encounter for general adult medical examination with abnormal findings Common cold Ear anomaly Generalized abdominal pain Osteopenia Soft tissue injury of left knee Left knee sprain Low vitamin D level Celiac disease Family history of thyroid disease Hx of head injury Hx of migraines Surgical History H/O knee surgery History of left knee surgery H/O esophagogastroduodenoscopy Hx of colonoscopy Previous section Hx of foot surgery Hx of shoulder surgery Hx of cholecystectomy Family History (Updated 02/26/24 @ 16:44 by Jennifer Aguiar MD) Father Diabetes Hypercholesterolemia Chronic kidney disease Hypertension Mother Hypercholesterolemia Hypertension Maternal Grandmother History of breast cancer Paternal Grandfather CAD (coronary artery disease) Other No family history of cancer Social History (Updated 02/26/24 @ 16:45 by Jennifer Aguiar MD) Household Members: Family Household Members Other:: children and parents Housing: House Are you a primary manager career to a significant other at home: No Do you presently have visiting nurse or other home services: No Alcohol intake: current Alcohol intake frequency: holidays/special occasions only Comment: once a month 1-2 glasses Patient Tobacco Use Status: Current everyday Tobacco user Tobacco use type: Cigarette Cigarette Packs Per Day: 0.5 Cigarettes Per Day: 10.0 Years Smoked: 21. 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 Sexual orientation: Straight/Heterosexual Gender identity: Female Cognitive needs: No Hearing needs: No Vision needs: Yes Female Reproductive History Menstrual Age of Menarche: 13 Physical Exam Vital Signs: Last Vital Signs Pulse 89 03/01/24 14:04 BP 112/54 L 03/01/24 14:04 BMI result Body Mass Index 38.7 Assessment & Plan Assessment & Plan (1) Celiac disease: Code(s): K90.0 - Celiac disease Category: Medical (2) Iron deficiency anemia: Code(s): D50.9 - Iron deficiency anemia, unspecified Category: Medical Qualifiers: Iron deficiency anemia type: unspecified iron deficiency Qualified Code(s): D50.9 - Iron deficiency anemia, unspecified (3) Osteopenia: Code(s): M85.80 - Other specified disorders of bone density and structure, unspecified site Category: Medical (4) Smoker: Code(s): F17.200 - Nicotine dependence, unspecified, uncomplicated Category: Social Hx Plan From previous visit: Reviewed with pt that ideally in pts with negative serology and Waggoner 1 lesion (IELs 53 with normal crypts and villi), ideally should rebiopsy on GFD in 12m, despite a high risk haplotype, to establish diagnosis. However pt currently hesitant to pursue a repeat upper endoscopy. She states that since she is feeling better on GFD will likely not change her dietary preferences at this time. Doing well. No acute issues today. Again counseled on smoking cessation - she is aware this is a negative coping mechanism. Due for EGD/colo as below. Plan: - Known osteopenia - repeat dexa due 2024 - [place] - no polyps on 2019 however complete report not available and therefore will book her for repeat in 2024. Will also book an EGD alongside for duodenal biopsies. - PEG Rx given and instrucitons reviewed. Handout provided as well. - Smoking cessation counseling again done. May help with palpitations as well. Follow up after procedures Medications: New peg 3350-electrolytes 236-22.74-6.74 -5.86 gram (Golytely) as per split prep instructions, until fecal effluent is clear 240 mL PO Q10M 4,000 mL 0RF colonoscopy Coding Level of Care Code Est Pt Level 4 (10492) Diagnoses Celiac disease K90.0 Iron deficiency anemia, unspecified iron deficiency anemia type D50.9 Iron deficiency anemia type: unspecified iron deficiency Osteopenia M85.80 Smoker F17.200
[2024-03-01 14:04] VITALS: BP 112/54; PULSE 89; BMI 38.7
== END 2024-03-01 15:27 | disposition home or self-care (01) ==
LOC: HO.HGI 13:55
PROVIDERS: PCP Internal Medicine; Visit Provider Internal Medicine
DX: K90.0 Celiac disease (principal); D50.9 Iron deficiency anemia, unspecified; M85.80 Other specified disorders of bone density and structure, unspecified site; F17.200 Nicotine dependence, unspecified, uncomplicated
CPT/HCPCS: 99214

== ENCOUNTER → 2024-03-01 13:50 | Outpatient (BNVA) | payer OTHER, SELFPAY | PROVIDERS: PCP Internal Medicine; Visit Provider Internal Medicine | DX: K90.0 Celiac disease (principal); R00.2 Palpitations; D50.9 Iron deficiency anemia, unspecified; M85.80 Other specified disorders of bone density and structure, unspecified site; F17.210 Nicotine dependence, cigarettes, uncomplicated | CPT/HCPCS: 99212 ==

== ENCOUNTER 2024-03-09 16:36 | Outpatient (REF) | payer OTHER, SELFPAY ==
[2024-03-09 17:05] LABS: MANUAL DIFF FLAG NO
[2024-03-09 17:10] LABS: Basophils Absolute Auto 0.1 X10*3/uL (0.0-0.2); Eosinophils Absolute Auto 0.1 X10*3/uL (0.0-0.4); Hematocrit 33.9 % (37.0-47.0); Hemoglobin 10.6 g/dl (12.0-16.0); Imm Gran Abs Auto 0.03 X10*3/uL (0.00-0.03); Imm Gran Pct Auto 0.4 % (0.0-0.4); Lymphocytes Absolute Auto 1.8 X10*3/uL (1.2-4.9); Lymphocytes Percent Auto 25.1 % (20-40); Mean Corpuscular HGB Conc 31.3 g/dl (31.0-35.0); Mean Corpuscular Hemoglobin 26.4 pg (27.0-33.0); Mean Corpuscular Volume 84.3 fL (80.0-98.0); Mean Platelet Volume 9.9 fL (9.4-12.3); Monocytes Absolute Auto 0.4 X10*3/uL (0.1-1.2); Monocytes Percent Auto 5.3 % (2-11); Neutrophils Absolute Auto 4.7 x10*3/uL (2.0-8.3); Neutrophils Percent Auto 66.2 % (45-73); Platelet Count 378 X10*3/uL (160-400); Red Blood Count 4.02 X10*6/uL (4.20-5.50); Red Cell Distribution Width 14.6 % (11.0-16.0); White Blood Count 7.1 X10*3/uL (4.8-10.8)
[2024-03-11 03:38] LABS: Immunoglobulin A 370 mg/dL (47-310); Immunoglobulin G 1127 mg/dL (600-1640); Immunoglobulin M 55 mg/dL (50-300)
[2024-03-11 23:04] LABS: Class Alternaria alternata 0; Class Aspergillus fumigatus 0; Class Bermuda Grass 0; Class Birch 0; Class Cat Dander 0; Class Cladosporium herbarum 0; Class Cockroach 0; Class Common Ragweed 0; Class Cottonwood 0; Class Derm. pterony 0; Class Dermatophagoides farinae 0; Class Dog Dander 0; Class Elm 0; Class Maple Box Elder 0; Class Mountain Cedar 0; Class Mouse Urine Protein 0; Class Mugwort 0; Class Oak 0; Class Penicillium crysogenum 0; Class Rough Pigweed 0; Class Sheep Sorrel 0; Class Sycamore 0; Class Timothy Grass 0; Class Walnut Tree 0; Class White Ash 0; Class White Mulberry 0; D001 IgE D pteronyssinus <0.10 kU/L; D002 - IgE D farinae <0.10 kU/L; E001 - IgE Cat Dander <0.10 kU/L; E005 - IgE Dog Dander <0.10 kU/L; E072-IgE Mouse Urine <0.10 kU/L; G002 IgE Bermuda Grass <0.10 kU/L; G006 - IgE Timothy Grass <0.10 kU/L; I006-IgE Cockroach, German <0.10 kU/L; Immunoglobulin E 39 kU/L (<OR=114); M001 IgE Penicillium chrysogen <0.10 kU/L; M002 - IgE Cladosporium herbar <0.10 kU/L; M003 - IgE Aspergillus fumigat <0.10 kU/L; M006 - IgE Alternaria alternat <0.10 kU/L; T001 IgE Maple/Box Elder <0.10 kU/L; T003 IgE Common Silver Birch <0.10 kU/L; T006 - IgE Cedar, Mountain <0.10 kU/L; T007 - IgE Oak, White <0.10 kU/L; T008 IgE Elm, American <0.10 kU/L; T010 - IgE Walnut <0.10 kU/L; T011 - IgE Maple Leaf Sycamore <0.10 kU/L; T014 - IgE Cottonwood <0.10 kU/L; T015 - IgE Ash, White <0.10 kU/L; T070 - IgE White Mulberry <0.10 kU/L; W001 - IgE Ragweed, Short <0.10 kU/L; W006 - IgE Mugwort <0.10 kU/L; W014 IgE Pigweed, Common <0.10 kU/L; W018 IgE Sheep Sorrel <0.10 kU/L
[2024-03-16 17:08] LABS: Immunoglobulin E 57 kU/L (<OR=114)
== END 2024-03-09 16:37 | disposition home or self-care (01) ==
LOC: HO.LAB 16:36
PROVIDERS: PCP Internal Medicine; Visit Provider Nurse Practitioner Family
DX: R76.8 Other specified abnormal immunological findings in serum (principal); L50.3 Dermatographic urticaria; J30.9 Allergic rhinitis, unspecified
CPT/HCPCS: 36415; 82784; 82785; 83520; 85025; 86003

== ENCOUNTER 2024-04-07 15:56 | Outpatient (REF) | payer OTHER, SELFPAY ==
[2024-04-07 11:04] VITALS: PULSE 70; O2SAT 98
--- NOTE | 2024-04-07 16:01 | PFT_ITS ---
Indication: Dyspnea Spirometry [FEV1 to FVC 83%; FEV1 2.61 L; FVC 3.13 L. there was a significant response to bronchodilators noted. Maximum voluntary ventilation 68%] Lung Volumes [Prolonged capacity 85% predicted; expiratory reserve volume 42% predicted] Diffusion Capacity [DLCO 82% predicted] Comparisons [none] Interpretation [No obstructive nor restrictive ventilatory defects identified. There is a significant response to bronchodilators noted. Mild decrease in the maximum voluntary ventilation which is likely secondary to deconditioning although can not rule out neuromuscular disease. Lung volumes are normal except for decreasing the expiratory reserve volume secondary to likely an elevated BMI. Diffusing capacity is within normal limits. If asthma is differential methacholine challenge may be helpful for assessing for hyperreactive airways. Clinical correlation warranted.] MTDD
--- OUTSIDE RECORDS SUMMARY | 2024-04-08 03:06 | XMS_ITS | Patient Health Record ---
Author Organization [facility], [facility] Address [address] [place] [phone] Support Name Relationship Address Phone Sveta Rashid Guarantor Unknown Unavailabl e REASON FOR REFERRAL No Information PLAN OF TREATMENT No Information
== END 2024-04-07 15:57 | disposition home or self-care (01) ==
LOC: HO.RESP 15:56
PROVIDERS: PCP Internal Medicine; Visit Provider Internal Medicine
DX: R06.2 Wheezing (principal)
CPT/HCPCS: 94010; 94640; 94727; 94729

== ENCOUNTER → 2024-04-07 16:01 | Outpatient (BNV) | payer OTHER, SELFPAY | PROVIDERS: PCP Internal Medicine; Visit Provider Hospitalist | DX: R06.09 Other forms of dyspnea (principal) | CPT/HCPCS: 94060; 94727; 94729 ==

== ENCOUNTER → 2024-05-27 14:20 | Outpatient (BNVA) | payer OTHER, SELFPAY | PROVIDERS: PCP Internal Medicine; Visit Provider Advanced Practice Midwife | DX: Z01.419 Encounter for gynecological examination (general) (routine) without abnormal findings (principal); D21.9 Benign neoplasm of connective and other soft tissue, unspecified; N93.9 Abnormal uterine and vaginal bleeding, unspecified; R23.2 Flushing | CPT/HCPCS: 99212; 99396; 99459 ==

== ENCOUNTER 2024-06-08 16:11 | Outpatient (REF) | payer OTHER, SELFPAY ==
--- NOTE | ~2024-06-08 | US_ITS ---
EXAMINATION: US PELVIS TRANSABDOMINAL AND TRANSVAGINAL HISTORY: D21.9 - Benign neoplasm of connective and other soft tissue, unspecified COMPARISON: Comparison is made with the prior examination dated 04/08/2023. TECHNIQUE: Transabdominal and endovaginal real-time 2D enamorado-scale ultrasound was performed. FINDINGS: Uterus: The uterus is normal in size, measuring 9.1 x 5.7 x 5.3 cm. Myometrium has markedly heterogeneous echotexture. Again seen is a posterior fibroid measuring 1.5 x 1.2 x 1.6 cm. Endometrium: The endometrial stripe measures 4 mm in thickness. Right ovary: The right ovary measures 2.5 x 2.1 x 1.3 cm. The right ovary is normal in size and echotexture. There is a 0.9 x 1.4 x 1.4 cm paraovarian cyst. Left ovary: The left ovary measures 3.0 x 3.5 x 3.2 cm. There is a 2.2 x 2.2 x 2.2 cm left ovarian follicle. Pelvic fluid: none. US/US pelvic and transvaginal IMPRESSION: 1. 1.5 x 1.2 x 1.6 cm uterine fibroid. The uterus demonstrates markedly heterogeneous echotexture which may reflect additional fibroids or adenomyosis. This could be further evaluated with MRI if indicated. 2. 1.4 x 1.4 x 0.9 cm right paraovarian cyst. Electronically signed by: Malik Chambers MD 06/09/2024 07:25 AM EST
--- OUTSIDE RECORDS SUMMARY | 2024-06-08 16:23 | XMS_ITS | Patient Health Record ---
Author Organization [facility], [facility] Address [address] [place] [phone] Support Name Relationship Address Phone Sveta Rashid Guarantor Unknown Unavailabl e REASON FOR REFERRAL No Information PLAN OF TREATMENT No Information
--- OUTSIDE RECORDS SUMMARY | 2024-06-08 16:23 | XMS_ITS | Clinical Summary ---
Author Organization [address] [facility] Address [address] [place] [address] Phone Care Team Providers Care Culinary Artist Name Role Phone Jennifer Aguiar MD Primary Care Provider [phone] Allergies Active Allergy Reactions Criticality Noted Date Comments Amitriptyline Anaphylaxis High 04/30/2017 Kiwi (Actinidia Chinensis) Anaphylaxis High 04/30/19 18 Penicillins 04/30/2017 Other Reaction(s): Rash/Dermatitis Medications escitalopram (LEXAPRO) 20 mg tablet Take 20 mg by mouth daily. Active ferrous sulfate 325 mg (65 mg elemental iron) tablet Take by mouth. Active sodium chloride 0.9 % injection Inject 1,000 mL into the vein every hour. 04/30/2017 Active Active Problems Problem Noted Date Diagnosed Date Anxiety and depression 02/27/2024 Iron deficiency anemia 02/27/2024 Near syncope 02/27/2024 Encounters Date Type Department Care Team Description 03/22/2024 10:45 AM EST Office Visit Orthopedic Surgery - [place] [address] [facility] [address] [place] [id number] Hugh Rousseau, DPJosué Posterior tibial tendinitis of left leg (Primary Dx); Disorder of ligament of ankle, left; Lumbosacral radiculopathy 03/12/2024 6:59 PM EST - 03/12/2024 11:59 PM EST Hospital Encounter [facility] MRI [address] [place] [phone] Peroneal tendinitis, left leg Discharge Disposition: Home or Self Care from Last 3 Months Immunizations Name Administration Dates Next Due DTP 08/18/1981, 8,02/27/1977,1976,1976 Influenza trivalent, 0.5mL, preservative free (Fluarix; FluLaval; Fluzone) ages 6mo and older (Afluria) 3 years and older 01/07/2013,02/22/1997 MMR, measles mumps and rubel la Live (Priorix; M-M-R II) 12mo and older 08/14/1992,11/27/1977 OPV 08/18/1981, 8,03/29/1977,1976,1976 Td Tetanus diptheria (Tdvax) 7yo and older 12/29/1997 Varicella live (Varivax) 12m o and older 04/28/1984 Social History Tobacco Use Types Packs/Day Years Used Date Smoking Tobacco: Never Assessed Comments Unknown Sex and Gender Information Value Date Recorded Sex Assigned at Not on file Legal Sex Female 9:07 PM EST Gender Identity Not on file Sexual Orientation Not on file Last Filed Vital Signs Vital Sign Reading Time Taken Comments Blood Pressure - - Pulse - - Temperature - - Respiratory Rate - - Oxygen Saturation - - Inhaled Oxygen Concentration - - Weight 97.1 kg (214 lb) 03/22/2024 11:02 AM EST Height 157.5 cm (5' 2 ) 03/22/2024 11:02 AM EST Body Mass Index 39.14 03/22/2024 11:02 AM EST Plan of Treatment Health Maintenance Due Date Last Done Comments Breast Cancer Screening 1976 Hepatitis B Vaccines (1 of 3 - 19+ 3-dose series) 09/17/1995 Cervical Cancer Screening: Pap Smear 1997 COVID-19 Vaccine (2023- season) 2023 09/22/2020, 09/01/2020 Influenza Vaccine (#1) 2023 6, 01/07/2013, 02/22/1997 Cholesterol Screening (Lipid Panel) 02/23/2024 06/30/2001 Colorectal Cancer Screening: Colonoscopy 02/23/2024 Depression Screening 02/23/2024 HIV Screening 02/23/2024 Hepatitis C Screening 02/23/2024 Social Influencers of Health Screening 02/23/2024 DTaP,Tdap,and Td Vaccines (8 - Td or Tdap) 10/09/2032 10/09/2022, 12/29/1997, 08/18/1981, Additional history exists IPV Vaccines Completed 08/18/1981, 02/27, 03/29/1977, Additional history exists Varicella Vaccines Aged Out 04/28/1984 No longer eligible based on patient's age to complete this topic MMR Vaccines Completed 08/14/1992, 11/27/1977 HIB Vaccines Aged Out No longer eligi ble based on patient's age to complete this topic HPV Vaccines Aged Out No longer eligi ble based on patient's age to complete this topic Hepatitis A Vaccines Aged Out No long er eligible based on patient's age to complete this topic Meningococcal ACWY Vaccine Aged Out N o longer eligible based on patient's age to complete this topic Pneumococcal Vaccine: Pediatrics (0 to 5 Years) and At-Risk Patients (6 to 64 Years) Aged Out No longer eligible based on patient's age to complete this topic RSV Immunization Patients Under 20 months Aged Out No longer eligible based on patient's age to complete this topic Procedures Procedure Name Priority Date/Time Associated Diagnosis Comments MR ANKLE WO CONTRAST LEFT Routine 03/12/2024 7:42 PM EST Peroneal tendinitis, left leg LIPID PANEL Routine 06/30/2001 from Last 3 Months or Most Recently Relevant to Health Maintenance Results * MR Ankle wo Contrast Left (03/12/2024 7:42 PM EST) Anatomical Region Laterality Modality Lower Extremities, Ankle Left Magneti c Resonance 03/15/2024 2:32 PM EST Impressions 03/15/2024 2:54 PM EST Tendinopathy of the distal tibialis posterior tendon. Degenerative signal in the spring ligament. -------- FINAL REPORT -------- Dictated By: Fernando Garcia Dictated Date: 03/15/2024 14:32 ET Assigned Physician: Fernando Garcia Reviewed and Electronically Signed By: Fernando Garcia Signed Date: 03/15/2024 14:54 ET Workstation ID: [id number] Transcribed By: Self Edit Transcribed Date: 03/15/2024 14:33 ET Narrative 03/15/2024 2:54 PM EST MRI of the left ankle, 03/15/2024 2:32 PM. HISTORY: LT POSTERIOR TIBIAL TENDINITIS. ??PAIN AFTER WEIGHTLIFTING INJURY. COMPARISON: None. ?? TECHNIQUE: Multiplanar multisequence MRI of the left ankle without intravenous contrast administration. FINDINGS: Tendons: The Achilles tendon is normal in caliber, contour, and signal. ??The peroneal tendons are normal. ??There is tendinopathy of the most distal aspect of the posterior tibial tendon. ??The flexor digitorum and flexor hallucis longus tendon are normal. ??The extensor tendons are normal. Ligaments: The anterior and posterior tibiofibular and talofibular ligaments are normal. ??Calcaneofibular ligament is normal. ??Deltoid complex is normal. ??There is increased signal in the spring ligament but the fibers appear intact. Plantar fascia: Normal. Bones: No marrow signal abnormality. ??No significant degenerative change. Soft tissues: No mass or fluid collection. Procedure Note Fernando Garcia MD - 03/15/2024 MRI of the left ankle, 03/15/2024 2:32 PM. HISTORY: LT POSTERIOR TIBIAL TENDINITIS. PAIN AFTER WEIGHTLIFTINGINJURY. COMPARISON: None. TECHNIQUE: Multiplanar multisequence MRI of the left ankle withoutintravenous contrast administration. FINDINGS: Tendons: The Achilles tendon is normal in caliber, contour, and signal.The peroneal tendons are normal. There is tendinopathy of the most distalaspect of the posterior tibial tendon. The flexor digitorum and flexorhallucis longus tendon are normal. The extensor tendons are normal. Ligaments: The anterior and posterior tibiofibular and talofibularligaments are normal. Calcaneofibular ligament is normal. Deltoidcomplex is normal. There is increased signal in the spring ligament butthe fibers appear intact. Plantar fascia: Normal. Bones: No marrow signal abnormality. No significant degenerativechange. Soft tissues: No mass or fluid collection. IMPRESSION: Tendinopathy of the distal tibialis posterior tendon. Degenerative signal in the spring ligament. -------- FINAL REPORT -------- Dictated By: Fernando Garcia Dictated Date: 03/15/2024 14:32 ET Assigned Physician: Fernando Garcia Reviewed and Electronically Signed By: Fernando Garcia Signed Date: 03/15/2024 14:54 ET Workstation ID: [id number] Transcribed By: Self Edit Transcribed Date: 03/15/2024 14:33 ET Hugh Rousseau DPJosué IMG MRI PROCEDURES Final Re sult * (ABNORMAL) Lipid panel (06/30/2001) LDL/HDL Ratio 5(A) 1 - 4 Triglycerides 75 10 - 140 mg/dL Cholesterol 184 10 - 200 mg/dL HDL 38 32 - 96 mg/dL LDL Cholesterol 131 62 - 185 mg/dL Blood Venous blood specimen / Unknown Historical Provider LAB BLOOD ORDERABLES Kajal l Result from Last 3 Months or Most Recently Relevant to Health Maintenance Insurance MEDICAID - [place] Care Teams Culinary Artist Relationship Specialty Start Date End Date Jennifer Aguiar MD [address] [place] [address] [address] [facility] [place] [address] PCP - General 11/17/23
== END 2024-06-08 16:12 | disposition home or self-care (01) ==
LOC: HO.US 16:11
PROVIDERS: PCP Internal Medicine; Visit Provider Advanced Practice Midwife
DX: D21.9 Benign neoplasm of connective and other soft tissue, unspecified (principal)
CPT/HCPCS: 76830; 76856

== ENCOUNTER → 2024-06-08 16:13 | Outpatient (BNV) | payer OTHER, SELFPAY | PROVIDERS: PCP Internal Medicine; Visit Provider Radiology Diagnostic Radiology | DX: D25.9 Leiomyoma of uterus, unspecified (principal); D28.2 Benign neoplasm of uterine tubes and ligaments | CPT/HCPCS: 76830; 76856 ==

== ENCOUNTER 2024-06-08 16:47 | Outpatient (REF) | payer OTHER, SELFPAY ==
[2024-06-08 17:06] LABS: MANUAL DIFF FLAG NO
[2024-06-08 17:12] LABS: Basophils Absolute Auto 0.1 X10*3/uL (0.0-0.2); Basophils Percent Auto 0.8 % (0-2); Eosinophils Absolute Auto 0.1 X10*3/uL (0.0-0.4); Eosinophils Percent Auto 1.7 % (0-4); Hematocrit 29.7 % (37.0-47.0); Hemoglobin 8.8 g/dl (12.0-16.0); Imm Gran Abs Auto 0.03 X10*3/uL (0.00-0.03); Imm Gran Pct Auto 0.5 % (0.0-0.4); Lymphocytes Absolute Auto 1.5 X10*3/uL (1.2-4.9); Lymphocytes Percent Auto 24.5 % (20-40); Mean Corpuscular HGB Conc 29.6 g/dl (31.0-35.0); Mean Corpuscular Hemoglobin 22.1 pg (27.0-33.0); Mean Corpuscular Volume 74.4 fL (80.0-98.0); Mean Platelet Volume 9.3 fL (9.4-12.3); Monocytes Absolute Auto 0.5 X10*3/uL (0.1-1.2); Monocytes Percent Auto 7.7 % (2-11); Neutrophils Absolute Auto 3.9 x10*3/uL (2.0-8.3); Neutrophils Percent Auto 64.8 % (45-73); Platelet Count 350 X10*3/uL (160-400); Red Blood Count 3.99 X10*6/uL (4.20-5.50); Red Cell Distribution Width 16.9 % (11.0-16.0)
[2024-06-08 17:13] LABS: Immature Retic Fraction 21.6 % (3.0-15.9); Retic HGB Equivalent 19.4 pg (30.0-35.0); Reticulocyte Percent 1.3 % (0.5-1.8); Reticulocytes Absolute 0.051 X10*6/uL (0.026-0.095)
[2024-06-08 17:54] LABS: Alanine Aminotransferase 15 U/L (0-31); Albumin Level 4.1 g/dL (3.5-5.0); Alkaline Phosphatase 55 U/L (39-117); Anion Gap 10 (12-20); Aspartate Amino Transferase 18 U/L (5-31); Bilirubin Total 0.2 mg/dL (0.0-1.0); Blood Urea Nitrogen 7 mg/dL (9-16); Calcium 9.3 mg/dL (8.4-10.2); Carbon Dioxide 27 mmol/L (22-29); Chloride 104 mmol/L (96-108); Cholesterol 189 mg/dL (<200); Estimated Glomerular Filt Rate > 60; Glucose Random 110 mg/dL (60-115); HDL Cholesterol 48 mg/dL (>40); Iron 12 mcg/dL (30-160); LDL Cholesterol Calculated 127 mg/dL (<100); Percent Iron Saturation 3 % (15-50); Potassium 3.9 mmol/L (3.3-5.1); Sodium 137 mmol/L (135-145); Total Iron Binding Capacity 382 mcg/dL (228-428); Total Protein 7.8 g/dL (6.5-8.0); Triglycerides 73 mg/dL (<150); Unsaturated Iron Binding 370 ug/dL
[2024-06-08 18:05] LABS: Ferritin 4 ng/mL (10-250); Free T4 (Free Thyroxine) 1.05 ng/dL (0.71-1.85); Vitamin D 25-OH Total 87.7 ng/mL (>30)
[2024-06-08 18:08] LABS: Thyroid Stimulating Hormone 2.06 uIU/mL (0.32-4.0)
[2024-06-08 18:18] LABS: Vitamin B12 287 pg/mL (200-900)
[2024-06-09 05:17] LABS: Estimated Average Glucose 108 mg/dL; Hemoglobin A1C 83.7181 umol/L; Hemoglobin A1c % 5.4 % (<6.0)
[2024-06-09 23:33] LABS: Follicle Stimulating Hormone 28.2 mIU/mL
== END 2024-06-08 16:48 | disposition home or self-care (01) ==
LOC: HO.LAB 16:47
PROVIDERS: PCP Internal Medicine; Visit Provider Advanced Practice Midwife
DX: N92.1 Excessive and frequent menstruation with irregular cycle (principal); R23.2 Flushing; D50.0 Iron deficiency anemia secondary to blood loss (chronic); E78.00 Pure hypercholesterolemia, unspecified
CPT/HCPCS: 36415; 80053; 80061; 82306; 82607; 82728; 82746; 83001; 83036; 83540; 84439; 84443; 85025; 85045

== ENCOUNTER 2024-06-15 12:58 | Outpatient (AMB) | payer OTHER, SELFPAY ==
--- NOTE | 2024-06-15 12:57 | A.OFFVIS_ITS ---
Intake Visit Reasons: ultrasound results Allergies Penicillins [PENICILLINS] Allergy (Severe, Verified 05/27/24 14:29) ANAPHYLAXIS amitriptyline [AMITRIPTYLINE] Allergy (Intermediate, Verified 05/27/24 14:29) HIVES banana Allergy (Intermediate, Verified 05/27/24 14:29) Hives kiwi [KIWI] Allergy (Intermediate, Verified 05/27/24 14:29) HIVES pineapple Allergy (Intermediate, Verified 05/27/24 14:29) Hives clams Allergy (Unknown, Verified 05/27/24 14:29) Unknown gluten Allergy (Unknown, Verified 05/27/24 14:29) Unknown MEAT Allergy (Severe, Uncoded 02/26/24 15:59) HIVES,ANAPHYLAXIS dairy Adverse Reaction (Intermediate, Uncoded 02/26/24 15:59) pt states allery to all Dairy Products HPI Comments Details: Presenting referred from Aleksandra Mari CNM regarding abnormal uterine bleeding. The following workup was done: H&H= 28/8.2 TSH /free T4= within normal FSH= 28.2 in the menopausal range, a FSH in 11/18 was 115. EMB pathology showed the following: Disordered weakly proliferative endometrium with breakdown; no atypia or hyperplasia identified. 09/15 co testing was negative 11/18 mammogram was BI-RADS 1 06/22 pelvic ultrasound showed the following: Uterus: The uterus is normal in size, measuring 9.1 x 5.7 x 5.3 cm. Myometrium has markedly heterogeneous echotexture. Again seen is a posterior fibroid measuring 1.5 x 1.2 x 1.6 cm. Endometrium: The endometrial stripe measures 4 mm in thickness. Right ovary: The right ovary measures 2.5 x 2.1 x 1.3 cm. The right ovary is normal in size and echotexture. There is a 0.9 x 1.4 x 1.4 cm paraovarian cyst. Left ovary: The left ovary measures 3.0 x 3.5 x 3.2 cm. There is a 2.2 x 2.2 x 2.2 cm left ovarian follicle. Pelvic fluid: none. The patient has an appointment with hematology for iron transfusion The patient was counseled about options of treatment few months ago and decided to proceed with hysterectomy and was and even placed charting clerk surgery at [facility] and [facility] but the patient has insurance was not take [facility] Medical History Hot flashes Left foot pain Left ankle pain Iron deficiency anemia Neuropathy Left upper quadrant abdominal pain Lumbar radiculopathy Sacroiliac dysfunction Lumbar facet arthropathy Smoker Multiple allergies Encounter for annual routine gynecological examination Internal derangement of left knee Effusion, left knee Encounter for IUD removal Hair loss Amezcua cyst Right knee pain Pain in left knee Chronic knee pain Anxiety and depression IUD check up Body mass index [BMI] 38.0-38.9, adult Left knee pain Physical exam (~03/2021) Polyarthralgia Fatigue Low back pain Menometrorrhagia Swelling, lymph nodes Encounter for general adult medical examination with abnormal findings Common cold Ear anomaly Generalized abdominal pain Osteopenia Soft tissue injury of left knee Left knee sprain Low vitamin D level Celiac disease Family history of thyroid disease Hx of head injury Hx of migraines Surgical History H/O knee surgery History of left knee surgery H/O esophagogastroduodenoscopy Hx of colonoscopy Previous section Hx of foot surgery Hx of shoulder surgery Hx of cholecystectomy Family History Father Diabetes Hypercholesterolemia Chronic kidney disease Hypertension Colon polyp Mother Hypercholesterolemia Hypertension Colon cancer Maternal Grandmother History of breast cancer Paternal Grandfather CAD (coronary artery disease) Other No family history of cancer Social History Household Members: Family Household Members Other:: children and parents Housing: House Are you a primary career discovery teacher to a significant other at home: No Do you presently have visiting nurse or other home services: No Alcohol intake: current Alcohol intake frequency: holidays/special occasions only Comment: once a month 1-2 glasses Patient Tobacco Use Status: Current everyday Tobacco user Tobacco use type: Cigarette Cigarette Packs Per Day: 0.5 Cigarettes Per Day: 10.0 Years Smoked: 21. 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 Sexual orientation: Straight/Heterosexual Gender identity: Female Cognitive needs: No Hearing needs: No Vision needs: Yes Female Reproductive History Menstrual Age of Menarche: 13 Review of Systems Const All systems reviewed & are unremarkable except as noted in HPI and below Reports as per HPI and Reports no additional complaints GI Reports no additional complaints Reports no additional complaints Telehealth Telehealth Telehealth Platform: Doximity Location of provider rendering services: practice address Location of patient: address on file Patient Identification confirmed using: Name, : Yes Telehealth method: video Patient verbally consented to billing insurance company: Yes Patient informed of any privacy concerns related to visit: Yes Minutes spent on Phone/Video with Pt.: 10 Assessment & Plan Assessment & Plan (1) Uterine myoma: Comment: With AUB, anemia and possible adenomyosis Code(s): D25.9 - Leiomyoma of uterus, unspecified Category: Medical Plan: Discussed with the patient the results of the ultrasound and the size of the myomas. Discussed with the patient risk of myosarcoma and symptoms that are caused by myomas including but not limited to pelvic pain, pressure symptoms, abnormal uterine bleeding. In addition discussed with the patient options of treatment for myomas including: control pills, Mirena IUD, progesterone treatment, GnRH agonist/antagonist, uterine artery embolization or endometrial ablation, versus surgical treatment including hysterectomy . All pros and cons, risks and benefits of all options were discussed with the patient. The patient understands that delay in surgical treatment in case of myosarcoma can affect her prognosis, after further discussion, the patient decided to proceed with minimally invasive hysterectomy. Will refer to [facility] for minimally invasive charting clerk hysterectomy . Discussed with the patient the different types of hysterectomies including, vaginal, laparoscopic assisted vaginal, robotic assisted laparoscopic,& abdominal with BSO. All pros, cons, r/b of each approach were discussed the patient including evidence that morbidity is less and recovery is shorter with minimally invasive approaches to hysterectomy. Discussed with the patient the lack of availability of the robot DaVinci robot and/or minimally invasive clay washer specialist at [facility]. Offered patient to have surgery at [facility] but Patient requested to be referred to a tertiary care center. Instructed the patient to call our office back in case a referral appointment is not scheduled, missed or canceled so that we will assist on rescheduling another appointment, the patient verbalized understanding agreed with the plan. Coding Level of Care Code Tele Est Pt Level 3 (77094) Diagnoses Uterine myoma D25.9
--- OUTSIDE RECORDS SUMMARY | 2024-06-15 13:51 | XMS_ITS | Clinical Summary ---
Author Organization [address] [facility] Address [address] [place] [address] Phone Care Team Providers Care Electrical Controls Engineer Name Role Phone Jennifer Aguiar MD Primary Care Provider [phone] Allergies Active Allergy Reactions Criticality Noted Date [...] AM EST Office Visit Orthopedic Surgery - [facility] [address] [facility] [address] [place] [id number] Hugh Rousseau, DPJosué Posterior tibial tendinitis of left leg (Primary Dx); Disorder of ligament of ankle, left; Lumbosacral radiculopathy from Last 3 Months Immunizations Name Administration [...] Cancer Screening: Pap Smear 1997 COVID-19 Vaccine ( season) 2023 09/22/2020, 09/01/2020 Influenza Vaccine (#1) [...] patient's age to complete this topic Meningococcal B Vacine Aged Out No lo nger eligible based on patient's age to complete this topic Pneumococcal Vaccine: Pediatrics (0 to 5 Years) and At-Risk Patients (6 to 64 Years) Aged Out No longer eligible based on patient's age to complete this topic RSV Immunization Patients Under 20 months Aged Out No longer eligible based on patient's age to complete this topic Procedures Procedure Name Priority Date/Time Associated Diagnosis Comments LIPID PANEL Routine 06/30/2001 from Last 3 Months or Most Recently Relevant to Health Maintenance Results * (ABNORMAL) Lipid panel (06/30/2001) LDL/HDL Ratio [...] Maintenance Insurance MEDICAID - [place] Care Teams Electrical Controls Engineer Relationship Specialty Start Date End Date Jennifer Aguiar MD [address] [place] [address] [address] [facility] [place] [address] PCP - General 11/17/23
== END 2024-06-15 14:40 | disposition home or self-care (01) ==
LOC: HO.HWS 12:58
PROVIDERS: PCP Internal Medicine; Visit Provider Obstetrics & Gynecology
DX: D25.9 Leiomyoma of uterus, unspecified (principal)
CPT/HCPCS: 99213

== ENCOUNTER → 2024-06-15 12:58 | Outpatient (BNVA) | payer OTHER, SELFPAY | PROVIDERS: PCP Internal Medicine; Visit Provider Obstetrics & Gynecology ==

== ENCOUNTER 2024-07-22 08:20 | Outpatient (AMB) | payer OTHER, SELFPAY ==
[2024-07-22 08:26] VITALS: BP 118/78; PULSE 90; BMI 39.5
--- NOTE | 2024-07-22 08:26 | MHC.OFFVIS ---
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/ Palpitations/ Po Dietary Services Manager Required: No Accompanied by: Self / Same As Patient Allergies Penicillins [PENICILLINS] Allergy (Severe, Verified 05/27/24 14:29) ANAPHYLAXIS amitriptyline [AMITRIPTYLINE] Allergy (Intermediate, Verified 05/27/24 14:29) HIVES banana Allergy (Intermediate, Verified 05/27/24 14:29) Hives kiwi [KIWI] Allergy (Intermediate, Verified 05/27/24 14:29) HIVES pineapple Allergy (Intermediate, Verified 05/27/24 14:29) Hives clams Allergy (Unknown, Verified 05/27/24 14:29) Unknown gluten Allergy (Unknown, Verified 05/27/24 14:29) Unknown MEAT Allergy (Severe, Uncoded 02/26/24 15:59) HIVES,ANAPHYLAXIS dairy Adverse Reaction (Intermediate, Uncoded 02/26/24 15:59) pt states allery to all Dairy Products Medication List - Last Reconciled 07/22/24 by Senthil Hughes MD [basil holy EZRA PO] calcium-magnesium 750-465 mg 2 tabs PO DAILY cholecalciferol (vitamin D3) 50 mcg PO DAILY cyanocobalamin-cobamamide 5,000-100 mcg (B12) 1 mindy sublingual DAILY epinephrine (EpiPen) 0.3 mg (0.3 mL) IM Q4H PRN [chasity PO] multivitamin 1 tab PO DAILY [mushroom PO] omeprazole 20 mg PO DAILY paroxetine HCl (Paxil) 20 mg PO DAILY [turmeric PO] HPI Comments Details: Sveta is here for consultation regarding palpitations. She denies any prior cardiac history. No known coronary disease myocardial infarction or cardiomyopathy. She states that she has been getting palpitations over the last few months. Sensations of heart fluttering that lasts for a few minutes and then get better. No specific provoking or relieving factors. She also feels some shortness of breath with activity. No anginal-type complaints. No known asthma. She states she does have some anemia and believes that may play some role in her symptoms. Has undergone PFTs but that did not show any obstructive or restrictive ventilatory defects. Question of deconditioning. [facility] Medical History Hot flashes Left foot pain Left ankle pain Iron deficiency anemia Neuropathy Left upper quadrant abdominal pain Lumbar radiculopathy Sacroiliac dysfunction Lumbar facet arthropathy Smoker Multiple allergies Encounter for annual routine gynecological examination Internal derangement of left knee Effusion, left knee Encounter for IUD removal Hair loss Amezcua cyst Right knee pain Pain in left knee Chronic knee pain Anxiety and depression IUD check up Body mass index [BMI] 38.0-38.9, adult Left knee pain Physical exam (~03/2021) Polyarthralgia Fatigue Low back pain Menometrorrhagia Swelling, lymph nodes Encounter for general adult medical examination with abnormal findings Common cold Ear anomaly Generalized abdominal pain Osteopenia Soft tissue injury of left knee Left knee sprain Low vitamin D level Celiac disease Family history of thyroid disease Hx of head injury Hx of migraines Surgical History H/O knee surgery History of left knee surgery H/O esophagogastroduodenoscopy Hx of colonoscopy Previous section Hx of foot surgery Hx of shoulder surgery Hx of cholecystectomy Family History Father Diabetes Hypercholesterolemia Chronic kidney disease Hypertension Colon polyp Mother Hypercholesterolemia Hypertension Colon cancer Maternal Grandmother History of breast cancer Paternal Grandfather CAD (coronary artery disease) Other No family history of cancer Social History Household Members: Family Household Members Other:: children and parents Housing: House Are you a primary home health care respiratory therapist to a significant other at home: No Do you presently have visiting nurse or other home services: No Alcohol intake: current Alcohol intake frequency: holidays/special occasions only Comment: once a month 1-2 glasses Patient Tobacco Use Status: Current everyday Tobacco user Tobacco use type: Cigarette Cigarette Packs Per Day: 0.5 Cigarettes Per Day: 10.0 Years Smoked: 21. 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 Sexual orientation: Straight/Heterosexual Gender identity: Female Cognitive needs: No Hearing needs: No Vision needs: Yes Female Reproductive History Menstrual Age of Menarche: 13 Review of Systems Const Denies chills, Denies daytime sleepiness, Denies fatigue, Denies fever(s), Denies poor appetite, Denies snoring, Denies stops breathing during sleep, Denies weakness, Denies weight gain and Denies weight loss Eyes Denies loss of vision ENT Denies dizziness and Denies hearing loss Card Denies chest pain, Reports irregular heart rhythm, Denies claudication, Denies leg edema, Denies lightheadedness, Denies palpitations, Reports dyspnea on exertion and Denies orthopnea Resp Denies cough, Denies excessive phlegm production, Reports dyspnea on exertion, Denies snoring and Denies wheezing GI Denies abdominal pain, Denies hematochezia, Denies change in bowel habits, Denies nausea and Denies vomiting Denies urinary frequency and Denies dysuria Musc Denies arthralgias, Denies muscle weakness, Denies numbness and Denies other Skin/Breast Denies nail changes and Denies rash Neuro Denies Abnormal speech present, Denies dizziness, Denies loss of vision, Denies memory loss, Denies numbness and Denies weakness Psych Denies depression and Denies memory loss Endo Denies fatigue and Denies palpitations Rivera/Lymph Denies easy bruising Aller/Immun Denies wheezing Physical Exam Vital Signs: Last Vital Signs Pulse 90 07/22/24 08:26 BP 118/78 07/22/24 08:26 BMI result Body Mass Index 39.5 Const General: comfortable and no acute distress Orientation/consciousness: patient oriented x3 HEENT Other: Unremarkable Head: Yes normal to inspection Neck Neck: Yes normal visual inspection Chest Chest palpation & inspection: normal inspection of the chest Resp Auscultation: clear to auscultation bilaterally Cardio Palpation: normal PMI Heart sounds: S1 normal heart sound present, S2 normal heart sound present, no gallops, no murmurs and no rubs GI Palpation (GI): Soft to palpation Back/Spine/Pelvis Other: unremarkable Skin General skin exam: no rashes or lesions noted Neuro General: patient oriented x3 Speech: No Abnormal speech present Extrem General: Yes normal to inspection Psych Mental Status: mental status grossly normal Assessment & Plan Assessment & Plan (1) Palpitations: Code(s): R00.2 - Palpitations Category: Medical (2) SOB (shortness of breath) on exertion: Code(s): R06.02 - Shortness of breath Category: Medical Plan In the EKG, underlying rhythm is sinus at 72/Min. Poor R-wave progression in the anterior leads most likely from body habitus. Nonspecific ST-T changes. Normal ND and corrected QT. Mostly similar to prior. In the exercise stress test, she was able to exercise for about 9 minutes on Misha protocol and reached 10.1 METS. No angina. No EKG evidence of ischemia. Holter shows underlying sinus rhythm and rare PACs. With regard to palpitations, unclear if it is sinus tachycardia from anemia versus supraventricular arrhythmias. Less likely ventricular. We can do a longer term monitor as she states that her symptoms are not daily. Hence do for 30 days. With regard to shortness of breath, no obvious findings. Anemia could be possible etiology but she needs workup from cardiac. Hence get an echocardiogram. Orders: Orders ECG 30 day event monitor Today R00.2 - Palpitations CA echo transthoracic complete Today R06.02 - Shortness of breath Coding Level of Care Code New Pt Level 4 (71455) Diagnoses Palpitations R00.2 SOB (shortness of breath) on exertion R06.02
--- OUTSIDE RECORDS SUMMARY | 2024-07-22 08:44 | XMS_ITS | Patient Health Record ---
Author Organization [facility], [facility] Address [address] [place] [phone] Support Name Relationship Address Phone Sveta Rashid Guarantor Unknown Unavailabl e REASON FOR REFERRAL No Information PLAN OF TREATMENT No Information
--- OUTSIDE RECORDS SUMMARY | 2024-07-22 08:44 | XMS_ITS | Clinical Summary ---
Author Organization 175 [facility] Address [address] [place] [address] Phone Care Team Providers Care Child Care Teacher Name Role Phone Jennifer Aguiar MD Primary Care Provider [phone] Allergies Active Allergy Reactions Criticality Noted Date [...] Iron deficiency anemia 02/27/2024 Near syncope 02/27/2024 Immunizations Name Administration Dates Next Due DTP [...] mg/dL Blood Venous blood specimen / Unknown us Historical Provider LAB BLOOD ORDERABLES Kajal l Result from Last 3 Months or Most Recently Relevant to Health Maintenance Insurance MEDICAID - [place] Care Teams Child Care Teacher Relationship Specialty Start Date End Date Jennifer Aguiar MD [address] [place] [address] [address] [facility] [place] [address] PCP - General 11/17/23
== END 2024-07-22 08:55 | disposition home or self-care (01) ==
LOC: HO.HCS 08:21
PROVIDERS: PCP Internal Medicine; Visit Provider Internal Medicine
DX: R00.2 Palpitations (principal); R06.02 Shortness of breath
CPT/HCPCS: 99204

== ENCOUNTER → 2024-07-22 08:20 | Outpatient (BNVA) | payer OTHER, SELFPAY | PROVIDERS: PCP Internal Medicine; Visit Provider Internal Medicine | DX: R00.2 Palpitations (principal); R06.02 Shortness of breath; F17.210 Nicotine dependence, cigarettes, uncomplicated | CPT/HCPCS: 99202 ==

== ENCOUNTER 2024-08-02 15:47 | Outpatient (AMB) | payer OTHER, SELFPAY ==
[2024-08-02 16:00] VITALS: BP 118/90; PULSE 68; TEMP 36.3; O2SAT 99; BMI 39.8
--- NOTE | 2024-08-02 16:00 | MHC.PC.OV ---
Vital Signs 08/02/24 16:00 08/02/24 16:34 Height 5 ft 2 in Weight 217 lb 8 oz BMI 39.8 BP 118/90 H 140/70 H Blood Pressure Location Lt brachial Lt radial Position Sitting Sitting Pulse 68 Pulse Source Pulse Oximeter Temp 97.3 F Temp Source Temporal Artery Scan Pulse Oximetry (%) 99 Oxygen Delivery Method Room Air Intake Visit Reasons: tobacco abuse STEPHEN Cipher Expert Required: No Accompanied by: Self / Same As Patient Allergies Penicillins [PENICILLINS] Allergy (Severe, Verified 08/02/24 16:05) ANAPHYLAXIS amitriptyline [AMITRIPTYLINE] Allergy (Intermediate, Verified 08/02/24 16:05) HIVES banana Allergy (Intermediate, Verified 08/02/24 16:05) Hives kiwi [KIWI] Allergy (Intermediate, Verified 08/02/24 16:05) HIVES pineapple Allergy (Intermediate, Verified 08/02/24 16:05) Hives clams Allergy (Unknown, Verified 08/02/24 16:05) Unknown gluten Allergy (Unknown, Verified 08/02/24 16:05) Unknown MEAT Allergy (Severe, Uncoded 08/02/24 16:05) HIVES,ANAPHYLAXIS dairy Adverse Reaction (Intermediate, Uncoded 08/02/24 16:05) pt states allery to all Dairy Products Tobacco use date assessed: 08/02/24 Dental Screening Dental Screen Date: 08/02/24 Did you have a dental visit in the last 12 months?: Yes Did you have a dental problem in the last 6 months where you did not have access to dental care?: No Was dental information given to patient?: Patient has dentist [facility] Medical History Hot flashes Left foot pain Left ankle pain Iron deficiency anemia Neuropathy Left upper quadrant abdominal pain Lumbar radiculopathy Sacroiliac dysfunction Lumbar facet arthropathy Smoker Multiple allergies Encounter for annual routine gynecological examination Internal derangement of left knee Effusion, left knee Encounter for IUD removal Hair loss Amezcua cyst Right knee pain Pain in left knee Chronic knee pain Anxiety and depression IUD check up Body mass index [BMI] 38.0-38.9, adult Left knee pain Physical exam (~03/2021) Polyarthralgia Fatigue Low back pain Menometrorrhagia Swelling, lymph nodes Encounter for general adult medical examination with abnormal findings Common cold Ear anomaly Generalized abdominal pain Osteopenia Soft tissue injury of left knee Left knee sprain Low vitamin D level Celiac disease Family history of thyroid disease Hx of head injury Hx of migraines Surgical History H/O knee surgery History of left knee surgery H/O esophagogastroduodenoscopy Hx of colonoscopy Previous section Hx of foot surgery Hx of shoulder surgery Hx of cholecystectomy Family History Father Diabetes Hypercholesterolemia Chronic kidney disease Hypertension Colon polyp Mother Hypercholesterolemia Hypertension Colon cancer Maternal Grandmother History of breast cancer Paternal Grandfather CAD (coronary artery disease) Other No family history of cancer Social History Household Members: Family Household Members Other:: children and parents Housing: House Are you a primary adult day care worker to a significant other at home: No Do you presently have visiting nurse or other home services: No Alcohol intake: current Alcohol intake frequency: holidays/special occasions only Comment: once a month 1-2 glasses Patient Tobacco Use Status: Current everyday Tobacco user Tobacco use type: Cigarette Cigarette Packs Per Day: 0.5 Cigarettes Per Day: 10.0 Years Smoked: 21. 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 1. Little interest or pleasure in doing things: several days 2. Feeling down, depressed, or hopeless: nearly every day 3. Trouble falling or staying asleep, or sleeping too much: several days 4. Feeling tired or having little energy: several days 5. Poor appetite or overeating: not at all 6. Feeling bad about yourself - or that you are a failure or have let yourself or your family down: not at all 7. Trouble concentrating on things, such as reading the newspaper or watching television: several days 8. Moving or speaking so slowly that other people could have noticed. Or the opposite - being so fidgety or restless that you have been moving around a lot more than usual: not at all 9. Thoughts that you would be better off or of hurting yourself in some way: not at all Total score: 7 Depression Screening Interpretation: Positive Depression Screening Done: Yes Source: Developed by Drs. Malik Bates, Mary Mahan, Pedrito Amaro and colleagues, with an educational tyson from [employer]. Thrive Questionnaire Date Thrive assessed: 08/02/24 I am a: Patient What is your living situation today?: I have a steady place to live Within the past 12 months, did the food you bought not last and you didn't have the money to get more?: I choose not to answer this question Within the past 12 months, did you worry whether your food would run out before you got money to buy more?: I choose not to answer this question Do you have trouble paying for medicines?: I choose not to answer this question Do you have trouble getting transportation to medical appointments?: I choose not to answer this question Do you have trouble paying your heating and electricity bill?: I choose not to answer this question Do you have trouble taking care of your child, family member or friend?: I choose not to answer this question Do you have trouble with day-to-day activities such as bathing, preparing meals, shopping, managing finances, etc.?: I choose not to answer this question Are you currently unemployed and looking for a job?: I choose not to answer this question Are you interested in more education?: I choose not to answer this question Please select the resources that you would like help with: None Currently or been in a relationship where the following occur: I choose not to answer THRIVE Score: 0 AUDIT C Alcohol Use Questionnaire (AUDIT-C) 1. How often do you have a drink containing alcohol?: Monthly or less 2. How many drinks containing alcohol do you have on a typical day when you are drinking?: 1 or 2 3. How often do you have six or more drinks on one occasion?: Never Total Score: 1 STEPHEN-7 AMB Questionnaire STEPHEN-7 Date STEPHEN - 7 assessed: 08/02/24 Feeling nervous, anxious, or on edge: 2 = More than half the days Not being able to stop or control worryin = Several days Worrying too much about different things: 1 = Several days Trouble relaxin = Several days Being so restless that it is hard to sit still: 1 = Several days Becoming easily annoyed or irritable: 1 = Several days Feeling afraid as if something awful might happen: 0 = Not at all Total STEPHEN-7 score (0-4 normal; 5-9 mild; 10-14 moderate; 15-21 severe): 7 Source: Developed by Drs. Malik Bates, Mary Mahan, Pedrito Amaro and colleagues, with an educational tyson from [employer] [facility] [facility]. STEPHEN-7 Assessment Billing STEPHEN-7 Assessment Tool: STEHPEN-7 Assessment 07443 Physical exam (Primary Care) Vital Signs: Last Vital Signs Temp 97.3 F 08/02/24 16:00 Pulse 68 08/02/24 16:00 BP 140/70 H 08/02/24 16:34 Pulse Ox 99 08/02/24 16:00 Oxygen Delivery Method Room Air 08/02/24 16:00 BMI result Body Mass Index 39.8 Tobacco/Smoking Status: Tobacco use Status Tobacco use date assessed 08/02/24 08/02/24 16:06 Patient Tobacco Use Status Current everyday Tobacco 08/02/24 16:06 Tobacco use type Cigarette 08/02/24 16:06 e-Cigarette/Vaping Use Never Used 08/02/24 16:06 PHQ-9: PHQ-9 Score PHQ-9: Total score 7 08/02/24 16:37 Depression Screening Interpretation: Positive Thrive Assessment: Date of Thrive Assessment Date Thrive assessed 08/02/24 08/02/24 16:06 Currently or been in a relationship where the following occur: I choose not to answer Const General: alert; No acute distress Eyes Conjunctivae: conjunctivae normal Resp Auscultation: clear to auscultation bilaterally Cardio Rate: regular rate Rhythm: regular rhythm GI Inspection: Yes normal to inspection Extrem General: Yes normal to inspection and No edema Coding Level of Care Code Est Pt Level 4 (72429) Complex EM visit Add On G2211 Diagnoses Uterine myoma D25.9 Iron deficiency anemia, unspecified iron deficiency anemia type D50.9 Iron deficiency anemia type: unspecified iron deficiency Palpitations R00.2 Tobacco abuse Z72.0 STEPHEN (generalized anxiety disorder) F41.1 Obesity (BMI 35.0-39.9 without comorbidity) E66.9 Celiac disease K90.0 SOB (shortness of breath) R06.02 Additional Codes STEPHEN-7 Assessment Billing - STEPHEN-7 Assessment Tool: STEPHEN-7 Assessment 16051 ([id number]) Assessment & Plan Assessment & Plan (1) Uterine myoma: Comment: With AUB, anemia and possible adenomyosis Code(s): D25.9 - Leiomyoma of uterus, unspecified Category: Medical Plan: Patient has been seen by gynecology and options of myomectomy/hysterectomy.- hysterectomy planned (2) Iron deficiency anemia: Code(s): D50.9 - Iron deficiency anemia, unspecified Category: Medical Qualifiers: Iron deficiency anemia type: unspecified iron deficiency Qualified Code(s): D50.9 - Iron deficiency anemia, unspecified Plan: Continues to have iron infusion continue to monitor blood count, concerns though of menstrual bleeding (3) Palpitations: Code(s): R00.2 - Palpitations Category: Medical Plan: Patient has a planned event monitor and echocardiogram (4) Tobacco abuse: Code(s): Z72.0 - Tobacco use Category: Medical Plan: Patient strongly advised to stop smoking! (5) STEPHEN (generalized anxiety disorder): Comment: [facility] Code(s): F41.1 - Generalized anxiety disorder Category: Medical Plan: Continue with counseling and therapy (6) Obesity (BMI 35.0-39.9 without comorbidity): Code(s): E66.9 - Obesity, unspecified Category: Medical Plan: Diet and exercise (7) Celiac disease: Code(s): K90.0 - Celiac disease Category: Medical Plan: Patient is being followed up by Gastroenterology (8) SOB (shortness of breath): Code(s): R06.02 - Shortness of breath Category: Medical Plan History of Present Illness The patient is a 48-year-old female presenting for follow-up care concerning her fibroid uterus, palpitations, anemia, and heavy menstrual bleeding. The patient reported significant menstrual issues due to known uterine fibroids, having been previously evaluated by gynecology. During her consultation, medical and surgical options, including myomectomy, endometrial ablation, and hysterectomy, were discussed. Scheduling for the definitive hysterectomy is pending. Regarding cardiovascular symptoms, the patient has a history of palpitations under evaluation. An earlier cardiology consultation suggested obtaining a 30-day event monitor and echocardiogram, which are yet to be completed. A Holter monitor testing is also planned. Her anemia has been actively managed; she experienced improved hemoglobin levels, though symptoms persist, necessitating ongoing iron therapy. She continues to face issues of mild hypertension, noted today with a blood pressure of 140/80 mmHg, with documented history of levels such as 147 mmHg. The patient disclosed a longstanding tobacco use history, engaging in smoking cessation counseling. Complaints of dysphagia have led to the planning of a fluoroscopy study for detailed swallowing assessment. Respiratory concerns were flagged, although pulmonary function tests did not indicate significant obstruction, yet a bronchodilator response suggested reactive airways or asthma. An inhaler provided symptomatic improvement. Health Maintenance - Bone density scan performed in October 2022 - Mammogram up to date as of October 2023 - Colonoscopy last completed February 2020 - Counseling for smoking cessation ongoing - Blood work shows mild improvement in anemia with continued iron therapies - Updated lipid profile showing cholesterol within, normal range, low B12 noted - Mild hypertension monitored, discussion on salt reduction and lifestyle modifications - Ensuring vaccination status is current as per recommended guidelines - Risk reduction counseling concerning tobacco cessation was provided Social History - Smokes tobacco; ongoing counseling for cessation - Expressed dietary restrictions due to celiac disease; consumes non-dairy foods and remains conscious of dietary gluten intake - Allergy history includes reactions to animal dander, currently receiving allergy shots - History of domestic mold exposure, which has been remediated Review of Systems - Cardiovascular: Reports palpitations. - Gastrointestinal: Reports trouble swallowing at times. - Respiratory: Reports improvement with inhaler use. Reports weekly allergy injections. - Female Genitourinary: Reports heavy menstrual bleeding. - Neurological: Denies issues not otherwise mentioned. Physical Exam - Cardiovascular- Blood pressure 140/80 mmHg; history of previous readings at 147 mmHg. - Respiratory- Patient shows improvement with inhaler use; denies acute respiratory distress. Results - Labs: Mild anemia with hemoglobin 9.9 g/dL, hematocrit 33.5%, normal WBC, platelet count, electrolytes, renal function, and liver function. Blood sugar at 110 mg/dL. Low B12. - Pulmonary Function: No obstructive or restrictive defects noted, significant bronchodilator response. Plan The follow-up focuses on managing the patient's uterine fibroids and iron supplementation, aimed at improving her anemia due to heavy menstrual bleeding. Planned cardiac evaluations with the Holter monitor and echocardiogram remain pending. Management of her blood pressure through dietary salt reduction is recommended. Smoking cessation continues to be a priority. We have scheduled a fluoroscopy to analyze her swallowing difficulties. Continued monitoring of pulmonary status is advised, especially given her inhaler responsiveness, with consideration for ongoing allergy shots and respiratory care. Patient was informed and verbally consented to the use of an ambient scribe for clinic note documentation during this visit. Discussion Notes During our discussion, I advised the patient on the potential need for surgical intervention, such as hysterectomy, to address her fibroid-related menstrual issues. We explored the option of continuous monitoring for possible cardiac concerns like palpitations and emphasized the significance of completing cardiac evaluations. The risks and benefits of continuing iron infusions and considering a calorie-conscious dietary adjustment for hypertension were tackled, focusing on limiting salt intake. I encouraged smoking cessation. The patient's persistent swallowing difficulties warrant further investigation with a fluoroscopy study. Patient Instructions - Continue prescribed iron infusions and report any side effects. - When scheduled, complete the Holter monitor test and echocardiogram for cardiac evaluation. - Reduce dietary salt intake to manage blood pressure. - Follow through with counseling for smoking cessation. - Proceed with the scheduled fluoroscopy for swallowing discomfort. - Maintain adherence to allergy management, including the inhaler when necessary. - Await guidance on the surgical consultation for fibroid management. Orders: Orders RT pft w methacholine Today R06.02 - Shortness of breath
[2024-08-02 16:34] VITALS: BP 140/70
--- OUTSIDE RECORDS SUMMARY | 2024-08-02 18:26 | XMS_ITS | Patient Health Record ---
Author Organization [facility], [facility] Address [address] [place] [place] [phone] Support Name Relationship Address Phone Sveta Rashid Guarantor Unknown Unavailabl e REASON FOR REFERRAL No Information PLAN OF TREATMENT No Information
--- OUTSIDE RECORDS SUMMARY | 2024-08-02 18:26 | XMS_ITS | Clinical Summary ---
Author Organization [address] [facility] Address [address] [place] [address] Phone Care Team Providers Care Blister Rust Eradicator Name Role Phone Jennifer Aguiar MD Primary Care Provider [phone] Allergies Active Allergy Reactions Criticality Noted Date [...] COVID-19 Vaccine ( season) 2023 09/22/2020, 09/01/2020 Cholesterol Screening (Lipid Panel) 02/23/2024 06/30/2001 Colorectal Cancer Screening: Colonoscopy 02/23/2024 Depression Screening 02/23/2024 HIV Screening 02/23/2024 Hepatitis C Screening 02/23/2024 Social Influencers of Health Screening 02/23/2024 Influenza Vaccine (Season Ended) 2024 03/13/2016, 01/07/2013, 02/22/1997 DTaP,Tdap,and Td Vaccines (8 - Td or [...] age to complete this topic Meningococcal B Vaccine Aged Out No l onger eligible based on patient's age to complete [...] Maintenance Insurance [place] - [place] Care Teams Blister Rust Eradicator Relationship Specialty Start Date End Date Jennifer Aguiar MD [address] [place] [address] [address] [facility] [place] [address] PCP - General 11/17/23
== END 2024-08-02 16:45 | disposition home or self-care (01) ==
LOC: HO.HMCH 15:48
PROVIDERS: PCP Internal Medicine; Visit Provider Internal Medicine
DX: D25.9 Leiomyoma of uterus, unspecified (principal); D50.9 Iron deficiency anemia, unspecified; E66.9 Obesity, unspecified; Z68.39 Body mass index [BMI] 39.0-39.9, adult; R00.2 Palpitations; Z72.0 Tobacco use; F41.1 Generalized anxiety disorder; K90.0 Celiac disease; R06.02 Shortness of breath

== ENCOUNTER → 2024-08-02 15:47 | Outpatient (BNVA) | payer OTHER, SELFPAY | PROVIDERS: PCP Internal Medicine; Visit Provider Internal Medicine | DX: D25.9 Leiomyoma of uterus, unspecified (principal); D50.9 Iron deficiency anemia, unspecified; R00.2 Palpitations; F41.1 Generalized anxiety disorder; E66.9 Obesity, unspecified; R06.02 Shortness of breath; K90.0 Celiac disease; Z72.0 Tobacco use | CPT/HCPCS: 96127; 99212 ==

== ENCOUNTER 2024-08-03 14:00 | Outpatient (RCR) | payer OTHER, SELFPAY ==
[2024-06-18 11:38] VITALS: BP 114/76; PULSE 75; RESP 16; TEMP 36.4; O2SAT 97
[2024-06-18] MEDS: Iron Sucrose Complex 200 MG/10 ML VIAL IVPUSH (11:44)
[2024-06-24 14:33] VITALS: BP 138/76; PULSE 73; RESP 18; TEMP 36.6
[2024-06-24] MEDS: Iron Sucrose Complex 200 MG/10 ML VIAL IVPUSH (14:40)
[2024-06-29 13:58] VITALS: BP 140/54; PULSE 80; RESP 18; TEMP 36.7; O2SAT 97
[2024-06-29] MEDS: Iron Sucrose Complex 200 MG/10 ML VIAL IVPUSH (14:03)
[2024-07-06 14:08] VITALS: BP 148/88; PULSE 76; RESP 14; TEMP 36.9; O2SAT 98
[2024-07-06] MEDS: Iron Sucrose Complex 200 MG/10 ML VIAL IVPUSH (14:21)
[2024-07-06 14:25] LABS: Hematocrit 33.5 % (37.0-47.0); Hemoglobin 9.9 g/dl (12.0-16.0); Mean Corpuscular HGB Conc 29.6 g/dl (31.0-35.0); Mean Corpuscular Hemoglobin 23.5 pg (27.0-33.0); Mean Corpuscular Volume 79.4 fL (80.0-98.0); Mean Platelet Volume 8.9 fL (9.4-12.3); Platelet Count 363 X10*3/uL (160-400); Red Blood Count 4.22 X10*6/uL (4.20-5.50); Red Cell Distribution Width 22.8 % (11.0-16.0); White Blood Count 6.8 X10*3/uL (4.8-10.8)
[2024-07-06] MEDS: 0.9 % Sodium Chloride Flush 10 ML SYRINGE 5 ML IVFLUSH (14:29)
[2024-07-06 15:02] LABS: Ferritin 89 ng/mL (10-250)
[2024-07-13 13:56] VITALS: BP 142/85; PULSE 72; RESP 16; TEMP 37.2; O2SAT 99
[2024-07-13] MEDS: Iron Sucrose Complex 200 MG/10 ML VIAL IVPUSH (13:56)
[2024-07-20 14:45] VITALS: BP 147/89; PULSE 68; RESP 16; TEMP 36.6; O2SAT 99
[2024-07-20] MEDS: Iron Sucrose Complex 200 MG/10 ML VIAL IVPUSH (14:53)
[2024-07-27 14:17] VITALS: BP 147/70; PULSE 66; RESP 16; TEMP 36.8; O2SAT 99
[2024-07-27] MEDS: Iron Sucrose Complex 200 MG/10 ML VIAL IVPUSH (14:24)
[2024-08-03 13:56] VITALS: BP 135/79; PULSE 78; RESP 14; TEMP 37.1; O2SAT 98
[2024-08-03] MEDS: Iron Sucrose Complex 200 MG/10 ML VIAL IVPUSH (14:17)
[2024-08-03 14:30] LABS: Hematocrit 34.9 % (37.0-47.0); Hemoglobin 10.8 g/dl (12.0-16.0); Mean Corpuscular HGB Conc 30.9 g/dl (31.0-35.0); Mean Corpuscular Hemoglobin 25.4 pg (27.0-33.0); Mean Corpuscular Volume 81.9 fL (80.0-98.0); Mean Platelet Volume 9.3 fL (9.4-12.3); Platelet Count 304 X10*3/uL (160-400); Red Blood Count 4.26 X10*6/uL (4.20-5.50); Red Cell Distribution Width 22.7 % (11.0-16.0); White Blood Count 5.8 X10*3/uL (4.8-10.8)
[2024-08-03 15:06] LABS: Ferritin 180 ng/mL (10-250)
== END 2024-08-03 14:32 | disposition home or self-care (01) ==
LOC: HO.INF 14:00
PROVIDERS: Visit Provider Nurse Practitioner Family
DX: D50.9 Iron deficiency anemia, unspecified (principal)
CPT/HCPCS: 36415; 82728; 85027; 96374; J1756

== ENCOUNTER 2024-08-05 07:49 | Outpatient (REF) | payer OTHER, SELFPAY ==
--- NOTE | ~2024-08-05 | FL_ITS ---
EXAMINATION: XR GI SERIES CLINICAL INFORMATION: Dysphagia COMPARISON: None available. TECHNIQUE: Routine upper GI contrast study with barium swallow was performed in upright and lying position. FINDINGS: Following oral administration of thick barium and effervescent granules there is normal propagation of bolus from of the oral cavity, pharynx, esophagus into stomach without any obstruction, narrowing or stricture. On oral administration of barium coated tablet with water there is spontaneous passage of tablet from the oral cavity, pharynx, esophagus into stomach. On placing patient in supine and prone lying the course, caliber and peristalsis stomach, duodenal bulb and duodenal sweep is normal. The mucosal pattern of the stomach and the duodenum is normal. Moderate gastroesophageal reflux without hiatal hernia. Incidental finding of cholecystectomy is noted. FLUOROSCOPY TIME: 2 minutes 11 seconds DOSE AREA PRODUCT: 202.9 uGy-m2 (microgray-meter squared) FL/FL upper GI w Ba Swallow IMPRESSION: Moderate gastroesophageal reflux without hiatal hernia. Electronically signed by: Sammy Car MD 08/05/2024 10:50 AM EDT
--- OUTSIDE RECORDS SUMMARY | 2024-08-05 07:53 | XMS_ITS | Clinical Summary ---
Author Organization 175 [facility] Address [address] [place] [address] Phone Care Team Providers Care Forensic Nurse Name Role Phone Jennifer Aguiar MD Primary Care Provider [phone] Allergies Active Allergy Reactions Criticality Noted Date [...] Maintenance Insurance [place] - [place] Care Teams Forensic Nurse Relationship Specialty Start Date End Date Jennifer Aguiar MD [address] [place] [address] [address] [facility] [place] [address] PCP - General 11/17/23
--- OUTSIDE RECORDS SUMMARY | 2024-08-05 07:53 | XMS_ITS | Patient Health Record ---
Author Organization [facility], [facility] Address [address] [place] [phone] Support Name Relationship Address Phone Sveta Rashid Guarantor Unknown Unavailabl e REASON FOR REFERRAL No Information PLAN OF TREATMENT No Information
== END 2024-08-05 07:50 | disposition home or self-care (01) ==
LOC: HO.XRAY 07:49
PROVIDERS: PCP Internal Medicine; Visit Provider Internal Medicine
DX: R13.10 Dysphagia, unspecified (principal)
CPT/HCPCS: 74240

== ENCOUNTER → 2024-08-05 07:51 | Outpatient (BNV) | payer OTHER, SELFPAY | PROVIDERS: PCP Internal Medicine; Visit Provider Radiology Diagnostic Radiology | DX: R13.10 Dysphagia, unspecified (principal) | CPT/HCPCS: 74246 ==

== ENCOUNTER → 2024-08-24 12:49 | Outpatient (REF) | payer OTHER, SELFPAY ==
--- NOTE | 2024-08-24 12:52 | CA_ITS ---
Transthoracic Echocardiogram Patient (Last, First, Middle): Sveta Rashid M Gender: Female Date of : 1975 Age: 48 Procedure Date: 08/24/2024 Procedure Type: Transthoracic Echocardiogram Location: OP Height: 157.48 cm Weight: 95.26 kg BSA: 1.95 m2 Heart Rate: 56 bpm BP: 118 / 90 mmHg Pheresis Nurse: HAILEY Referring MD: Senthil Hughes MD Symptoms: R06.02 - Shortness of breath Study Quality: Adequate ECG Rhythm: Sinus Conclusions: - The left ventricular systolic function is normal. The calculated ejection fraction is 59% by biplane method. - There is mildly increased left ventricular wall thickness. - No obvious valvular pathology seen on this study. Findings Left Ventricle Normal left ventricular cavity size. There is mildly increased left ventricular wall thickness. The left ventricular systolic function is normal. The calculated ejection fraction is 59% by biplane method. Diastolic function is normal for age. Right Ventricle Normal right ventricular cavity size and systolic function. Atria Both atria are normal in size. Aortic Valve There is a normal trileaflet aortic valve. There is no aortic valve stenosis. There is no aortic valve regurgitation. Mitral Valve The mitral valve appears normal. There is trace mitral valve regurgitation. There is no mitral valve stenosis. Pulmonic Valve The pulmonic valve is likely normal. Tricuspid Valve There is trace tricuspid valve regurgitation. There is no evidence of pulmonary hypertension. Great Vessels The asc aorta and aortic arch are normal in size. Venous The inferior vena cava is normal in size and collapses greater than 50% with inspiration. Pericardium/Pleural There is no evidence of pericardial effusion. Prior Study Comparison No prior study available for comparison. Recommendations, Care & Conclusions No obvious valvular pathology seen on this study. Measurements 2D Linear Measurements IVSd: 1.15 0.6-0.9/0.6-1.0 cm LVIDd: 4.63 3.9-5.3/4.2-5.9 cm LVIDd Index: 2.37 2.4-3.2/2.2-3.1 cm/m2 LVIDs: 2.92 2.0-3.6 cm LVPWd: 1.20 0.7-1.1 cm LA Diam: 3.40 2.7-3.8/3.0-4.0 cm LAIDs Index: 1.74 1.5-2.3 cm/m2 LV Mass: 250.45 67-162/88-224 g LV Mass Index: 128.43 43-95/49-115 g/m2 LVOT Diam: 2.20 3.0+(-)1.3 cm 2D Systolic Function EF 4C: 54.30 >55% EF 2C: 61.50 >55% EF BiP: 58.50 >55% Mitral Valve MV Pk E: 0.90 MV PK A: 0.72 MV Decel Time: 244.00 E/A: 1.30 E'Lateral: 7.18 E'Medial: 5.44 E/E' Med: 16.50 E/E' Lat: 12.50 PHT: 72.00 MVA PHT: 3.06 Decel Juncos: 3.67 Aortic Valve AoV Pk Rogers: 1.39 AoV Mn Rogers: 0.96 AoV VTI: 0.33 AoV Pk Grad: 8.00 Aov Mn Grad: 4.00 JZAMYN Cont.VTI: 3.22 LVOT LVOT Pk Rogers: 1.15 LVOT Mn Rogers: 0.81 LVOT VTI: 0.28 LVOT Pk Grad: 5.00 LVOT Mn Grad: 3.00 LVOT Diam: 2.20 LVOT Area: 3.80 Diastolic Function MV Pk E: 0.90 MV Pk A: 0.72 E/A: 1.30 E'Medial: 5.44 E/E' Med: 16.50 E' Laterial: 7.18 E/E' Lat: 12.50 Right Ventricle TAPSE (mm): 20.80 TVS' Rogers: 12.10 Tricuspid Valve TR Pk Rogers: 1.87 TR Pk Grad: 14.00 RA Press: 3.00 RVSP: 17.00 Great Vessels Aorta Sinus of Valsalva: 3.70 2.0-3.5 cm Ao Asc: 3.60 2.1-3.4 cm Ao Arch: 2.60 Pulmonary Valve PV Pk Rogers: 0.83 Peak PV Grad: 3.00 Updated in Other Vendor System with Status of Final Senthil Hughes MD electronically signed on 08/25/2024 12:22:07 PM with status of Final
--- OUTSIDE RECORDS SUMMARY | 2024-08-24 14:40 | XMS_ITS | Clinical Summary ---
Author Organization 175 [facility] Address [address] [place] [address] Phone Care Team Providers Care Chemistry Associate Name Role Phone Jennifer Aguiar MD Primary Care Provider [phone] Allergies Active Allergy Reactions Criticality Noted Date [...] Maintenance Insurance [place] - [place] Care Teams Chemistry Associate Relationship Specialty Start Date End Date Jennifer Aguiar MD [address] [place] [address] [address] [facility] [place] [address] PCP - General 11/17/23
== END ==
LOC: HO.CARD 12:49
PROVIDERS: PCP Internal Medicine; Visit Provider Internal Medicine
DX: R06.02 Shortness of breath (principal); R00.2 Palpitations
CPT/HCPCS: 93270; 93306

== ENCOUNTER → 2024-08-24 12:52 | Outpatient (BNV) | payer OTHER, SELFPAY | PROVIDERS: PCP Internal Medicine; Visit Provider Internal Medicine | DX: R06.02 Shortness of breath (principal) | CPT/HCPCS: 93306 ==

== ENCOUNTER 2024-09-17 11:15 | Outpatient (AMB) | payer OTHER, SELFPAY ==
--- OUTSIDE RECORDS SUMMARY | 2024-09-17 11:20 | XMS_ITS | Clinical Summary ---
Author Organization 175 [facility] Address [address] [place] [address] Phone Care Team Providers Care Rv Body Mechanic Name Role Phone Jennifer Aguiar MD Primary Care Provider [phone] Allergies Active Allergy Reactions Criticality Noted Date [...] Maintenance Insurance [place] - [place] Care Teams Rv Body Mechanic Relationship Specialty Start Date End Date Jennifer Aguiar MD [address] [place] [address] [address] [facility] [place] [address] PCP - General 11/17/23
--- NOTE | 2024-09-17 11:38 | MHC.PC.OV ---
Vital Signs 09/17/24 11:39 Height 5 ft 2 in Weight 216 lb BMI 39.5 BP 136/90 H Blood Pressure Location Lt brachial Position Sitting Pulse 87 Pulse Source Pulse Oximeter Temp 97.1 F Temp Source Temporal Artery Scan Pulse Oximetry (%) 96 Oxygen Delivery Method Room Air Intake Visit Reasons: High BP Foil Spooler Required: No Accompanied by: Self / Same As Patient Allergies Penicillins [PENICILLINS] Allergy (Severe, Verified 09/06/24 14:53) ANAPHYLAXIS amitriptyline [AMITRIPTYLINE] Allergy (Intermediate, Verified 09/06/24 14:53) HIVES banana Allergy (Intermediate, Verified 09/06/24 14:53) Hives kiwi [KIWI] Allergy (Intermediate, Verified 09/06/24 14:53) HIVES pineapple Allergy (Intermediate, Verified 09/06/24 14:53) Hives clams Allergy (Unknown, Verified 09/06/24 14:53) Unknown gluten Allergy (Unknown, Verified 09/06/24 14:53) Unknown MEAT Allergy (Severe, Uncoded 09/06/24 14:53) HIVES,ANAPHYLAXIS dairy Adverse Reaction (Intermediate, Uncoded 09/06/24 14:53) pt states allery to all Dairy Products Medication List - Last Reconciled 09/17/24 by Jennifer Aguiar MD [christopher MUNGUIA PO] calcium-magnesium 750-465 mg 2 tabs PO DAILY cholecalciferol (vitamin D3) 50 mcg PO DAILY cyanocobalamin-cobamamide 5,000-100 mcg (B12) 1 mindy sublingual DAILY epinephrine (EpiPen) 0.3 mg (0.3 mL) IM Q4H PRN [chasity PO] hydrochlorothiazide 12.5 mg PO DAILY multivitamin 1 tab PO DAILY [mushroom PO] omeprazole 20 mg PO DAILY paroxetine HCl (Paxil) 20 mg PO DAILY [turmeric PO] Tobacco use date assessed: 08/02/24 Dental Screening Dental Screen Date: 08/02/24 [facility] Medical History Hot flashes Left foot pain Left ankle pain Iron deficiency anemia Neuropathy Left upper quadrant abdominal pain Lumbar radiculopathy Sacroiliac dysfunction Lumbar facet arthropathy Smoker Multiple allergies Encounter for annual routine gynecological examination Internal derangement of left knee Effusion, left knee Encounter for IUD removal Hair loss Amezcua cyst Right knee pain Pain in left knee Chronic knee pain Anxiety and depression IUD check up Body mass index [BMI] 38.0-38.9, adult Left knee pain Physical exam (~03/2021) Polyarthralgia Fatigue Low back pain Menometrorrhagia Swelling, lymph nodes Encounter for general adult medical examination with abnormal findings Common cold Ear anomaly Generalized abdominal pain Osteopenia Soft tissue injury of left knee Left knee sprain Low vitamin D level Celiac disease Family history of thyroid disease Hx of head injury Hx of migraines Surgical History H/O knee surgery History of left knee surgery H/O esophagogastroduodenoscopy Hx of colonoscopy Previous section Hx of foot surgery Hx of shoulder surgery Hx of cholecystectomy Family History Father Diabetes Hypercholesterolemia Chronic kidney disease Hypertension Colon polyp Mother Hypercholesterolemia Hypertension Colon cancer Maternal Grandmother History of breast cancer Paternal Grandfather CAD (coronary artery disease) Other No family history of cancer Social History Household Members: Family Household Members Other:: children and parents Housing: House Are you a primary care nurse rn to a significant other at home: No Do you presently have visiting nurse or other home services: No Alcohol intake: current Alcohol intake frequency: holidays/special occasions only Comment: once a month 1-2 glasses Patient Tobacco Use Status: Current everyday Tobacco user Tobacco use type: Cigarette Cigarette Packs Per Day: 0.5 Cigarettes Per Day: 10.0 Years Smoked: 21. 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 1. Little interest or pleasure in doing things: more than half the days 2. Feeling down, depressed, or hopeless: more than half the days 3. Trouble falling or staying asleep, or sleeping too much: more than half the days 4. Feeling tired or having little energy: more than half the days 5. Poor appetite or overeating: more than half the days 6. Feeling bad about yourself - or that you are a failure or have let yourself or your family down: more than half the days 7. Trouble concentrating on things, such as reading the newspaper or watching television: more than half the days 8. Moving or speaking so slowly that other people could have noticed. Or the opposite - being so fidgety or restless that you have been moving around a lot more than usual: more than half the days 9. Thoughts that you would be better off or of hurting yourself in some way: more than half the days Total score: 18 Source: Developed by Drs. Malik Bates, Mary Mahan, Pedrito Amaro and colleagues, with an educational tyson from [employer]. Thrive Questionnaire Date Thrive assessed: 08/02/24 I am a: Patient What is your living situation today?: I have a steady place to live Within the past 12 months, did the food you bought not last and you didn't have the money to get more?: Never true Within the past 12 months, did you worry whether your food would run out before you got money to buy more?: Never true Do you have trouble paying for medicines?: No Do you have trouble getting transportation to medical appointments?: No Do you have trouble paying your heating and electricity bill?: No Do you have trouble taking care of your child, family member or friend?: No Do you have trouble with day-to-day activities such as bathing, preparing meals, shopping, managing finances, etc.?: No Are you currently unemployed and looking for a job?: No Are you interested in more education?: No Please select the resources that you would like help with: None Currently or been in a relationship where the following occur: I choose not to answer THRIVE Score: 0 AUDIT C Alcohol Use Questionnaire (AUDIT-C) 1. How often do you have a drink containing alcohol?: Monthly or less 2. How many drinks containing alcohol do you have on a typical day when you are drinking?: 1 or 2 3. How often do you have six or more drinks on one occasion?: Never Total Score: 1 STEPHEN-7 AMB Questionnaire STEPHEN-7 Date STEPHEN - 7 assessed: 08/02/24 Feeling nervous, anxious, or on edge: 2 = More than half the days Not being able to stop or control worryin = More than half the days Worrying too much about different things: 2 = More than half the days Trouble relaxin = More than half the days Being so restless that it is hard to sit still: 2 = More than half the days Becoming easily annoyed or irritable: 2 = More than half the days Feeling afraid as if something awful might happen: 2 = More than half the days Total STEPHEN-7 score (0-4 normal; 5-9 mild; 10-14 moderate; 15-21 severe): 14 Source: Developed by Drs. Malik Bates, Mary Mahan, Pedrito Amaro and colleagues, with an educational tyson from [employer]. Physical exam (Primary Care) Vital Signs: Last Vital Signs Temp 97.1 F 09/17/24 11:39 Pulse 87 09/17/24 11:39 BP 136/90 H 09/17/24 11:39 Pulse Ox 96 09/17/24 11:39 Oxygen Delivery Method Room Air 09/17/24 11:39 BMI result Body Mass Index 39.5 Tobacco/Smoking Status: Tobacco use Status Tobacco use date assessed 08/02/24 09/17/24 11:39 Patient Tobacco Use Status Current everyday Tobacco 09/17/24 11:39 Tobacco use type Cigarette 09/17/24 11:39 e-Cigarette/Vaping Use Never Used 09/17/24 11:39 PHQ-9: PHQ-9 Score PHQ-9: Total score 18 09/17/24 11:39 Thrive Assessment: Date of Thrive Assessment Date Thrive assessed 08/02/24 09/17/24 11:39 Currently or been in a relationship where the following occur: I choose not to answer Const General: alert; No acute distress Eyes Conjunctivae: conjunctivae normal Resp Auscultation: clear to auscultation bilaterally Cardio Rate: regular rate Rhythm: regular rhythm GI Inspection: Yes normal to inspection Extrem General: Yes normal to inspection and No edema Coding Level of Care Code Est Pt Level 4 (66816) Diagnoses History of hysterectomy including cervix Z90.710 H/O bilateral salpingectomy Z90.79 GERD (gastroesophageal reflux disease) K21.9 Iron deficiency anemia, unspecified iron deficiency anemia type D50.9 Iron deficiency anemia type: unspecified iron deficiency Obesity (BMI 35.0-39.9 without comorbidity) E66.9 Hypertension I10 Assessment & Plan Assessment & Plan (1) History of hysterectomy including cervix: Comment: Sep 10 2024 Code(s): Z90.710 - Acquired absence of both cervix and uterus Category: Surgical Plan: Patient follows up with Gynecology (2) H/O bilateral salpingectomy: Comment: Sep 10 2024 Code(s): Z90.79 - Acquired absence of other genital organ(s) Category: Surgical Plan: Patient follows up with Gynecology (3) GERD (gastroesophageal reflux disease): Comment: July 2024Moderate gastroesophageal reflux without hiatal hernia. Code(s): K21.9 - Gastro-esophageal reflux disease without esophagitis Category: Medical Plan: Avoid the foods that causes that usually spicy foods, tomato products, juices, coffee, soda and foods that your sensitive to. After eating do not lie down, allow 3-4 hours before in lie down. And keep the head of bed above 30 degrees to avoid the acid from going up. On omeprazole 20 mg once a day (4) Iron deficiency anemia: Code(s): D50.9 - Iron deficiency anemia, unspecified Category: Medical Qualifiers: Iron deficiency anemia type: unspecified iron deficiency Qualified Code(s): D50.9 - Iron deficiency anemia, unspecified Plan: Patient just had a hysterectomy. Will continue to follow-up blood count (5) Obesity (BMI 35.0-39.9 without comorbidity): Code(s): E66.9 - Obesity, unspecified Category: Medical Plan: Continue with diet and exercise (6) Hypertension: Code(s): I10 - Essential (primary) hypertension Category: Medical Plan History of Present Illness The patient is a 49-year-old female presenting with concerns regarding blood pressure management following a recent surgical procedure. She experienced elevated blood pressure readings during hospitalization for her hysterectomy, managed acutely with medication in the hospital. Since discharge, her home blood pressure readings have varied between normal and elevated, with more frequent elevations noted during stress or pain episodes. The patient has a significant family history of early-onset hypertension, contributing to her concern. Currently, there is a mixture of mild anxiety about her blood pressure management. Chronic conditions such as obesity, bilateral knee osteoarthritis, and GERD are present, with medication management for GERD in place. The patient has reported symptoms consistent with chronic anemia with regular iron administration facilitated through an infusion center. Her recent diagnostic tests have illustrated normal blood counts and liver functions; however, a slight elevation in blood glucose was observed. Cardiological evaluations through echocardiogram indicated mild changes in heart structure, without significant valvular abnormalities. The patient has recently undergone a total abdominal hysterectomy and bilateral salpingectomy; the surgical recovery is complicated by some bruising and additional wound closure needed for an opening. Health Maintenance - Bone density is up to date. - Mammogram is up to date. - Colonoscopy was last performed in 2019. - Recent echocardiogram showing EF of 59% with mild increased ventricular wall thickness. - Recent blood work showed normal counts and electrolytes, with elevated blood sugar. Social History - Smoker. - Reports being obese. - Discusses family history of hypertension; all family members on antihypertensives in their 30s. Review of Systems - Cardiovascular: Reports fluctuations in blood pressure, mixture of normal and elevated readings. - Gastrointestinal: Reports moderate gastroesophageal reflux disease. - Musculoskeletal: Reports bilateral knee pain due to osteoarthritis. - Hematologic: Reports chronic anemia with iron infusions. Physical Exam - Cardiovascular- Physical finding not noted. - Vitals- Blood pressure fluctuating, specific readings not noted. - General- Bruising at surgical site. Results - Echocardiogram (July 2024): EF of 59%, mild increased left ventricular wall thickness, no valvular problem. - Recent blood work (September 06): Normal blood counts, normal electrolytes, elevated blood sugar. - Upper GI series: Moderate gastroesophageal reflux disease, no hiatal hernia. Plan I will begin the patient on a low-dose hydrochlorothiazide regimen to address her post-operative hypertension, explaining its benefits and responsibilities regarding stress management and lifestyle changes, such as sodium intake reduction. She received guidance on home blood pressure monitoring, avoiding timing during stress or pain when readings might be unreliable. She must be aware of how specific medications and dietary components, for instance, decongestants and sodium, might exacerbate hypertension. Existing treatment for chronic anemia through iron infusions and GERD management with omeprazole will persist as previously arranged. Scheduled reevaluation in three months aims to monitor and, if required, adjust her hypertensive therapy. Patient was informed and verbally consented to the use of an ambient scribe for clinic note documentation during this visit. Discussion Notes We discussed initiating treatment with a low-dose diuretic, hydrochlorothiazide, to assist in managing her post-operative blood pressure elevations. I explained how elevated readings after surgery are common and emphasized that many factors, including stress, influence variability in home measurements. The patient understands the benefits of lifestyle management, that is, limiting sodium intake, and avoiding medications contributing to elevated blood pressure. We talked about the necessity of regular blood pressure monitoring and continuing iron infusions for chronic anemia. Guidelines for when to contact the clinic for hypertensive readings were given, ensuring she knew the thresholds requiring attention. We will reassess treatment in three months during a follow-up appointment, monitoring the effectiveness and tolerability of the current plan. Patient Instructions - Take hydrochlorothiazide as prescribed, maintain hydration. - Monitor blood pressure regularly and note readings. - Avoid decongestants containing pseudoephedrine; they can raise blood pressure. - Limit sodium in your diet and keep stress levels low. - Continue GERD management with omeprazole daily. - Follow up in about three months to assess blood pressure management. - Call the clinic if you experience frequent high blood pressure readings consistently over a period of more than a few days. - Continue current iron infusions as scheduled. - Remain vigilant about post-operative wound care, observing for changes. Medications: New hydrochlorothiazide 12.5 mg PO DAILY 30 tabs 3RF I10 - Essential (primary) hypertension
[2024-09-17 11:39] VITALS: BP 136/90; PULSE 87; TEMP 36.2; O2SAT 96; BMI 39.5
== END 2024-09-17 12:03 | disposition home or self-care (01) ==
LOC: HO.HMCH 11:16
PROVIDERS: PCP Internal Medicine; Visit Provider Internal Medicine
DX: K21.9 Gastro-esophageal reflux disease without esophagitis (principal); D50.9 Iron deficiency anemia, unspecified; Z68.39 Body mass index [BMI] 39.0-39.9, adult; E66.9 Obesity, unspecified; Z90.710 Acquired absence of both cervix and uterus; Z90.79 Acquired absence of other genital organ(s); I10 Essential (primary) hypertension

== ENCOUNTER → 2024-09-17 11:15 | Outpatient (BNVA) | payer OTHER, SELFPAY | PROVIDERS: PCP Internal Medicine; Visit Provider Internal Medicine | DX: I10 Essential (primary) hypertension (principal); K21.9 Gastro-esophageal reflux disease without esophagitis; D50.9 Iron deficiency anemia, unspecified; E66.9 Obesity, unspecified; Z68.39 Body mass index [BMI] 39.0-39.9, adult; Z79.899 Other long term (current) drug therapy; Z90.710 Acquired absence of both cervix and uterus; Z90.79 Acquired absence of other genital organ(s) | CPT/HCPCS: 99212 ==

== ENCOUNTER 2024-10-01 12:51 | Outpatient (AMB) | payer OTHER, SELFPAY ==
--- OUTSIDE RECORDS SUMMARY | 2024-10-01 12:54 | XMS_ITS | Clinical Summary ---
Author Organization [address] [facility] Address [address] [place] [address] Phone Care Team Providers Care Force Adjustment Supervisor Name Role Phone Jennifer Aguiar MD Primary Care Provider [phone] Allergies Active Allergy Reactions Criticality Noted Date [...] Maintenance Insurance MEDICAID - [place] Care Teams Force Adjustment Supervisor Relationship Specialty Start Date End Date Jennifer Aguiar MD [address] [place] [address] [address] [facility] [place] [id number] PCP - General 11/17/23
--- NOTE | 2024-10-01 13:03 | MHC.OFFVIS ---
Vital Signs 10/01/24 13:05 Height 5 ft 3 in Weight 213 lb 13.574 oz BMI 37.9 BP 124/80 Blood Pressure Location Lt brachial Position Sitting Pulse 90 Pulse Source Pulse Oximeter Intake Visit Reasons: f/u after testing Radiation Control Technician Required: No Allergies Penicillins [PENICILLINS] Allergy (Severe, Verified 10/01/24 13:08) ANAPHYLAXIS amitriptyline [AMITRIPTYLINE] Allergy (Intermediate, Verified 10/01/24 13:08) HIVES banana Allergy (Intermediate, Verified 10/01/24 13:08) Hives kiwi [KIWI] Allergy (Intermediate, Verified 10/01/24 13:08) HIVES pineapple Allergy (Intermediate, Verified 10/01/24 13:08) Hives clams Allergy (Unknown, Verified 10/01/24 13:08) Unknown gluten Allergy (Unknown, Verified 10/01/24 13:08) Unknown MEAT Allergy (Severe, Uncoded 10/01/24 13:08) HIVES,ANAPHYLAXIS dairy Adverse Reaction (Intermediate, Uncoded 10/01/24 13:08) pt states allery to all Dairy Products Medication List - Last Reconciled 10/01/24 by ELIZABETH HugginsC [basil holy EZRA PO] calcium-magnesium 750-465 mg 2 tabs PO DAILY cholecalciferol (vitamin D3) 50 mcg PO DAILY cyanocobalamin-cobamamide 5,000-100 mcg (B12) 1 mindy sublingual DAILY epinephrine (EpiPen) 0.3 mg (0.3 mL) IM Q4H PRN [chasity PO] hydrochlorothiazide 12.5 mg PO DAILY multivitamin 1 tab PO DAILY [mushroom PO] omeprazole 20 mg PO DAILY paroxetine HCl (Paxil) 20 mg PO DAILY [turmeric PO] HPI HPI f/u after testing: Details: Sveta is a 49-year-old female presenting with heart palpitations. She has no prior cardiac history but does have anxiety, a history of smoking, and iron deficiency anemia. A 30-day cardiac monitoring showed sinus rhythm with rare arrhythmic episodes, including rare PACs and brief runs of NSVT. The echocardiogram indicated normal ejection fraction and mild left ventricular hypertrophy, which was reviewed with her. She underwent a total hysterectomy 2 weeks ago and hopes that this will correct her issues with anemia. Mother is present. [facility] Medical History Hot flashes Left foot pain Left ankle pain Iron deficiency anemia Neuropathy Left upper quadrant abdominal pain Lumbar radiculopathy Sacroiliac dysfunction Lumbar facet arthropathy Smoker Multiple allergies Encounter for annual routine gynecological examination Internal derangement of left knee Effusion, left knee Encounter for IUD removal Hair loss Amezcua cyst Right knee pain Pain in left knee Chronic knee pain Anxiety and depression IUD check up Body mass index [BMI] 38.0-38.9, adult Left knee pain Physical exam (~03/2021) Polyarthralgia Fatigue Low back pain Menometrorrhagia Swelling, lymph nodes Encounter for general adult medical examination with abnormal findings Common cold Ear anomaly Generalized abdominal pain Osteopenia Soft tissue injury of left knee Left knee sprain Low vitamin D level Celiac disease Family history of thyroid disease Hx of head injury Hx of migraines Surgical History H/O knee surgery History of left knee surgery H/O esophagogastroduodenoscopy Hx of colonoscopy Previous section Hx of foot surgery Hx of shoulder surgery Hx of cholecystectomy Family History Father Diabetes Hypercholesterolemia Chronic kidney disease Hypertension Colon polyp Mother Hypercholesterolemia Hypertension Colon cancer Maternal Grandmother History of breast cancer Paternal Grandfather CAD (coronary artery disease) Other No family history of cancer Social History Household Members: Family Household Members Other:: children and parents Housing: House Are you a primary career specialist to a significant other at home: No Do you presently have visiting nurse or other home services: No Alcohol intake: current Alcohol intake frequency: holidays/special occasions only Comment: once a month 1-2 glasses Patient Tobacco Use Status: Current everyday Tobacco user Tobacco use type: Cigarette Cigarette Packs Per Day: 0.5 Cigarettes Per Day: 10.0 Years Smoked: 21. 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 Sexual orientation: Straight/Heterosexual Gender identity: Female Cognitive needs: No Hearing needs: No Vision needs: Yes Female Reproductive History Menstrual Age of Menarche: 13 Review of Systems Const All systems reviewed & are unremarkable except as noted in HPI and below ENT Denies dizziness Card Details: heart palpitations Denies chest pain, Denies chest pain at rest, Denies chest pain with activity, Denies rapid heart rate, Denies pedal edema, Denies edema, Denies leg edema, Denies lightheadedness, Denies palpitations, Denies dyspnea, Denies dyspnea on exertion and Denies orthopnea Resp Denies cough, Denies dyspnea and Denies dyspnea on exertion GI Denies hematochezia and Denies change in stool character Musc Reports abnormal gait (just had abdominal surgery, using cane), Denies limited range of motion, Denies muscle cramps, Denies muscle weakness, Denies numbness, Denies radiating pain into limb, Denies stiffness and Denies tingling Neuro Reports abnormal gait (just had abdominal surgery, using cane), Denies dizziness, Denies numbness and Denies tingling Endo Denies palpitations Physical Exam Vital Signs: Last Vital Signs Pulse 90 10/01/24 13:05 BP 124/80 10/01/24 13:05 BMI result Body Mass Index 37.9 Const General: cooperative, healthy appearing, comfortable and no acute distress Orientation/consciousness: patient oriented x3 Neck Neck: Yes normal visual inspection and Yes no JVD Resp Effort & Inspection: normal respiratory effort Auscultation: clear to auscultation bilaterally, no crackles, no rales, no rhonchi and no wheezes Cardio Rate: regular rate Rhythm: regular rhythm Heart sounds: S1 normal heart sound present, S2 normal heart sound present, no gallops, no murmurs and no rubs Neuro General: patient oriented x3 Extrem General: Yes normal to inspection, No no pedal edema and No calf tenderness Psych Appearance: grossly normal Mental Status: mental status grossly normal Speech and movement: Normal speech and movement present Assessment & Plan Assessment & Plan (1) Palpitations: Code(s): R00.2 - Palpitations Category: Medical Plan: Cardiac evaluation for heart palpitations with prior Holter showing sinus rhythm with rare PACs. An exercise stress test showed good exercise tolerance, no angina and no ischemic changes. Her echocardiogram showed normal EF and mild LVH. For ongoing symptoms she underwent a 30 day cardiac event monitor that was recently completed showing sinus rhythm with average heart rate 73, SVE and ve burden each less than 1%, short runs of wide complex rhythm suggestive of monomorphic NSVT up to 6 beats. Her symptoms correlated with sinus rhythm, SVE and NSVT. Reviewed this with her in detail. She does have issues with iron deficiency anemia which can contribute to palpitations. She is hopeful that her recent hysterectomy will help to resolve the anemia issue. Reviewed the need for good hydration, activity as tolerated, avoidance of caffeinated beverages. Cardiology follow-up 3-4 months, sooner if needed. If she continues to report concerning palpitations then low-dose beta-marck will be considered. (2) PAC (premature atrial contraction): Code(s): I49.1 - Atrial premature depolarization Category: Medical Plan: As above (3) PVC (premature ventricular contraction): Code(s): I49.3 - Ventricular premature depolarization Category: Medical Plan: As above (4) Hypertension: Code(s): I10 - Essential (primary) hypertension Category: Medical Plan: Blood pressure goal less than 130/80, well controlled at this time. No med changes made. (5) Iron deficiency anemia: Code(s): D50.9 - Iron deficiency anemia, unspecified Category: Medical Qualifiers: Iron deficiency anemia type: unspecified iron deficiency Qualified Code(s): D50.9 - Iron deficiency anemia, unspecified Plan: Chronic finding with history of blood transfusion. Most recent labs done 09/06/2024 with hematocrit 40.1. She tells me this was post transfusion. (6) History of hysterectomy including cervix: Comment: Sep 10 2024 Code(s): Z90.710 - Acquired absence of both cervix and uterus Category: Surgical Plan I discussed the diagnosis of heart palpitations, particularly addressing rare incidents of NSVT, PVCs and PACs. The likely benign nature of these arrhythmias in the presence of a structurally normal heart was conveyed. Postoperative recovery from anemia-related surgery was emphasized to provide potential resolution. Options include continued monitoring versus pharmacologic intervention if symptoms persist or worsen significantly. I advised cutting back on caffeine which may exacerbate palpitations and the patient confirmed cessation post-surgery. Plans for reevaluation in three to four months were discussed, with immediate follow-up advised for symptomatic exacerbation. Patient Instructions: - Monitor for worsening palpitations, dizziness, or fainting - Eliminate caffeine to help reduce palpitations - Follow up with cardiology in three to four months - Seek immediate care if symptoms worsen or become unmanageable Patient was informed and verbally consented to the use of an ambient scribe for clinic note documentation during this visit. Visit time spent on chart review, interview, assessment, orders, documentation. Coding Level of Care Code Est Pt Level 4 (66202) Complex EM visit Add On G2211 Diagnoses Palpitations R00.2 PAC (premature atrial contraction) I49.1 PVC (premature ventricular contraction) I49.3 Hypertension I10 Iron deficiency anemia, unspecified iron deficiency anemia type D50.9 Iron deficiency anemia type: unspecified iron deficiency History of hysterectomy including cervix Z90.710 Time Spent (min) 28
[2024-10-01 13:05] VITALS: BP 124/80; PULSE 90; BMI 37.9
== END 2024-10-01 13:31 | disposition home or self-care (01) ==
LOC: HO.HCS 12:52
PROVIDERS: PCP Internal Medicine; Visit Provider Nurse Practitioner Family
DX: R00.2 Palpitations (principal); I49.1 Atrial premature depolarization; I49.3 Ventricular premature depolarization; I10 Essential (primary) hypertension; D50.9 Iron deficiency anemia, unspecified; Z90.710 Acquired absence of both cervix and uterus
CPT/HCPCS: 99214; G2211

== ENCOUNTER → 2024-10-01 12:51 | Outpatient (BNVA) | payer OTHER, SELFPAY | PROVIDERS: PCP Internal Medicine; Visit Provider Nurse Practitioner Family | DX: R00.2 Palpitations (principal); I10 Essential (primary) hypertension; I49.1 Atrial premature depolarization; I49.3 Ventricular premature depolarization; D50.9 Iron deficiency anemia, unspecified; F41.9 Anxiety disorder, unspecified; Z90.710 Acquired absence of both cervix and uterus | CPT/HCPCS: 99212 ==

== ENCOUNTER 2024-11-12 13:49 | Outpatient (REF) | payer OTHER, SELFPAY ==
--- OUTSIDE RECORDS SUMMARY | 2024-11-12 13:51 | XMS_ITS | Clinical Summary ---
Author Organization [address] [facility] Address [address] [place] [address] Phone Care Team Providers Care Terminal Clerk Name Role Phone Jennifer Aguiar MD Primary Care Provider [phone] Allergies Active Allergy Reactions Criticality Noted Date [...] Influencers of Health Screening 02/23/2024 Influenza Vaccine (#1) 2024 6, 01/07/2013, 02/22/1997 DTaP,Tdap,and Td Vaccines (8 - [...] 5 Years) and At-Risk Patients (6 to 49 Years) Aged Out No longer eligible based [...] Maintenance Insurance MEDICAID - [place] Care Teams Terminal Clerk Relationship Specialty Start Date End Date Jennifer Aguiar MD [address] [place] [address] [address] [facility] [place] [address] PCP - General 11/17/23
--- OUTSIDE RECORDS SUMMARY | 2024-11-12 13:51 | XMS_ITS | Encounter Summary ---
Author Organization [facility] Address [address] [facility] [address] [place] [phone] Phone Care Team Providers Care District Home Economics Agent Name Role Phone Jennifer Aguiar MD Primary Care Provider [phone] Encounter Details Date Type Department Care Team ([facility] st Contact Info) Description 09/10/2024 Procedure Pass OR Admitting Dept - Virtual Department [address] [place] [address] Social History Tobacco Use Types Packs/Day Years Used Date Smoking Tobacco: Every Day Cigarettes 0.5 20.5 Started: 2004 Smokeless Tobacco: Never Comments:Pt in therapy Alcohol Use Standard Drinks/Week Comments Yes 0 (1 standard drink = 0.6 oz pur e alcohol) one a month at most Education Answer Date Recorded Are you interested in more education? Not on ambrose e 06/26/2023 Are you concerned about learning? Not on file 06/26/2023 No 06/26/2023 No 06/26/2023 Digital Access Answer Date Recorded No 06/26/2023 No 06/26/2023 Reliable internet access at home? Not on file 06/26/2023 Device with a working camera? Not on file Comments No Sex and Gender Information Value Date Recorded Sex Assigned at Female 06/19/2023 1:23 PM EST Legal Sex Female 1:13 PM EST Gender Identity Female 06/19/2023 1:23 PM EST Sexual Orientation Straight 06/19/2023 1: 23 PM EST documented as of this encounter Plan of Treatment Not on file documented as of this encounter Visit Diagnoses Not on filedocumented in this encounter Care Teams District Home Economics Agent Relationship Specialty Start Date End Date Jennifer Aguiar MD [address] [place] [address] PCP - General Internal Medicine 06/19/23 documented as of this encounter Additional Source Comments The information contained in this document represents components of the legal health record. It is not the complete legal health record.[facility]
== END 2024-11-12 13:50 | disposition home or self-care (01) ==
LOC: HO.MAMMO 13:49
PROVIDERS: PCP Internal Medicine; Visit Provider Internal Medicine
DX: Z12.31 Encounter for screening mammogram for malignant neoplasm of breast (principal)
CPT/HCPCS: 77063; 77067

== ENCOUNTER → 2024-11-12 14:00 | Outpatient (BNV) | payer OTHER, SELFPAY | PROVIDERS: PCP Internal Medicine; Visit Provider Internal Medicine | DX: Z12.31 Encounter for screening mammogram for malignant neoplasm of breast (principal) | CPT/HCPCS: 77063; 77067 ==

== ENCOUNTER 2024-11-15 15:47 | Outpatient (AMB) | payer OTHER, SELFPAY ==
[2024-11-15 15:51] VITALS: BP 124/86; PULSE 76; RESP 16; TEMP 36.3; O2SAT 98; BMI 40.3
--- NOTE | 2024-11-15 15:51 | MHC.PC.OV ---
Vital Signs 11/15/24 15:51 Height 5 ft 2 in Weight 220 lb 4 oz BMI 40.3 BP 124/86 Blood Pressure Location Lt brachial Position Sitting Respiration 16 Pulse 76 Pulse Source Pulse Oximeter Temp 97.3 F Temp Source Temporal Artery Scan Pulse Oximetry (%) 98 Oxygen Delivery Method Room Air Intake Visit Reasons: PFT, menorrhagia, anemia Allergies Penicillins (PENICILLINS) Allergy (Severe, Verified 11/15/24 15:54) ANAPHYLAXIS amitriptyline (AMITRIPTYLINE) Allergy (Intermediate, Verified 11/15/24 15:54) HIVES banana Allergy (Intermediate, Verified 11/15/24 15:54) Hives kiwi (KIWI) Allergy (Intermediate, Verified 11/15/24 15:54) HIVES pineapple Allergy (Intermediate, Verified 11/15/24 15:54) Hives clams Allergy (Unknown, Verified 11/15/24 15:54) Unknown gluten Allergy (Unknown, Verified 11/15/24 15:54) Unknown MEAT Allergy (Severe, Uncoded 11/15/24 15:54) HIVES,ANAPHYLAXIS dairy Adverse Reaction (Intermediate, Uncoded 11/15/24 15:54) pt states allery to all Dairy Products Medication List - Last Reconciled 11/15/24 by Jennifer Aguiar MD [basil holy EZRA PO] calcium-magnesium 750-465 mg 2 tabs PO DAILY cholecalciferol (vitamin D3) 50 mcg PO DAILY cyanocobalamin-cobamamide 5,000-100 mcg (B12) 1 mindy sublingual DAILY epinephrine (EpiPen) 0.3 mg (0.3 mL) IM Q4H PRN [chasity PO] hydrochlorothiazide 12.5 mg PO DAILY multivitamin 1 tab PO DAILY [mushroom PO] omeprazole 20 mg PO DAILY paroxetine HCl (Paxil) 20 mg PO DAILY [turmeric PO] Tobacco use date assessed: 11/15/24 Dental Screening Dental Screen Date: 11/15/24 Did you have a dental visit in the last 12 months?: Yes Did you have a dental problem in the last 6 months where you did not have access to dental care?: No Was dental information given to patient?: Patient has dentist [facility] Medical History Hot flashes Left foot pain Left ankle pain Iron deficiency anemia Neuropathy Left upper quadrant abdominal pain Lumbar radiculopathy Sacroiliac dysfunction Lumbar facet arthropathy Smoker Multiple allergies Encounter for annual routine gynecological examination Internal derangement of left knee Effusion, left knee Encounter for IUD removal Hair loss Amezcua cyst Right knee pain Pain in left knee Chronic knee pain Anxiety and depression IUD check up Body mass index [BMI] 38.0-38.9, adult Left knee pain Physical exam (~03/2021) Polyarthralgia Fatigue Low back pain Menometrorrhagia Swelling, lymph nodes Encounter for general adult medical examination with abnormal findings Common cold Ear anomaly Generalized abdominal pain Osteopenia Soft tissue injury of left knee Left knee sprain Low vitamin D level Celiac disease Family history of thyroid disease Hx of head injury Hx of migraines Surgical History H/O knee surgery History of left knee surgery H/O esophagogastroduodenoscopy Hx of colonoscopy Previous section Hx of foot surgery Hx of shoulder surgery Hx of cholecystectomy Family History Father Diabetes Hypercholesterolemia Chronic kidney disease Hypertension Colon polyp Mother Hypercholesterolemia Hypertension Colon cancer Maternal Grandmother History of breast cancer Paternal Grandfather CAD (coronary artery disease) Other No family history of cancer Social History Household Members: Family Household Members Other:: children and parents Housing: House Are you a primary congregational care pastor to a significant other at home: No Do you presently have visiting nurse or other home services: No Alcohol intake: current Alcohol intake frequency: holidays/special occasions only Comment: once a month 1-2 glasses Patient Tobacco Use Status: Current everyday Tobacco user Tobacco use type: Cigarette Cigarette Packs Per Day: 0.5 Cigarettes Per Day: 10.0 Years Smoked: 21. 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 1. Little interest or pleasure in doing things: more than half the days 2. Feeling down, depressed, or hopeless: more than half the days 3. Trouble falling or staying asleep, or sleeping too much: more than half the days 4. Feeling tired or having little energy: more than half the days 5. Poor appetite or overeating: more than half the days 6. Feeling bad about yourself - or that you are a failure or have let yourself or your family down: more than half the days 7. Trouble concentrating on things, such as reading the newspaper or watching television: more than half the days 8. Moving or speaking so slowly that other people could have noticed. Or the opposite - being so fidgety or restless that you have been moving around a lot more than usual: more than half the days 9. Thoughts that you would be better off or of hurting yourself in some way: more than half the days Total score: 18 Source: Developed by Drs. Malik Bates, Mary Mahan, Pedrito Amaro and colleagues, with an educational tyson from [employer] Thrive Questionnaire Date Thrive assessed: 09/17/24 I am a: Patient What is your living situation today?: I have a steady place to live Within the past 12 months, did the food you bought not last and you didn't have the money to get more?: Never true Within the past 12 months, did you worry whether your food would run out before you got money to buy more?: Never true Do you have trouble paying for medicines?: No Do you have trouble getting transportation to medical appointments?: No Do you have trouble paying your heating and electricity bill?: No Do you have trouble taking care of your child, family member or friend?: No Do you have trouble with day-to-day activities such as bathing, preparing meals, shopping, managing finances, etc.?: No Are you currently unemployed and looking for a job?: No Are you interested in more education?: No Please select the resources that you would like help with: None Currently or been in a relationship where the following occur: I choose not to answer THRIVE Score: 0 AUDIT C Alcohol Use Questionnaire (AUDIT-C) 1. How often do you have a drink containing alcohol?: Monthly or less 2. How many drinks containing alcohol do you have on a typical day when you are drinking?: 1 or 2 3. How often do you have six or more drinks on one occasion?: Never Total Score: 1 STEPHEN-7 AMB Questionnaire STEPHEN-7 Date STEPHEN - 7 assessed: 08/02/24 Feeling nervous, anxious, or on edge: 2 = More than half the days Not being able to stop or control worryin = More than half the days Worrying too much about different things: 2 = More than half the days Trouble relaxin = More than half the days Being so restless that it is hard to sit still: 2 = More than half the days Becoming easily annoyed or irritable: 2 = More than half the days Feeling afraid as if something awful might happen: 2 = More than half the days Total STEPHEN-7 score (0-4 normal; 5-9 mild; 10-14 moderate; 15-21 severe): 14 Source: Developed by Drs. Malik Bates, Mary Mahan, Pedrito Amaro and colleagues, with an educational tyson from [employer] Physical exam (Primary Care) Vital Signs: Last Vital Signs Temp 97.3 F 11/15/24 15:51 Pulse 76 11/15/24 15:51 Resp 16 11/15/24 15:51 BP 124/86 11/15/24 15:51 Pulse Ox 98 11/15/24 15:51 Oxygen Delivery Method Room Air 11/15/24 15:51 BMI result Body Mass Index 40.3 Tobacco/Smoking Status: Tobacco use Status Tobacco use date assessed 11/15/24 11/15/24 15:55 Patient Tobacco Use Status Current everyday Tobacco 11/15/24 15:55 Tobacco use type Cigarette 11/15/24 15:55 e-Cigarette/Vaping Use Never Used 11/15/24 15:55 PHQ-9: PHQ-9 Score PHQ-9: Total score 18 11/15/24 15:55 Thrive Assessment: Date of Thrive Assessment Date Thrive assessed 09/17/24 11/15/24 15:55 Currently or been in a relationship where the following occur: I choose not to answer Const General: alert; No acute distress Eyes Conjunctivae: conjunctivae normal Resp Auscultation: clear to auscultation bilaterally Cardio Rate: regular rate Rhythm: regular rhythm GI Inspection: Yes normal to inspection Extrem General: Yes normal to inspection and No edema Coding Level of Care Code Est Pt Level 4 (29850) Complex EM visit Add On G2211 Diagnoses Morbid obesity E66.01 STEPHEN (generalized anxiety disorder) F41.1 Hypertension I10 Palpitations R00.2 GERD (gastroesophageal reflux disease) K21.9 Tobacco abuse Z72.0 Elevated blood sugar R73.9 Assessment & Plan Assessment & Plan (1) Morbid obesity: Code(s): E66.01 - Morbid (severe) obesity due to excess calories Category: Medical Plan: Diet and exercise (2) STEPHEN (generalized anxiety disorder): Comment: [facility] psychotherap[facility] practice Code(s): F41.1 - Generalized anxiety disorder Category: Medical Plan: Continue to follow-up with psychiatry and counseling on paroxetine (3) Hypertension: Code(s): I10 - Essential (primary) hypertension Category: Medical Plan: Continue with blood pressure medication. Decrease salt intake and exercise takes hydrochlorothiazide 12.5 mg once a day (4) Palpitations: Code(s): R00.2 - Palpitations Category: Medical Plan: Patient has met with Cardiology and has had workup revealing negative results. (5) GERD (gastroesophageal reflux disease): Comment: July 2024Moderate gastroesophageal reflux without hiatal hernia. Code(s): K21.9 - Gastro-esophageal reflux disease without esophagitis Category: Medical Plan: Avoid the foods that causes that usually spicy foods, tomato products, juices, coffee, soda and foods that your sensitive to. After eating do not lie down, allow 3-4 hours before in lie down. And keep the head of bed above 30 degrees to avoid the acid from going up. (6) Tobacco abuse: Code(s): Z72.0 - Tobacco use Category: Medical Plan: Patient is strongly advised to stop smoking (7) Elevated blood sugar: Code(s): R73.9 - Hyperglycemia, unspecified Category: Medical Plan: Advised to repeat this test to evaluate the blood sugar but will need fasting blood work Plan History of Present Illness The patient is a 49-year-old female presenting for follow-up of hypertension and management of multiple chronic conditions. She has a history of morbid obesity, which has been associated with a recent 7-pound weight gain. The patient also has celiac disease, which requires dietary management. The patient has been diagnosed with generalized anxiety disorder and is currently under psychiatric care, including counseling and medication management with paroxetine. She is a smoker with peripheral vascular disease, which necessitates lifestyle modifications, including smoking cessation. The patient has hypertension and is on hydrochlorothiazide 12.5 mg daily for blood pressure management. She was last seen in August 2024 for a follow-up visit. The patient reported palpitations and underwent a 30-day cardiac monitoring, which showed sinus rhythm with rare arrhythmia. An echocardiogram revealed a normal ejection fraction. Preventative care measures include a bone density screening conducted in October 2022 and a mammogram in October 2023, with a follow-up mammogram scheduled for October 2024. Health Maintenance - Bone density screening conducted in October 2022 - Mammogram conducted in October 2023, with follow-up scheduled for October 2024 - Advised smoking cessation to reduce cardiovascular risk Social History - Smoker with a history of peripheral vascular disease - Under psychiatric care for generalized anxiety disorder, including counseling and medication management Review of Systems - Cardiovascular: Reports palpitations, denies chest pain or syncope - Gastrointestinal: Denies abdominal pain or changes in bowel habits - Psychiatric: Reports anxiety, denies depression Physical Exam Results - Cardiac monitoring: Sinus rhythm with rare arrhythmia - Echocardiogram: Normal ejection fraction - Blood work (September 06, 2024): No anemia, no electrolyte imbalance, normal renal and liver function Plan The patient is advised to continue with her current antihypertensive regimen of hydrochlorothiazide 12.5 mg daily to manage her blood pressure. She should maintain regular follow-ups with her primary care provider to monitor her hypertension and adjust treatment as necessary. For her generalized anxiety disorder, the patient is to continue psychiatric follow-up and counseling while on paroxetine. Lifestyle modifications, including smoking cessation, are strongly recommended to improve her peripheral vascular disease and overall cardiovascular health. The patient should adhere to a gluten-free diet to manage her celiac disease effectively. Regular monitoring of her weight and dietary habits is encouraged to address her morbid obesity. Preventative care measures, including scheduled mammograms and bone density screenings, should be continued as planned to ensure early detection and management of potential health issues. Patient was informed and verbally consented to the use of an ambient scribe for clinic note documentation during this visit. Discussion Notes Patient Instructions - Continue taking hydrochlorothiazide 12.5 mg daily for blood pressure. - Follow up with your primary care provider regularly. - Continue psychiatric follow-up and counseling while on paroxetine. - Quit smoking to improve vascular health. - Maintain a gluten-free diet for celiac disease management. - Monitor your weight and dietary habits. - Keep up with scheduled mammograms and bone density screenings. Orders: Orders Complete Blood Count Auto Diff Today I10 - Essential (primary) hypertension Hemoglobin A1c Today I10 - Essential (primary) hypertension Thyroid Stimulating Hormone Today I10 - Essential (primary) hypertension Comprehensive Met. Panel Today I10 - Essential (primary) hypertension Free T4 (Free Thyroxine) Today I10 - Essential (primary) hypertension
--- OUTSIDE RECORDS SUMMARY | 2024-11-15 16:15 | XMS_ITS | Clinical Summary ---
Author Organization [address] [facility] Address [address] [place] [address] Phone Care Team Providers Care Moving Picture Producer Name Role Phone Jennifer Aguiar MD Primary Care Provider [phone] Allergies Active Allergy Reactions Criticality Noted Date [...] 02/23/2024 06/30/2001 Colorectal Cancer Screening: Colonoscopy 02/23/2024 HIV Screening 02/23/2024 Hepatitis C Screening 02/23/2024 Social Influencers of Health Screening 02/23/2024 Depression Screening 04/28/2024 Influenza Vaccine (#1) 2024 6, 01/07/2013, 02/22/1997 [...] Maintenance Insurance MEDICAID - [place] Care Teams Moving Picture Producer Relationship Specialty Start Date End Date Jennifer Aguiar MD [address] [place] [address] [address] [facility] [place] [id number] PCP - General 11/17/23
--- OUTSIDE RECORDS SUMMARY | 2024-11-15 16:15 | XMS_ITS | Encounter Summary ---
Author Organization [facility] Address [address] [facility] [address] [place] [id number] Phone Care Team Providers Care Public Relations Studies Director Name Role Phone Jennifer Aguiar MD Primary Care Provider [phone] Encounter Details Date Type Department Care Team ([facility] st Contact Info) Description 09/10/2024 Procedure Pass OR Admitting Dept - Virtual Department [address] [place] [address] Social History Tobacco Use Types Packs/Day Years Used Date Smoking Tobacco: Every Day Cigarettes 0.5 20.6 Started: 2004 Smokeless Tobacco: Never Comments:Pt in [...] on filedocumented in this encounter Care Teams Public Relations Studies Director Relationship Specialty Start Date End Date Jennifer Aguiar MD [address] [place] [address] PCP - General Internal Medicine 06/19/23 documented as of this encounter Additional Source Comments The information contained in this document represents components of the legal health record. It is not the complete legal health record.[facility]
== END 2024-11-15 16:54 | disposition home or self-care (01) ==
LOC: HO.HMCH 15:48
PROVIDERS: PCP Internal Medicine; Visit Provider Internal Medicine
DX: I10 Essential (primary) hypertension (principal); E66.01 Morbid (severe) obesity due to excess calories; Z68.41 Body mass index [BMI] 40.0-44.9, adult; F41.1 Generalized anxiety disorder; R00.2 Palpitations; K21.9 Gastro-esophageal reflux disease without esophagitis; Z72.0 Tobacco use; R73.9 Hyperglycemia, unspecified

== ENCOUNTER → 2024-11-15 15:47 | Outpatient (BNVA) | payer OTHER, SELFPAY | PROVIDERS: PCP Internal Medicine; Visit Provider Internal Medicine | DX: I10 Essential (primary) hypertension (principal); E66.01 Morbid (severe) obesity due to excess calories; F41.1 Generalized anxiety disorder; R00.2 Palpitations; K21.9 Gastro-esophageal reflux disease without esophagitis; R73.9 Hyperglycemia, unspecified; I73.9 Peripheral vascular disease, unspecified; F17.210 Nicotine dependence, cigarettes, uncomplicated; Z68.41 Body mass index [BMI] 40.0-44.9, adult | CPT/HCPCS: 99212 ==

== ENCOUNTER 2025-01-17 13:35 | Outpatient (AMB) | payer OTHER, SELFPAY ==
--- NOTE | 2025-01-17 13:49 | MHC.OFFVIS ---
Vital Signs 01/17/25 13:50 Height 5 ft 2 in Weight 235 lb 14.314 oz BMI 43.1 BP 128/80 Blood Pressure Location Lt brachial Position Sitting Pulse 76 Pulse Source Monitor Intake Visit Reasons: 3 month follow up Allergies Penicillins (PENICILLINS) Allergy (Severe, Verified 12/07/24 14:57) ANAPHYLAXIS amitriptyline (AMITRIPTYLINE) Allergy (Intermediate, Verified 12/07/24 14:57) HIVES banana Allergy (Intermediate, Verified 12/07/24 14:57) Hives kiwi (KIWI) Allergy (Intermediate, Verified 12/07/24 14:57) HIVES pineapple Allergy (Intermediate, Verified 12/07/24 14:57) Hives clams Allergy (Unknown, Verified 12/07/24 14:57) Unknown gluten Allergy (Unknown, Verified 12/07/24 14:57) Unknown MEAT Allergy (Severe, Uncoded 12/07/24 14:57) HIVES,ANAPHYLAXIS dairy Adverse Reaction (Intermediate, Uncoded 12/07/24 14:57) pt states allery to all Dairy Products Medication List - Last Reconciled 01/17/25 by Senthil Hughes MD [basil holy EZRA PO] calcium-magnesium 750-465 mg 2 tabs PO DAILY cholecalciferol (vitamin D3) 50 mcg PO DAILY cyanocobalamin-cobamamide 5,000-100 mcg (B12) 1 mindy sublingual DAILY epinephrine (EpiPen) 0.3 mg (0.3 mL) IM Q4H PRN [chasity PO] hydrochlorothiazide 12.5 mg PO DAILY multivitamin 1 tab PO DAILY [mushroom PO] omeprazole 20 mg PO DAILY paroxetine HCl (Paxil) 20 mg PO DAILY [turmeric PO] HPI Comments Details: Sveta returns for follow-up. In the past, she was seen regarding palpitations. No prior cardiac history. She gets fluttering sensation for a very short time and then generally gets better. She underwent a comprehensive workup including echocardiogram, stress test and Holter. Currently, she states she is mostly okay. Palpitations or not too bothersome. They are infrequent but still present. No other symptoms like exertional angina. [facility] Medical History Hot flashes Left foot pain Left ankle pain Iron deficiency anemia Neuropathy Left upper quadrant abdominal pain Lumbar radiculopathy Sacroiliac dysfunction Lumbar facet arthropathy Smoker Multiple allergies Encounter for annual routine gynecological examination Internal derangement of left knee Effusion, left knee Encounter for IUD removal Hair loss Amezcua cyst Right knee pain Pain in left knee Chronic knee pain Anxiety and depression IUD check up Body mass index [BMI] 38.0-38.9, adult Left knee pain Physical exam (~03/2021) Polyarthralgia Fatigue Low back pain Menometrorrhagia Swelling, lymph nodes Encounter for general adult medical examination with abnormal findings Common cold Ear anomaly Generalized abdominal pain Osteopenia Soft tissue injury of left knee Left knee sprain Low vitamin D level Celiac disease Family history of thyroid disease Hx of head injury Hx of migraines Surgical History H/O knee surgery History of left knee surgery H/O esophagogastroduodenoscopy Hx of colonoscopy Previous section Hx of foot surgery Hx of shoulder surgery Hx of cholecystectomy Family History Father Diabetes Hypercholesterolemia Chronic kidney disease Hypertension Colon polyp Mother Hypercholesterolemia Hypertension Colon cancer Maternal Grandmother History of breast cancer Paternal Grandfather CAD (coronary artery disease) Other No family history of cancer Social History Household Members: Family Household Members Other:: children and parents Housing: House Are you a primary managed care analyst to a significant other at home: No Do you presently have visiting nurse or other home services: No Alcohol intake: current Alcohol intake frequency: holidays/special occasions only Comment: once a month 1-2 glasses Patient Tobacco Use Status: Current everyday Tobacco user Tobacco use type: Cigarette Cigarette Packs Per Day: 0.5 Cigarettes Per Day: 10.0 Years Smoked: 20. 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 Sexual orientation: Straight/Heterosexual Gender identity: Female Cognitive needs: No Hearing needs: No Vision needs: Yes Female Reproductive History Menstrual Age of Menarche: 13 Review of Systems Const Denies weakness ENT Denies dizziness Card Denies chest pain, Denies chest pain with activity, Denies syncope, Denies rapid heart rate, Denies pedal edema, Denies edema, Reports irregular heart rhythm, Denies leg edema, Denies lightheadedness, Reports palpitations, Denies dyspnea, Denies dyspnea on exertion and Denies orthopnea Resp Denies cough, Denies dyspnea and Denies dyspnea on exertion GI Denies hematochezia and Denies change in stool character Musc Denies abnormal gait, Denies muscle cramps, Denies muscle weakness, Denies numbness, Denies radiating pain into limb and Denies tingling Neuro Denies abnormal gait, Denies dizziness, Denies syncope, Denies numbness, Denies tingling and Denies weakness Endo Reports palpitations Physical Exam Vital Signs: Last Vital Signs Pulse 76 01/17/25 13:50 BP 128/80 01/17/25 13:50 BMI result Body Mass Index 43.1 Const General: comfortable and no acute distress Orientation/consciousness: patient oriented x3 HEENT Other: Unremarkable Head: Yes normal to inspection Neck Neck: Yes normal visual inspection Chest Chest palpation & inspection: normal inspection of the chest Resp Auscultation: clear to auscultation bilaterally Cardio Palpation: normal PMI Heart sounds: S1 normal heart sound present, S2 normal heart sound present, no gallops, no murmurs and no rubs GI Palpation (GI): Soft to palpation Back/Spine/Pelvis Other: unremarkable Skin General skin exam: no rashes or lesions noted Neuro General: patient oriented x3 Extrem General: Yes normal to inspection Psych Mental Status: mental status grossly normal Office Procedures EKG Details: EKG with underlying sinus rhythm at 76/Min; cannot exclude old septal infarct; inferior and anterolateral T inversions-has been noted in the past. [place] [id number], Complete Assessment & Plan Assessment & Plan (1) Palpitations: Code(s): R00.2 - Palpitations Category: Medical (2) NSVT (nonsustained ventricular tachycardia): Code(s): I47.29 - Other ventricular tachycardia Category: Medical Plan Cardiac studies reviewed. Echocardiogram with LVEF of 59%. Mild left ventricular hypertrophy. No significant valvular issues. Holter monitor shows underlying sinus rhythm with an average rate of 73/Min. Rare supraventricular/ventricular ectopy. Short runs of wide complex rhythm, suspect monomorphic NSVT, up to 6 beats. Palpitations correlate with supraventricular ectopy/NSVT. In the stress test, she was able to exercise for 10.1 METS on Misha protocol and reached target heart rate and no angina or arrhythmias. No EKG evidence of ischemia. Overall, short runs of NSVT with palpitations. We discussed about this today. Uncertain etiology. As episodes or not to prolonged, we can monitor this. We discussed about beta-blockers but she also has a EpiPen listed and hence may not be able to use. We will check sleep study for any obstructive sleep apnea. Recheck Holter in about 6 months' time. Consider cardiac MRI as needed. Discussion Notes I discussed with the patient the nature of her palpitations, emphasizing that they are not dangerous but should be monitored for changes in frequency or severity. We also talked about the possibility of sleep apnea and the benefits of a home sleep study to confirm the diagnosis. Patient was informed and verbally consented to the use of an ambient scribe for clinic note documentation during this visit. Orders: Orders RT home sleep study Today G47.33 - Obstructive sleep apnea (adult) (pediatric), I49.3 - Ventricular premature depolarization ECG 7 day holter monitor 6 Months I49.3 - Ventricular premature depolarization Patient Instructions: - Monitor palpitations and note any changes in frequency or severity. - Complete the home sleep study as instructed. Coding Level of Care Code Est Pt Level 4 (11156) Complex EM visit Add On G2211 Diagnoses Palpitations R00.2 NSVT (nonsustained ventricular tachycardia) I47.29 CPT Codes EKG - CPT: 62558-[id number], Complete ([id number])
[2025-01-17 13:50] VITALS: BP 128/80; PULSE 76; BMI 43.1
== END 2025-01-17 14:14 | disposition home or self-care (01) ==
LOC: HO.HCS 13:35
PROVIDERS: PCP Internal Medicine; Visit Provider Internal Medicine
DX: R00.2 Palpitations (principal); I47.29 Other ventricular tachycardia
CPT/HCPCS: 93010; 99214

== ENCOUNTER → 2025-01-17 13:35 | Outpatient (BNVA) | payer OTHER, SELFPAY | PROVIDERS: PCP Internal Medicine; Visit Provider Internal Medicine | DX: R00.2 Palpitations (principal); G47.33 Obstructive sleep apnea (adult) (pediatric); I49.3 Ventricular premature depolarization; I47.29 Other ventricular tachycardia | CPT/HCPCS: 93005; 99212 ==

== ENCOUNTER 2025-01-20 14:18 | Outpatient (AMB) | payer OTHER, SELFPAY ==
[2025-01-20 14:26] VITALS: BP 136/80; PULSE 81; O2SAT 98; BMI 40.6
--- NOTE | 2025-01-20 14:26 | MHC.PC.OV ---
Vital Signs 01/20/25 14:26 Height 5 ft 2 in Weight 222 lb BMI 40.6 BP 136/80 Blood Pressure Location Lt brachial Position Sitting Pulse 81 Pulse Source Pulse Oximeter Pulse Oximetry (%) 98 Oxygen Delivery Method Room Air Intake Visit Reasons: Hypertension Allergies Penicillins (PENICILLINS) Allergy (Severe, Verified 01/20/25 14:27) ANAPHYLAXIS amitriptyline (AMITRIPTYLINE) Allergy (Intermediate, Verified 01/20/25 14:27) HIVES banana Allergy (Intermediate, Verified 01/20/25 14:27) Hives kiwi (KIWI) Allergy (Intermediate, Verified 01/20/25 14:27) HIVES pineapple Allergy (Intermediate, Verified 01/20/25 14:27) Hives clams Allergy (Unknown, Verified 01/20/25 14:27) Unknown gluten Allergy (Unknown, Verified 01/20/25 14:27) Unknown MEAT Allergy (Severe, Uncoded 01/20/25 14:27) HIVES,ANAPHYLAXIS dairy Adverse Reaction (Intermediate, Uncoded 01/20/25 14:27) pt states allery to all Dairy Products Medication List - Last Reconciled 01/20/25 by Jennifer Aguiar MD albuterol sulfate 90 mcg/actuation (Ventolin HFA) 2 puffs inhalation Q6H PRN [basil holy EZRA PO] calcium-magnesium 750-465 mg 2 tabs PO DAILY cholecalciferol (vitamin D3) 50 mcg PO DAILY cyanocobalamin-cobamamide 5,000-100 mcg (B12) 1 mindy sublingual DAILY epinephrine (EpiPen) 0.3 mg (0.3 mL) IM Q4H PRN [chasity PO] hydrochlorothiazide 12.5 mg PO DAILY multivitamin 1 tab PO DAILY [mushroom PO] omeprazole 20 mg PO DAILY paroxetine HCl (Paxil) 20 mg PO DAILY [turmeric PO] Tobacco use date assessed: 11/15/24 Dental Screening Dental Screen Date: 11/15/24 [facility] Medical History Hot flashes Left foot pain Left ankle pain Iron deficiency anemia Neuropathy Left upper quadrant abdominal pain Lumbar radiculopathy Sacroiliac dysfunction Lumbar facet arthropathy Smoker Multiple allergies Encounter for annual routine gynecological examination Internal derangement of left knee Effusion, left knee Encounter for IUD removal Hair loss Amezcua cyst Right knee pain Pain in left knee Chronic knee pain Anxiety and depression IUD check up Body mass index [BMI] 38.0-38.9, adult Left knee pain Physical exam (~03/2021) Polyarthralgia Fatigue Low back pain Menometrorrhagia Swelling, lymph nodes Encounter for general adult medical examination with abnormal findings Common cold Ear anomaly Generalized abdominal pain Osteopenia Soft tissue injury of left knee Left knee sprain Low vitamin D level Celiac disease Family history of thyroid disease Hx of head injury Hx of migraines Surgical History H/O knee surgery History of left knee surgery H/O esophagogastroduodenoscopy Hx of colonoscopy Previous section Hx of foot surgery Hx of shoulder surgery Hx of cholecystectomy Family History Father Diabetes Hypercholesterolemia Chronic kidney disease Hypertension Colon polyp Mother Hypercholesterolemia Hypertension Colon cancer Maternal Grandmother History of breast cancer Paternal Grandfather CAD (coronary artery disease) Other No family history of cancer Social History Household Members: Family Household Members Other:: children and parents Housing: House Are you a primary pet care associate to a significant other at home: No Do you presently have visiting nurse or other home services: No Alcohol intake: current Alcohol intake frequency: holidays/special occasions only Comment: once a month 1-2 glasses Patient Tobacco Use Status: Current everyday Tobacco user Tobacco use type: Cigarette Cigarette Packs Per Day: 0.5 Cigarettes Per Day: 12 Years Smoked: 20. 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 Sexual orientation: Straight/Heterosexual Gender identity: Female Cognitive needs: No Hearing needs: No Vision needs: Yes Female Reproductive History Menstrual Age of Menarche: 13 Questionnaire Thrive Questionnaire Date Thrive assessed: 09/17/24 I am a: Patient What is your living situation today?: I have a steady place to live Within the past 12 months, did the food you bought not last and you didn't have the money to get more?: Never true Within the past 12 months, did you worry whether your food would run out before you got money to buy more?: Never true Do you have trouble paying for medicines?: No Do you have trouble getting transportation to medical appointments?: No Do you have trouble paying your heating and electricity bill?: No Do you have trouble taking care of your child, family member or friend?: No Do you have trouble with day-to-day activities such as bathing, preparing meals, shopping, managing finances, etc.?: No Are you currently unemployed and looking for a job?: No Are you interested in more education?: No Please select the resources that you would like help with: None Currently or been in a relationship where the following occur: I choose not to answer THRIVE Score: 0 STEPHEN-7 AMB Questionnaire STEPHEN-7 Date STEPHEN - 7 assessed: 08/02/24 Source: Developed by Drs. Malik Bates, Mary Mahan, Pedrito Amaro and colleagues, with an educational tyson from [email or web address]. Physical exam (Primary Care) Vital Signs: Last Vital Signs Pulse 81 01/20/25 14:26 BP 136/80 01/20/25 14:26 Pulse Ox 98 01/20/25 14:26 Oxygen Delivery Method Room Air 01/20/25 14:26 BMI result Body Mass Index 40.6 Tobacco/Smoking Status: Tobacco use Status Tobacco use date assessed 11/15/24 01/20/25 14:31 Patient Tobacco Use Status Current everyday Tobacco 01/20/25 14:31 Tobacco use type Cigarette 01/20/25 14:31 e-Cigarette/Vaping Use Never Used 01/20/25 14:31 Thrive Assessment: Date of Thrive Assessment Date Thrive assessed 09/17/24 01/20/25 14:31 Currently or been in a relationship where the following occur: I choose not to answer Const General: alert; No acute distress Eyes Conjunctivae: conjunctivae normal Resp Auscultation: clear to auscultation bilaterally Cardio Rate: regular rate Rhythm: regular rhythm GI Inspection: Yes normal to inspection Extrem General: Yes normal to inspection and No edema Coding Level of Care Code Est Pt Level 4 (85107) Complex EM visit Add On G2211 Diagnoses Tobacco abuse Z72.0 Iron deficiency anemia due to chronic blood loss D50.0 GERD (gastroesophageal reflux disease) K21.9 Morbid obesity E66.01 Elevated blood sugar R73.9 NSVT (nonsustained ventricular tachycardia) I47.29 Hypertension I10 STEPHEN (generalized anxiety disorder) F41.1 Assessment & Plan Assessment & Plan (1) Tobacco abuse: Comment: Need pneumonia shot! Code(s): Z72.0 - Tobacco use Category: Medical Plan: Patient is strongly advised to stop smoking! Discussed with the patient on needing pneumonia shot. Forgot this appointment. Will do on the next appointment (2) Iron deficiency anemia due to chronic blood loss: Comment: Currently H&H have normalized, patient on Iron replacement. Code(s): D50.0 - Iron deficiency anemia secondary to blood loss (chronic) Category: Medical Plan: This has normalized. Patient also has had a TAHBSO (3) GERD (gastroesophageal reflux disease): Comment: July 2024Moderate gastroesophageal reflux without hiatal hernia. Code(s): K21.9 - Gastro-esophageal reflux disease without esophagitis Category: Medical Plan: Avoid the foods that causes that usually spicy foods, tomato products, juices, coffee, soda and foods that your sensitive to. After eating do not lie down, allow 3-4 hours before in lie down. And keep the head of bed above 30 degrees to avoid the acid from going up. (4) Morbid obesity: Code(s): E66.01 - Morbid (severe) obesity due to excess calories Category: Medical Plan: Diet and exercise (5) Elevated blood sugar: Code(s): R73.9 - Hyperglycemia, unspecified Category: Medical Plan: Will continue to monitor blood sugars (6) NSVT (nonsustained ventricular tachycardia): Code(s): I47.29 - Other ventricular tachycardia Category: Medical Plan: Patient has seen Cardiology and options given of getting beta marck but because of the patient's EpiPen it was held off. (7) Hypertension: Code(s): I10 - Essential (primary) hypertension Category: Medical Plan: Continue with blood pressure medication. Decrease salt intake and exercise on hydrochlorothiazide 12.5 mg once a day (8) STEPHEN (generalized anxiety disorder): Comment: [place] [facility] practice Code(s): F41.1 - Generalized anxiety disorder Category: Medical Plan: Continue with counseling and therapy Plan History of Present Illness The patient is a 49-year-old female presenting for a follow-up visit. The patient has a history of morbid obesity and celiac disease, requiring a gluten-free diet. She suffers from generalized anxiety disorder and PTSD, managed with paroxetine and weekly therapy sessions. Her iron deficiency anemia has resolved, with recent blood work showing normal counts. The patient is a smoker, contributing to her peripheral vascular disease and hypertension. She has been advised to quit smoking. She experiences palpitations, with cardiology evaluations revealing left ventricular hypertrophy and NSVT. A stress test showed no arrhythmias, and further studies were advised. The patient reports complex pain syndrome, impacting her weight management. Health Maintenance - Pneumonia vaccination recommended due to smoking status - Regular therapy sessions for mental health management - Advised to quit smoking to improve overall health Social History - Tobacco use: Smoker, advised to quit - Mental health: Attends weekly therapy sessions Review of Systems - Cardiovascular: Reports palpitations, denies chest pain - Respiratory: Reports wheezing, denies cough - Musculoskeletal: Reports pain near the belly button and ribs Physical Exam - Musculoskeletal: Pain noted near the belly button and ribs, likely due to coughing Results - Echocardiogram: EF 59%, left ventricular hypertrophy, no valvular issues - Holter monitor: Sinus rhythm 73, NSVT noted - Blood work (December 07): Normal blood count, no anemia, normal electrolytes, renal function, and liver function - Cholesterol test (May 2024): 127 mg/dL Plan Patient was informed and verbally consented to the use of an ambient scribe for clinic note documentation during this visit. 1. Morbid Obesity The patient is advised to maintain a healthy diet and engage in regular physical activity to manage her weight. 2. Celiac Disease The patient should continue adhering to a strict gluten-free diet to manage her celiac disease. 3. Generalized Anxiety Disorder The patient is on paroxetine and attends weekly therapy sessions to manage her anxiety disorder. 4. Iron Deficiency Anemia The patient's anemia has resolved, with recent blood work showing normal counts. Continued monitoring is advised. 5. Post-Traumatic Stress Disorder (Ptsd) The patient continues with therapy and medication management for PTSD. 6. Tobacco Use Disorder The patient is advised to quit smoking to improve her overall health and reduce the risk of complications. 7. Peripheral Vascular Disease The patient is advised to quit smoking and manage her hypertension to reduce the risk of peripheral vascular disease progression. 8. Hypertension The patient is on hydrochlorothiazide 12.5 mg once daily to manage her hypertension. 9. Palpitations The patient is advised to undergo a sleep study and consider a cardiac MRI for further evaluation of her palpitations. 10. Preventative Care: Pneumonia Vaccination The patient is recommended to receive a pneumonia vaccination due to her smoking status. Discussion Notes During the visit, I discussed with the patient the importance of managing her weight through diet and exercise, adhering to a gluten-free diet for her celiac disease, and continuing her current therapy and medication for anxiety and PTSD. We reviewed her recent blood work, which showed no anemia, and emphasized the need to quit smoking to improve her vascular health. I advised her to undergo a sleep study and consider a cardiac MRI to further evaluate her palpitations. Additionally, I recommended a pneumonia vaccination due to her smoking status. Patient Instructions - Maintain a healthy diet and engage in regular physical activity. - Continue adhering to a gluten-free diet. - Attend weekly therapy sessions and continue taking paroxetine as prescribed. - Quit smoking to improve overall health. - Schedule and complete a sleep study and consider a cardiac MRI. - Receive a pneumonia vaccination. Medications: New albuterol sulfate 90 mcg/actuation (Ventolin HFA) 2 puffs inhalation Q6H PRN 8.5 grams 0RF shortness of breath or wheezing R06.02 - Shortness of breath
--- OUTSIDE RECORDS SUMMARY | 2025-01-20 18:41 | XMS_ITS | Encounter Summary ---
Author Organization [facility] Address [address] [place] [phone] Phone Care Team Providers Care Vp Software Name Role Phone Jennifer Aguiar MD Primary Care Provider Encounter Details Date Type Department Care Team ([facility] st Contact Info) Description 09/10/2024 Procedure Pass OR Admitting Dept - Virtual Department [address] [place] [address] Social History Tobacco Use Types Packs/Day Years Used Date Smoking Tobacco: Every Day Cigarettes 0.5 20.7 Started: 2004 Smokeless Tobacco: Never Comments:Pt in [...] on filedocumented in this encounter Care Teams Vp Software Relationship Specialty Start Date End Date Jennifer Aguiar MD [address] [place] [address] PCP - General Internal Medicine 06/19/23 documented as of this encounter Additional Source Comments The information contained in this document represents components of the legal health record. It is not the complete legal health record.[facility]
--- OUTSIDE RECORDS SUMMARY | 2025-01-20 18:41 | XMS_ITS | Clinical Summary ---
Author Organization [facility] Address [address] [facility] [address] [place] [address] Phone Care Team Providers Care Cornetist Name Role Phone Jennifer Aguiar MD Primary Care Provider [phone] Allergies Active Allergy Reactions Criticality Noted Date Comments Amitriptyline Anaphylaxis High 04/30/2017 Banana Itching 07/14/2024 Beef Containing Products Itching,Rash Low 07/14/2024 Clams Anaphylaxis High 07/14/2024 Kiwi (Actinidia Chinensis) Anaphylaxis High 04/30/2017 Milk Containing Products (Dairy) 07/14/2024 Penicillins Anaphylaxis High 04/30/2017 Other Reaction(s): Rash/Dermatitis Pineapple 07/14/2024 Wheat Diarrhea,Shortness O f Breath High 07/14/2024 Medications escitalopram oxalate (LEXAPRO) 20 MG tablet Take 20 mg by mouth daily. Active PARoxetine (PAXIL) 20 MG tablet Take 1 tablet by mouth every morning. Active Medication-Free Text Iron infusions Activ e therapeutic multivitamin tablet Take 1 tablet by mouth daily. Active cyanocobalamin, vitamin B-12, 100 MCG tablet Take 100 mcg by mouth daily. Active Ca cit-D3-mag#11-zi go-klgp-lxd-bor (CALTRATE 600+D) 600 mg calcium- 800 unit-50 mg Tab Take 1 tablet by mouth daily. Active omega-3 fatty acids-fish oil 340-1,000 mg Cap Take by mouth daily. Active TURMERIC ORAL Take by mouth. A ctive scopolamine (TRANSDERM-SCOP) 1 mg over 3 daysIndications: PONV (postoperative nausea and vomiting) Place 1 patch onto the skin every third day as needed (nausea). 4 patch 5 Active acetaminophen (TYLENOL) 325 mg tablet Take 2 tablets (650 mg total) by mouth every 6 (six) hours as needed for pain (specific location in comments) or headache. 5 Active ibuprofen (ADVIL,MOTRIN) 200 MG tablet Take 3 tablets (600 mg total) by mouth every 6 (six) hours as needed for pain (specific location in comments). 5 Active oxyCODONE 5 MG immediate release tablet Take 1 tablet (5 mg total) by mouth every 4 (four) hours as needed for pain (specific location in comments). Pt. may request partial fill 20 tablet 5 Active docusate sodium (COLACE) 100 MG capsule Take 1 capsule (100 mg total) by mouth 2 (two) times a day. While taking narcotics and until regular BM pattern is establsihed 5 Active hydroCHLOROthiaz florence 12.5 MG tablet Take 1 tablet by mouth every morning. 5 Active omeprazole (PRILOSEC) 20 MG capsule 5 Active Active Problems Problem Noted Date Diagnosed Date Menorrhagia with regular cycle 07/14/2024 Overview (09/14/2024): Has bled down to Hgb of 6. Needs regular iron infusions. Normal endometrial biopsy. US with fibroids and adenomyosis. Plan is for [facility] with BS--performed 09/10/2024 Anxiety and depression 02/27/2024 Iron deficiency anemia 02/27/2024 Overview (07/14/2024): Treated with iron infusion due to menorrhagia Family History Medical History Relation Comments Diabetes type II Father High cholesterol Father Hypertension Father POSTMENOPAUSAL BREAST CANCER Maternal Grandmothe r Relation Status Comments Father Maternal Grandmother Social History Tobacco Use Types Packs/Day Years Used Date Smoking Tobacco: Every Day Cigarettes 0.5 20.7 Started: 2004 Smokeless Tobacco: Never Tobacco Cessation:Ready to Q uit: No; Counseling Given: Yes Comments:Pt in therapy Alcohol Use Standard Drinks/Week [...] Orientation Straight 06/19/2023 1: 23 PM EST Last Filed Vital Signs Vital Sign Reading Time Taken Comments Blood Pressure 124/70 09/28/2024 11:51 AM EDT Pulse 82 09/10/2024 3:30 PM EDT Temperature 36.9 C (98.4 F) 09/10/2024 4:22 PM EDT Respiratory Rate 16 09/10/2024 4:22 PM EDT Oxygen Saturation 96% 09/10/2024 4:22 PM EDT Inhaled Oxygen Concentration - - Weight 90.7 kg (200 lb) 09/10/2024 8:50 AM EDT Height 157.5 cm (5' 2 ) 09/28/2024 11:51 AM EDT Body Mass Index 36.58 09/10/2024 8:50 AM EDT Plan of Treatment Health Maintenance Due Date Last Done Comments POTASSIUM LEVEL 1976 DEPRESSION SCREENING 1988 HEPATITIS C SCREENING 1994 HIV ONE-TIME SCREENING (18-6 5 YEARS) 1994 PNEUMOCOCCAL VACCINES (0-49 years) (1 of 2 - PCV) 09/17/1995 PAP SMEAR 1997 LIPID PANEL 06/30/2006 06/30/2001 SCREENING FOR DIABETES 09/17/2011 MAMMOGRAM 2016 COLOGUARD 2021 COLONOSCOPY 2021 COLORECTAL CANCER SCREENING 2021 FIT TEST 2021 FOBT 2021 SIGMOIDOSCOPY 2021 VIRTUAL COLONOSCOPY 2021 INFLUENZA VACCINE (#1) 2024 6, 01/07/2013, 02/22/1997 COVID-19 VACCINE (2024-2 6 season) 2024 09/22/2020, 09/01/2020 SMOKING Hx and SMOKELESS TOBACCO SCREENING 09/10/2025 09/10/2024 Adult Td,Tdap Booster 10/09/2032 10/09/2022 , 12/29/1997 HEPATITIS A VACCINES Aged Out No long er eligible based on patient's age to complete this topic HIB VACCINES Aged Out No longer eligi ble based on patient's age to complete this topic MENINGOCOCCAL VACCINES (ACWY) Aged Out No longer eligible based on patient's age to complete this topic MENINGOCOCCAL VACCINES (B) Aged Out N o longer eligible based on patient's age to complete this topic Medical Devices Not on file Insurance [facility] NON NSPG PCP [employer] [facility] NON NSPG PCP [employer] NON NSPG PCP S[employer] NON NSPG PCP [employer] NON NSPG PCP [employer] [facility] NON NSPG PCP [facility] Advance Directives For more information, please contact: [phone] (9AM - 5PM Janelle/[facility], Friday-Friday) Documents on File Type Date Recorded Patient Lsw Expl anation Healthcare Proxy 09/13/2024 11:42 AM * Full Code (Latest Code Status on File) Date Activated Date Inactivated Comments 09/10/2024 8:44 AM Question Answer Comments Code Status Confirmed With: Patient Care Teams Cornetist Relationship Specialty Start Date End Date Jennifer Aguiar MD [address] [place] [id number] PCP - General Internal Medicine 06/19/23 Additional Source Comments The information contained in this document represents components of the legal health record. It is not the complete legal health record.[facility]
== END 2025-01-20 15:03 | disposition home or self-care (01) ==
LOC: HO.HMCH 14:19
PROVIDERS: PCP Internal Medicine; Visit Provider Internal Medicine
DX: I47.29 Other ventricular tachycardia (principal); Z72.0 Tobacco use; Z68.41 Body mass index [BMI] 40.0-44.9, adult; E66.01 Morbid (severe) obesity due to excess calories; D50.0 Iron deficiency anemia secondary to blood loss (chronic); K21.9 Gastro-esophageal reflux disease without esophagitis; R73.9 Hyperglycemia, unspecified; I10 Essential (primary) hypertension; F41.1 Generalized anxiety disorder

== ENCOUNTER → 2025-01-20 14:18 | Outpatient (BNVA) | payer OTHER, SELFPAY | PROVIDERS: PCP Internal Medicine; Visit Provider Internal Medicine | DX: K21.9 Gastro-esophageal reflux disease without esophagitis (principal); D50.0 Iron deficiency anemia secondary to blood loss (chronic); E66.01 Morbid (severe) obesity due to excess calories; R73.9 Hyperglycemia, unspecified; I47.29 Other ventricular tachycardia; I10 Essential (primary) hypertension; F41.1 Generalized anxiety disorder; F43.10 Post-traumatic stress disorder, unspecified; R00.2 Palpitations; Z72.0 Tobacco use | CPT/HCPCS: 99212 ==

== ENCOUNTER 2025-02-11 09:29 | Outpatient (AMB) | payer OTHER, SELFPAY ==
--- OUTSIDE RECORDS SUMMARY | 2025-02-11 10:37 | XMS_ITS | Clinical Summary ---
Author Organization [facility] Address [address] [facility] [address] [place] [address] Phone Care Team Providers Care Package Drier Name Role Phone Jennifer Aguiar MD Primary Care Provider [phone] Allergies Active Allergy Reactions Criticality Noted Date [...] mcg by mouth daily. Active Ca cit-D3-mag#11-zi ef-rnda-xji-bor (CALTRATE 600+D) 600 mg calcium- 800 unit-50 [...] with fibroids and adenomyosis. Plan is for [facility] with BS--performed 09/10/2024 Anxiety and depression 02/27/2024 Iron deficiency anemia 02/27/2024 Overview (07/14/2024): Treated with iron infusion due to menorrhagia Encounters Date Type Department Care Team Description 01/26/2025 Telephone [facility] [address] [place] [address] Patricio Robertson MD from Last 3 Months Family History Medical History Relation Comments Diabetes type II Father High cholesterol Father Hypertension Father POSTMENOPAUSAL BREAST CANCER Maternal Grandmothe r Relation Status Comments Father Maternal Grandmother Social History Tobacco Use Types Packs/Day Years Used Date Smoking Tobacco: Every Day Cigarettes 0.5 20.8 Started: 2004 Smokeless Tobacco: Never Tobacco Cessation:Ready [...] (#1) 2024 6, 01/07/2013, 02/22/1997 COVID-19 VACCINE (2 6 season) 2024 09/22/2020, 09/01/2020 SMOKING Hx [...] topic Medical Devices Not on file Insurance [facility] NON NSPG PCP [employer] [place] [address] [facility] NON NSPG PCP [place] [employer] [employer] NON NSPG PCP [employer] NON NSPG PCP S[employer] NON NSPG PCP [facility] [employer] [facility] P[facility] Advance Directives For more information, please contact: [phone] (9AM - 5PM [facility], Friday-Friday) Documents on File Type Date Recorded Patient Recoil Spring Winder Expl anation Healthcare Proxy 09/13/2024 11:42 AM * Full Code (Latest Code Status on File) Date Activated Date Inactivated Comments 09/10/2024 8:44 AM Question Answer Comments Code Status Confirmed With: Patient Care Teams Package Drier Relationship Specialty Start Date End Date Jennifer Aguiar MD [address] [place] [address] PCP - General Internal Medicine 06/19/23 Additional Source Comments The information contained in this document represents components of the legal health record. It is not the complete legal health record.[facility]
--- OUTSIDE RECORDS SUMMARY | 2025-02-11 10:37 | XMS_ITS | Encounter Summary ---
Author Organization [facility] Address [address] [facility] [address] [place] [address] Phone Care Team Providers Care Glass Furnace Tender Name Role Phone Jennifer Aguiar MD Primary Care Provider [phone] Encounter Details Date Type Department Care Team ([facility] st Contact Info) Description 09/10/2024 Procedure Pass OR Admitting Dept - Virtual Department [address] [place] [address] Social History Tobacco Use Types Packs/Day Years Used Date Smoking Tobacco: Every Day Cigarettes 0.5 20.8 Started: 2004 Smokeless Tobacco: Never Comments:Pt in [...] on filedocumented in this encounter Care Teams Glass Furnace Tender Relationship Specialty Start Date End Date Jennifer Aguiar MD [address] [place] [address] PCP - General Internal Medicine 06/19/23 documented as of this encounter Additional Source Comments The information contained in this document represents components of the legal health record. It is not the complete legal health record.[facility]
--- OUTSIDE RECORDS SUMMARY | 2025-02-11 10:37 | XMS_ITS | Clinical Summary ---
Author Organization [address] [facility] Address [address] [place] [address] Phone Care Team Providers Care Spot Remover Name Role Phone Jennifer Aguiar MD Primary Care Provider [phone] Allergies Active Allergy Reactions Criticality Noted Date [...] deficiency anemia 02/27/2024 Near syncope 02/27/2024 Immunizations Immunization Administration Dates Next Due DTP 08/18/1981, 8,02/27/1977,1976,1976 [...] Last Done Comments Breast Cancer Screening 1976 Colorectal Cancer Screening: Colonoscopy 1976 Hepatitis B Vaccines (1 of 3 - 19+ 3-dose series) 09/17/1995 Cervical Cancer Screening: Pap Smear 1997 Cholesterol Screening (Lipid Panel) 02/23/2024 06/30/2001 HIV Screening 02/23/2024 Hepatitis C Screening 02/23/2024 Social Influencers of Health Screening 02/23/2024 Depression Screening 04/28/2024 COVID-19 Vaccine (2024- season) 2024 09/22/2020, 09/01/2020 Influenza Vaccine (#1) 2024 6, 01/07/2013, 02/22/1997 DTaP,Tdap,and Td Vaccines (8 - Td or Tdap) 10/09/2032 10/09/2022, 12/29/1997, 08/18/1981, Additional history exists RSV Immunization Adult Patients (1 - 1-dose 75+ series) 09/17/2051 IPV Vaccines Completed 08/18/1981, 02/27, 03/29/1977, Additional [...] to Health Maintenance Insurance [place]ICA[place] - [place] [facility] [place] [id number] Care Teams Spot Remover Relationship Specialty Start Date End Date Jennifer Aguiar MD [address] [place] [address] [address] [facility] [place] [address] PCP - General 11/17/23
--- NOTE | 2025-02-11 12:06 | A.OFFVIS_ITS ---
VS Expanded 02/11/25 12:15 Height 5 ft 2 in Weight 219 lb 4 oz BMI 40.1 Body Fat % 46.1 Body Fat Mass 101.2 Fat Free Mass 118.2 Visceral Fat Rating 13 Body Water % 38.4 Body Water Mass 84.2 Basal Metabolic Rate/Score 1,667 Intake Visit Reasons: TV MUSIC ADAPTER SWL vs MWL BMI 40.2 Allergies Penicillins (PENICILLINS) Allergy (Severe, Verified 02/11/25 12:06) ANAPHYLAXIS amitriptyline (AMITRIPTYLINE) Allergy (Intermediate, Verified 02/11/25 12:06) HIVES banana Allergy (Intermediate, Verified 02/11/25 12:06) Hives kiwi (KIWI) Allergy (Intermediate, Verified 02/11/25 12:06) HIVES pineapple Allergy (Intermediate, Verified 02/11/25 12:06) Hives clams Allergy (Unknown, Verified 02/11/25 12:06) Unknown gluten Allergy (Unknown, Verified 02/11/25 12:06) Unknown MEAT Allergy (Severe, Uncoded 02/11/25 12:06) HIVES,ANAPHYLAXIS dairy Adverse Reaction (Intermediate, Uncoded 02/11/25 12:06) pt states allery to all Dairy Products Medication List - Last Reconciled 02/11/25 by Raoul Isaac MD albuterol sulfate 90 mcg/actuation (Ventolin HFA) 2 puffs inhalation Q6H PRN epinephrine (EpiPen) 0.3 mg (0.3 mL) IM Q4H PRN hydrochlorothiazide 12.5 mg PO DAILY omeprazole 20 mg PO DAILY paroxetine HCl (Paxil) 20 mg PO DAILY HPI HPI TV MUSIC ADAPTER SWL vs MWL BMI 40.2: Details: Start time: 12pm, End time: 12.53pm ?I spent 48 minutes speaking with the patient on the phone plus an additional 5 minutes reviewing and updating records for a total of 53 minutes HPI Comments Details: Previous weight loss efforts: WW, exercise Wakes up: 7am, Sleeps: 11pm Breakfast: skips Lunch: 12-2pm (salad) Dinner: 7pm (rice, chicken, fish, vegetable) Snacks: nuts or RX Gluten free, dairy free protein bar), chips or popcorn after dinner) Exercise: none Beverages: Coffee (3-4 8oz cups with Stevia and creamer), Tea: Hot tea (1 cup/d plain), Soda: none, Juice: Crystal light, ETOH: 1/month [facility] Medical History (Updated 02/11/25 @ 12:10 by Raoul Isaac MD) Anxiety Depression Asthma Hot flashes Left foot pain Left ankle pain Iron deficiency anemia Neuropathy Left upper quadrant abdominal pain Lumbar radiculopathy Sacroiliac dysfunction Lumbar facet arthropathy Smoker Multiple allergies Encounter for annual routine gynecological examination Internal derangement of left knee Effusion, left knee Encounter for IUD removal Hair loss Amezcua cyst Right knee pain Pain in left knee Chronic knee pain Anxiety and depression IUD check up Body mass index [BMI] 38.0-38.9, adult Left knee pain Physical exam (~03/2021) Polyarthralgia Fatigue Low back pain Menometrorrhagia Swelling, lymph nodes Encounter for general adult medical examination with abnormal findings Common cold Ear anomaly Generalized abdominal pain Osteopenia Soft tissue injury of left knee Left knee sprain Low vitamin D level Celiac disease Family history of thyroid disease Hx of head injury Hx of migraines Surgical History (Updated 12/07/24 @ 15:02 by Brayan Vuong MD) H/O knee surgery History of left knee surgery H/O esophagogastroduodenoscopy Hx of colonoscopy Previous section Hx of foot surgery Hx of shoulder surgery Hx of cholecystectomy Family History (Updated 01/25/25 @ 10:49 by Amy Shen CMA) Father Diabetes Hypercholesterolemia Chronic kidney disease Hypertension Colon polyp Mother Hypercholesterolemia Hypertension Colon cancer Maternal Grandmother History of breast cancer Paternal Grandfather CAD (coronary artery disease) Brother Graves disease Hypertension High cholesterol Other No family history of cancer Social History (Updated 01/25/25 @ 10:48 by Amy Shen CMA) Household Members: Family Household Members Other:: children and parents Housing: House Are you a primary care transitions nurse to a significant other at home: No Do you presently have visiting nurse or other home services: No Alcohol intake: current Alcohol intake frequency: holidays/special occasions only Comment: once a month 1-2 glasses Patient Tobacco Use Status: Current everyday Tobacco user Tobacco use type: Cigarette Cigarette Packs Per Day: 0.5 Cigarettes Per Day: 15 Years Smoked: 21. 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 Sexual orientation: Straight/Heterosexual Gender identity: Female Cognitive needs: No Hearing needs: No Vision needs: Yes Female Reproductive History Menstrual Age of Menarche: 13 Telehealth Telehealth Telehealth Platform: Telephone Location of provider rendering services: practice address Location of patient: address on file Patient Identification confirmed using: Name, : Yes Telehealth method: voice only Patient verbally consented to treatment: Yes Patient verbally consented to billing insurance company: Yes Patient informed of any privacy concerns related to visit: Yes Minutes spent on Phone/Video with Pt.: 53 Assessment & Plan Assessment & Plan (1) Morbid obesity: Code(s): E66.01 - Morbid (severe) obesity due to excess calories Category: Medical Plan: 1. The patient has a history of cardiac palpitations and she is getting a cardiac work-up at present time. Therefore use of Phentermine is contraindicated. I ordered a medication to help you with the weight loss which is called Zepbound. My office will try to authorize it. Please let me know when you receive it so I can give you a meal and exercise plan. Common side effects include nausea, vomiting, constipation, diarrhea, abdominal pain. Please let me know if you develop any of these symptoms. 2. Nutritional counseling. Start with one ORGAIN protein (buy at [employer]) shake (ONE scoop in 8oz low fat unsweetened oat milk) at 8am-10am, 1 Rx protein bar at 11am-1pm, another ORGAIN protein shake (ONE scoop in 8oz low fat oat milk each) at 2pm-4pm, dinner at 5pm (8 forks of protein and 8 forks of salad/vegetables) AND another Rx protein bar after dinner at 7pm-9pm. If needed, another HALF Rx protein bar at 10pm-11pm. So you do 2 protein shakes, 2 to 2.5 protein bars and one meal per day. Meal to include lean meat (beef, fish, pork, turkey, chicken), or pitcairn islander yogurt, or egg whites, or beans with a salad with olive oil and fruits (berries, pears, apples, kiwi). Avoid salt, breads, potatoes, rice, pasta, desserts. 3. Each shake would be drunk slowly, like coffee in a period of 2 hours. 4. Cut each bar in 4 pieces and eat each piece in 30min ?to make each bar last 2 hours. 5. I emphasized the importance of measuring accurately the food portion and measure it when serving the food in plate 6. The meal portions include 8 full-size forks of meat and 8 full-size forks of salad. You always eat the meat portion but you can replace up to 4 forks for salad/vegetables with rice, potatoes or pasta, or a fruit ?if you like. The less you do it the better weight loss will be. 7. One full-size fork is what it can be scooped on the fork without falling aside and not what can be bit with the fork. Use regular forks like those you find in a typical restaurant. 8.? Please buy the body composition scale we discussed and send me weight measurements as soon as possible and then once a week. Always include your diet and exercise plan. 9. Start treadmill with an incline of 2.0 and speed of 3.0. Increase incline by 1 every 3 min to a max incline of 8.0, stay 3min at 8.0 and then return to 2.0 and repeat same steps until calorie goal is met. Goal is to burn 2000 calories per week on exercise, which means either 300 calories daily, or 400 calories 5 days per week, or 500 calories 4 days per week, or 650 calories 3 days per week. 10. Alternatively start stationary bike at a resistance level of 0.0 Increase level by 1.0 every 3 min to a max level of 6.0. Stay at this level for 3 min and then return to level 0.0 and repeat same steps until 300 calories are burned. Goal is to burn 2000 calories per week on exercise 11. The best choice would be to purchase a stationary bike at home that can track calories. 12. Goal is to lose at least 1.5-2lbs per week 13. Goal to lose at least 10% of your weight, which is about 19 lbs. Minimum weight goal: 200lbs
[2025-02-11 12:15] VITALS: BMI 40.1
== END 2025-02-11 12:54 | disposition home or self-care (01) ==
LOC: HO.HBS 09:29
PROVIDERS: PCP Internal Medicine; Visit Provider Surgery
DX: E66.01 Morbid (severe) obesity due to excess calories (principal)
CPT/HCPCS: 99204

== ENCOUNTER 2025-02-28 17:13 | Outpatient (AMB) | payer OTHER, SELFPAY ==
[2025-02-28 17:18] VITALS: BP 134/72; PULSE 68; O2SAT 98; BMI 40.6
--- NOTE | 2025-02-28 17:18 | A.OFFPC_ITS ---
Vital Signs 02/28/25 17:18 Height 5 ft 2 in Weight 222 lb 2 oz BMI 40.6 BP 134/72 Blood Pressure Location Lt brachial Position Sitting Pulse 68 Pulse Source Pulse Oximeter Pulse Oximetry (%) 98 Oxygen Delivery Method Room Air Intake Visit Reasons: annual exam Allergies Penicillins (PENICILLINS) Allergy (Severe, Verified 02/28/25 17:18) ANAPHYLAXIS amitriptyline (AMITRIPTYLINE) Allergy (Intermediate, Verified 02/28/25 17:18) HIVES banana Allergy (Intermediate, Verified 02/28/25 17:18) Hives kiwi (KIWI) Allergy (Intermediate, Verified 02/28/25 17:18) HIVES pineapple Allergy (Intermediate, Verified 02/28/25 17:18) Hives clams Allergy (Unknown, Verified 02/28/25 17:18) Unknown gluten Allergy (Unknown, Verified 02/28/25 17:18) Unknown MEAT Allergy (Severe, Uncoded 02/28/25 17:18) HIVES,ANAPHYLAXIS dairy Adverse Reaction (Intermediate, Uncoded 02/28/25 17:18) pt states allery to all Dairy Products Medication List - Last Reconciled 02/28/25 by Jennifer Aguiar MD albuterol sulfate 90 mcg/actuation (Ventolin HFA) 2 puffs inhalation Q6H PRN epinephrine (EpiPen) 0.3 mg (0.3 mL) IM Q4H PRN hydrochlorothiazide 12.5 mg PO DAILY omeprazole 20 mg PO DAILY paroxetine HCl (Paxil) 20 mg PO DAILY Tobacco use date assessed: 11/15/24 Dental Screening Dental Screen Date: 11/15/24 HPI annual exam HPI Details nausea PFSH Medical History (Updated 02/28/25 @ 17:36 by Jennifer Aguiar MD) Weight gain Obesity (BMI 35.0-39.9 without comorbidity) Elevated blood sugar Depression Asthma Hot flashes Left foot pain Left ankle pain Iron deficiency anemia Neuropathy Left upper quadrant abdominal pain Lumbar radiculopathy Sacroiliac dysfunction Lumbar facet arthropathy Smoker Multiple allergies Encounter for annual routine gynecological examination Internal derangement of left knee Effusion, left knee Encounter for IUD removal Hair loss Amezcua cyst Right knee pain Pain in left knee Chronic knee pain Anxiety and depression IUD check up Body mass index [BMI] 38.0-38.9, adult Left knee pain Physical exam (~03/2021) Polyarthralgia Fatigue Low back pain Menometrorrhagia Swelling, lymph nodes Encounter for general adult medical examination with abnormal findings Common cold Ear anomaly Generalized abdominal pain Osteopenia Soft tissue injury of left knee Left knee sprain Low vitamin D level Celiac disease Family history of thyroid disease Hx of head injury Hx of migraines Surgical History (Updated 12/07/24 @ 15:02 by Brayan Vuong MD) H/O knee surgery History of left knee surgery H/O esophagogastroduodenoscopy Hx of colonoscopy Previous section Hx of foot surgery Hx of shoulder surgery Hx of cholecystectomy Family History (Updated 02/28/25 @ 17:37 by Jennifer Aguiar MD) Father Diabetes Hypercholesterolemia Chronic kidney disease Hypertension Colon polyp Mother Hypercholesterolemia Hypertension Colon cancer Family history of aortic aneurysm Maternal Grandmother History of breast cancer Paternal Grandfather CAD (coronary artery disease) Brother Graves disease Hypertension High cholesterol Other No family history of cancer Social History (Updated 02/28/25 @ 17:38 by Jennifer Aguiar MD) Household Members: Family Household Members Other:: children and parents Housing: House Are you a primary child caregiver private home to a significant other at home: No Do you presently have visiting nurse or other home services: No Alcohol intake: current Alcohol intake frequency: holidays/special occasions only Comment: once a month 1-2 glasses Patient Tobacco Use Status: Current everyday Tobacco user Tobacco use type: Cigarette Cigarette Packs Per Day: 0.5 Cigarettes Per Day: 10 Years Smoked: 21. 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 1. Little interest or pleasure in doing things: more than half the days 2. Feeling down, depressed, or hopeless: more than half the days 3. Trouble falling or staying asleep, or sleeping too much: more than half the days 4. Feeling tired or having little energy: more than half the days 5. Poor appetite or overeating: more than half the days 6. Feeling bad about yourself - or that you are a failure or have let yourself or your family down: more than half the days 7. Trouble concentrating on things, such as reading the newspaper or watching television: more than half the days 8. Moving or speaking so slowly that other people could have noticed. Or the opposite - being so fidgety or restless that you have been moving around a lot more than usual: more than half the days 9. Thoughts that you would be better off or of hurting yourself in some way: more than half the days Total score: 18 Depression Screening Interpretation: Positive Depression Screening Done: Yes Source: Developed by Drs. Malik Bates, Mary Mahan, Pedrito Amaro and colleagues, with an educational tyson from [email or web address]. Thrive Questionnaire Date Thrive assessed: 09/17/24 I am a: Patient What is your living situation today?: I have a steady place to live Within the past 12 months, did the food you bought not last and you didn't have the money to get more?: Never true Within the past 12 months, did you worry whether your food would run out before you got money to buy more?: Never true Do you have trouble paying for medicines?: No Do you have trouble getting transportation to medical appointments?: No Do you have trouble paying your heating and electricity bill?: No Do you have trouble taking care of your child, family member or friend?: No Do you have trouble with day-to-day activities such as bathing, preparing meals, shopping, managing finances, etc.?: No Are you currently unemployed and looking for a job?: No Are you interested in more education?: No Please select the resources that you would like help with: None Currently or been in a relationship where the following occur: I choose not to answer THRIVE Score: 0 AUDIT C Alcohol Use Questionnaire (AUDIT-C) 1. How often do you have a drink containing alcohol?: Monthly or less 2. How many drinks containing alcohol do you have on a typical day when you are drinking?: 1 or 2 3. How often do you have six or more drinks on one occasion?: Never Total Score: 1 STEPHEN-7 AMB Questionnaire STEPHEN-7 Date STEPHEN - 7 assessed: 02/28/25 Feeling nervous, anxious, or on edge: 0 = Not at all Not being able to stop or control worryin = Not at all Worrying too much about different things: 0 = Not at all Trouble relaxin = Not at all Being so restless that it is hard to sit still: 0 = Not at all Becoming easily annoyed or irritable: 0 = Not at all Feeling afraid as if something awful might happen: 0 = Not at all Total STEPHEN-7 score (0-4 normal; 5-9 mild; 10-14 moderate; 15-21 severe): 0 Source: Developed by Drs. Malik Bates, Mary Mahan, Pedrito Amaro and colleagues, with an educational tyson from [email or web address]. Review of Systems Const Denies poor appetite and Denies weakness Eyes Denies no additional complaints ENT Reports Normal hearing present, Denies dizziness, Denies nasal congestion, Denies tinnitus and Denies sore throat Card Denies chest pain, Denies syncope, Denies rapid heart rate and Denies dyspnea Resp Denies cough and Denies dyspnea GI Denies change in stool character, Reports constipation, Denies diarrhea, Denies nausea and Denies vomiting Denies urinary frequency, Denies difficulty voiding and Denies dysuria Neuro Reports Normal hearing present, Denies confusion, Denies dizziness, Denies syncope and Denies weakness Psych Denies confusion Physical exam (Primary Care) Vital Signs: Last Vital Signs Pulse 68 02/28/25 17:18 BP 134/72 02/28/25 17:18 Pulse Ox 98 02/28/25 17:18 Oxygen Delivery Method Room Air 02/28/25 17:18 BMI result Body Mass Index 40.6 Tobacco/Smoking Status: Tobacco use Status Tobacco use date assessed 11/15/24 02/28/25 17:22 Patient Tobacco Use Status Current everyday Tobacco 02/28/25 17:38 Tobacco use type Cigarette 02/28/25 17:38 e-Cigarette/Vaping Use Never Used 02/28/25 17:38 PHQ-9: PHQ-9 Score PHQ-9: Total score 18 02/28/25 17:31 Depression Screening Interpretation: Positive Thrive Assessment: Date of Thrive Assessment Date Thrive assessed 09/17/24 02/28/25 17:22 Currently or been in a relationship where the following occur: I choose not to answer Const General: No confusion Orientation/consciousness: No confusion HENMT Head: Yes normocephalic Ears: external ears normal and TM's normal bilaterally Face and sinus: Yes normal facial exam Mouth: moist mucous membranes Throat: Yes tonsils normal Eyes Conjunctivae: conjunctivae normal Pupils: Equal, round and reactive pupils present and Pupil accommodation reflex normal Direct Ophthalmoscopy: normal light reflex Neck Neck: No lymphadenopathy Thyroid: Thyroid normal Chest Chest palpation & inspection: normal inspection of the chest Resp Effort & Inspection: normal respiratory effort and no audible wheezes Auscultation: clear to auscultation bilaterally, no crackles, no wheezes and lung sounds not diminished Cardio Rate: regular rate Rhythm: regular rhythm Peripheral pulses: radial pulses present and dorsalis pedis present GI Palpation (GI): no masses Auscultation: normal bowel sounds and normoactive bowel sounds Rectal Exam - Female: deferred Skin General skin exam: no rashes or lesions noted Rashes: no rashes Neuro General: No confusion Cranial nerves: Yes Equal, round and reactive pupils present and Yes Normal hearing present Cognition (Neuro): normal cognition Gait exam (Neuro): Normal gait present Motor exam (neuro): 5/5 motor strength present throughout Deep tendon reflexes (DTR's): Right brachioradialis reflex intensity grade: 2+, Left brachioradialis reflex intensity grade: 2+, Right patellar reflex intensity grade: 2+ and Left patellar reflex intensity grade: 2+ Extrem General: No edema Immunizations pneumoc 20-elias conj-dip cr(PF) 0.5 mL IM syringe Performing Provider: Jennifer Aguiar MD [facility] Administered by: Sarah Penaloza CMA on 02/28/25 17:53 Dose Route Admin Location Dispensed Lot Number Expiration Date [facility] Tracer Lathe Set Up Operator 0.5 mL IM Left Deltoid 0.5 mL [id number] 12/27/25 [email or web address] Total Dispensed Waste 0.5 mL 0 % VIS Given Date VIS Provided VIS Publication Date 02/28/25 Single Vaccine 24 Eligibility Eligibility Date Funding Source Not [facility] Eligible 02/28/25 Private Coding Level of Care Code Est Pt Prev Care 40-64y(18250) Diagnoses Annual physical exam Z00.00 Tobacco abuse Z72.0 Asthma J45.909 STEPHEN (generalized anxiety disorder) F41.1 Hypertension I10 Morbid obesity E66.01 GERD (gastroesophageal reflux disease) K21.9 Family history of colon cancer Z80.0 Assessment & Plan Assessment & Plan (1) Annual physical exam: Code(s): Z00.00 - Encounter for general adult medical examination without abnormal findings Category: Medical Plan: Patient is advised to eat healthy, keep well hydrated, keep active and have adequate sleep. (2) Tobacco abuse: Comment: Need pneumonia shot! Code(s): Z72.0 - Tobacco use Category: Medical Plan: Patient is strongly advised to stop smoking (3) Asthma: Code(s): J45.909 - Unspecified asthma, uncomplicated Category: Medical Plan: Patient is strongly advised to stop smoking. On albuterol inhaler as needed (4) STEPHEN (generalized anxiety disorder): Comment: [place] psychotherapist practice Code(s): F41.1 - Generalized anxiety disorder Category: Medical Plan: Continue with counseling and therapy on paroxetine (5) Hypertension: Code(s): I10 - Essential (primary) hypertension Category: Medical Plan: Continue with blood pressure medication. Decrease salt intake and exercise on hydrochlorothiazide 12.5 mg once a day (6) Morbid obesity: Code(s): E66.01 - Morbid (severe) obesity due to excess calories Category: Medical Plan: Patient with weight management, (7) GERD (gastroesophageal reflux disease): Comment: July 2024Moderate gastroesophageal reflux without hiatal hernia. Code(s): K21.9 - Gastro-esophageal reflux disease without esophagitis Category: Medical Plan: Avoid the foods that causes that usually spicy foods, tomato products, juices, coffee, soda and foods that your sensitive to. After eating do not lie down, allow 3-4 hours before in lie down. And keep the head of bed above 30 degrees to avoid the acid from going up. (8) Family history of colon cancer: Code(s): Z80.0 - Family history of malignant neoplasm of digestive organs Category: Medical Plan History of Present Illness The patient is a 49-year-old obese female presenting for a physical exam. Her medical history includes celiac disease, generalized anxiety disorder, lumbar spondylosis, peripheral vascular disease, hypertension, and asthma. She has osteopenia, diagnosed from a bone density scan in October 2022, and reports that insurance is not covering her bone-strengthening shot. Her last physical exam was in December, and her last colonoscopy was in 2019. A mammogram in October was normal. Blood work from November showed a normal blood count without anemia, normal electrolytes, renal function, blood sugar, and liver function. Her last cholesterol check in May revealed an LDL of 127, and a thyroid test from the same month was normal. The patient's mother has a history of colon cancer and a small aortic aneurysm, while her father has a history of polyps. Her paternal grandfather had heart problems. She is a smoker at about half a pack a day and drinks alcohol about once a month. The patient reports having had a hysterectomy, but her ovaries were preserved. She is experiencing perimenopausal symptoms, including hot flashes, and has gained 20 pounds since August without changes to her diet or activity. She reports morning nausea, which she attributes to protein shakes prescribed by a weight store management trainee. She also notes occasional dysphagia, which has been previously evaluated, and stable palpitations without associated dizziness. Health Maintenance - Last seen in December for a physical exam. - Colonoscopy: Last performed in 2019; a referral for a repeat procedure will be made due to family history. - Mammogram: Completed in October and was normal. - Bone Density: Last scan was in October 2022, showing osteopenia. - Vaccinations: Tetanus is up to date; she will receive the pneumonia vaccine today. - Labs: Last blood work in November showed normal CBC, electrolytes, renal function, and blood sugar. - Smoking cessation: Strongly advised to stop smoking. - Weight management: Discussion held regarding diet, the challenges of affording GLP-1 agonists, and alternatives to bariatric surgery. - Aortic Aneurysm Screening: Not indicated at this time, but the patient was educated on the importance of blood pressure control due to risk factors. Social History - Substance Use: The patient is a current smoker, averaging about half a pack per day. - Alcohol Use: She reports drinking alcohol approximately once a month and is not a heavy drinker. - Psychosocial: She is in counseling and therapy for a history of trauma. - Diet: She is following a diet from a weight store management trainee that includes consuming protein shakes in the morning, which has been causing her nausea. - Social Support: The patient mentions her . Review of Systems - CONSTITUTIONAL: Denies fever, reports hot flashes and a 20-pound weight gain since August. - HEENT: Reports hearing is okay, denies dizziness. - THROAT: Reports occasional issues with swallowing. - CARDIOVASCULAR: Reports palpitations which are stable in frequency, denies chest pain or heaviness. - RESPIRATORY: Denies waking up short of breath. - GASTROINTESTINAL: Reports nausea every morning, denies vomiting. Bowel m ovements are fine. - GENITOURINARY: Reports polyuria, with nocturia about once per night. - NEUROLOGICAL: Denies syncope. Physical Exam General: Cooperative, healthy appearing, comfortable, no acute distress, and well developed Orientation: Patient oriented x3 Limitations: No limitations Head: Normal to inspection Ears: Hearing grossly normal bilaterally Nose: Normal external nose present Face and sinus: Normal facial exam Eyes: Appearance normal, both eyes and all related structures Neck: Normal visual inspection and Yes full ROM Respiratory: Normal respiratory effort and able to speak in complete sentences. Clear to auscultation bilaterally Cardiovascular: Regular rate and rhythm. Normal S1 and S2 GI: Normal to inspection. Soft to palpation and nontender Skin: No rashes or lesions noted Neuro: Patient oriented x3 Extremities: Normal to inspection Results - Labs (November): CBC was normal with no anemia. - Labs (November): CMP showed normal electrolytes, renal function, liver function, and blood sugar. - Labs (May): Last cholesterol panel showed an LDL of 127. - Labs (May): Last thyroid test was normal. - Procedures: Colonoscopy in 2019 was normal. - Procedures: Mammogram in October was normal. - Procedures: Bone density scan in October 2022 showed osteopenia. Plan Patient was informed and verbally consented to the use of an ambient scribe for clinic note documentation during this visit. 1. Annual Physical Exam The patient received her annual wellness plan. She will receive the pneumonia vaccination today. A referral will be made for a colonoscopy due to family history. New labs will be ordered, including a full thyroid panel with T3 and thyroid antibodies, per her request. 2. Hypertension The patient's blood pressure is well-controlled. She will continue taking hydrochlorothiazide 12.5 mg once daily. The importance of blood pressure control was emphasized, especially in the context of her family history of aortic aneurysm. 3. Asthma The patient's asthma is stable. She will continue to use her albuterol inhaler as needed. 4. Generalized Anxiety Disorder The patient is managing her anxiety with counseling, therapy, and medication. She will continue taking paroxetine. 5. Morbid Obesity Weight management was discussed, acknowledging the patient's recent weight gain and the challenges of perimenopause. Treatment options including GLP-1 agonists and bariatric surgery were reviewed, with noted patient concerns about cost, insurance coverage, and surgical intervention. 6. Tobacco Use Disorder The patient continues to smoke about half a pack of cigarettes per day. She was strongly advised to stop smoking. 7. Osteopenia The patient has a history of osteopenia and reports that insurance is currently not covering her prescribed bone-strengthening injection. Management options will be re-evaluated. Discussion Notes I discussed the physical exam findings with the patient, which were largely no rmal. We reviewed her chronic conditions, noting her hypertension is well- controlled on her current medication and her asthma is stable. We spent significant time discussing weight management, acknowledging her 20-pound weight gain and the challenges posed by her perimenopausal state. We reviewed options like GLP-1 agonists, noting the significant financial barrier due to a lack of insurance coverage. The patient expressed apprehension about bariatric surgery. I strongly advised her to quit smoking, highlighting the associated health risks. I addressed her concerns about her thyroid function by agreeing to order a more comprehensive panel including T3 and thyroid antibodies, though I explained that TSH remains the yi indicator for thyroid treatment. We discussed her mother's history of an aortic aneurysm and reinforced the importance of blood pressure control, explaining that screening for her is not yet indicated based on age guidelines for smokers. I provided a referral for a follow-up colonoscopy given her family history. We also arranged for her to receive a pneumonia vaccination during the visit. Patient Instructions - Continue taking your current medications as prescribed, including hydrochlorothiazide for blood pressure, paroxetine for anxiety, and omeprazole for reflux. - Use your albuterol inhaler as needed for asthma symptoms. - It is very important that you work on quitting smoking. - Please go for the new blood tests that were ordered, which will check your cholesterol and thyroid levels. - Our office will contact you to schedule your colonoscopy. - You will receive your pneumonia shot today before you leave. - Continue with your counseling and therapy for anxiety. - Continue your efforts with weight management and diet. Orders: Orders Thyroid Stimulating Hormone Today F41.1 - Generalized anxiety disorder Pneumococcal 20 Immunization Today Z23 - Encounter for immunization Magnesium Today K21.9 - Gastro-esophageal reflux disease without esophagitis Comprehensive Met. Panel Today K21.9 - Gastro-esophageal reflux disease without esophagitis Free T4 (Free Thyroxine) Today F41.1 - Generalized anxiety disorder Thyroid Peroxidase Antibodies Today F41.1 - Generalized anxiety disorder Triiodothyronine T3 Free Today F41.1 - Generalized anxiety disorder Complete Blood Count Auto Diff Today K21.9 - Gastro-esophageal reflux disease without esophagitis Lipid Panel Today E78.00 - Pure hypercholesterolemia, unspecified, K21.9 - G codie-esophageal reflux disease without esophagitis Referrals Gastroenterology Referral Z80.0 - Family history of malignant neoplasm of digestive organs
--- OUTSIDE RECORDS SUMMARY | 2025-02-28 17:21 | XMS_ITS | Clinical Summary ---
Author Organization [facility] Address [address] [facility] [address] [place] [id number] Phone Care Team Providers Care Universal Grinder Set Up Operator Name Role Phone Jennifer Aguiar MD Primary Care Provider [phone] Allergies Active Allergy Reactions Criticality Noted Date [...] mcg by mouth daily. Active Ca cit-D3-mag#11-zi [id number] (CALTRATE 600+D) 600 mg calcium- 800 unit-50 [...] with fibroids and adenomyosis. Plan is for [facility] with BS--performed 09/10/2024 Anxiety and depression 02/27/2024 Iron deficiency anemia 02/27/2024 Overview (07/14/2024): Treated with iron infusion due to menorrhagia Encounters Date Type Department Care Team Description 01/26/2025 Telephone [facility] [address] [place] [id number] Patricio Robertson MD from Last 3 [...] topic Medical Devices Not on file Insurance [facility] NON NSPG PCP SILVER CLARITY CONNECTORCARE [facility] NON NSPG PCP [place] CL[employer] CONNECTORCARE [employer] NON NSPG PCP SILVER CLARITY CONNECTORCARE [employer] NON NSPG PCP SILVER CLARITY CONNECTORCARE [employer] NON NSPG [facility]CP [facility] EMIGDIO ROWAN CONNECTORCARE Advance Directives For more information, please contact: [phone] (9AM - 5PM [facility], Friday-Friday) Documents on File Type Date Recorded Patient Bleacher Lard Expl anation Healthcare Proxy 09/13/2024 11:42 AM * Full Code (Latest Code Status on File) Date Activated Date Inactivated Comments 09/10/2024 8:44 AM Question Answer Comments Code Status Confirmed With: Patient Care Teams Universal Grinder Set Up Operator Relationship Specialty Start Date End Date Jennifer Aguiar MD [address] [place] [address] PCP - General Internal Medicine 06/19/23 Additional Source Comments The information contained in this document represents components of the legal health record. It is not the complete legal health record.[facility]
--- OUTSIDE RECORDS SUMMARY | 2025-02-28 17:21 | XMS_ITS | Encounter Summary ---
Author Organization [facility] Address [address] [facility] [place] [address] Phone Care Team Providers Care Chief Yeoman Name Role Phone Jennifer Aguiar MD Primary Care Provider [phone] Encounter Details Date Type Department Care Team ([facility] st Contact Info) Description 09/10/2024 Procedure Pass OR Admitting Dept - Virtual Department [address] [place] [address] Social History Tobacco Use Types Packs/Day Years [...] on filedocumented in this encounter Care Teams Chief Yeoman Relationship Specialty Start Date End Date Jennifer Aguiar MD [address] [place] [address] PCP - General Internal Medicine 06/19/23 documented as of this encounter Additional Source Comments The information contained in this document represents components of the legal health record. It is not the complete legal health record.[facility]
== END 2025-02-28 17:58 | disposition home or self-care (01) ==
LOC: HO.HMCH 17:14
PROVIDERS: PCP Internal Medicine; Visit Provider Internal Medicine
DX: Z00.00 Encounter for general adult medical examination without abnormal findings (principal); J45.909 Unspecified asthma, uncomplicated; E66.01 Morbid (severe) obesity due to excess calories; Z68.41 Body mass index [BMI] 40.0-44.9, adult; Z72.0 Tobacco use; F41.1 Generalized anxiety disorder; I10 Essential (primary) hypertension; K21.9 Gastro-esophageal reflux disease without esophagitis; Z80.0 Family history of malignant neoplasm of digestive organs; Z23 Encounter for immunization

== ENCOUNTER → 2025-02-28 17:13 | Outpatient (BNVA) | payer OTHER, SELFPAY | PROVIDERS: PCP Internal Medicine; Visit Provider Internal Medicine | DX: Z00.00 Encounter for general adult medical examination without abnormal findings (principal); F41.1 Generalized anxiety disorder; J45.909 Unspecified asthma, uncomplicated; I10 Essential (primary) hypertension; E66.01 Morbid (severe) obesity due to excess calories; K21.9 Gastro-esophageal reflux disease without esophagitis; M85.80 Other specified disorders of bone density and structure, unspecified site; F17.210 Nicotine dependence, cigarettes, uncomplicated; Z23 Encounter for immunization; Z80.0 Family history of malignant neoplasm of digestive organs; Z68.41 Body mass index [BMI] 40.0-44.9, adult | CPT/HCPCS: 90471; 90677; 99396 ==

== ENCOUNTER 2025-03-03 07:33 | Outpatient (REF) | payer OTHER, SELFPAY ==
--- NOTE | ~2025-03-03 | XR_ITS ---
EXAMINATION: XR CHEST CLINICAL INFORMATION: E66.01 - Morbid (severe) obesity due to excess calories COMPARISON: This chest x-ray April 2023 TECHNIQUE: 2 views of the chest were obtained. FINDINGS: No significant abnormality is noted involving the heart, lungs, mediastinum, bony thorax or soft tissues. Mild degenerative changes and scoliosis of the thoracic spine convex to the right with apex at T6. XR/XR chest 2V IMPRESSION: No evidence for acute disease in the chest. Electronically signed by: Bella Diaz MD 03/03/2025 08:28 AM RUBEN
--- OUTSIDE RECORDS SUMMARY | 2025-03-03 07:37 | XMS_ITS | Clinical Summary ---
Author Organization [address] [facility] Address [address] [place] [address] Phone Care Team Providers Care Aboriginal Ceremonial Celebrant Name Role Phone Jennifer Aguiar MD Primary Care Provider [phone] Allergies Active Allergy Reactions Criticality Noted Date [...] to Health Maintenance [place] [id number] Care Teams Aboriginal Ceremonial Celebrant Relationship Specialty Start Date End Date Jennifer Aguiar MD [address] [place] [address] Dr [address] [facility] [place] [address] PCP - General 11/17/23
--- OUTSIDE RECORDS SUMMARY | 2025-03-03 07:37 | XMS_ITS | Clinical Summary ---
Author Organization [facility] Address [address] [facility] [address] [place] [address] Phone Care Team Providers Care Can Capper Name Role Phone Jennifer Aguiar MD Primary Care Provider [phone] Allergies Active Allergy Reactions Criticality Noted Date [...] mcg by mouth daily. Active Ca cit-D3-mag#11-zi ut-oaom-cbo-bor (CALTRATE 600+D) 600 mg calcium- 800 unit-50 [...] with fibroids and adenomyosis. Plan is for [facility] with BS--performed 09/10/2024 Anxiety and depression 02/27/2024 Iron deficiency anemia 02/27/2024 Overview (07/14/2024): Treated with iron infusion due to menorrhagia Encounters Date Type Department Care Team Description 01/26/2025 Telephone [facility] [address] [place] [address] Patricio Robertson MD from Last 3 [...] topic Medical Devices Not on file Insurance [facility] NON NSPG PCP SILVER CLARITY CONNECTORCARE [facility] NON NSPG PCP [place] CLARITY CONNECTORCARE [employer] NON NSPG PCP SILVER CLARITY CONNECTORCARE [employer] NON NSPG PCP SILVER CLARITY CONNECTORCARE [employer] NON NSPG PCP S[place]VER CLARITY CONNECTORCARE [facility] NON NSPG PCP EMIGDIO ROWAN CONNECTORCARE Advance Directives For more information, please contact: [phone] (9AM - 5PM [facility], Friday-Friday) Documents on File Type Date Recorded 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 It is not the complete legal health record.[facility]
--- OUTSIDE RECORDS SUMMARY | 2025-03-03 07:37 | XMS_ITS | Encounter Summary ---
Author Organization [facility] Address [address] [facility] [address] [place] [address] Phone Care Team Providers Care Air Shovel Operator Name Role Phone Jennifer Aguiar MD Primary Care Provider [phone] Encounter Details Date Type Department Care Team ([facility] st Contact Info) Description 09/10/2024 Procedure Pass OR Admitting Dept - Virtual Department [address] [place] [address] Social History Tobacco Use Types Packs/Day Years [...] on filedocumented in this encounter Care Teams Air Shovel Operator Relationship Specialty Start Date End Date Jennifer Aguiar MD [address] [place] [address] PCP - General Internal Medicine 06/19/23 documented as of this encounter Additional Source Comments The information contained in this document represents components of the legal health record. It is not the complete legal health record.[facility]
[2025-03-03 07:57] LABS: MANUAL DIFF FLAG NO
--- NOTE | 2025-03-03 08:08 | ECG_ITS ---
Test Reason : obesity Blood Pressure : */* mmHG Vent. Rate : 71 BPM Atrial Rate : 71 BPM P-R Int : 170 ms QRS Dur : 80 ms QT Int : 396 ms P-R-T Axes : 38 1 201 degrees QTcB Int : 430 ms Normal sinus rhythm Septal infarct (cited on or before 23-Jan-2024) ST & T wave abnormality, consider lateral ischemia Abnormal ECG When compared with ECG of 23-Jan-2024 08:56, Nonspecific T wave abnormality now evident in Inferior leads T wave inversion now evident in Lateral leads Referred By: Raoul Isaac Electronically Signed By: Arnulfo Messer
[2025-03-03 08:20] LABS: Hematocrit 48.0 % (37.0-47.0); Hemoglobin 15.6 g/dl (12.0-16.0); Imm Gran Abs Auto 0.03 X10*3/uL (0.00-0.03); Imm Gran Pct Auto 0.5 % (0.0-0.4); Lymphocytes Absolute Auto 1.8 X10*3/uL (1.2-4.9); Mean Corpuscular HGB Conc 32.5 g/dl (31.0-35.0); Mean Corpuscular Hemoglobin 28.9 pg (27.0-33.0); Mean Corpuscular Volume 88.9 fL (80.0-98.0); NRBC Abs Auto 0.000 X10*3/uL (0.0-0.012); NRBC Pct Auto 0.0 /100WBC (0.0-0.2); Platelet Count 337 X10*3/uL (160-400); Red Blood Count 5.40 X10*6/uL (4.20-5.50); White Blood Count 5.8 X10*3/uL (4.8-10.8)
[2025-03-03 08:27] LABS: Hemoglobin A1C 152.4385 umol/L
[2025-03-03 08:53] LABS: Albumin Level 4.6 g/dL (3.5-5.0); Alkaline Phosphatase 66 U/L (39-117); Anion Gap 13 (12-20); Aspartate Amino Transferase 36 U/L (5-31); Blood Urea Nitrogen 11 mg/dL (9-16); Calcium 9.9 mg/dL (8.4-10.2); Carbon Dioxide 29 mmol/L (22-29); Chloride 103 mmol/L (96-108); Cholesterol 215 mg/dL (<200); Estimated Glomerular Filt Rate > 60; HDL Cholesterol 53 mg/dL (>40); Iron 82 mcg/dL (30-160); Magnesium 2.0 mg/dL (1.6-2.6); Percent Iron Saturation 26 % (15-50); Potassium 3.9 mmol/L (3.3-5.1); Sodium 141 mmol/L (135-145); Total Iron Binding Capacity 310 mcg/dL (228-428); Total Protein 7.8 g/dL (6.5-8.0); Triglycerides 98 mg/dL (<150); Unsaturated Iron Binding 228 ug/dL
[2025-03-03 09:01] LABS: Alanine Aminotransferase 38 U/L (0-31)
[2025-03-03 09:10] LABS: Ferritin 54 ng/mL (10-250)
[2025-03-03 09:12] LABS: Folate 11.1 ng/mL (> or = 4.0); Vitamin B12 273 pg/mL (200-900)
[2025-03-03 09:13] LABS: Free T4 (Free Thyroxine) 0.91 ng/dL (0.71-1.85); Thyroid Stimulating Hormone 1.54 uIU/mL (0.32-4.0)
== END 2025-03-03 07:34 | disposition home or self-care (01) ==
LOC: HO.XRAY 07:33
PROVIDERS: Absent Provider Internal Medicine; PCP Internal Medicine; Visit Provider Surgery
DX: Z01.84 Encounter for antibody response examination (principal); E66.01 Morbid (severe) obesity due to excess calories; K21.9 Gastro-esophageal reflux disease without esophagitis; D50.9 Iron deficiency anemia, unspecified; E78.00 Pure hypercholesterolemia, unspecified; F41.1 Generalized anxiety disorder; I10 Essential (primary) hypertension
CPT/HCPCS: 36415; 71046; 80053; 80061; 82306; 82607; 82728; 82746; 83036; 83525; 83540; 83735; 84425; 84439; 84443; 84481; 84590; 84630; 85025; 86140; 86376; 93005

== ENCOUNTER → 2025-03-03 08:08 | Outpatient (BNV) | payer OTHER, SELFPAY | PROVIDERS: Absent Provider Internal Medicine; PCP Internal Medicine; Visit Provider Internal Medicine Cardiovascular Disease | DX: I25.2 Old myocardial infarction (principal) | CPT/HCPCS: 93010 ==

== ENCOUNTER → 2025-03-03 08:14 | Outpatient (BNV) | payer OTHER, SELFPAY | PROVIDERS: Absent Provider Internal Medicine; PCP Internal Medicine; Visit Provider Radiology Diagnostic Radiology | DX: E66.01 Morbid (severe) obesity due to excess calories (principal); Z68.43 Body mass index [BMI] 50.0-59.9, adult | CPT/HCPCS: 71046 ==

== ENCOUNTER 2025-03-16 13:39 | Outpatient (AMB) | payer OTHER, SELFPAY ==
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
--- OUTSIDE RECORDS SUMMARY | 2025-03-17 01:48 | XMS_ITS | Encounter Summary ---
Author Organization [facility] Address [address] [facility] [address] [place] [address] Phone Care Team Providers Care Charge Master Coordinator Name Role Phone Jennifer Aguiar MD Primary Care Provider [phone] Encounter Details Date Type Department Care Team ([facility] st Contact Info) Description 09/10/2024 Procedure Pass OR Admitting Dept - Virtual Department [address] [place] [address] Social History Tobacco Use Types Packs/Day Years Used Date Smoking Tobacco: Every Day Cigarettes 0.5 20.9 Started: 2004 Smokeless Tobacco: Never Comments:Pt in [...] on filedocumented in this encounter Care Teams Charge Master Coordinator Relationship Specialty Start Date End Date Jennifer Aguiar MD [address] [place] [address] PCP - General Internal Medicine 06/19/23 documented as of this encounter Additional Source Comments The information contained in this document represents components of the legal health record. It is not the complete legal health record.[facility]
--- OUTSIDE RECORDS SUMMARY | 2025-03-17 01:48 | XMS_ITS | Clinical Summary ---
Author Organization [facility] Address [address] [employer] [facility] [address] [place] [id number] Phone Care Team Providers Care Wet End Helper Name Role Phone Jennifer Aguiar MD Primary Care Provider [phone] Allergies Active Allergy Reactions Criticality Noted Date [...] mcg by mouth daily. Active Ca cit-D3-mag#11-zi ba-huvy-vvn-bor (CALTRATE 600+D) 600 mg calcium- 800 unit-50 [...] with fibroids and adenomyosis. Plan is for [facility] with BS--performed 09/10/2024 Anxiety and depression 02/27/2024 Iron deficiency anemia 02/27/2024 Overview (07/14/2024): Treated with iron infusion due to menorrhagia Encounters Date Type Department Care Team Description 01/26/2025 Telephone [facility] [address] [place] [address] Patricio Robertson MD from Last 3 Months Family History Medical History Relation Comments Diabetes type II Father High cholesterol Father Hypertension Father POSTMENOPAUSAL BREAST CANCER Maternal Grandmothe r Relation Status Comments Father Maternal Grandmother Social History Tobacco Use Types Packs/Day Years Used Date Smoking Tobacco: Every Day Cigarettes 0.5 20.9 Started: 2004 Smokeless Tobacco: Never Tobacco Cessation:Ready [...] topic Medical Devices Not on file Insurance [facility] NON NSPG PCP [employer] [facility] NON NSPG PCP [place] [employer] NON NSPG PCP [employer] NON NSPG PCP S[employer] NON NSPG PCP [facility] [facility] P[facility] Advance Directives For more information, please contact: [phone] (9AM - 5PM [facility], Friday-Friday) Documents on File Type Date Recorded Patient 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 [place] [address] PCP - General Internal Medicine 06/19/23 Additional Source Comments The information contained in this document represents components of the legal health record. It is not the complete legal health record.[facility]
== END 2025-03-16 15:27 | disposition home or self-care (01) ==
LOC: HO.HBST 13:40
PROVIDERS: PCP Internal Medicine; Visit Provider Counselor Mental Health
DX: F43.10 Post-traumatic stress disorder, unspecified (principal); Z71.89 Other specified counseling
CPT/HCPCS: 90791

== ENCOUNTER → 2025-04-12 15:20 | Outpatient (REF) | payer OTHER, SELFPAY ==
--- OUTSIDE RECORDS SUMMARY | 2025-04-12 19:36 | XMS_ITS | Clinical Summary ---
Author Organization [facility] Address [address] [facility] [address] [place] [address] Phone Care Team Providers Care Oil Field Caser Name Role Phone Jennifer Aguiar MD Primary Care Provider [phone] Allergies Active Allergy Reactions Criticality Noted Date [...] mcg by mouth daily. Active Ca cit-D3-mag#11-zi qt-eumd-jdl-bor (CALTRATE 600+D) 600 mg calcium- 800 unit-50 [...] with fibroids and adenomyosis. Plan is for [facility] with BS--performed 09/10/2024 Anxiety and depression 02/27/2024 Iron deficiency anemia 02/27/2024 Overview (07/14/2024): Treated with iron infusion due to menorrhagia Encounters Date Type Department Care Team Description 01/26/2025 Telephone [facility] [address] [place] [address] Patricio Robertson MD from Last 3 Months Family History Medical History Relation Comments Diabetes type II Father High cholesterol Father Hypertension Father POSTMENOPAUSAL BREAST CANCER Maternal Grandmothe r Relation Status Comments Father Maternal Grandmother Social History Tobacco Use Types Packs/Day Years Used Date Smoking Tobacco: Every Day Cigarettes 0.5 21 Started: 2004 Smokeless Tobacco: Never Tobacco Cessation:Ready [...] (#1) 2024 6, 01/07/2013, 02/22/1997 COVID-19 VACCINE (2024-05 6 season) 2024 09/22/2020, 09/01/2020 SMOKING Hx [...] topic Medical Devices Not on file Insurance [facility] NON NSPG PCP [employer] [facility] NON NSPG PCP [employer] NON NSPG PCP S[employer] NON NSPG PCP [facility] NON NSPG PCP [employer] [facility] NON NSPG PCP [facility] Advance Directives For more information, please contact: [phone] (9AM - 5PM [facility], Friday-Friday) Documents on File Type Date Recorded 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 It is not the complete legal health record.[facility]
--- OUTSIDE RECORDS SUMMARY | 2025-04-12 19:36 | XMS_ITS | Encounter Summary ---
Author Organization [facility] Address [address] [facility] [address] [place] [address] Phone Care Team Providers Care Hospital Recruiter Name Role Phone Jnenifer Aguiar MD Primary Care Provider [phone] Encounter Details Date Type Department Care Team ([facility] st Contact Info) Description 09/10/2024 Procedure Pass OR Admitting Dept - Virtual Department [address] [place] [address] Social History Tobacco Use Types Packs/Day Years Used Date Smoking Tobacco: Every Day Cigarettes 0.5 21 Started: 2004 Smokeless Tobacco: Never Comments:Pt in [...] on filedocumented in this encounter Care Teams Hospital Recruiter Relationship Specialty Start Date End Date Jennifer Aguiar MD [address] [place] [address] PCP - General Internal Medicine 06/19/23 documented as of this encounter Additional Source Comments The information contained in this document represents components of the legal health record. It is not the complete legal health record.[facility]
--- OUTSIDE RECORDS SUMMARY | 2025-04-12 19:36 | XMS_ITS | Clinical Summary ---
Author Organization [address] [facility] Address [address] [place] [address] Phone Care Team Providers Care Neon Sign Maker Name Role Phone Jennifer Aguiar MD Primary Care Provider [phone] Allergies Active Allergy Reactions Criticality Noted Date [...] 09/17/1995 Cervical Cancer Screening: Pap Smear 1997 HIV Screening 02/23/2024 Hepatitis C Screening 02/23/2024 Social Influencers of Health Screening 02/23/2024 Depression Screening 04/28/2024 COVID-19 Vaccine ( season) 2024 09/22/2020, 09/01/2020 Influenza Vaccine (#1) [...] on patient's age to complete this topic Insurance [place] - [place] [facility] [place] [id number] Care Teams Neon Sign Maker Relationship Specialty Start Date End Date Jennifer Aguiar MD [address] [place] [address] [address] [facility] [place] [address] PCP - General 11/17/23
== END ==
LOC: HO.SL 15:20
PROVIDERS: PCP Internal Medicine; Visit Provider Internal Medicine
DX: G47.33 Obstructive sleep apnea (adult) (pediatric) (principal); I49.3 Ventricular premature depolarization
CPT/HCPCS: 95806

== ENCOUNTER → 2025-04-13 15:28 | Outpatient (BNV) | payer OTHER, SELFPAY | PROVIDERS: PCP Internal Medicine; Visit Provider Psychiatry & Neurology Neurology | DX: G47.33 Obstructive sleep apnea (adult) (pediatric) (principal) | CPT/HCPCS: 95806 ==